=== PATIENT | female | born 1940 | race Caucasian/White ===

== ENCOUNTER → 2016-11-02 | Outpatient (CLI) | payer MEDICARE, BC ==
[~2016-11-02] MED LIST: SODIUM CHLORIDE 0.9% 250 ML in EMPTY BAG 1 BAG IV PRN; SODIUM CHLORIDE 0.9% 500 ML in EMPTY BAG 1 BAG IV PRN
[2016-11-02 10:58] VITALS: TEMP 97.5
[2016-11-02 13:05] VITALS: BP 111/64; PULSE 64; RESP 16
== END ==
LOC: PROCWHC3 10:42
PROVIDERS: ATTEND Internal Medicine Rheumatology
DX: Z51.11 Encounter for antineoplastic chemotherapy (principal); M05.79 Rheumatoid arthritis with rheumatoid factor of multiple sites without organ or systems involvement; Z88.5 Allergy status to narcotic agent
CPT/HCPCS: 96413; 96415; J1745

== ENCOUNTER → 2016-11-30 | Outpatient (CLI) | payer MEDICARE, BC ==
[2016-11-30 11:12] VITALS: RESP 16; TEMP 97.6
[2016-11-30 11:49] LABS: Basophils # (A) 0.1 k/uL (0-0.2); Basophils % (A) 1 %; CH 31.2; CHCM 33.6; Eosinophils # (A) 0.2 k/uL (0-0.7); Eosinophils % (A) 4 %; HCT 45.9 % (34.0-46.0); HGB 15.3 gm/dL (11.4-16.0); Luc # (Auto) 0.17; Luc % (Auto) 3; Lymphocytes # (A) 2.5 k/uL (1.0-4.8); Lymphocytes % (A) 45 %; MCH 31.1 pg (25.0-35.0); MCHC 33.2 g/dL (31.0-37.0); MCV 93.5 fL (80.0-100.0); Mean Platelet Volume 8.1; Monocytes # (A) 0.5 k/uL (0-1.0); Monocytes % (A) 9 %; Neutrophils # (A) 2.2 k/uL (1.3-7.7); Neutrophils % (A) 38 %; RBC 4.91 m/uL (3.80-5.40); RDW 15.8 % (11.5-15.5); WBC 5.7 k/uL (3.8-10.6); WBC (Perox) 5.36
[2016-11-30 11:57] LABS: ALT 29 U/L (9-52); AST 32 U/L (14-36); Blood Urea Nitrogen 19 mg/dL (7-17); Creatine Kinase 125 U/L (30-135)
[2016-11-30 12:13] VITALS: BP 144/66; PULSE 80
[2016-11-30 14:41] LABS: Erythrocyte Sedimentation Rate 1 mm/hr (0-20)
== END | disposition home or self-care (01) ==
LOC: PROCWHC3 09:55
PROVIDERS: ATTEND Internal Medicine Rheumatology
DX: M05.79 Rheumatoid arthritis with rheumatoid factor of multiple sites without organ or systems involvement (principal)
CPT/HCPCS: 85652; 82550; 84450; 84460; 84520; 85025; 82306; 83970; 96413; 96415; 36415; J1745

== ENCOUNTER → 2017-01-02 | Outpatient (CLI) | payer MEDICARE, BC ==
[~2017-01-02] MED LIST changes: +INFLIXIMAB-DYYB 400 MG in SODIUM CHLORIDE 0.9% 250 ML IV NR; -SODIUM CHLORIDE 0.9% 250 ML in EMPTY BAG 1 BAG IV PRN
[2017-01-02 12:44] VITALS: RESP 16; TEMP 98.2
[2017-01-02 14:18] VITALS: BP 174/69; PULSE 61
== END ==
LOC: PROCWHC3 12:16
PROVIDERS: ATTEND Internal Medicine Rheumatology
DX: Z51.11 Encounter for antineoplastic chemotherapy (principal); M05.79 Rheumatoid arthritis with rheumatoid factor of multiple sites without organ or systems involvement; Z88.5 Allergy status to narcotic agent
CPT/HCPCS: 96413; 96415; Q5102

== ENCOUNTER → 2017-05-15 | Outpatient (CLI) | payer MEDICARE, BC ==
[2017-05-15 11:15] LABS: HCT 45.1 % (34.0-46.0); HGB 14.7 gm/dL (11.4-16.0); MCH 31.2 pg (25.0-35.0); MCHC 32.6 g/dL (31.0-37.0); MCV 95.6 fL (80.0-100.0); Mean Platelet Volume 7.6; Platelet Count 202 k/uL (150-450); RBC 4.71 m/uL (3.80-5.40); RDW 15.5 % (11.5-15.5); WBC 7.8 k/uL (3.8-10.6)
[2017-05-15 11:27] LABS: Anion Gap 9 mmol/L; Blood Urea Nitrogen 21 mg/dL (7-17); Carbon Dioxide 29 mmol/L (22-30); Chloride 103 mmol/L (98-107); Potassium 5.5 mmol/L (3.5-5.1); Sodium 141 mmol/L (137-145)
== END | disposition home or self-care (01) ==
LOC: LABWHC1 10:23
PROVIDERS: ATTEND Internal Medicine Interventional Cardiology
DX: Z01.812 Encounter for preprocedural laboratory examination (principal); I65.21 Occlusion and stenosis of right carotid artery
CPT/HCPCS: 36415; 80051; 82565; 84520; 85027

== ENCOUNTER 2017-05-23 07:30 | Inpatient (IN) | payer MEDICARE, BC ==
[2017-05-14 15:42] VITALS: BMI 24.5
[~2017-05-23 07:30] MED LIST changes: +ALPRAZolam 0.25 MG TAB PO PRN; +ALPRAZolam 0.5 MG TAB PO PRN; +ASPIRIN 325 MG TAB PO STA; +CLOPIDOGREL 75 MG TAB PO STA; -INFLIXIMAB-DYYB 400 MG in SODIUM CHLORIDE 0.9% 250 ML IV NR; +NITROGLYCERIN SL TABS 0.4 MG TAB SUBLINGUAL PRN; -SODIUM CHLORIDE 0.9% 500 ML in EMPTY BAG 1 BAG IV PRN
[2017-05-23] MEDS ORDERED: SODIUM CHLORIDE 0.9% 1,000 ML in EMPTY BAG 1 BAG IV ONE (08:30)
[2017-05-23] MEDS ORDERED: SODIUM CHLORIDE 0.9% 1,000 ML IV ONE (09:00)
[2017-05-23] MEDS ORDERED: LIDOCAINE 2% INJ 20 MG/ML SQ ONE ×2 (11:56→11:58)
[2017-05-23] MEDS ORDERED: HEPARIN SODIUM 1,000 UN/ML (10ML VL) IV ONE (12:08)
[2017-05-23] MEDS ORDERED: NITROGLYCERIN 1000MCG/10ML SYRINGE INTRAARTER ONE (13:07)
[2017-05-23] MEDS ORDERED: CLOPIDOGREL 75 MG TAB PO ONE (13:17)
[2017-05-23] MEDS ORDERED: IODIXANOL 320 MG/ML 100 ML INTRAARTER ONE (13:17)
[2017-05-23] MEDS ORDERED: ATROPINE SULFATE 0.1 MG/ML 10ML SYRINGE IV PRN (13:29)
[2017-05-23] MEDS ORDERED: MAG HYDROX/AL HYDROX/SIMETH 30 ML CUP PO PRN (13:29)
[2017-05-23] MEDS ORDERED: RX INFO: IV CONTRAST WAS GIVEN 1 EACH MISC MISCELLANE PRN (13:29)
[2017-05-23] MEDS ORDERED: SODIUM CHLORIDE 0.9% 1,000 ML IV SCH (13:30)
[2017-05-23 14:41] LABS: Glucose,Whole Blood 106 mg/dL (75-99)
[2017-05-23] MEDS ORDERED: ATORVASTATIN 40 MG TAB PO SCH (21:00)
--- NOTE | 2017-05-23 21:22 | LTR ---
May 23, [address] Bazan: Ms. Sylvia Abernathy underwent successful stenting of the right internal carotid artery with a good angiographic result and without any complication. I want to thank you for allowing me to participate in her care and please do not hesitate to call if you have any question or concern. MMODL / IJN: [id number] /
[2017-05-24 04:45] LABS: Anisocytosis Slight; Basophils # (A) 0.1 k/uL (0-0.2); Basophils % (A) 1 %; Eosinophils # (A) 0.3 k/uL (0-0.7); Eosinophils % (A) 4 %; HCT 38.1 % (34.0-46.0); HGB 13.1 gm/dL (11.4-16.0); Lymphocytes # (A) 2.3 k/uL (1.0-4.8); Lymphocytes % (A) 30 %; MCH 32.1 pg (25.0-35.0); MCHC 34.4 g/dL (31.0-37.0); MCV 93.4 fL (80.0-100.0); Mean Platelet Volume 8.1; Monocytes # (A) 0.6 k/uL (0-1.0); Monocytes % (A) 8 %; Neutrophils # (A) 4.3 k/uL (1.3-7.7); Neutrophils % (A) 56 %; Platelet Count 144 k/uL (150-450); RBC 4.08 m/uL (3.80-5.40); RDW 16.6 % (11.5-15.5); WBC 7.8 k/uL (3.8-10.6)
[2017-05-24 05:08] LABS: Anion Gap 9 mmol/L; Blood Urea Nitrogen 17 mg/dL (7-17); Calcium 9.5 mg/dL (8.4-10.2); Carbon Dioxide 22 mmol/L (22-30); Chloride 107 mmol/L (98-107); Glucose 107 mg/dL (74-99); Potassium 4.3 mmol/L (3.5-5.1); Sodium 138 mmol/L (137-145)
--- NOTE | 2017-05-24 05:47 | AN ---
ANGIOGRAPHY REPORT CAROTID STENT DATE OF SERVICE: 05/23/2017 PERFORMING PHYSICIAN: Irvin Hammonds MD, digital designer. PROCEDURE PERFORMED: 1. An aortic arch angiogram. 2. Selective right common and right internal carotid artery angiogram. 3. Intracranial angiogram. 4. Successful stenting of the right internal carotid artery using 8-6 x 30 mm Xact stent with good angiographic results with adjunctive use of NAV6 distal protection device. INDICATION: This is a pleasant 76-year-old female patient who sees Dr. Long Mc and sees Dr. Bazan as an outpatient who was diagnosed recently by Dr. 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 She was brought today to undergo a carotid angiogram and right carotid stenting. APPROACH: Right common femoral artery. COMPLICATION: None. LEVEL OF SEDATION: The procedure was performed without any conscious sedation. PROCEDURE DESCRIPTION: After obtaining an informed consent, the patient was brought to cardiac laborer starch factory. The right common femoral artery was cannulated using micropuncture technique and the micropuncture wire passed easily. Then I placed a 6-Norwegian sheath in the right common femoral artery. After that, I did an aortic arch angiogram using 5-Norwegian pigtail catheter. Then I did selective right common and right internal carotid artery angiogram using a JB2 catheter. After that I did intervene on the right carotid artery, please see a separate paragraph for that. SELECTIVE PERIPHERAL ANGIOGRAM: 1. The aortic arch is a type 2 aortic arch with a calcified arch without any aneurysmal dilatation or dissection. 2. The right carotid system: The right common carotid artery appeared to have severe disease by the bifurcation into internal and external and the disease is involving the internal carotid artery and seems to be in the range of 80% to 90%. RIGHT CAROTID STENTING: Anticoagulation was initiated using heparin. Subsequently I did engage in the right common carotid artery using a Shuttle sheath, which was a 6-Norwegian Shuttle sheath. After that, I did deploy the distal protection device. After deploying the distal protection device, I did predilatation of the right internal carotid artery lesion using a 4.0 mm x 20 mm balloon. Subsequently, I deployed 8-6 x 30 mm Xact self- expandable stent and I postdilated using 5 x 20 mm balloon. The following angiogram showed good angiographic results. The procedure was completed without any complication. After that, I did exchange my Shuttle sheath into 6-Norwegian 11 cm sheath. The whole procedure was performed without any complication. POSTPROCEDURE MANAGEMENT: 1. Dual anti-platelet therapy. 2. Risk factors modifications. 3. Follow up with the patient. GUILLERMO / DREN: [id number] /
[2017-05-24] MEDS ORDERED: ASPIRIN 325 MG TAB PO SCH (09:00)
[2017-05-24 09:28] VITALS: TEMP 98.3
[2017-05-24] MEDS ORDERED: CLOPIDOGREL 75 MG TAB PO SCH (12:00)
[2017-05-24 13:34] VITALS: BP 135/50; PULSE 73; RESP 22
--- NOTE | 2017-05-25 07:55 | DS ---
DISCHARGE SUMMARY DATE OF ADMISSION: May 23, 2017 DATE OF DISCHARGE: May 24, 2017 BRIEF HISTORY: This is a pleasant 76-year-old female patient who sees Dr. González Mc in the office as an outpatient, was admitted to the hospital yesterday and underwent successful stenting of the right internal carotid artery with good angiographic results and without any complication. The procedure was performed from the right groin. The patient was seen and evaluated this morning. She seems to be asymptomatic. She denies having any chest pain or discomfort. The right groin is soft and nontender and without any bruises. The patient is going to be discharged home on dual anti-platelet therapy and statin and I will follow up with the patient in the office as an outpatient. MMODL / IJN: [id number] /
--- NOTE | 2017-05-25 08:23 | IR ---
Fluoroscopy HISTORY: Carotid stenosis 23.8 minutes fluoroscopy time supplied to the referring clinician. 229 intraoperative C-arm images d ocument the procedure. See dictated report from cardiology.
== END 2017-05-24 15:00 | disposition home or self-care (01) | DRG 36 ==
LOC: EDSTATUS 07:30 → 2ORMAIN 08:07 → 6ICU 13:58
PROVIDERS: ADMIT Internal Medicine Interventional Cardiology; ATTEND Internal Medicine Interventional Cardiology
PROC: 037K3DZ Dilation of Right Internal Carotid Artery with Intraluminal Device, Percutaneous Approach (ICD-10-PCS; principal; 2017-05-23 11:10)
DX: I65.21 Occlusion and stenosis of right carotid artery (principal); M06.9 Rheumatoid arthritis, unspecified; E78.5 Hyperlipidemia, unspecified; I10 Essential (primary) hypertension; Z79.82 Long term (current) use of aspirin; Z79.899 Other long term (current) drug therapy; Z87.891 Personal history of nicotine dependence
CPT/HCPCS: 37215; 80048; 85025

== ENCOUNTER 2018-03-11 09:04 | Emergency (ER) | payer MEDICARE, BC ==
[2018-03-11 09:09] VITALS: RESP 18; TEMP 98.2
--- NOTE | 2018-03-11 09:49 | XR ---
Right knee HISTORY: Pain 3 views of the right knee Bone mineralization is mildly reduced. Marginal spurring present in the medial compartment. Alignment and joint spaces relatively maintained. There are vascular calcifications. Postop change noted to th e proximal right femur. Suprapatellar increased density compatible joint effusion. IMPRESSION: Osteoarthritis.
--- NOTE | 2018-03-11 10:22 | US ---
EXAMINATION TYPE: US venous doppler duplex LE RT DATE OF EXAM: 03/11/2018 9:22 AM COMPARISON: NONE CLINICAL HISTORY: Pain. Right knee pain. No redness or swelling. On baby aspirin. SIDE PERFORMED: Right TECHNIQUE: The lower extremity deep venous system is examined utilizing real time linear array sonog cecily with graded compression, doppler sonography and color-flow sonography. VESSELS IMAGED: External Iliac Vein (EIV) Common Femoral Vein Deep Femoral Vein Greater Saphenous Vein * Femoral Vein Popliteal Vein Small Saphenous Vein * Proximal Calf Veins (* superficial vessels) Right Leg: Negative for DVT There is normal flow, compressibility, vascular waveforms. IMPRESSION: No evident deep venous thrombosis at or above the right knee
[2018-03-11] MEDS ORDERED: traMADol 50 MG TAB PO STA (10:54)
--- NOTE | 2018-03-11 10:58 | ED ---
General Adult HPI - General Source: patient, RN notes reviewed Mode of arrival: wheelchair Limitations: no limitations <Thomas Yoon - Last Filed: 03/11/18 10:54> <Jose Rodriguez - Last Filed: 03/11/18 17:04> - General Chief complaint: Extremity Problem,Nontraumatic Stated complaint: knee & leg pain Time Seen by Provider: 03/11/18 09:14 - History of Present Illness Initial comments: Patient's a 77-year-old female presents into the emergency room today with a chief complaint of right-sided knee pain that started yesterday. Patient does admit that she was here at the hospital this with a family member. She states that she was walking up and down the hallways. She states that walking was on her legs. She states that she started having some right knee pain. States started in the back and has radiated to the front. She has mid that is worse with movements. Denies any other injury or trauma. Patient states that she has used her Ultram at home and does give her some relief. States not taken yet this morning. Patient denies any other complaints or symptoms. Patient denies any recent fever, chills, shortness of breath, chest pain, back pain, abdominal pain, nausea or vomiting, numbness or tingling, headaches or visual changes, or any other complaints. (Thomas Yoon) - Related Data Home Medications Medication Instructions Recorded Confirmed Aspirin 81 mg PO DAILY 09/09/13 03/11/18 Folic Acid 1 mg PO DAILY 09/09/13 03/11/18 Metoprolol Tartrate [Lopressor] 25 mg PO HS 09/09/13 03/11/18 Pravastatin Sodium [Pravachol] 40 mg PO HS 09/09/13 03/11/18 Meloxicam [Mobic] 7.5 mg PO HS 01/06/14 03/11/18 Cholecalciferol [Vitamin D3] 1,000 unit PO DAILY 04/13/16 03/11/18 Magnesium Oxide [Mag-Ox] 250 mg PO HS 04/13/16 03/11/18 inFLIXimab [Remicade] 1 injection IVPB Q28D 04/13/16 03/11/18 traMADol HCL [Ultram] 50 mg PO Q6HR PRN 04/13/16 03/11/18 Methotrexate 50mg/2ml 15 mg IM WE 03/11/18 03/11/18 Potassium 99 mg PO DAILY 03/11/18 03/11/18 tiZANidine HCL 2 mg PO TID 03/11/18 03/11/18 Allergies Allergy/AdvReac Type Severity Reaction Status Date / Time codeine AdvReac Nausea Verified 03/11/18 10:18 Review of Systems ROS Other: All systems not noted in ROS Statement are negative. <Thomas Yoon - Last Filed: 03/11/18 10:54> ROS Other: All systems not noted in ROS Statement are negative. <Jose Rodriguez - Last Filed: 03/11/18 17:04> ROS Statement: Those systems with pertinent positive or pertinent negative responses have been documented in the HPI. Past Medical History Past Medical History: Deep Vein Thrombosis (DVT), Hyperlipidemia, Hypertension, Rheumatoid Arthritis (RA) Additional Past Medical History / Comment(s): SEPTIC SHOCK POST KIDNEY STONE, varicose veins, History of Any Multi-Drug Resistant Organisms: None Reported Past Surgical History: Back Surgery, Cholecystectomy, Hysterectomy, Joint Replacement, Orthopedic Surgery Additional Past Surgical History / Comment(s): vein surgery rt leg, sara carpal tunnel, joints removed from feet, rt hand replacement of knuckle, rotator cuff sara shoulders, rt elbow replaced, rt shoulder fx, reverse rotator cuff repair rt shoulder, surgery 11/02/15- rt hip fx, repeat right hip surgery (fall 2016) Past Anesthesia/Blood Transfusion Reactions: Postoperative Nausea & Vomiting ( PONV) Past Psychological History: No Psychological Hx Reported Smoking Status: Former smoker Past Alcohol Use History: None Reported Past Drug Use History: None Reported - Past Family History Mother Family Medical History: No Reported History <Thomas Yoon - Last Filed: 03/11/18 10:54> General Exam Limitations: no limitations <Thomas Yoon - Last Filed: 03/11/18 10:54> <Jose Rodriguez - Last Filed: 03/11/18 17:04> - General Exam Comments Initial Comments: General: The patient is awake and alert, in no distress, and does not appear acutely ill. Cardiovascular: There is a regular rate and rhythm. No murmur, rub or gallop is appreciated. Respiratory: Lungs are clear to auscultation, respirations are non-labored, breath sounds are equal. No wheezes, stridor, rales, or rhonchi. Musculoskeletal: Normal ROM. Patient does have some mild swelling to the right knee. Pain worse with flexion at the knee. Locally tender over the popliteal and anterior aspect. Mild tenderness with homman maneuver. Strength 5/5. Pulses equal bilaterally 2+. Neurological: A&O x 3. CN II-XII intact, There are no obvious motor or sensory deficits. Coordination appears grossly intact. Speech is normal. Skin: Skin is warm and dry and no rashes or lesions are noted. Psychiatric: Cooperative, appropriate mood & affect, normal judgment. (Thomas Yoon) Course <Thomas Yoon - Last Filed: 03/11/18 10:54> <Jose Rodriguez - Last Filed: 03/11/18 17:04> Vital Signs 03/11/18 03/11/18 09:05 11:37 Temperature 98.2 F Pulse Rate 84 68 Respiratory 18 18 Rate Blood Pressure 155/70 139/56 O2 Sat by Pulse 97 98 Oximetry - Reevaluation(s) Reevaluation #1: 03/11/18 17:04 PA supervision: I personally evaluated this patient's case including history and physical and do agree with the assessment and plan. This is unless otherwise indicated. Patient will follow-up with orthopedics. They were department workup was negative for acute findings. (Jose Rodriguez) Medical Decision Making <Thomas Yoon - Last Filed: 03/11/18 10:54> <Jose Rodriguez - Last Filed: 03/11/18 17:04> - Medical Decision Making Patient's ultrasound negative for any evidence of DVT. X-rays reviewed and show arthritic changes. Patient given her Ultram that she typically takes at home. Patient is advised follow-up with orthopedics over the next 2 days. Advised to continue to watch for any signs of infection or any increase or worsen his concerns to return here to the emergency room. (Thomas Yoon) Disposition Is patient prescribed a controlled substance at d/c from ED?: No Time of Disposition: 10:57 <Thomas Yoon - Last Filed: 03/11/18 10:54> <Jose Rodriguez - Last Filed: 03/11/18 17:04> Clinical Impression: Knee pain Disposition: HOME SELF-CARE Condition: Good Instructions: Knee Pain (ED) Additional Instructions: Please use medication as discussed. Please follow-up with orthopedic/family doctor in the next 2 days of symptoms have not improved. Please return to emergency room if the symptoms increase or worsen or for any other concerns. Referrals: Barry Bazan MD [Primary Care Provider] - 1-2 days
[2018-03-11 11:38] VITALS: BP 139/56; PULSE 68
== END 2018-03-11 11:37 | disposition home or self-care (01) ==
LOC: EC 09:04
DX: M25.561 Pain in right knee (principal); E78.5 Hyperlipidemia, unspecified; I10 Essential (primary) hypertension; M06.9 Rheumatoid arthritis, unspecified; Z86.718 Personal history of other venous thrombosis and embolism; Z98.890 Other specified postprocedural states; Z96.621 Presence of right artificial elbow joint; Z96.691 Finger-joint replacement of right hand; Z89.431 Acquired absence of right foot; Z89.432 Acquired absence of left foot; Z87.891 Personal history of nicotine dependence; Z79.82 Long term (current) use of aspirin; Z79.1 Long term (current) use of non-steroidal anti-inflammatories (NSAID); Z79.899 Other long term (current) drug therapy; Z88.5 Allergy status to narcotic agent
CPT/HCPCS: 99284

== ENCOUNTER → 2018-03-12 | Outpatient (CLI) | payer MEDICARE, BC ==
[2018-03-12 13:34] LABS: Anisocytosis Slight; HCT 39.8 % (34.0-46.0); HGB 12.8 gm/dL (11.4-16.0); MCH 29.8 pg (25.0-35.0); MCHC 32.2 g/dL (31.0-37.0); MCV 92.5 fL (80.0-100.0); Mean Platelet Volume 7.7; Platelet Count 180 k/uL (150-450); RBC 4.31 m/uL (3.80-5.40); RDW 17.4 % (11.5-15.5); WBC 7.9 k/uL (3.8-10.6)
[2018-03-12 19:42] LABS: Anion Gap 6.2 mmol/L (4.00-12.00); Carbon Dioxide 25.8 mmol/L (21.6-31.8); Potassium 4.6 mmol/L (3.5-5.5)
== END | disposition home or self-care (01) ==
LOC: LABPAT 12:14
PROVIDERS: ATTEND Internal Medicine Interventional Cardiology
DX: Z01.812 Encounter for preprocedural laboratory examination (principal); I10 Essential (primary) hypertension; E78.1 Pure hyperglyceridemia; I70.213 Atherosclerosis of native arteries of extremities with intermittent claudication, bilateral legs
CPT/HCPCS: 36415; 80051; 82565; 84520; 85027

== ENCOUNTER → 2018-05-07 | Outpatient (CLI) | payer MEDICARE, BC ==
[2018-05-07 11:48] LABS: Anisocytosis Slight; HCT 40.6 % (34.0-46.0); HGB 13.7 gm/dL (11.4-16.0); MCHC 33.6 g/dL (31.0-37.0); MCV 92.1 fL (80.0-100.0); Mean Platelet Volume 8.1; Platelet Count 203 k/uL (150-450); RBC 4.41 m/uL (3.80-5.40); RDW 16.6 % (11.5-15.5); WBC 5.4 k/uL (3.8-10.6)
[2018-05-07 12:03] LABS: Potassium 4.7 mmol/L (3.5-5.1)
== END | disposition home or self-care (01) ==
LOC: LABPAT 10:49
PROVIDERS: ATTEND Internal Medicine Interventional Cardiology
DX: Z01.812 Encounter for preprocedural laboratory examination (principal); I73.9 Peripheral vascular disease, unspecified
CPT/HCPCS: 36415; 80051; 82565; 84520; 85027

== ENCOUNTER → 2018-06-12 | Outpatient (CLI) | payer MEDICARE, BC ==
[2018-06-12 15:24] LABS: Anisocytosis Slight; HCT 41.9 % (34.0-46.0); HGB 14.1 gm/dL (11.4-16.0); MCH 32.1 pg (25.0-35.0); MCHC 33.6 g/dL (31.0-37.0); MCV 95.5 fL (80.0-100.0); Mean Platelet Volume 7.5; Platelet Count 198 k/uL (150-450); RBC 4.39 m/uL (3.80-5.40); RDW 16.5 % (11.5-15.5); WBC 6.1 k/uL (3.8-10.6)
[2018-06-12 15:30] LABS: Potassium 5.1 mmol/L (3.5-5.1)
== END | disposition home or self-care (01) ==
LOC: LABPAT 14:58
PROVIDERS: ATTEND Internal Medicine Interventional Cardiology
DX: Z01.812 Encounter for preprocedural laboratory examination (principal); I73.9 Peripheral vascular disease, unspecified
CPT/HCPCS: 36415; 80051; 82565; 84520; 85027

== ENCOUNTER 2018-06-26 10:24 | Day surgery (SDC) | payer MEDICARE, BC ==
[~2018-06-26 10:24] MED LIST changes: -ALPRAZolam 0.5 MG TAB PO PRN; -CLOPIDOGREL 75 MG TAB PO STA; -NITROGLYCERIN SL TABS 0.4 MG TAB SUBLINGUAL PRN; +SODIUM CHLORIDE 0.9% 1,000 ML in EMPTY BAG 1 BAG IV ONE
[2018-06-26 10:55] LABS: Basophils # (A) 0.1 k/uL (0-0.2); Basophils % (A) 1 %; Eosinophils # (A) 0.3 k/uL (0-0.7); Eosinophils % (A) 5 %; HCT 46.2 % (34.0-46.0); HGB 15.7 gm/dL (11.4-16.0); Lymphocytes # (A) 2.3 k/uL (1.0-4.8); Lymphocytes % (A) 41 %; MCH 31.6 pg (25.0-35.0); Mean Platelet Volume 7.8; Monocytes # (A) 0.5 k/uL (0-1.0); Monocytes % (A) 9 %; Neutrophils # (A) 2.4 k/uL (1.3-7.7); Neutrophils % (A) 42 %; Platelet Count 189 k/uL (150-450); RBC 4.97 m/uL (3.80-5.40); RDW 15.2 % (11.5-15.5); WBC 5.8 k/uL (3.8-10.6)
[2018-06-26 11:06] LABS: Calcium 9.7 mg/dL (8.4-10.2)
[2018-06-26 11:11] LABS: Potassium 5.4 mmol/L (3.5-5.1)
[2018-06-26] MEDS ORDERED: MIDAZOLAM 2 MG/2 ML VIAL IV ONE (13:15)
[2018-06-26] MEDS: fentaNYL (PF) 50 MCG/ML 2 ML AMP IV ONE ×2 (13:15→14:03)
[2018-06-26] MEDS ORDERED: LIDOCAINE 1% INJ 10MG/ML (20 ML MDV) SQ ONE (13:19)
[2018-06-26] MEDS ORDERED: hydrALAZINE HCL 20 MG/ML 1 ML VIAL IV ONE (14:35)
[2018-06-26] MEDS ORDERED: METOPROLOL TARTRATE 5 MG/5 ML VIAL IVP ONE (14:36)
[2018-06-26] MEDS ORDERED: NITROGLYCERIN 1000MCG/10ML SYRINGE INTRAARTER ONE (14:36)
[2018-06-26] MEDS ORDERED: niCARdipine Syringe (1,000 mcg/10 mL) INTRAARTER ONE (14:36)
[2018-06-26] MEDS ORDERED: IOPAMIDOL-250 100ML BTL INTRAARTER ONE (14:37)
[2018-06-26] MEDS ORDERED: traMADol 50 MG TAB PO PRN (14:49)
[2018-06-26] MEDS ORDERED: CLOPIDOGREL 75 MG TAB PO ONE (14:58)
[2018-06-26] MEDS ORDERED: INFLIXIMAB-DYYB 100 MG VIAL IV SCH (15:00)
[2018-06-26] MEDS ORDERED: SODIUM CHLORIDE 0.9% 1,000 ML IV SCH (15:00)
[2018-06-26 17:44] VITALS: BMI 23.5
[2018-06-26] MEDS ORDERED: METHOTREXATE SODIUM 2.5 MG TAB PO SCH (18:00)
[2018-06-26] MEDS ORDERED: HYDROmorphone 0.5 MG/0.5 ML SYRINGE IVP STA (18:39)
--- NOTE | 2018-06-26 19:06 | PTCA ---
PERCUTANEOUSTRANS CORORONARY ANGIOGRAPHY DATE OF SERVICE: 06/26/2018 PERFORMING PHYSICIAN: Irvin Hammonds MD, food science technician. PROCEDURES PERFORMED: 1. Selective left ndbpw-ovt-owhu angiogram. 2. Selective left popliteal/SFA angiogram. 3. Successful crossing chronic total occlusion of the left SFA. 4. Atherectomy of the left SFA using the orbital atherectomy device from [employer] & other things you bake with 1.5 mm Sherie which was solid. 5. Balloon angioplasty of the left SFA. 6. Successful stenting of the left SFA using 2 stents of of 6.0 x 140 Zilver PTX drug- coated stent with excellent angiographic results and reduction of stenosis from 100% to 0%. 7. Selective right common femoral artery angiogram. INDICATION: This is a pleasant 77-year-old female patient who sees Dr. González Mc in the office as an outpatient who was experiencing bilateral lower extremity intermittent claudication and underwent a peripheral angiogram that showed occluded left SFA. She was brought today to undergo POCKETS AND PIECES NECKTIE OPERATOR of the left SFA. APPROACH: Right common femoral artery. COMPLICATIONS: None. LEVEL OF SEDATION: Moderate, with sedation length of 83 minutes. PROCEDURE DESCRIPTION: After obtaining informed consent, the patient was brought to the cardiac laboratory specialist. The right common femoral artery was cannulated using micropuncture technique. The micropuncture wire passed easily. Then I placed a 6-Bahamian sheath 11 cm in the right common femoral artery. Subsequently I did select the left SFA using a 5-Bahamian RIM catheter with 0.035 [place] Advantage wire. After that I did exchange my 11 cm 6-Bahamian sheath for a 55 cm 6- Bahamian Raabe sheath using the 0.035 [place] Advantage wire. I did have to use the multipurpose catheter instead of the dilator of the sheath to push the sheath to the left common femoral artery. After that anticoagulation was initiated using heparin and the patient was given weight- based heparin with continuous ACT monitoring throughout the procedure. Subsequently I did selective left xfemq-ukd-upzp angiogram which revealed 3-vessel runoff with a sluggish flow and selective left popliteal and left SFA angiogram which revealed occluded left SFA on the long segment extending from the proximal to the distal portion. After that I did cross the chronic total occlusion in the left SFA using 0.018 wire. After that I did an atherectomy of the left SFA using the orbital atherectomy device from [employer] & other things you bake using 1.5 mm solid Sherie. After that I did balloon angioplasty using 4.0 mm balloon. After that I took an angiogram which revealed dissection which seemed to be flow-limiting in the distal portion. This was confirmed by IVUS. Because of that, I decided to stent the left SFA. I did deploy 2 stents in the SFA, one in the distal and one in the proximal portion with about 2 mm overlap between the 3 stents. After that I post dilated the stent using 5 mm balloon. The following angiogram showed excellent angiographic results and the procedure was completed without any complication. After that I did a completion picture which revealed excellent bxctm-gao-alue flow of the left SFA. Also there was excellent qcbyv-kjx-rjsc angiogram. The procedure was completed at that point. After that I did exchange my long sheath for a short sheath using an 0.035 [place] Advantage wire. The procedure was completed without any complication. POST-PROCEDURE MANAGEMENT: 1. Dual anti-platelet therapy. 2. Risk factor modifications. 3. Followup with the patient. MMODL / IJN: [id number] /
--- NOTE | 2018-06-26 19:09 | LTR ---
DATE OF SERVICE: 06/26/[address] Bazan: Ms. Sylvia Abernathy underwent successful balloon angioplasty and stenting of the left femoral artery with good angiographic results and without any complication. Thank you for allowing us to participate in her care and please do not hesitate to call if you have any question or concerns. MMODL / IJN: [id number] /
[2018-06-26] MEDS ORDERED: PRAVASTATIN SODIUM 40 MG TAB PO SCH (21:00)
[2018-06-26] MEDS ORDERED: ASPIRIN 81 MG PO SCH (21:00)
[2018-06-27 07:47] LABS: Basophils % (A) 1 %; Eosinophils # (A) 0.2 k/uL (0-0.7); Eosinophils % (A) 2 %; HCT 42.1 % (34.0-46.0); HGB 14.3 gm/dL (11.4-16.0); Lymphocytes # (A) 1.7 k/uL (1.0-4.8); Lymphocytes % (A) 21 %; MCH 31.8 pg (25.0-35.0); MCHC 33.9 g/dL (31.0-37.0); MCV 93.7 fL (80.0-100.0); Monocytes # (A) 0.7 k/uL (0-1.0); Monocytes % (A) 8 %; Neutrophils # (A) 5.2 k/uL (1.3-7.7); Neutrophils % (A) 66 %; Platelet Count 153 k/uL (150-450); RDW 15.3 % (11.5-15.5); WBC 7.9 k/uL (3.8-10.6)
--- NOTE | 2018-06-27 07:54 | IR ---
EXAMINATION TYPE: IR stent intravas non coronary DATE OF EXAM: 06/26/2018 CLINICAL HISTORY: Peripheral vascular disease. TECHNIQUE: Fluoroscopy. COMPARISON: None. FINDINGS: Fluoroscopic guidance was provided during lower extremity angiogram with stent placement p rocedure performed by Dr. Hammonds. A total of 29.7 minutes of fluoroscopic time was utilized during the procedure and 21 cine runs are acquired. Please refer to procedure note for further details as I was not present nor performed procedure. IMPRESSION: As Above.
[2018-06-27 08:01] LABS: Potassium 4.6 mmol/L (3.5-5.1)
[2018-06-27 08:02] LABS: Calcium 9.2 mg/dL (8.4-10.2)
[2018-06-27 08:26] VITALS: BP 141/73; PULSE 104; RESP 16; TEMP 98.2
[2018-06-27] MEDS ORDERED: MELOXICAM 7.5 MG TAB PO SCH (09:00)
[2018-06-27] MEDS ORDERED: CLOPIDOGREL 75 MG TAB PO SCH (09:00)
[2018-06-27] MEDS ORDERED: METOPROLOL TARTRATE 25 MG TAB PO SCH (09:00)
--- NOTE | 2018-06-27 11:34 | DS ---
DISCHARGE SUMMARY ADMISSION DATE: 06/26/2018 DISCHARGE DATE: 06/27/2018 BRIEF HISTORY: This is a pleasant 77-year-old female patient who sees Dr. González Mc in the office as an outpatient who was admitted to the hospital yesterday and underwent successful crossing chronic total occlusion of the left SFA along with successful atherectomy, balloon angioplasty, and stenting of the left SFA with good angiographic results and without any complication from the right groin approach. On follow up with her today, she is doing good. The right groin is soft and nontender and without any bruises. The patient is going to be discharged home on dual anti- platelet therapy. MMODL / IJN: [id number] /
[2018-06-27] MEDS ORDERED: FOLIC ACID 1 MG TAB PO SCH (12:00)
[2018-06-27] MEDS ORDERED: CHOLECALCIFEROL 1,000 UNIT TAB PO SCH (12:00)
== END 2018-06-27 11:25 | disposition home or self-care (01) ==
LOC: CATHCVL 10:24 → 3SCARD 17:02 → CATHCVL 06-27 11:25
PROVIDERS: ATTEND Internal Medicine Interventional Cardiology
DX: I70.223 Atherosclerosis of native arteries of extremities with rest pain, bilateral legs (principal); I70.92 Chronic total occlusion of artery of the extremities; I10 Essential (primary) hypertension; E78.5 Hyperlipidemia, unspecified; E78.00 Pure hypercholesterolemia, unspecified; M06.9 Rheumatoid arthritis, unspecified; Z72.0 Tobacco use; Z79.899 Other long term (current) drug therapy; Z79.82 Long term (current) use of aspirin; Z88.5 Allergy status to narcotic agent; Z79.1 Long term (current) use of non-steroidal anti-inflammatories (NSAID)
CPT/HCPCS: 37227; 37252; 85347; 80048 ×2; 85025 ×2; C1894 ×2; C1725 ×2; C1769 ×5; C1753; C1874; J2250; J0360; J2001; J8610; J3010; J1644; Q9966; 37225

== ENCOUNTER → 2018-08-13 | Outpatient (CLI) | payer MEDICARE, BC ==
--- NOTE | 2018-08-13 17:02 | CT ---
EXAMINATION: CT brain wo con DATE AND TIME: 08/13/2018 4:51 PM CLINICAL INDICATION: PHH; S06.5X0A Subdural hematoma TECHNIQUE: Standard departmental protocol.; 1082; COMPARISON: None. FINDINGS: The calvarium is intact. There is no intracranial hemorrhage. There is no intracranial mass or mass e ffect. No definite new intra-axial attenuation defect. Bilateral segovia radiata and centrum semiovale nonspecific low attenuation is noted. The paranasal sinuses, middle ear cavities, and mastoid sinus air cells are clear. The orbits are unremarkable. IMPRESSION: No definite acute process.
== END ==
LOC: RADCTMAIN 16:29
PROVIDERS: ATTEND Physical Medicine & Rehabilitation
DX: S06.5X0A Traumatic subdural hemorrhage without loss of consciousness, initial encounter (principal)
CPT/HCPCS: 70450

== ENCOUNTER → 2019-02-19 | Outpatient (CLI) | payer MEDICARE, BC ==
[2019-02-19 09:47] LABS: Anisocytosis Slight; HCT 34.2 % (34.0-46.0); HGB 10.9 gm/dL (11.4-16.0); Hypochromasia Moderate; MCH 29.1 pg (25.0-35.0); Mean Platelet Volume 6.5; Platelet Count 285 k/uL (150-450); RBC 3.75 m/uL (3.80-5.40); WBC 5.3 k/uL (3.8-10.6)
[2019-02-19 10:04] LABS: Potassium 5.7 mmol/L (3.5-5.1)
== END | disposition home or self-care (01) ==
LOC: LABPAT 08:38
PROVIDERS: ATTEND Internal Medicine Interventional Cardiology
DX: Z01.812 Encounter for preprocedural laboratory examination (principal); I73.9 Peripheral vascular disease, unspecified
CPT/HCPCS: 36415; 80051; 82565; 84520; 85027

== ENCOUNTER 2019-02-26 06:43 | Day surgery (SDC) | payer MEDICARE, BC ==
[~2019-02-26 06:43] MED LIST changes: -ASPIRIN 325 MG TAB PO STA
[2019-02-26] MEDS ORDERED: ASPIRIN 325 MG TAB PO ONE (07:00)
[2019-02-26] MEDS ORDERED: SODIUM CHLORIDE 0.9% 1,000 ML IV ONE (07:43)
[2019-02-26 07:50] LABS: Calcium 9.7 mg/dL (8.4-10.2); Potassium 4.6 mmol/L (3.5-5.1)
[2019-02-26] MEDS ORDERED: MIDAZOLAM 2 MG/2 ML VIAL IVP ONE (09:10)
[2019-02-26] MEDS ORDERED: LIDOCAINE 1% INJ 10MG/ML (20 ML MDV) SQ ONE (09:13)
[2019-02-26] MEDS ORDERED: HEPARIN SODIUM 1,000 UN/ML (10ML VL) IV ONE (09:17)
[2019-02-26] MEDS: NITROGLYCERIN 1000MCG/10ML SYRINGE INTRAARTER ONE ×2 (10:02→10:22)
[2019-02-26] MEDS ORDERED: niCARdipine Syringe (1,000 mcg/10 mL) INTRAARTER ONE (10:02)
[2019-02-26] MEDS ORDERED: IOPAMIDOL-250 100ML BTL INTRAARTER ONE ×2 (10:23→10:25)
[2019-02-26] MEDS ORDERED: traMADol 50 MG TAB PO PRN (10:39)
[2019-02-26] MEDS ORDERED: CLOPIDOGREL 75 MG TAB PO ONE (10:40)
[2019-02-26] MEDS ORDERED: SODIUM CHLORIDE 0.9% 1,000 ML IV SCH (10:45)
[2019-02-26] MEDS ORDERED: ORENCIA IV SCH (10:45)
--- NOTE | 2019-02-26 10:56 | P.PCN ---
Date of Procedure: 02/26/19 Operative Findings: PERCUTANEOUS PERIPHERAL INTERVENTION Performing physician: Irvin Hammonds M.D. Procedure performed: 1. Bilateral lower extremities angiogram 2. Intravascular ultrasound of the right popliteal and right SFA 3. An atherectomy of the right popliteal and right SFA using the Hawk-1 device with the extraction of significant plaque 4. Successful balloon angioplasty of the right popliteal using 4 mm x 40 mm Impact drug-coated balloon with an excellent angiographic results 5. Balloon angioplasty of the right SFA with residual flow-limiting dissection 6. Successful stenting of the right SFA using 6 mm x 60 mm the silver PTX drug- coated stent with an excellent angiographic results Indication: This is a pleasant 78-year-old female patient who sees Dr. Mc in the office as an outpatient with history of peripheral arterial disease and prior angioplasty in the past who continues to have bilateral lower extremities intermittent claudication, Monster class IIa. On examination she did not have any pedal pulses. Because she continues to have symptoms of intermittent claudication with, proceeding with angiogram as well as possible intervention Approach: Left common femoral artery Complication: None Level of sedation: Moderate with a sedation length of 79 minutes Procedure description: After obtaining an informed consent the patient was brought to the cardiac laboratory veterinarian. The left common femoral artery was cannulated using micropuncture technique under ultrasound guidance, the micropuncture wire passed easily then I placed an 11 cm 6-Tongan sheath in the left common femoral artery. Subsequently I did selective the right SFA using 035 glide advantage wire with a backup support of 5-Tongan rim catheter. After that I did exchange my 11 cm 6-Tongan sheath into 70 cm 6-Tongan sheath using the 035 glide advantage wire. The tip of the long sheath was positioned at the level of the right common femoral artery. Subsequently I did do right lower extremity angiogram which revealed intermediate to severe disease involving the right popliteal and severe disease involving the distal right SFA. Because of that I did intravascular ultrasound which revealed severe disease involving the right popliteal and critical disease involving the right SFA. I did that after I wire the SFA using an 014 hydro-ST wire. I did after that atherectomy of the right popliteal and right SFA using the Hawk 1 device. I was able to extract significant amount of that from both the popliteal and SFA on the right side. After that I did balloon angioplasty of both arteries using 4 mm balloon. The following angiogram showed good angiographic results and because of that I decided to pursue with balloon angioplasty using drug-coated balloon. The right popliteal was performed using 4 mm drug-coated balloon with the following angiogram showing excellent angiographic results. The right SFA was performed using 5 mm drug-coated balloon with the following angiogram showing dissection was not sealed enough with ballooning of the artery again. Because of that I decided to stent that. I deployed a 6 mm x 60 mm Zilver PTX drug-coated stent where the stent was positioned under fluoroscopy guidance and deployed under fluoroscopy guidance as well. I postdilated the stent using 5 mm balloon with the following angiogram showing grade angiographic results. At that point I did exchange my long sheath into short sheath using 035 glide advantage wire. I placed an 11 cm 6-Tongan sheath in the left common femoral artery before I did left lower extremity angiogram. The left lower extremities angiogram revealed critical disease involving the SFA on the left side appeared to be in the range of 99.9%. Postprocedure management: 1. Dual antiplatelet therapy 2. BINGO MANAGER of the left SFA 3. Follow-up with the patient
[2019-02-26] MEDS ORDERED: ATROPINE SULFATE 0.1 MG/ML 10ML SYRINGE ONE (14:27)
[2019-02-26] MEDS ORDERED: hydrALAZINE HCL 20 MG/ML 1 ML VIAL IVP STA (15:06)
[2019-02-26] MEDS ORDERED: HYDROmorphone 1 MG/ML 1 ML SYRINGE IVP PRN (16:32)
[2019-02-26 16:52] VITALS: BMI 24.2
[2019-02-26] MEDS ORDERED: PRAVASTATIN SODIUM 40 MG TAB PO SCH (21:00)
[2019-02-26] MEDS ORDERED: ASPIRIN 81 MG PO SCH (21:00)
[2019-02-26] MEDS: MAGNESIUM OXIDE 400 MG TAB PO SCH (21:27)
[2019-02-27 07:02] LABS: Anisocytosis Slight; Basophils % (A) 0 %; Eosinophils # (A) 0.1 k/uL (0-0.7); Eosinophils % (A) 1 %; Hypochromasia Slight; Lymphocytes # (A) 1.1 k/uL (1.0-4.8); Lymphocytes % (A) 17 %; MCH 28.1 pg (25.0-35.0); MCHC 31.5 g/dL (31.0-37.0); MCV 89.4 fL (80.0-100.0); Mean Platelet Volume 7.4; Monocytes # (A) 0.4 k/uL (0-1.0); Monocytes % (A) 6 %; Neutrophils % (A) 74 %; Platelet Count 198 k/uL (150-450); RBC 3.35 m/uL (3.80-5.40); RDW 17.3 % (11.5-15.5); WBC 6.8 k/uL (3.8-10.6)
[2019-02-27 07:08] LABS: HGB 9.4 gm/dL (11.4-16.0)
[2019-02-27 07:31] LABS: Calcium 8.7 mg/dL (8.4-10.2)
[2019-02-27] MEDS: MAGNESIUM OXIDE 400 MG TAB PO SCH (08:11)
[2019-02-27 08:41] VITALS: RESP 20; TEMP 98
[2019-02-27] MEDS ORDERED: METOPROLOL TARTRATE 25 MG TAB PO SCH (09:00)
[2019-02-27] MEDS ORDERED: CHOLECALCIFEROL 1,000 UNIT TAB PO SCH (09:00)
[2019-02-27] MEDS ORDERED: CLOPIDOGREL 75 MG TAB PO SCH (09:00)
[2019-02-27] MEDS ORDERED: FOLIC ACID 1 MG TAB PO SCH (09:00)
[2019-02-27] MEDS ORDERED: MELOXICAM 7.5 MG TAB PO SCH (09:00)
[2019-02-27] MEDS ORDERED: ONDANSETRON 4 MG/2 ML VIAL IVP STA (09:28)
[2019-02-27 11:57] VITALS: BP 126/61; PULSE 58
--- NOTE | 2019-02-27 13:16 | P.DS ---
Providers Date of admission: February 262018 Attending physician: Irvin Hammonds Primary care physician: Barry Tucker [facility] Course: This is a 78-year-old female patient who sees Dr. Mc in the office with history of peripheral arterial disease and prior revascularization was experiencing bilateral lower extremities intermittent claudication and underwent a peripheral angiogram which revealed severe bilateral fem-pop disease. She underwent yesterday successful stenting of the right SFA. The procedure was performed from the left groin. She ended having some hematoma after the procedure but that was reduced and resolved completely. She still have some bruises but no discrete hematoma. She is going to be discharged home today on dual antiplatelet therapy along with a statin and I'll follow-up with the patient next week in the office for a WATER TESTER of the left SFA. Patient Condition at Discharge: Stable Plan - Discharge Summary Discharge Rx Participant: Yes New Discharge Prescriptions: No Action Aspirin 81 mg PO HS Metoprolol Tartrate [Lopressor] 25 mg PO DAILY Folic Acid 1 mg PO DAILY Pravastatin Sodium [Pravachol] 40 mg PO HS Meloxicam [Mobic] 7.5 mg PO DAILY Cholecalciferol [Vitamin D3 (25 Mcg = 1000 Iu)] 1,000 unit PO DAILY traMADol HCL [Ultram] 50 mg PO Q6HR PRN PRN Reason: Pain Methotrexate 50mg/2ml 15 mg PO WE Clopidogrel [Plavix] 75 mg PO DAILY #90 tab Orencia (Unkn.Dose) 1 dose IV Q30D Magnesium Oxide [Mag-Ox] 500 mg PO BID Discharge Medication List Aspirin 81 mg PO HS 09/09/13 [History] Folic Acid 1 mg PO DAILY 09/09/13 [History] Metoprolol Tartrate [Lopressor] 25 mg PO DAILY 09/09/13 [History] Pravastatin Sodium [Pravachol] 40 mg PO HS 09/09/13 [History] Meloxicam [Mobic] 7.5 mg PO DAILY 01/06/14 [History] Cholecalciferol [Vitamin D3 (25 Mcg = 1000 Iu)] 1,000 unit PO DAILY 04/13/16 [History] traMADol HCL [Ultram] 50 mg PO Q6HR PRN 04/13/16 [History] Methotrexate 50mg/2ml 15 mg PO WE 03/11/18 [History] Clopidogrel [Plavix] 75 mg PO DAILY #90 tab 06/27/18 [Rx] Magnesium Oxide [Mag-Ox] 500 mg PO BID 02/21/19 [History] Orencia (Unkn.Dose) 1 dose IV Q30D 02/21/19 [History] Follow up Appointment(s)/Referral(s): Irvin Hammonds MD [STAFF PHYSICIAN] - 03/03/19 1:15 pm Patient Instructions/Handouts: Heart Healthy Diet (DC), Peripheral Vascular Angioplasty (DC) Activity/Diet/Wound Care/Special Instructions: PERIPHERAL CATHETERIZATION INSTRUCTIONS: 1. Support your puncture site by applying firm, steady pressure whenever you cough, laugh, sneeze or bear down to have a bowel movement (2-day restriction). 2. Watch for any excessive bruising, active bleeding, a firm knot forming under your skin, extreme tenderness and signs of infection (redness, swelling, fever). 3. Shower daily, do not soak puncture in a tub bath, jacuzzi, pool, hernandez etc. for 1 week. This is to prevent risk of infection. 4. Drink plenty of fluids the day of and day after your procedure to flush contrast dye out of your kidneys. 5. Take all medications as directed. Never stop any new medication without your physicians OK. 6. No driving for 2 days after procedure. 7. 10- pound weight lifting restriction for 1 week. 8. Low sodium/low fat diet. 9. Activity limited until follow up appointment with your boat detailer. In case of any problems, please call [facility] @ [phone]. Discharge Disposition: HOME SELF-CARE
--- NOTE | 2019-03-03 15:58 | IR ---
EXAMINATION TYPE: IR stent intravas non coronary DATE OF EXAM: 02/26/2019 COMPARISON: NONE HISTORY: Fluoroscopy time. Fluoroscopy was provided to the referring clinician.
[2019-03-05] MEDS ORDERED: METHOTREXATE SODIUM 2.5 MG TAB PO SCH ×2 (09:00)
== END 2019-02-27 12:29 | disposition home or self-care (01) ==
LOC: CATHCVL 06:43 → 3SCARD 13:19 → CATHCVL 02-27 12:29
PROVIDERS: ATTEND Internal Medicine Interventional Cardiology
DX: I70.211 Atherosclerosis of native arteries of extremities with intermittent claudication, right leg (principal); E78.5 Hyperlipidemia, unspecified; E78.00 Pure hypercholesterolemia, unspecified; Z95.820 Peripheral vascular angioplasty status with implants and grafts; Z87.891 Personal history of nicotine dependence; Z79.1 Long term (current) use of non-steroidal anti-inflammatories (NSAID); Z79.02 Long term (current) use of antithrombotics/antiplatelets; Z79.82 Long term (current) use of aspirin; Z79.899 Other long term (current) drug therapy
CPT/HCPCS: 37227; 85347; 37252; 80048 ×2; 85025; C1894; C1769 ×3; C1714; C1753; C2623; C1874; C1725; J2250; J0360; J2405; J2001; J1644; J1170; Q9966

== ENCOUNTER → 2019-04-05 | Outpatient (CLI) | payer MEDICARE, BC ==
[2019-04-05 10:07] LABS: Anisocytosis Slight; HCT 31.1 % (34.0-46.0); HGB 9.9 gm/dL (11.4-16.0); Hypochromasia Moderate; MCV 87.6 fL (80.0-100.0); Mean Platelet Volume 7.4; Platelet Count 237 k/uL (150-450); Poikilocytosis Slight; RBC 3.55 m/uL (3.80-5.40); WBC 3.1 k/uL (3.8-10.6)
[2019-04-05 10:26] LABS: Potassium 4.8 mmol/L (3.5-5.1)
== END | disposition home or self-care (01) ==
LOC: LABPAT 08:56
PROVIDERS: ATTEND Internal Medicine Interventional Cardiology
DX: Z01.812 Encounter for preprocedural laboratory examination (principal); I70.213 Atherosclerosis of native arteries of extremities with intermittent claudication, bilateral legs
CPT/HCPCS: 36415; 80051; 82565; 84520; 85027

== ENCOUNTER 2019-04-09 07:52 | Day surgery (SDC) | payer MEDICARE, BC ==
[2019-04-07 16:09] VITALS: BMI 24.2
[~2019-04-09 07:52] MED LIST changes: +ASPIRIN 325 MG TAB PO STA
[2019-04-09] MEDS ORDERED: SODIUM CHLORIDE 0.9% 1,000 ML IV ONE (08:10)
[2019-04-09 08:20] VITALS: RESP 18
[2019-04-09 08:53] LABS: Calcium 9.5 mg/dL (8.4-10.2); Potassium 4.4 mmol/L (3.5-5.1)
[2019-04-09] MEDS ORDERED: SODIUM CHLORIDE 0.9% 500 ML 500 ML with niCARdipine 6.25 MG, NITROGLYCERIN-D5W PMX 0.05... IV ONE ×4 (09:25)
[2019-04-09] MEDS ORDERED: MIDAZOLAM 2 MG/2 ML VIAL IV ONE ×2 (10:04→10:55)
[2019-04-09] MEDS ORDERED: LIDOCAINE 1% INJ 10MG/ML (10 ML MDV) SQ ONE (10:05)
[2019-04-09] MEDS ORDERED: HYDROmorphone 1 MG/ML 1 ML SYRINGE IVP ONE ×2 (10:18→10:49)
[2019-04-09] MEDS ORDERED: HEPARIN SODIUM 1,000 UN/ML (10ML VL) IV ONE (10:22)
[2019-04-09] MEDS: NITROGLYCERIN 1000MCG/10ML SYRINGE INTRAARTER ONE ×2 (10:49→11:29)
[2019-04-09] MEDS ORDERED: CLOPIDOGREL 75 MG TAB PO ONE (11:15)
[2019-04-09] MEDS ORDERED: niCARdipine Syringe (1,000 mcg/10 mL) INTRAARTER ONE (11:29)
[2019-04-09] MEDS ORDERED: IOPAMIDOL-250 100ML BTL INTRAARTER ONE (11:31)
[2019-04-09] MEDS ORDERED: traMADol 50 MG TAB PO PRN (11:38)
[2019-04-09] MEDS ORDERED: SODIUM CHLORIDE 0.9% 1,000 ML IV SCH (11:45)
[2019-04-09] MEDS ORDERED: ORENCIA IV SCH (11:45)
--- NOTE | 2019-04-09 12:10 | AN ---
ANGIOGRAPHY REPORT DATE OF SERVICE: 04/09/2019 PERFORMING PHYSICIAN: Irivn Hammonds MD. PROCEDURE PERFORMED: 1. Left lower extremity angiogram. 2. Successful crossing chronic total occlusion of the left SFA. .. 3. Intravascular ultrasound IVUS of the left SFA. 4. atherectomy of the left SFA using the orbital atherectomy device from [facility]. 5. Successful stenting of the left SFA using 6 x 250 mm drug-coated balloon which was intact with an excellent angiographic result and reduction of stenosis from 100% to 0%. 6. Successful stenting of the left popliteal using 6 x 60 mm Zilver PTX with an excellent angiographic results and reduction of stenosis from 80% to 0%. INDICATION: This is a 78-year-old female patient with known history of peripheral arterial disease who was experiencing bilateral lower extremities intermittent claudication and underwent an angiogram which revealed severe femoral-popliteal disease bilaterally. She underwent a IT SERVICE MANAGER of the right SFA few weeks ago and she was brought today to undergo a IT SERVICE MANAGER of the left SFA. APPROACH: Left anterior tibial artery. COMPLICATION: None. LEVEL OF SEDATION: Moderate with sedation length of 92 minutes. PROCEDURE DESCRIPTION: After obtaining an informed consent, the patient was brought to the cardiac laborer drying department. The left anterior tibial artery was cannulated using micropuncture technique under ultrasound guidance, the micropuncture wire passed easily, then I placed a 5/6 slender sheath in the left anterior tibial artery. Subsequently, the patient was anticoagulated with heparin IV and then the sheath was connected into continuous flow OF cocktail including heparin, verapamil, and nitroglycerins. Subsequently, I did advance a 0.[address] wire to the left popliteal through the sheath in the left anterior tibial artery. After that, I advanced a 0.35 catheter over the wire to the left popliteal. I did selective left SFA angiogram which revealed occluded SFA in the midportion which is known from before, but documented today. The occlusion seems to be in-stent occlusion. Also, there was a hazy area involving the distal edge of the stent could be related to previous stent dissection. The area was a bit flow-limiting as well. Subsequently, I did cross the chronic total occlusion of the left SFA using 0.[address] wire with the backup support of 0.35 CXI catheter. The wire was advanced to the left common femoral artery. Subsequently, the catheter was advanced over the wire as well. After that, I did selective left common femoral artery angiogram to prove that I was in the true lumen. The injection was performed through the 0.35 catheter. After that, I did intravascular ultrasound of the left SFA to rule out any thrombus in the previous stent. There was only concentric plaque and there was no thrombus and because of that I decided to pursue with atherectomy. I did place a 0.014 Viper Wire in the left SFA and the Viper wire was advanced to the left common femoral artery and then left iliac. After that I did atherectomy of the SFA in the proximal, mid, and distal portion using 1.5 solid denise. After that, I did balloon angioplasty using 6 mm balloon and subsequently 6 mm x 250 mm Inpact drug- coated balloon which was inflated under 16 atmospheres for 3 minutes with the following angiogram showing excellent angiographic results. After that, I did the angiogram through 0.35 catheter. I pulled the 0.35 catheter to the left popliteal and I did perform an angiogram which revealed a hazy area which seems to be edge dissection of the distal left SFA stent. I decided to cover that with a stent so I did balloon angioplasty initially using 5 x 60 mm balloon before I deployed 6 x 60 mm in the Zilver PTX drug-coated stent. The stent was positioned under fluoroscopy guidance and deployed under fluoroscopy guidance as well. I post-dilated the stent using 5 mm balloon with the following angiogram showing excellent angiographic results with 3 vessel runoff below the knee on the left side. The pedal sheath was pulled only seen here in the laborer drying department and TR band was placed. The procedure was completed without any complication. POSTPROCEDURE MANAGEMENT: 1. Dual anti-platelet therapy. 2. Risk factors modifications. 3. Follow up with the patient. MMODL / IJN: [id number] /
[2019-04-09] MEDS ORDERED: ONDANSETRON 4 MG/2 ML VIAL ONE ×2 (12:45→15:17)
[2019-04-09] MEDS ORDERED: METOCLOPRAMIDE 5 MG/ML 2 ML VIAL IVP STA (13:34)
[2019-04-09] MEDS ORDERED: ONDANSETRON 4 MG/2 ML VIAL IVP STA (15:32)
[2019-04-09] MEDS: MAGNESIUM OXIDE 400 MG TAB PO SCH (20:45)
[2019-04-09] MEDS ORDERED: PRAVASTATIN SODIUM 40 MG TAB PO SCH (21:00)
[2019-04-09] MEDS ORDERED: ASPIRIN 81 MG PO SCH (21:00)
[2019-04-10 07:37] LABS: Calcium 8.9 mg/dL (8.4-10.2); Potassium 5.1 mmol/L (3.5-5.1)
--- NOTE | 2019-04-10 08:35 | IR ---
EXAMINATION TYPE: IR stent intravas non coronary DATE OF EXAM: 04/09/2019 COMPARISON: NONE HISTORY: Fluoroscopy time. Fluoroscopy was provided to the referring clinician.
[2019-04-10 08:42] LABS: Anisocytosis Slight; Basophils % (A) 1 %; Eosinophils # (A) 0.3 k/uL (0-0.7); Eosinophils % (A) 5 %; HCT 29.4 % (34.0-46.0); HGB 9.1 gm/dL (11.4-16.0); Hypochromasia Marked; Lymphocytes # (A) 1.3 k/uL (1.0-4.8); Lymphocytes % (A) 25 %; MCH 27.8 pg (25.0-35.0); MCV 89.6 fL (80.0-100.0); Mean Platelet Volume 8.9; Monocytes # (A) 0.5 k/uL (0-1.0); Monocytes % (A) 9 %; Neutrophils # (A) 3.1 k/uL (1.3-7.7); Neutrophils % (A) 58 %; Platelet Count 188 k/uL (150-450); Poikilocytosis Slight; RBC 3.28 m/uL (3.80-5.40); RDW 17.9 % (11.5-15.5); WBC 5.4 k/uL (3.8-10.6)
[2019-04-10 08:47] VITALS: BP 147/64; PULSE 73; TEMP 99
[2019-04-10] MEDS: MAGNESIUM OXIDE 400 MG TAB PO SCH (08:53)
[2019-04-10] MEDS ORDERED: MELOXICAM 7.5 MG TAB PO SCH (09:00)
[2019-04-10] MEDS ORDERED: CLOPIDOGREL 75 MG TAB PO SCH (09:00)
[2019-04-10] MEDS ORDERED: METOPROLOL TARTRATE 25 MG TAB PO SCH (09:00)
[2019-04-10] MEDS ORDERED: FOLIC ACID 1 MG TAB PO SCH (09:00)
[2019-04-10] MEDS ORDERED: CHOLECALCIFEROL 1,000 UNIT TAB PO SCH (09:00)
[2019-04-10 10:59] LABS: Ovalocytes Present
--- NOTE | 2019-04-10 11:30 | P.DS ---
Providers Attending physician: Irvin Hammonds Primary care physician: Barry Tucker [facility] Course: This is a pleasant 78-year-old female past medical history significant for peripheral arterial disease experiencing bilateral lower extremity intermittent claudication who underwent an angiogram revealing severe femoral popliteal disease bilaterally. She was brought in yesterday for an elective INSTALLATION SUPERINTENDENT of the left SFA. She underwent a left lower extremity angiogram, successful cr ossing of the chronic total occlusion of the left SFA, intravascular ultrasound of the left SFA, atherectomy of the left SFA with orbital arthrectomy device, successful stenting of the left SFA and successful stenting of the left popliteal. She is seen and examined resting comfortably in bed in no acute distress. She denies chest pain, shortness of breath, dizziness or palpitations. Left lower extremity access site of the left anterior tibial artery is clean, dry and intact with no evidence of bleeding, hematoma or ecchymosis. Distal pulse intact 1+. She has been up ambulating without dif ficulty or pain. Blood pressure 147/64 heart rate 73 afebrile maintaining oxygen saturation on room air. Repeat hemoglobin this morning 9.1 and creatinine 0.98. GENERAL: Well-appearing, well-nourished and in no acute distress. NECK: Supple without JVD or thyromegaly. LUNGS: Breath sounds clear to auscultation bilaterally. Respiration equal and unlabored. No wheezes, rales or rhonchi. HEART: Regular rate and rhythm without murmurs, rubs or gallops. S1 and S2 heard. EXTREMITIES: Normal range of motion, no edema. No clubbing or cyanosis. Peripheral pulses intact. Left anterior tibial access site clean, dry and intact with no evidence of bleeding, hematoma or ecchymosis. Distal pulse intact. ASSESSMENT Peripheral vascular disease status post successful INSTALLATION SUPERINTENDENT of the left SFA and left popliteal PLAN Hemodynamically stable. Importance of dual antiplatelet therapy discussed at great length with the patient. She has prescriptions at home. Follow-up appointment in the office with Dr. Hammonds April 15 that 11:15 AM. Nurse Practitioner note has been reviewed, I agree with a documented findings and plan of care. Patient was seen and examined. Patient Condition at Discharge: Stable Plan - Discharge Summary Discharge Rx Participant: No New Discharge Prescriptions: Continue Aspirin 81 mg PO HS Metoprolol Tartrate [Lopressor] 25 mg PO DAILY Folic Acid 1 mg PO DAILY Pravastatin Sodium [Pravachol] 40 mg PO HS Meloxicam [Mobic] 7.5 mg PO DAILY Cholecalciferol [Vitamin D3 (25 Mcg = 1000 Iu)] 1,000 unit PO DAILY traMADol HCL [Ultram] 50 mg PO Q6HR PRN PRN Reason: Pain Clopidogrel [Plavix] 75 mg PO DAILY #90 tab Orencia (Unkn.Dose) 1 dose IV Q30D Magnesium Oxide [Mag-Ox] 500 mg PO BID Methotrexate Sodium [Methotrexate] 25 mg PO WE Discharge Medication List Aspirin 81 mg PO HS 09/09/13 [History] Folic Acid 1 mg PO DAILY 09/09/13 [History] Metoprolol Tartrate [Lopressor] 25 mg PO DAILY 09/09/13 [History] Pravastatin Sodium [Pravachol] 40 mg PO HS 09/09/13 [History] Meloxicam [Mobic] 7.5 mg PO DAILY 01/06/14 [History] Cholecalciferol [Vitamin D3 (25 Mcg = 1000 Iu)] 1,000 unit PO DAILY 04/13/16 [History] traMADol HCL [Ultram] 50 mg PO Q6HR PRN 04/13/16 [History] Clopidogrel [Plavix] 75 mg PO DAILY #90 tab 06/27/18 [Rx] Magnesium Oxide [Mag-Ox] 500 mg PO BID 02/21/19 [History] Orencia (Unkn.Dose) 1 dose IV Q30D 02/21/19 [History] Methotrexate Sodium [Methotrexate] 25 mg PO WE 04/07/19 [History] Follow up Appointment(s)/Referral(s): Irvin Hammonds MD [STAFF PHYSICIAN] - 04/15/19 11:15 am Patient Instructions/Handouts: Peripheral Vascular Angioplasty (DC) Activity/Diet/Wound Care/Special Instructions: PERIPHERAL ANGIOPLASTY: 1. Support your puncture site by applying firm, steady pressure whenever you cough, laugh, sneeze or bear down to have a bowel movement if you had a groin puncture (2-day restriction). 2. Watch for any excessive bruising, active bleeding, a firm knot forming under your skin, extreme tenderness and signs of infection (redness, swelling, fever). 3. Shower daily, do not soak puncture in a tub bath, jacuzzi, pool, hernandez etc. for 1 week. This is to prevent risk of infection. 4. Drink plenty of fluids the day of and day after your procedure to flush contrast dye out of your kidneys. 5. Take all medications as directed. Never stop any new medication without your physicians OK. 6. No driving for 2 days after procedure. 7. 10- pound weight lifting restriction for 1 week. 8. Low sodium/low fat diet. 9. Activity limited until follow up appointment with your poultry farm worker. In case of any problems, please call [facility] @ [phone]. Discharge Disposition: HOME SELF-CARE
[2019-04-16] MEDS ORDERED: METHOTREXATE SODIUM 2.5 MG TAB PO SCH (09:00)
== END 2019-04-10 10:47 | disposition home or self-care (01) ==
LOC: CATHCVL 07:52 → 3SCARD 14:20 → CATHCVL 04-10 10:47
PROVIDERS: ATTEND Internal Medicine Interventional Cardiology
DX: I70.212 Atherosclerosis of native arteries of extremities with intermittent claudication, left leg (principal); E78.00 Pure hypercholesterolemia, unspecified; R01.1 Cardiac murmur, unspecified; R09.89 Other specified symptoms and signs involving the circulatory and respiratory systems; I10 Essential (primary) hypertension; E78.5 Hyperlipidemia, unspecified; M06.9 Rheumatoid arthritis, unspecified; I83.893 Varicose veins of bilateral lower extremities with other complications; Z98.890 Other specified postprocedural states; Z79.02 Long term (current) use of antithrombotics/antiplatelets; Z79.899 Other long term (current) drug therapy; Z79.82 Long term (current) use of aspirin; Z88.5 Allergy status to narcotic agent; Z87.891 Personal history of nicotine dependence
CPT/HCPCS: 37227; 37252; 80048 ×2; 85025; C1894; C1714; C1769 ×4; C1725 ×2; C1753; C1874; C2623; J2250; J1644 ×2; J2765; J2405; J1170; J2001; Q9966

== ENCOUNTER → 2019-08-04 | Outpatient (CLI) | payer MEDICARE, BC ==
[2019-08-04 09:19] LABS: Anisocytosis Slight; Basophils % (A) 1 %; Eosinophils # (A) 0.2 k/uL (0-0.7); Eosinophils % (A) 4 %; HCT 46.5 % (34.0-46.0); HGB 14.8 gm/dL (11.4-16.0); Lymphocytes # (A) 1.4 k/uL (1.0-4.8); Lymphocytes % (A) 25 %; MCHC 31.7 g/dL (31.0-37.0); MCV 94.5 fL (80.0-100.0); Mean Platelet Volume 8.2; Monocytes # (A) 0.4 k/uL (0-1.0); Monocytes % (A) 6 %; Neutrophils # (A) 3.6 k/uL (1.3-7.7); Neutrophils % (A) 63 %; Platelet Count 207 k/uL (150-450); RBC 4.92 m/uL (3.80-5.40); RDW 19.5 % (11.5-15.5); WBC 5.7 k/uL (3.8-10.6)
[2019-08-04 15:43] LABS: % Iron Saturation 11.14 (12.00-45.00); Ferritin 56.3 ng/mL (10.0-291.0)
[2019-08-04 16:50] LABS: Gliadin AB IgA, Deaminated NEGATIVE (NEGATIVE); Gliadin AB IgA, Unit <0.2 U/mL; Gliadin AB IgG, Deaminated NEGATIVE (NEGATIVE)
== END | disposition home or self-care (01) ==
LOC: LABWHC1 08:36
PROVIDERS: ATTEND Internal Medicine Gastroenterology
DX: K52.9 Noninfective gastroenteritis and colitis, unspecified (principal)
CPT/HCPCS: 36415; 82728; 83516; 83540; 83550; 85025

== ENCOUNTER → 2019-08-06 | Day surgery (SDC) | payer MEDICARE, BC ==
[2019-08-01 11:32] VITALS: BMI 22.9
[~2019-08-06] MED LIST changes: -ALPRAZolam 0.25 MG TAB PO PRN; -ASPIRIN 325 MG TAB PO STA; +LACTATED RINGERS 1,000 ML IV SCH; +LIDOCAINE 1% (10MG/ML) FOR IV START INTRADERMA PRN; +LIDOCAINE 1% INJ 10MG/ML (20 ML MDV) ONE; +PROPOFOL 10 MG/ML 20 ML VIAL IV ONE; -SODIUM CHLORIDE 0.9% 1,000 ML in EMPTY BAG 1 BAG IV ONE
[2019-08-06 06:45] VITALS: RESP 17; TEMP 97.7
--- NOTE | 2019-08-06 07:38 | P.PCN ---
Date of Procedure: 08/06/19 Procedure(s) Performed: Brief history: Patient is a pleasant 79-year-old white female, scheduled for an elective upper endoscopy as well as colonoscopy as a part of evaluation of chronic diarrhea and iron deficiency anemia. Procedure performed: Esophagogastroduodenoscopy with biopsy Colonoscopy with biopsy and snare polypectomy Preoperative diagnosis: Chronic diarrhea Iron deficiency anemia Anesthesia: [facility] [place] Procedure: After informed consent was obtained from the patient was brought into the endoscopy unit and IV sedation was administered by anesthesia under continuous monitoring. Initially upper endoscopy was done. The Olympus GF 160 video endoscope was inserted inserted into the mouth and esophagus intubated without any difficulty and was gradually advanced into the stomach and duodenum and carefully examined. The bulb and second part of the duodenum appeared normal. Biopsies were done from the duodenum to rule out celiac disease. The scope was then withdrawn into the stomach adequately insufflated with air and upon careful examination the antrum had multiple scattered erosions consistent with gastritis. Biopsies were done from this area. The body, cardia and fundus appeared normal. The scope was then withdrawn into the esophagus. The GE junction was located at 35 cm to the incisors. It is 14 erosions consistent with LA grade B reflux esophagitis. There was a 5 mm of Wilkinson's appearing mucosa just proximal to the GE junction which was biopsied. The rest of esophag us appeared normal. The patient tolerated the procedure well. At this time the patient continued to remain sedation. Initial digital rectal examination was normal. Olympus CF 160 video colonoscope was then inserted into the rectum and gradually advanced to the cecum without any difficulty. Careful examination was performed as the scope was gradually being withdrawn. The prep was excellent. The cecum, ascending colon, transverse colon, descending colon appeared normal. Random biopsies were done from ascending and descending colon to rule out microscopic/collagenous colitis. In the sigmoid colon there was a 1 cm polyp removed by snare polypectomy. Scattered left sided diverticulosis seen. Rest of the sigmoid colon and rectum appeared normal. Retroflexion was performed in the rectum and no lesions were noted. Patient tolerated the procedure well. Impression: 1. Upper endoscopy revealed antral erosive gastritis, LA grade B reflux esophagitis and short segment Wilkinson's esophagus 2. Colonoscopy revealed 1 diminutive; polyp and diverticulosis Recommendations: Findings of this examination were discussed with the patient as well as her family. She was advised to follow with the biopsy results. She'll be seen in office 2 weeks from now.
[2019-08-06 07:59] VITALS: BP 105/50; PULSE 54
== END ==
LOC: ORWHC2ENDO 06:29
PROVIDERS: ATTEND Internal Medicine Gastroenterology
DX: K29.50 Unspecified chronic gastritis without bleeding (principal); K22.70 Barrett's esophagus without dysplasia; K21.0 Gastro-esophageal reflux disease with esophagitis; K63.5 Polyp of colon; K52.9 Noninfective gastroenteritis and colitis, unspecified; K57.30 Diverticulosis of large intestine without perforation or abscess without bleeding; D50.9 Iron deficiency anemia, unspecified; I10 Essential (primary) hypertension; E78.5 Hyperlipidemia, unspecified; M06.9 Rheumatoid arthritis, unspecified; Z79.82 Long term (current) use of aspirin; Z79.899 Other long term (current) drug therapy; Z90.49 Acquired absence of other specified parts of digestive tract; Z90.710 Acquired absence of both cervix and uterus; Z98.890 Other specified postprocedural states
CPT/HCPCS: 88305; 45380; 45385; 43239; J2001; J2704

== ENCOUNTER 2020-09-05 12:24 | Emergency (ER) | payer MEDICARE, BC ==
[2020-09-05 12:52] VITALS: TEMP 97.9
[2020-09-05] MEDS ORDERED: KETOROLAC 15 MG/ML 1 ML VIAL IVP STA (13:22)
--- NOTE | 2020-09-05 13:25 | ED ---
Back Pain HPI - General Chief Complaint: Back Pain/Injury Stated Complaint: Back pain Time Seen by Provider: 09/05/20 13:15 Source: patient Limitations: no limitations - History of Present Illness Initial Comments: Is an 80-year-old female with a history of rheumatoid arthritis, kidney stones who presents emergency department for left-sided flank and hip pain. The patient states that it started about a week ago. She states is located over her left ASIS. She states that it's worse with certain movements and better with rest. She's been trying to take tramadol at home with some relief however it makes her nauseated. She does not recall any injuries to the area. She denies any central back pain or abdominal pain. She did have some nausea and vomiting. Apparently the patient also has some chronic diarrhea issues however this is unchanged. She denies any numbness, tingling, weakness or lower [place]. No bowel or bladder incontinence. No saddle anesthesia. She states that she just wanted to come and get some relief and figure out what was going on. - Related Data Home Medications Medication Instructions Recorded Confirmed Aspirin 81 mg PO HS 09/09/13 08/23/20 Folic Acid 1 mg PO DAILY 09/09/13 08/23/20 Metoprolol Tartrate [Lopressor] 25 mg PO QAM 09/09/13 08/23/20 Pravastatin Sodium [Pravachol] 40 mg PO HS 09/09/13 08/23/20 Meloxicam [Mobic] 7.5 mg PO DAILY 01/06/14 08/23/20 Cholecalciferol [Vitamin D3 (25 1,000 unit PO DAILY 04/13/16 08/23/20 Mcg = 1000 Iu)] traMADol HCL [Ultram] 50 mg PO Q6HR PRN 04/13/16 08/23/20 Magnesium Oxide [Mag-Ox] 500 mg PO BID 02/21/19 08/23/20 Orencia (Unkn.Dose) 1 dose IV Q30D 02/21/19 08/23/20 metHOTREXate sodium [Methotrexate] 25 mg PO WE 04/07/19 08/23/20 Dicyclomine [Bentyl] 10 mg PO TID 07/24/19 08/23/20 Previous Rx's Medication Instructions Recorded Ciprofloxacin HCl [Cipro] 500 mg PO Q12HR 1 Days #14 tab 09/05/20 Allergies Allergy/AdvReac Type Severity Reaction Status Date / Time No Known Allergies Allergy Verified 09/05/20 12:52 Review of Systems ROS Statement: Those systems with pertinent positive or pertinent negative responses have been documented in the HPI. ROS Other: All systems not noted in ROS Statement are negative. Past Medical History Past Medical History: Deep Vein Thrombosis (DVT), Hyperlipidemia, Hypertension, Rheumatoid Arthritis (RA) Additional Past Medical History / Comment(s): SEPTIC SHOCK POST KIDNEY STONE, varicose veins, History of Any Multi-Drug Resistant Organisms: None Reported Past Surgical History: Back Surgery, Cholecystectomy, Hysterectomy, Joint Re placement, Orthopedic Surgery Additional Past Surgical History / Comment(s): vein surgery rt leg, sara carpal tunnel, joints removed from feet, rt hand replacement of knuckle, rotator cuff sara shoulders, rt elbow replaced, rt shoulder fx, reverse rotator cuff repair rt shoulder, surgery 11/02/15- rt hip fx, repeat right hip surgery (fall 2016) Past Anesthesia/Blood Transfusion Reactions: Postoperative Nausea & Vomiting (PONV) Additional Past Anesthesia/Blood Transfusion Reaction / Comment(s): no hx blood transfusion Past Psychological History: No Psychological Hx Reported Smoking Status: Former smoker Past Alcohol Use History: None Reported Past Drug Use History: None Reported - Past Family History Mother Family Medical History: No Reported History Father Family Medical History: Cancer General Exam - General Exam Comments Initial Comments: Constitutional: Awake alert Appears comfortable Head: Normocephalic atraumatic Eyes: no conjunctival injection No scleral icterus EOMI Neck: No JVD Supple Heart: Regular rate rhythm normal S1-S2 no murmurs Lungs: Clear to auscultation bilaterally No wheezing No rales Abdomen: Soft nondistended nontender Extremities: Non edematous DP pulses intact Radial pulses intact left ASIS with tenderness to palpation, no midline lumbar thoracic or cervical back pain, patient does have evidence for old lumbar back surgery, no rash Neuro: A&Ox3 5 out of 5 strength with dorsiflexion and plantar flexion bilaterally, 5 out of 5 strength at hips flexion bilaterally, 2 out of 4 patellar reflexes bilaterally, sensation intact to light touch in all dermatomes in the lower extremities bilaterally No focal neurologic deficits Psych: Appropriate mood and affect Limitations: no limitations Course Vital Signs 09/05/20 09/05/20 12:48 16:20 Temperature 97.9 F Pulse Rate 57 L 71 Respiratory 19 18 Rate Blood Pressure 120/79 O2 Sat by Pulse 98 99 Oximetry - Reevaluation(s) Reevaluation #1: 09/05/20 18:12 EKG showing no signs rhythm with rate of 50. No abnormal ST segment changes or T-wave inversions. QTC 423. No peaked T waves. Medical Decision Making - Medical Decision Making Is an 80-year-old female who presents emergency department for left sided flank and hip pain. It initially seemed very muscular skeletal in nature however the patient does have a history of kidney stones and she stated that the pain was quite intense. Decision made to obtain a computed tomography scan. The computed tomography scan was concerning for a possible distal left renal stone in the ureter. There is no hydronephrosis noted. However there was quite a bit of artifact from the patient's hip arthro-plasty. Patient also was found have a urinary tract infection. The patient does have a history of septic stone in the past however did not have a white blood cell count here vitals are normal. The patient otherwise felt well and was improved after Toradol. I did speak with Dr. Trevino about the patient and he stated that he felt it would be okay for her to go home on ciprofloxacin. I did write for this to take twice a day. He wanted her to follow-up in his office in the next 2 days. The patient was advised that if she developed any fevers, chills, worsening pain, fatigue or any other worsening symptoms she is to return emergency Department probably for reevaluation. All questions were answered. - Lab Data Result diagrams: 09/05/20 13:31 09/05/20 13:31 Lab Results 09/05/20 09/05/20 09/05/20 Range/Units 13:31 13:31 13:31 WBC 4.6 (3.8-10.6) k/uL RBC 4.20 (3.80-5.40) m/uL Hgb 14.0 (11.4-16.0) gm/dL Hct 40.6 (34.0-46.0) % MCV 96.8 (80.0-100.0) fL MCH 33.3 (25.0-35.0) pg MCHC 34.4 (31.0-37.0) g/dL RDW 14.2 (11.5-15.5) % Plt Count 208 (150-450) k/uL MPV 8.1 Neutrophils % 68 % Lymphocytes % 21 % Monocytes % 5 % Eosinophils % 5 % Basophils % 1 % Neutrophils # 3.2 (1.3-7.7) k/uL Lymphocytes # 1.0 (1.0-4.8) k/uL Monocytes # 0.2 (0-1.0) k/uL Eosinophils # 0.2 (0-0.7) k/uL Basophils # 0.0 (0-0.2) k/uL Sodium 137 (137-145) mmol/L Potassium 5.6 H (3.5-5.1) mmol/L Chloride 108 H (98-107) mmol/L Carbon Dioxide 23 (22-30) mmol/L Anion Gap 6 mmol/L BUN 22 H (7-17) mg/dL Creatinine 1.20 H (0.52-1.04) mg/dL Est GFR (CKD-EPI)AfAm 49 (>60 ml/min/1.73 sqM) Est GFR (CKD-EPI)NonAf 43 (>60 ml/min/1.73 sqM) Glucose 103 H (74-99) mg/dL Calcium 9.0 (8.4-10.2) mg/dL Total Bilirubin 0.5 (0.2-1.3) mg/dL AST 33 (14-36) U/L ALT 19 (4-34) U/L Alkaline Phosphatase 66 (38-126) U/L Total Protein 7.2 (6.3-8.2) g/dL Albumin 4.3 (3.5-5.0) g/dL Urine Color Yellow Urine Appearance Cloudy H (Clear) Urine pH 6.0 (5.0-8.0) Ur Specific [place] 1.015 (1.001-1.035) Urine Protein Trace H (Negative) Urine Glucose (UA) Negative (Negative) Urine Ketones Negative (Negative) Urine Blood Negative (Negative) Urine Nitrite Positive H (Negative) Urine Bilirubin Negative (Negative) Urine Urobilinogen <2.0 (<2.0) mg/dL Ur Leukocyte Esterase Large H (Negative) Urine RBC 4 (0-5) /hpf Urine WBC 72 H (0-5) /hpf Ur Squamous Epith Cells 6 H (0-4) /hpf Urine Bacteria Occasional H (None) /hpf Hyaline Casts 1 (0-2) /lpf Urine Mucus Rare H (None) /hpf Disposition Clinical Impression: Kidney stone, UTI (urinary tract infection) Disposition: HOME SELF-CARE Condition: Stable Instructions (If sedation given, give patient instructions): Kidney Stones (ED) Prescriptions: Ciprofloxacin HCl [Cipro] 500 mg PO Q12HR 1 Days #14 tab Is patient prescribed a controlled substance at d/c from ED?: No Referrals: Barry Bazan MD [Primary Care Provider] - 1-2 days
[2020-09-05 13:57] LABS: Basophils % (A) 1 %; Eosinophils # (A) 0.2 k/uL (0-0.7); Eosinophils % (A) 5 %; HCT 40.6 % (34.0-46.0); Lymphocytes % (A) 21 %; MCH 33.3 pg (25.0-35.0); MCHC 34.4 g/dL (31.0-37.0); MCV 96.8 fL (80.0-100.0); Mean Platelet Volume 8.1; Monocytes # (A) 0.2 k/uL (0-1.0); Monocytes % (A) 5 %; Neutrophils # (A) 3.2 k/uL (1.3-7.7); Neutrophils % (A) 68 %; Platelet Count 208 k/uL (150-450); RDW 14.2 % (11.5-15.5); WBC 4.6 k/uL (3.8-10.6)
[2020-09-05 14:08] LABS: Albumin 4.3 g/dL (3.5-5.0); Potassium 5.6 mmol/L (3.5-5.1); Total Bilirubin 0.5 mg/dL (0.2-1.3); Total Protein 7.2 g/dL (6.3-8.2)
--- NOTE | 2020-09-05 14:35 | CT ---
EXAMINATION TYPE: CT abdomen pelvis wo con DATE OF EXAM: 09/05/2020 COMPARISON: None HISTORY: Left sided flank pain CT DLP: 472.5 mGycm Automated exposure control for dose reduction was used. TECHNIQUE: Helical acquisition of images was performed from the lung bases through the pelvis. FINDINGS: The lung bases are clear. There is surgical absence of the gallbladder. There is prominence of the intra and extra hepatic bili rachel tree. The possibility of a distal CBD or ampullary obstructing mass is not excluded. There is no gross hydronephrosis of the kidneys. There is a large 5.4 cm simple cyst of the left kidn ey. There are a few tiny vascular calcifications in both kidneys. Evaluation of the mid and distal ureter is limited due to streak artifact from patient's right hip pr osthesis. There are also multiple phleboliths within the pelvis. Tiny distal left ureteral calculus i s not excluded. The bowel gas pattern is unremarkable there is no bowel obstruction. No inflammatory changes are iden tified in the mesentery. There is marked calcification of the abdominal aorta and iliac arteries but there is no aneurysm. IMPRESSION: 1. Cannot exclude tiny left distal ureteral calculus as described above. Metallic artifacts no right hip prosthesis limits the study. There is no gross hydronephrosis bilaterally. There is a large simpl e cyst of the left kidney. 2. Surgical absence of the gallbladder and prominence of the intra and extrahepatic biliary tree. Dis dawit biliary stenosis or obstruction is not excluded. Clinical correlation is recommended.
[2020-09-05] MEDS ORDERED: SODIUM CHLORIDE 0.9% 500 ML 500 ML IV ONE (14:52)
[2020-09-05 15:29] LABS: Appearance,Urine Cloudy (Clear); Bacteria,Urine Occasional /hpf; Bilirubin,Urine Negative (Negative); Blood,Urine Negative (Negative); Color,Urine Yellow; Glucose,Urine (UA) Negative (Negative); Hyaline Casts,Urine 1 /lpf (0-2); Ketones,Urine Negative (Negative); Leukocyte Esterase,Urine Large (Negative); Mucus,Urine Rare /hpf; Nitrite,Urine Positive (Negative); Protein,Urine Trace (Negative); RBC,Urine 4 /hpf (0-5); Specific Gravity,Urine 1.015 (1.001-1.035); Squamous Epithelial Cell,Urine 6 /hpf (0-4); Urobilinogen,Urine <2.0 mg/dL (<2.0); WBC,Urine 72 /hpf (0-5)
[2020-09-05 16:21] VITALS: BP 120/79; PULSE 71; RESP 18
== END 2020-09-05 16:27 | disposition home or self-care (01) ==
LOC: EC 12:24
DX: N20.0 Calculus of kidney (principal); N39.0 Urinary tract infection, site not specified; E78.5 Hyperlipidemia, unspecified; I10 Essential (primary) hypertension; M06.9 Rheumatoid arthritis, unspecified; Z86.718 Personal history of other venous thrombosis and embolism; Z87.891 Personal history of nicotine dependence; Z79.82 Long term (current) use of aspirin; Z90.49 Acquired absence of other specified parts of digestive tract; Z90.710 Acquired absence of both cervix and uterus
CPT/HCPCS: 36415; 93005; 80053; 85025; 81001; 87086; 87077; 87186; 74176; 99284; 96374; J1885

== ENCOUNTER 2020-09-28 08:58 | Emergency (ER) | payer MEDICARE, BC ==
[2020-09-28] MEDS ORDERED: SODIUM CHLORIDE 0.9% 500 ML 500 ML IV STA (09:30)
--- NOTE | 2020-09-28 09:35 | ED ---
Abdominal Pain HPI - General Chief Complaint: Abdominal Pain Stated Complaint: lt sided abd pain Time Seen by Provider: 09/28/20 09:18 Source: patient, family, RN notes reviewed Mode of arrival: ambulatory Limitations: no limitations - History of Present Illness Initial Comments: This an 80-year-old female presents emergency Department chief complaint of left-sided abdominal pain. Patient's been having issues with his abdominal pain but find out if more related to her constipation. Patient did have recent urinary tract infection and which she is treated other emergency department. Patient followed up with urology and was referred to the spine because of left- sided abdominal pain. Patient states the pain has subsided some but states that she's noticed when she has to strain to have well when she has swelling on left side of abdomen worse when she does this or when she stands. No dysuria no hematuria no fevers chills. No chest pain or shortness breath - Related Data Home Medications Medication Instructions Recorded Confirmed Aspirin 81 mg PO HS 09/09/13 08/23/20 Folic Acid 1 mg PO DAILY 09/09/13 08/23/20 Metoprolol Tartrate [Lopressor] 25 mg PO QAM 09/09/13 08/23/20 Pravastatin Sodium [Pravachol] 40 mg PO HS 09/09/13 08/23/20 Meloxicam [Mobic] 7.5 mg PO DAILY 01/06/14 08/23/20 Cholecalciferol [Vitamin D3 (25 1,000 unit PO DAILY 04/13/16 08/23/20 Mcg = 1000 Iu)] traMADol HCL [Ultram] 50 mg PO Q6HR PRN 04/13/16 08/23/20 Magnesium Oxide [Mag-Ox] 500 mg PO BID 02/21/19 08/23/20 Orencia (Unkn.Dose) 1 dose IV Q30D 02/21/19 08/23/20 metHOTREXate sodium [Methotrexate] 25 mg PO WE 04/07/19 08/23/20 Dicyclomine [Bentyl] 10 mg PO TID 07/24/19 08/23/20 Previous Rx's Medication Instructions Recorded Ciprofloxacin HCl [Cipro] 500 mg PO Q12HR 1 Days #14 tab 09/05/20 Allergies Allergy/AdvReac Type Severity Reaction Status Date / Time No Known Allergies Allergy Verified 09/28/20 09:09 Review of Systems ROS Statement: Those systems with pertinent positive or pertinent negative responses have been documented in the HPI. ROS Other: All systems not noted in ROS Statement are negative. Past Medical History Past Medical History: Deep Vein Thrombosis (DVT), Hyperlipidemia, Hypertension, Rheumatoid Arthritis (RA) Additional Past Medical History / Comment(s): SEPTIC SHOCK POST KIDNEY STONE, varicose veins, History of Any Multi-Drug Resistant Organisms: None Reported Past Surgical History: Back Surgery, Cholecystectomy, Hysterectomy, Joint Replacement, Orthopedic Surgery Additional Past Surgical History / Comment(s): vein surgery rt leg, sara carpal tunnel, joints removed from feet, rt hand replacement of knuckle, rotator cuff sara shoulders, rt elbow replaced, rt shoulder fx, reverse rotator cuff repair rt shoulder, surgery 11/02/15- rt hip fx, repeat right hip surgery (fall 2016) Past Anesthesia/Blood Transfusion Reactions: Postoperative Nausea & Vomiting (PONV) Additional Past Anesthesia/Blood Transfusion Reaction / Comment(s): no hx blood transfusion Past Psychological History: No Psychological Hx Reported Smoking Status: Former smoker Past Alcohol Use History: None Reported Past Drug Use History: None Reported - Past Family History Mother Family Medical History: No Reported History Father Family Medical History: Cancer General Exam Limitations: no limitations General appearance: alert, in no apparent distress Head exam: Present: atraumatic, normocephalic, normal inspection Eye exam: Present: normal appearance, PERRL, EOMI. Absent: scleral icterus, conjunctival injection, periorbital swelling Neck exam: Present: normal inspection, full ROM. Absent: tenderness, meningismus, lymphadenopathy Respiratory exam: Present: normal lung sounds bilaterally. Absent: respiratory distress, wheezes, rales, rhonchi, stridor Cardiovascular Exam: Present: regular rate, normal rhythm, normal heart sounds. Absent: systolic murmur, diastolic murmur, rubs, gallop, clicks GI/Abdominal exam: Present: soft, tenderness (Mild tenderness in the left side, there is no swelling noted which is worse or exacerbated when she stands up or bends forward), normal bowel sounds. Absent: distended, guarding, rebound, rigid Back exam: Absent: CVA tenderness (R), CVA tenderness (L) Neurological exam: Present: alert Skin exam: Present: warm, dry, intact, normal color. Absent: rash Course Vital Signs 09/28/20 09:03 Temperature 97.8 F Pulse Rate 54 L Respiratory 18 Rate Blood Pressure 157/68 O2 Sat by Pulse 99 Oximetry Medical Decision Making - Medical Decision Making CT is essentially unremarkable. Patient does have left-sided bulging may related to hernia. Patient will follow up with outpatient surgeon return parameters discussed. - Lab Data Result diagrams: 09/28/20 09:54 09/28/20 09:54 Lab Results 09/28/20 09/28/20 09/28/20 Range/Units 09:54 09:54 09:54 WBC 8.8 (3.8-10.6) k/uL RBC 4.19 (3.80-5.40) m/uL Hgb 13.7 (11.4-16.0) gm/dL Hct 39.8 (34.0-46.0) % MCV 94.9 (80.0-100.0) fL MCH 32.7 (25.0-35.0) pg MCHC 34.4 (31.0-37.0) g/dL RDW 13.9 (11.5-15.5) % Plt Count 184 (150-450) k/uL MPV 7.9 Neutrophils % 86 % Lymphocytes % 10 % Monocytes % 3 % Eosinophils % 1 % Basophils % 0 % Neutrophils # 7.6 (1.3-7.7) k/uL Lymphocytes # 0.9 L (1.0-4.8) k/uL Monocytes # 0.3 (0-1.0) k/uL Eosinophils # 0.1 (0-0.7) k/uL Basophils # 0.0 (0-0.2) k/uL Sodium 133 L (137-145) mmol/L Potassium 4.7 (3.5-5.1) mmol/L Chloride 103 (98-107) mmol/L Carbon Dioxide 23 (22-30) mmol/L Anion Gap 7 mmol/L BUN 25 H (7-17) mg/dL Creatinine 1.11 H (0.52-1.04) mg/dL Est GFR (CKD-EPI)AfAm 54 (>60 ml/min/1.73 sqM) Est GFR (CKD-EPI)NonAf 47 (>60 ml/min/1.73 sqM) Glucose 112 H (74-99) mg/dL Calcium 9.6 (8.4-10.2) mg/dL Total Bilirubin 0.3 (0.2-1.3) mg/dL AST 23 (14-36) U/L ALT 13 (4-34) U/L Alkaline Phosphatase 59 (38-126) U/L Total Protein 6.5 (6.3-8.2) g/dL Albumin 4.0 (3.5-5.0) g/dL Amylase 77 (30-110) U/L Lipase 147 (23-300) U/L Urine Color Light Yellow Urine Appearance Clear (Clear) Urine pH 5.5 (5.0-8.0) Ur Specific [place] 1.008 (1.001-1.035) Urine Protein Negative (Negative) Urine Glucose (UA) Negative (Negative) Urine Ketones Negative (Negative) Urine Blood Negative (Negative) Urine Nitrite Negative (Negative) Urine Bilirubin Negative (Negative) Urine Urobilinogen <2.0 (<2.0) mg/dL Ur Leukocyte Esterase Negative (Negative) Disposition Clinical Impression: Abdominal pain Disposition: HOME SELF-CARE Condition: Stable Instructions (If sedation given, give patient instructions): Abdominal Pain (ED) Additional Instructions: Please return to the Emergency Department if symptoms worsen or any other concerns. Is patient prescribed a controlled substance at d/c from ED?: No Referrals: Barry Bazan MD [Primary Care Provider] - 1-2 days Time of Disposition: 11:59
[2020-09-28 10:15] LABS: Basophils % (A) 0 %; Eosinophils # (A) 0.1 k/uL (0-0.7); Eosinophils % (A) 1 %; HCT 39.8 % (34.0-46.0); HGB 13.7 gm/dL (11.4-16.0); Lymphocytes # (A) 0.9 k/uL (1.0-4.8); Lymphocytes % (A) 10 %; MCH 32.7 pg (25.0-35.0); MCHC 34.4 g/dL (31.0-37.0); MCV 94.9 fL (80.0-100.0); Mean Platelet Volume 7.9; Monocytes # (A) 0.3 k/uL (0-1.0); Monocytes % (A) 3 %; Neutrophils # (A) 7.6 k/uL (1.3-7.7); Neutrophils % (A) 86 %; Platelet Count 184 k/uL (150-450); RBC 4.19 m/uL (3.80-5.40); RDW 13.9 % (11.5-15.5); WBC 8.8 k/uL (3.8-10.6)
[2020-09-28 10:27] LABS: Calcium 9.6 mg/dL (8.4-10.2); Potassium 4.7 mmol/L (3.5-5.1); Total Bilirubin 0.3 mg/dL (0.2-1.3); Total Protein 6.5 g/dL (6.3-8.2)
--- NOTE | 2020-09-28 11:00 | CT ---
EXAMINATION TYPE: CT abdomen pelvis wo con DATE OF EXAM: 09/28/2020 COMPARISON: 09/05/2020 HISTORY: left side abd swelling CT DLP: 381.8 mGycm Automated exposure control for dose reduction was used. TECHNIQUE: Helical acquisition of images was performed from the lung bases through the pelvis. FINDINGS: Exam limited by severe streak artifact from the metallic hardware within the lumbar spine. LUNG BASES: No significant abnormality is appreciated. LIVER/GB: There appears to be postcholecystectomy changes with significant intrahepatic and extra hep atic biliary ductal dilation. Correlate clinically. Portions of the pancreatic head and uncinate proc ess are obscured by artifact. PANCREAS: Limited by artifact. SPLEEN: No significant abnormality is seen. ADRENALS: No significant abnormality is seen. KIDNEYS: There is a large simple appearing cyst involving the left kidney measuring 12 [place] uni ts. Measures 5.3 cm. Subcentimeter hyperdense lesion posterior mid left medial renal lesion may repre sent hemorrhagic cyst. Other etiologies not excluded. ADENOPATHY: None visualized. OSSEOUS STRUCTURES: Hypertrophic and degenerative change of the spine. Postsurgical changes lumbar s pine and arthropathy of the hips. Postsurgical change involving the right hip results in the limits a ssessment of the pelvis. A chronic appearing no wedge fractures T12 and L1 silhouette appears the ondina or exam. BOWEL: Bowel gas pattern nonspecific. Retained fecal debris throughout the colon with diverticulosis noted. OTHER: Extensive atherosclerotic change aorta and its branch vessels including the mesenteric vascula ture. Significant stenosis involving the proximal iliac vasculature suspected. IMPRESSION: 1. Nonspecific abdomen with no evidence of obstruction. Correlate for constipation and diverticulosis . 2. Simple appearing left renal cyst with smaller subcentimeter hyperdense lesion may represent hemorr hagic cyst and could be correlated with ultrasound on a short-term basis to exclude other etiologies. Retrospectively stable from 09/05/2020. 3. Dilated intra and extra hepatic biliary ducts as discussed above and noted on the very recent prio r exam. Findings are similar.
[2020-09-28 11:50] LABS: Appearance,Urine Clear (Clear); Bilirubin,Urine Negative (Negative); Blood,Urine Negative (Negative); Color,Urine Light Yellow; Glucose,Urine (UA) Negative (Negative); Ketones,Urine Negative (Negative); Leukocyte Esterase,Urine Negative (Negative); Nitrite,Urine Negative (Negative); PH, Urine 5.5 (5.0-8.0); Protein,Urine Negative (Negative); Specific Gravity,Urine 1.008 (1.001-1.035); Urobilinogen,Urine <2.0 mg/dL (<2.0)
[2020-09-28 12:23] VITALS: BP 155/58; PULSE 45; RESP 20
[2020-09-28 12:29] VITALS: TEMP 97.6
== END 2020-09-28 12:28 | disposition home or self-care (01) ==
LOC: EC 08:58
DX: R10.9 Unspecified abdominal pain (principal); R19.00 Intra-abdominal and pelvic swelling, mass and lump, unspecified site; E78.5 Hyperlipidemia, unspecified; I10 Essential (primary) hypertension; M06.9 Rheumatoid arthritis, unspecified; Z86.718 Personal history of other venous thrombosis and embolism; Z87.891 Personal history of nicotine dependence; Z79.82 Long term (current) use of aspirin
CPT/HCPCS: 36415; 74176; 80053; 81003; 82150; 83690; 85025; 96360; 96361; 99284

== ENCOUNTER 2021-02-27 13:46 | Emergency (ER) | payer MEDICARE, BC ==
[2021-02-27 14:29] VITALS: RESP 18; TEMP 98.6
[2021-02-27] MEDS ORDERED: MORPHINE SULFATE 2 MG/ML SYRINGE IVP STA (14:42)
--- NOTE | 2021-02-27 14:46 | ED ---
General Adult HPI - General Chief complaint: Back Pain/Injury Stated complaint: rib pain Time Seen by Provider: 02/27/21 14:33 Source: patient, family, RN notes reviewed, old records reviewed Mode of arrival: ambulatory Limitations: no limitations - History of Present Illness Initial comments: This is an 80-year-old well-appearing female that presents to the emergency room ambulatory with complaints of left sided rib pain. She states that the pain wo ke her up at 1:30 in the morning Sunday. She denies any injury. She denies cough, difficulty breathing, nausea vomiting or diarrhea. She has not had any fevers. She is vaccinated against coronavirus. She states that she has rheumatoid arthritis and has tramadol that she can use for pain however she doesn't like to take it because it makes her very sleepy. She has had a history of DVT, hypertension and back surgery in the past. -: days(s) (3) Location: chest (At this), left Radiation: back Severity scale (1-10): 6 Quality: stabbing Consistency: constant Improves with: immobilization Worsens with: movement, other Associated Symptoms: denies other symptoms Treatments Prior to Arrival: none - Related Data Home Medications Medication Instructions Recorded Confirmed Aspirin 81 mg PO HS 09/09/13 12/28/20 Folic Acid 1 mg PO DAILY 09/09/13 12/28/20 Metoprolol Tartrate [Lopressor] 25 mg PO QAM 09/09/13 12/28/20 Pravastatin Sodium [Pravachol] 40 mg PO HS 09/09/13 12/28/20 Meloxicam [Mobic] 7.5 mg PO DAILY 01/06/14 12/28/20 Cholecalciferol [Vitamin D3 (25 1,000 unit PO DAILY 04/13/16 12/28/20 Mcg = 1000 Iu)] traMADol HCL [Ultram] 50 mg PO Q6HR PRN 04/13/16 12/28/20 Magnesium Oxide [Mag-Ox] 500 mg PO BID 02/21/19 12/28/20 Orencia (Unkn.Dose) 1 dose IV Q30D 02/21/19 12/28/20 metHOTREXate sodium [Methotrexate] 25 mg PO WE 04/07/19 12/28/20 Dicyclomine [Bentyl] 10 mg PO TID 07/24/19 12/28/20 Famotidine [Pepcid] 10 mg PO DAILY 10/05/20 12/28/20 Gabapentin [Neurontin] 100 mg PO DAILY 10/05/20 12/28/20 Previous Rx's Medication Instructions Recorded Lidocaine [Lidoderm 5% Patch] 1 patch TRANSDERM DAILY 10 Days 02/27/21 #10 patch Allergies Allergy/AdvReac Type Severity Reaction Status Date / Time No Known Allergies Allergy Verified 01/25/21 09:08 Review of Systems ROS Statement: Those systems with pertinent positive or pertinent negative responses have been documented in the HPI. ROS Other: All systems not noted in ROS Statement are negative. Past Medical History Past Medical History: Deep Vein Thrombosis (DVT), Hyperlipidemia, Hypertension, Rheumatoid Arthritis (RA) Additional Past Medical History / Comment(s): SEPTIC SHOCK POST KIDNEY STONE, varicose veins, History of Any Multi-Drug Resistant Organisms: MRSA Date of last positivie culture/infection: 2016 MDRO Source:: kidney stone Past Surgical History: Back Surgery, Cholecystectomy, Hysterectomy, Joint Replacement, Orthopedic Surgery Additional Past Surgical History / Comment(s): vein surgery rt leg, sara carpal tunnel, joints removed from feet, rt hand replacement of knuckle, rotator cuff sara shoulders, rt elbow replaced, rt shoulder fx, reverse rotator cuff repair rt shoulder, surgery 11/02/15- rt hip fx, repeat right hip surgery (fall 2016) Past Anesthesia/Blood Transfusion Reactions: Postoperative Nausea & Vomiting (PONV) Additional Past Anesthesia/Blood Transfusion Reaction / Comment(s): no hx blood transfusion Past Psychological History: No Psychological Hx Reported Smoking Status: Current every day smoker Past Alcohol Use History: None Reported Past Drug Use History: None Reported - Past Family History Mother Family Medical History: No Reported History Father Family Medical History: Cancer General Exam Limitations: no limitations General appearance: alert, in no apparent distress Head exam: Present: atraumatic, normocephalic, normal inspection Eye exam: Present: normal appearance, EOMI. Absent: scleral icterus, conjunctival injection, periorbital swelling ENT exam: Present: normal exam, normal oropharynx, mucous membranes moist Neck exam: Present: normal inspection, full ROM. Absent: tenderness, meningismus, lymphadenopathy, thyromegaly Respiratory exam: Present: normal lung sounds bilaterally, chest wall tenderness (Left posterior ribs mid thoracic). Absent: respiratory distress, wheezes, rales, rhonchi, stridor, accessory muscle use Cardiovascular Exam: Present: regular rate, normal rhythm, normal heart sounds. Absent: systolic murmur, diastolic murmur, rubs, gallop, clicks Extremities exam: Present: normal inspection, full ROM, normal capillary refill. Absent: tenderness, pedal edema, joint swelling, calf tenderness Back exam: Present: tenderness (Left-sided rib mid thoracic). Absent: CVA tenderness (R), CVA tenderness (L), rash noted Neurological exam: Present: alert, oriented X3, normal gait Psychiatric exam: Present: normal affect, normal mood Skin exam: Present: warm, dry, intact, normal color. Absent: rash Course Vital Signs 02/27/21 02/27/21 14:24 17:06 Temperature 98.6 F Pulse Rate 67 55 L Respiratory 18 18 Rate Blood Pressure 148/70 171/70 O2 Sat by Pulse 95 97 Oximetry EKG Findings - EKG Results: EKG: sinus rhythm, no acute changes, not changed from: (09/05/20) EKG shows: bradycardia (Ventricular rate 55, [place] interval 0.150, QRS 0.72, QTC 0.441) Medical Decision Making - Medical Decision Making Patient is feeling better after morphine. Troponin is negative EKG shows no acute changes. She denies any chest pain or shortness of breath. Her d-dimer was elevated and I did do a CTA which was negative for pulmonary embolism. Vital signs are stable and she has been afebrile. Patient believes that this could be related to her rheumatoid arthritis as there is point tenderness to the left-sided ribs. She is agreeable to being discharged home taking Motrin and using her Lidoderm patches. Plan to discharge her to follow up with her primary care doctor next week. Return to the emergency room with any new or worsening symptoms. I did discuss this case with Dr. Moore who is agreeable to this plan of care. - Lab Data Result diagrams: 02/27/21 15:23 02/27/21 15:23 Lab Results 02/27/21 02/27/21 02/27/21 Range/Units 15:23 15:23 15:23 WBC 4.6 (3.8-10.6) k/uL RBC 4.36 (3.80-5.40) m/uL Hgb 14.4 (11.4-16.0) gm/dL Hct 43.3 (34.0-46.0) % MCV 99.4 (80.0-100.0) fL MCH 33.1 (25.0-35.0) pg MCHC 33.3 (31.0-37.0) g/dL RDW 14.6 (11.5-15.5) % Plt Count 216 (150-450) k/uL MPV 8.5 Neutrophils % 69 % Lymphocytes % 23 % Monocytes % 5 % Eosinophils % 1 % Basophils % 1 % Neutrophils # 3.2 (1.3-7.7) k/uL Lymphocytes # 1.1 (1.0-4.8) k/uL Monocytes # 0.2 (0-1.0) k/uL Eosinophils # 0.1 (0-0.7) k/uL Basophils # 0.0 (0-0.2) k/uL Macrocytosis Slight PT 9.8 (9.0-12.0) sec INR 0.9 (<1.2) APTT 21.8 L (22.0-30.0) sec D-Dimer 1.07 H (<0.60) mg/L FEU Sodium 136 L (137-145) mmol/L Potassium 4.8 (3.5-5.1) mmol/L Chloride 104 (98-107) mmol/L Carbon Dioxide 27 (22-30) mmol/L Anion Gap 5 mmol/L BUN 22 H (7-17) mg/dL Creatinine 1.05 H (0.52-1.04) mg/dL Est GFR (CKD-EPI)AfAm 58 (>60 ml/min/1.73 sqM) Est GFR (CKD-EPI)NonAf 50 (>60 ml/min/1.73 sqM) Glucose 100 H (74-99) mg/dL Calcium 9.6 (8.4-10.2) mg/dL Magnesium 2.4 H (1.6-2.3) mg/dL Total Bilirubin 0.5 (0.2-1.3) mg/dL AST 26 (14-36) U/L ALT 15 (4-34) U/L Alkaline Phosphatase 67 (38-126) U/L Troponin I (0.000-0.034) ng/mL Total Protein 6.9 (6.3-8.2) g/dL Albumin 4.1 (3.5-5.0) g/dL 02/27/21 Range/Units 15:23 WBC (3.8-10.6) k/uL RBC (3.80-5.40) m/uL Hgb (11.4-16.0) gm/dL Hct (34.0-46.0) % MCV (80.0-100.0) fL MCH (25.0-35.0) pg MCHC (31.0-37.0) g/dL RDW (11.5-15.5) % Plt Count (150-450) k/uL MPV Neutrophils % % Lymphocytes % % Monocytes % % Eosinophils % % Basophils % % Neutrophils # (1.3-7.7) k/uL Lymphocytes # (1.0-4.8) k/uL Monocytes # (0-1.0) k/uL Eosinophils # (0-0.7) k/uL Basophils # (0-0.2) k/uL Macrocytosis PT (9.0-12.0) sec INR (<1.2) APTT (22.0-30.0) sec D-Dimer (<0.60) mg/L FEU Sodium (137-145) mmol/L Potassium (3.5-5.1) mmol/L Chloride (98-107) mmol/L Carbon Dioxide (22-30) mmol/L Anion Gap mmol/L BUN (7-17) mg/dL Creatinine (0.52-1.04) mg/dL Est GFR (CKD-EPI)AfAm (>60 ml/min/1.73 sqM) Est GFR (CKD-EPI)NonAf (>60 ml/min/1.73 sqM) Glucose (74-99) mg/dL Calcium (8.4-10.2) mg/dL Magnesium (1.6-2.3) mg/dL Total Bilirubin (0.2-1.3) mg/dL AST (14-36) U/L ALT (4-34) U/L Alkaline Phosphatase (38-126) U/L Troponin I <0.012 (0.000-0.034) ng/mL Total Protein (6.3-8.2) g/dL Albumin (3.5-5.0) g/dL Disposition Clinical Impression: Rib pain on left side Disposition: HOME SELF-CARE Condition: Good Instructions (If sedation given, give patient instructions): Chest Wall Pain (ED) Additional Instructions: Use Motrin every 8 hours, 400 mg, as needed for pain. You can also use the Lidoderm patches to the area of pain. Follow-up with your primary care doctor next week. Return to the emergency room with any new or worsening symptoms including chest pain, shortness of breath or fevers. Prescriptions: Lidocaine [Lidoderm 5% Patch] 1 patch TRANSDERM DAILY 10 Days #10 patch Is patient prescribed a controlled substance at d/c from ED?: No Referrals: Barry Bazan MD [Primary Care Provider] - 1-2 days Time of Disposition: 17:39
--- NOTE | 2021-02-27 15:14 | XR ---
EXAMINATION TYPE: XR chest 2V DATE OF EXAM: 02/27/2021 COMPARISON: 11/01/2015 HISTORY: Chest pain TECHNIQUE: 2 views FINDINGS: Heart and mediastinum are normal. Lungs are clear. Diaphragm is normal. Bony thorax is inta ct. There is right shoulder prosthesis. IMPRESSION: No active cardiopulmonary disease. No change.
[2021-02-27 15:49] LABS: Basophils % (A) 1 %; Eosinophils # (A) 0.1 k/uL (0-0.7); Eosinophils % (A) 1 %; HCT 43.3 % (34.0-46.0); HGB 14.4 gm/dL (11.4-16.0); Lymphocytes # (A) 1.1 k/uL (1.0-4.8); Lymphocytes % (A) 23 %; MCH 33.1 pg (25.0-35.0); MCHC 33.3 g/dL (31.0-37.0); MCV 99.4 fL (80.0-100.0); Macrocytosis Slight; Mean Platelet Volume 8.5; Monocytes # (A) 0.2 k/uL (0-1.0); Monocytes % (A) 5 %; Neutrophils # (A) 3.2 k/uL (1.3-7.7); Neutrophils % (A) 69 %; Platelet Count 216 k/uL (150-450); RBC 4.36 m/uL (3.80-5.40); RDW 14.6 % (11.5-15.5); WBC 4.6 k/uL (3.8-10.6)
[2021-02-27 15:55] LABS: Albumin 4.1 g/dL (3.5-5.0); Calcium 9.6 mg/dL (8.4-10.2); Magnesium 2.4 mg/dL (1.6-2.3); Potassium 4.8 mmol/L (3.5-5.1); Total Bilirubin 0.5 mg/dL (0.2-1.3); Total Protein 6.9 g/dL (6.3-8.2)
[2021-02-27 16:04] LABS: INR 0.9 (<1.2); Prothrombin Time 9.8 sec (9.0-12.0)
[2021-02-27 16:11] LABS: Partial Thromboplastin Time 21.8 sec (22.0-30.0)
--- NOTE | 2021-02-27 17:23 | CT ---
EXAMINATION TYPE: CT chest angio for PE DATE OF EXAM: 02/27/2021 COMPARISON: None HISTORY: RIB PAIN CT DLP: 246.5 mGycm Automated exposure control for dose reduction was used. CONTRAST: Performed with IV Contrast, patient injected with 80 mL of Isovue 300. There are 3-D post processed images. There is some pleural thickening and linear infiltrate right posterior lung apex. The other lung fiel ds are clear. There is no pleural effusion. There is no pericardial effusion. Heart size is normal. There are no hilar masses. There is no mediastinal adenopathy. There are some atheromatous change in the thoracic aorta. There is no aneurysm or dissection. There is normal contrast opacification of the pulmonary arteries. There are no filling defects. There is T12 compression fracture which appears old and has 50% loss of height. Not changed compared to old CT scan abdomen and pelvis. There is also some anterior wedging of L1 and L2. There is right s houlder prosthesis with metal artifact. IMPRESSION: No evidence of pulmonary embolism. Right apical pleural and pulmonary scarring. This appears stable c ompared to the CT scan of the neck of 04/19/2017. No acute lung disease.
[2021-02-27 18:48] VITALS: BP 162/78; PULSE 62
== END 2021-02-27 18:30 | disposition home or self-care (01) ==
LOC: EC 13:46
DX: R07.81 Pleurodynia (principal); E78.5 Hyperlipidemia, unspecified; I10 Essential (primary) hypertension; M06.9 Rheumatoid arthritis, unspecified; F17.200 Nicotine dependence, unspecified, uncomplicated; Z86.718 Personal history of other venous thrombosis and embolism; Z79.82 Long term (current) use of aspirin; Z79.899 Other long term (current) drug therapy
CPT/HCPCS: 99284; 96374; 36415; 93005; 85379; 80053; 83735; 84484; 85025; 85610; 85730; 71046; 71275; J2270; Q9967

== ENCOUNTER → 2021-11-07 | Outpatient (CLI) | payer MEDICARE, BC ==
[~2021-11-07] MED LIST changes: +DENOSUMAB 60 MG/ML 1 ML SYRINGE SQ NR; -LACTATED RINGERS 1,000 ML IV SCH; -LIDOCAINE 1% (10MG/ML) FOR IV START INTRADERMA PRN; -LIDOCAINE 1% INJ 10MG/ML (20 ML MDV) ONE; -PROPOFOL 10 MG/ML 20 ML VIAL IV ONE
== END ==
LOC: PROCWHC3 10:46
PROVIDERS: ATTEND Internal Medicine Rheumatology
DX: Z53.9 Procedure and treatment not carried out, unspecified reason (principal)

== ENCOUNTER 2022-01-09 09:58 | Emergency (ER) | payer MEDICARE, BC ==
[2022-01-09 10:09] VITALS: BP 179/75; PULSE 80; RESP 20; TEMP 97.7
--- NOTE | 2022-01-09 10:47 | ED ---
Fall HPI - General Chief Complaint: Fall Stated Complaint: fall,rib pains Time Seen by Provider: 01/09/22 10:11 Source: patient, family, RN notes reviewed Mode of arrival: ambulatory - History of Present Illness Initial Comments: This is an 81-year-old female who presents to the emergency department with rib pain after a fall. States that she fell 5-6 days ago when coming out of a restaurant. She tripped on the sidewalk and fell face forward. Denies hitting her head or any loss of consciousness. She was doing well for several days, however yesterday, she started to develop pain in the left ribs and today the pain moved to the right ribs. She has not been able to sleep due to the pain. States that brushing her teeth or lifting her arms at all exacerbates the pain. She has not taken any medication for the pain. Denies any fevers, chills, sore throat, cough, dyspnea, chest pain, palpitations, abdominal pain, nausea, vomiting, diarrhea, back pain, or he adaches. Complaint: fall Onset/Timin -: days(s) Fall From: standing Fall Witnessed: yes, by family Place Fall Occurred: other (Restaurant) Loss of Consciousness: none Prolonged Down Time?: no Symptoms Prior to Fall: none Context: tripped/slipped - Related Data Home Medications Medication Instructions Recorded Confirmed Aspirin 81 mg PO HS 09/09/13 12/07/21 Folic Acid 1 mg PO DAILY 09/09/13 12/07/21 Metoprolol Tartrate [Lopressor] 25 mg PO QAM 09/09/13 12/07/21 Pravastatin Sodium [Pravachol] 40 mg PO HS 09/09/13 12/07/21 Meloxicam [Mobic] 7.5 mg PO DAILY 01/06/14 12/07/21 Cholecalciferol [Vitamin D3 (25 1,000 unit PO DAILY 04/13/16 12/07/21 Mcg = 1000 Iu)] traMADol HCL [Ultram] 50 mg PO Q6HR PRN 04/13/16 12/07/21 Magnesium Oxide [Mag-Ox] 500 mg PO BID 02/21/19 12/07/21 Orencia (Unkn.Dose) 1 dose IV Q30D 02/21/19 12/07/21 metHOTREXate sodium [Methotrexate] 25 mg PO WE 04/07/19 12/07/21 Dicyclomine [Bentyl] 10 mg PO TID 07/24/19 12/07/21 Famotidine [Pepcid] 10 mg PO DAILY 10/05/20 12/07/21 Gabapentin [Neurontin] 100 mg PO DAILY 10/05/20 12/07/21 Previous Rx's Medication Instructions Recorded Lidocaine [Lidoderm 5% Patch] 1 patch TRANSDERM DAILY 10 Days 02/27/21 #10 patch Allergies Allergy/AdvReac Type Severity Reaction Status Date / Time No Known Allergies Allergy Verified 01/09/22 10:09 Review of Systems ROS Statement: Those systems with pertinent positive or pertinent negative responses have been documented in the HPI. ROS Other: All systems not noted in ROS Statement are negative. Past Medical History Past Medical History: Deep Vein Thrombosis (DVT), Hyperlipidemia, Hypertension, Rheumatoid Arthritis (RA) Additional Past Medical History / Comment(s): SEPTIC SHOCK POST KIDNEY STONE, varicose veins, History of Any Multi-Drug Resistant Organisms: None Reported Date of last positivie culture/infection: 2016 MDRO Source:: kidney stone Past Surgical History: Back Surgery, Cholecystectomy, Hysterectomy, Joint Replacement, Orthopedic Surgery Additional Past Surgical History / Comment(s): vein surgery rt leg, sara carpal tunnel, joints removed from feet, rt hand replacement of knuckle, rotator cuff sara shoulders, rt elbow replaced, rt shoulder fx, reverse rotator cuff repair rt shoulder, surgery 11/02/15- rt hip fx, repeat right hip surgery (fall 2016) Past Anesthesia/Blood Transfusion Reactions: Postoperative Nausea & Vomiting (PONV) Additional Past Anesthesia/Blood Transfusion Reaction / Comment(s): no hx blood transfusion Past Psychological History: No Psychological Hx Reported Smoking Status: Current every day smoker Past Alcohol Use History: None Reported Past Drug Use History: None Reported - Past Family History Mother Family Medical History: No Reported History Father Family Medical History: Cancer General Exam Limitations: no limitations General appearance: alert, in no apparent distress Head exam: Present: atraumatic, normocephalic, normal inspection Respiratory exam: Present: normal lung sounds bilaterally, chest wall tenderness (Just inferior to the right axilla and lateral to the right breast.). Absent: respiratory distress, wheezes, rales, rhonchi, stridor Cardiovascular Exam: Present: regular rate, normal rhythm, normal heart sounds. Absent: systolic murmur, diastolic murmur, rubs, gallop, clicks Neurological exam: Present: alert, oriented X3, CN II-XII intact Psychiatric exam: Present: normal affect, normal mood Skin exam: Present: warm, dry, intact, normal color. Absent: rash Course Vital Signs 01/09/22 10:07 Temperature 97.7 F Pulse Rate 80 Respiratory 20 Rate Blood Pressure 179/75 O2 Sat by Pulse 100 Oximetry Medical Decision Making - Medical Decision Making This is an 81-year-old female who presents to the emergency department for rib pain after a fall 5-6 days ago. X-ray of the bilateral ribs and thoracic spine obtained, revealing no acute irregularities. She does have a moderate to severe chronic compression fracture at the thoracolumbar junction, which may have been exacerbated. Advised that she may have rib fractures that we are unable to identify on x-ray. The mainstay of treatment will be pain control. Patient has tramadol at home to take when needed for her rheumatoid arthritis. Advised taking this with Tylenol. Instructed her to take deep breaths, at least once an hour to reduce her chance of developing a pneumonia. She'll follow up with her primary care provider for reevaluation of symptoms. Return precautions reviewed in depth, the patient is instructed to return to the emergency department with any new, worsening, or concerning symptoms. Patient verbalized understanding. This case was discussed in detail with the attending ED physician. Presentation, findings, and treatment plan discussed in detail as well. - Radiology Data Radiology results: report reviewed, image reviewed Disposition Clinical Impression: Rib pain on right side Disposition: HOME SELF-CARE Instructions (If sedation given, give patient instructions): Costochondritis (ED), Fall Prevention (ED) Additional Instructions: Return to the emergency department with any new, worsening, or concerning symptoms. Take your tramadol as needed for additional pain relief. You can try applying ice or heat as well. Make sure you take deep breaths at least once every hour to reduce your risk of developing a pneumonia. Is patient prescribed a controlled substance at d/c from ED?: No Referrals: None,Stated [Primary Care Provider] - 1-2 days
[2022-01-09] MEDS ORDERED: HYDROcodone/APAP 5-325MG 1 EACH TAB PO STA (11:37)
--- NOTE | 2022-01-09 11:37 | XR ---
EXAMINATION TYPE: XR thoracic spine complete DATE OF EXAM: 01/09/2022 COMPARISON: NONE HISTORY: Pain TECHNIQUE: 3 views submitted FINDINGS: Alignment is anatomic. There is diffuse osteopenia with severe multilevel degenerative disc disease and scoliosis of the spine. At the thoracolumbar junction there is a moderate to severe superior endp late compression fracture which is stable from prior chest x-ray of 02/09/2021. Postsurgical change i nvolving the lumbar region noted. IMPRESSION: 1. Diffuse osteopenia with scoliosis and multilevel severe degenerative disc disease. Moderate to sev ere compression fracture superior endplate thoracolumbar junction.
--- NOTE | 2022-01-09 11:42 | XR ---
EXAMINATION TYPE: XR ribs bilat w pa chest xray DATE OF EXAM: 01/09/2022 COMPARISON: NONE HISTORY: Pain TECHNIQUE: Frontal view of the chest and AP views of the ribs were obtained bilaterally. FINDINGS: Diffuse osteopenia with arthropathy of the left shoulder and postsurgical change right shou lder and elbow. Surgical changes in the gallbladder fossa and lumbar vertebral column. There is multilevel severe degenerative disc disease with scoliosis. Chronic appearing compression fr acture thoracolumbar junction stable from chest x-ray 02/27/2021. The visualized rib cage intact. No acute displaced rib fracture. Lungs are clear with biapical pleural thickening. Heart size normal. Atherosclerotic change of aorta with ectasia. No pneumothorax or pleural effusion. No focal pneumonia. IMPRESSION: 1. No acute displaced rib fracture.
== END 2022-01-09 12:19 | disposition home or self-care (01) ==
LOC: EC 09:58
DX: R07.82 Intercostal pain (principal); Z86.718 Personal history of other venous thrombosis and embolism; E78.5 Hyperlipidemia, unspecified; I10 Essential (primary) hypertension; M06.9 Rheumatoid arthritis, unspecified; F17.200 Nicotine dependence, unspecified, uncomplicated; Z79.82 Long term (current) use of aspirin; Z79.899 Other long term (current) drug therapy; W10.1XXA Fall (on)(from) sidewalk curb, initial encounter
CPT/HCPCS: 71111; 72072; 99284

== ENCOUNTER → 2022-03-22 | Outpatient (CLI) | payer MEDICARE, BC ==
--- NOTE | 2022-03-22 11:32 | US ---
EXAMINATION TYPE: US kidneys/renal and bladder DATE OF EXAM: 03/22/2022 COMPARISON: CT, US CLINICAL HISTORY: R94.4 ABN RESULTS OF KIDNEY FUNCTION STUDIES. Abnormal kidney function study. Hx ki dney stone. EXAM MEASUREMENTS: Right Kidney: 9.0 x 3.5 x 3.4 cm Left Kidney: 11.4 x 5.3 x 5.5 cm Right Kidney: Prominent renal pelvis, scanned post void as well. Left Kidney: Septated anechoic area seen: 5.1 x 4.9 x 4.3 cm. Hypoechoic/complex area seen at mid-lower pole: 2.2 x 2.1 x 2.0 cm. Bladder: Appears anechoic. Bilateral Jets seen: Yes IMPRESSION: Simple renal cysts noted.
== END | disposition home or self-care (01) ==
LOC: RADUSWWP 10:49
PROVIDERS: ATTEND Family Medicine
DX: N28.1 Cyst of kidney, acquired (principal); R94.4 Abnormal results of kidney function studies
CPT/HCPCS: 76770

== ENCOUNTER → 2022-05-30 | Outpatient (CLI) | payer MEDICARE, BC ==
[2022-05-30 15:29] LABS: HCT 36.8 % (37.2-46.3); MCH 26.3 pg (27.0-32.0); MCHC 29.9 g/dL (32.0-37.0); Mean Platelet Volume 11.4 fL (9.5-12.2); NRBC Per 100 WBC 0 /100 WBCS (0.0-0.0); Platelet Count 311 X 10*3/uL (140-440); RBC 4.18 X 10*6/uL (4.10-5.20); RDW 22.9 % (11.5-14.5); WBC 9.25 X 10*3/uL (4.50-10.00)
[2022-05-30 16:32] LABS: Basophils # (A) 0.03 X 10*3/uL (0.00-0.10); Basophils % (A) 0.3 %; Eosinophils # (A) 0.04 X 10*3/uL (0.04-0.35); Eosinophils % (A) 0.4 %; Immature Grans, Automated 1.3 %; Lymphocytes # (A) 1.34 X 10*3/uL (0.90-5.00); Lymphocytes % (A) 14.5 %; Monocytes # (A) 1.28 X 10*3/uL (0.20-1.00); Monocytes % (A) 13.8 %; Neutrophils # (A) 6.44 X 10*3/uL (1.80-7.70); Neutrophils % (A) 69.7 %
[2022-05-30 16:34] LABS: Anisocytosis (M) 2+; Elliptocytes 2+
[2022-05-30 19:05] LABS: % Iron Saturation 47.17 (12.00-45.00); Ferritin 49.3 ng/mL (10.0-291.0)
== END | disposition home or self-care (01) ==
LOC: LABWHC1 11:09
PROVIDERS: ATTEND Internal Medicine Gastroenterology
DX: D50.9 Iron deficiency anemia, unspecified (principal)
CPT/HCPCS: 36415; 82728; 83540; 83550; 85025

== ENCOUNTER → 2022-07-24 | Outpatient (CLI) | payer MEDICARE, BC ==
[2022-07-24 18:10] LABS: Basophils # (A) 0.03 X 10*3/uL (0.00-0.10); Basophils % (A) 0.6 %; Eosinophils # (A) 0.13 X 10*3/uL (0.04-0.35); Eosinophils % (A) 2.5 %; HCT 43.1 % (37.2-46.3); HGB 13.7 g/dL (12.0-15.0); Immature Grans, Automated 0.4 %; Lymphocytes # (A) 1.32 X 10*3/uL (0.90-5.00); Lymphocytes % (A) 25.4 %; MCH 29.9 pg (27.0-32.0); MCHC 31.8 g/dL (32.0-37.0); MCV 94.1 fL (80.0-97.0); Mean Platelet Volume 11.2 fL (9.5-12.2); Monocytes # (A) 0.49 X 10*3/uL (0.20-1.00); Monocytes % (A) 9.4 %; NRBC Per 100 WBC 0 /100 WBCS (0.0-0.0); Neutrophils # (A) 3.21 X 10*3/uL (1.80-7.70); Neutrophils % (A) 61.7 %; Platelet Count 192 X 10*3/uL (140-440); RBC 4.58 X 10*6/uL (4.10-5.20); RDW 20.8 % (11.5-14.5)
[2022-07-24 22:24] LABS: % Iron Saturation 11.61 (12.00-45.00); African American GFR (CKD) 48.9 (60.0-200.0); Albumin 4.6 g/dL (3.8-4.9); Albumin/Globulin Ratio 1.95 (1.60-3.17); Anion Gap 11.2 mmol/L (10.00-18.00); BUN/Creat Ratio 16.13 Ratio (12.00-20.00); Blood Urea Nitrogen 19.2 mg/dL (9.0-27.0); Calcium 9.8 mg/dL (8.7-10.3); Carbon Dioxide 26.7 mmol/L (20.0-27.5); Ferritin 65.2 ng/mL (10.0-291.0); Globulin 2.4 g/dL (1.6-3.3); Magnesium 2.4 mg/dL (1.5-2.4); Non-African American GFR(CKD) 42.2 (60.0-200.0); Potassium 4.4 mmol/L (3.5-5.5); Total Bilirubin 0.3 mg/dL (0.30-1.20)
== END | disposition home or self-care (01) ==
LOC: LABWHC1 09:45
PROVIDERS: ATTEND Internal Medicine Rheumatology
DX: M05.9 Rheumatoid arthritis with rheumatoid factor, unspecified (principal); R79.89 Other specified abnormal findings of blood chemistry; R94.4 Abnormal results of kidney function studies
CPT/HCPCS: 36415; 80053; 82306; 82607; 82728; 82746; 83540; 83550; 83735; 83970; 85025

== ENCOUNTER → 2022-08-28 | Outpatient (CLI) | payer MEDICARE, BC ==
[2022-08-28 20:33] LABS: Basophils # (A) 0.04 X 10*3/uL (0.00-0.10); Basophils % (A) 0.4 %; Eosinophils # (A) 0.01 X 10*3/uL (0.04-0.35); Eosinophils % (A) 0.1 %; HCT 47.2 % (37.2-46.3); Immature Grans, Automated 0.6 %; Lymphocytes # (A) 1.36 X 10*3/uL (0.90-5.00); Lymphocytes % (A) 13.8 %; MCH 31.5 pg (27.0-32.0); MCHC 31.8 g/dL (32.0-37.0); MCV 99.2 fL (80.0-97.0); Mean Platelet Volume 11.4 fL (9.5-12.2); Monocytes # (A) 0.73 X 10*3/uL (0.20-1.00); Monocytes % (A) 7.4 %; NRBC Per 100 WBC 0 /100 WBCS (0.0-0.0); Neutrophils # (A) 7.64 X 10*3/uL (1.80-7.70); Neutrophils % (A) 77.7 %; Platelet Count 198 X 10*3/uL (140-440); RBC 4.76 X 10*6/uL (4.10-5.20); WBC 9.84 X 10*3/uL (4.50-10.00)
[2022-08-28 23:03] LABS: % Iron Saturation 66.7 (12.00-45.00); Ferritin 72.8 ng/mL (10.0-291.0)
== END | disposition home or self-care (01) ==
LOC: LABWHC1 10:27
PROVIDERS: ATTEND Nurse Practitioner Family
DX: D50.9 Iron deficiency anemia, unspecified (principal)
CPT/HCPCS: 36415; 82728; 83540; 83550; 85025

== ENCOUNTER 2022-09-26 09:15 | Day surgery (SDC) | payer MEDICARE, BC ==
[~2022-09-26 09:15] MED LIST changes: -DENOSUMAB 60 MG/ML 1 ML SYRINGE SQ NR; +LIDOCAINE 1% (10MG/ML) FOR IV START INTRADERMA PRN
[2022-09-26 09:44] VITALS: TEMP 97.6
[2022-09-26] MEDS: LACTATED RINGERS 1,000 ML IV SCH ×2 (09:51→10:06)
[2022-09-26] MEDS ORDERED: PROPOFOL 10 MG/ML 20 ML VIAL IV ONE (10:08)
[2022-09-26] MEDS ORDERED: LIDOCAINE 2% INJ 20 MG/ML (2 ML VIAL) ONE (10:08)
--- NOTE | 2022-09-26 10:17 | P.PCN ---
Date of Procedure: 09/26/22 Procedure(s) Performed: BRIEF HISTORY: Patient is a 82-year-old, pleasant, white female scheduled for an upper endoscopy as a part of surveillance of Wilkinson's esophagus. She does have long-standing history of GERD.. PROCEDURE PERFORMED: Esophagogastroduodenoscopy with biopsy. PREOPERATIVE DIAGNOSIS: GERD/Wilkinson's esophagus. IV sedation per anesthesia. PROCEDURE: After informed consent was obtained, the patient was brought into the endoscopy unit. IV sedation was administered by Anesthesia under continuous monitoring. Initially the Olympus GIF-140 video endoscope was inserted into the mouth. Esophagus intubated without any difficulty. It was gradually advanced into the stomach and duodenum and carefully examined. The bulb and the second part of the duodenum appeared normal. The scope at this time was withdrawn to the stomach, adequately insufflated with air, and upon careful examination, mucosa of the antrum, body, cardia and the fundus appeared normal. The scope was then withdrawn into the esophagus. The GE junction was located at 39 cm from the incisors. Small hiatal hernia noted. There was a short segment of Wilkinson's esophagus extending 5-6 mm proximal to the GE junction which was biopsied. The rest of the esophagus appeared normal. There were no erosions or ulcerations seen and the patient tolerated the procedure well. IMPRESSION: 1. 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 2. Small hiatal hernia. RECOMMENDATIONS: The findings of this examination were discussed with the patient is a family. She was advised to follow with the biopsy results. She will continue with her current medications and follow antrum reflux measures. Recommend repeat colonoscopy in 3 years from now based on her overall medical condition.
[2022-09-26 10:47] VITALS: BP 122/68; PULSE 76; RESP 16
== END 2022-09-26 11:22 | disposition home or self-care (01) ==
LOC: ORWHC2ENDO 09:15
PROVIDERS: ATTEND Internal Medicine Gastroenterology
DX: K21.9 Gastro-esophageal reflux disease without esophagitis (principal); K22.70 Barrett's esophagus without dysplasia; K44.9 Diaphragmatic hernia without obstruction or gangrene; Z98.890 Other specified postprocedural states; Z79.899 Other long term (current) drug therapy; I10 Essential (primary) hypertension; E78.5 Hyperlipidemia, unspecified; Z87.891 Personal history of nicotine dependence
CPT/HCPCS: 88305; 43239; J2704; J2001

== ENCOUNTER → 2023-01-16 | Outpatient (CLI) | payer MEDICARE, BC ==
--- NOTE | 2023-01-17 22:25 | US ---
EXAMINATION TYPE: US thyroid st tissue head/neck DATE OF EXAM: 01/16/2023 COMPARISON: NONE CLINICAL INDICATION: Female, 82 years old with history of R22.1 LOCALIZED SWELLING, MASS AND LUMP, NE CK; Pt states feeling lump/palpable right lateral neck x 2 months. TECHNIQUE: Patients area of concern scanned. FINDINGS: [employer] had patient point to palpable/area of concern in right lateral neck. Right CC A visualized at patients palpable. IMPRESSION: 1. No suspicious ultrasound abnormality at the palpable region
== END | disposition home or self-care (01) ==
LOC: RADUSWWP 15:36
PROVIDERS: ATTEND Family Medicine
DX: R22.1 Localized swelling, mass and lump, neck (principal)
CPT/HCPCS: 76536

== ENCOUNTER 2023-03-21 08:21 | Emergency (ER) | payer MEDICARE, BC ==
[2023-03-21] MEDS ORDERED: MORPHINE SULFATE 4 MG/ML SYRINGE IM STA (09:28)
--- NOTE | 2023-03-21 09:38 | ED ---
General Adult HPI - General Chief complaint: Neck Pain/Injury Stated complaint: Neck pain Time Seen by Provider: 03/21/23 08:32 Source: patient Mode of arrival: ambulatory Limitations: no limitations - History of Present Illness Initial comments: Dictation was produced using [employer] dictation software. please excuse any grammatical, word or spelling errors. Chief Complaint: 82-year-old female with neck pain History of Present Illness: Is 82-year-old female with history of rheumatoid arthritis and osteoarthritis. States that for the last today she's had neck pain. She experimented sleeping with her husbands pillow recently. States that it causes her to have some neck pain. She switch back to her usual pillow and her symptoms however did not really improve patient has history of rheumatoid arthritis and osteoarthritis. Patient has a numbness and paresthesias to the arms or legs. The ROS documented in this emergency department record has been reviewed and confirmed by me. Those systems with pertinent positive or negative responses have been documented in the HPI. All other systems are other negative and/or noncontributory. - Related Data Home Medications Medication Instructions Recorded Confirmed Aspirin 81 mg PO HS 09/09/13 09/26/22 Folic Acid 1 mg PO DAILY 09/09/13 09/26/22 Metoprolol Tartrate [Lopressor] 25 mg PO QAM 09/09/13 09/26/22 Cholecalciferol [Vitamin D3 (25 1,000 unit PO DAILY 04/13/16 09/26/22 Mcg = 1000 Iu)] traMADol HCL [Ultram] 50 mg PO Q6HR PRN 04/13/16 09/26/22 Magnesium Oxide [Mag-Ox] 250 mg PO HS 02/21/19 09/26/22 Orencia (Unkn.Dose) 1 dose IV Q30D 02/21/19 09/26/22 metHOTREXate sodium [Methotrexate] 25 mg PO WE 04/07/19 09/26/22 Atorvastatin [Lipitor] 20 mg PO HS 09/21/22 09/26/22 Ferrous Sulfate [Feosol] 325 mg PO DAILY 09/21/22 09/26/22 Romosozumab-Aqqg [Evenity] 105 mg SQ Q14D 09/21/22 09/26/22 amLODIPine [Norvasc] 5 mg PO DAILY 09/21/22 09/26/22 Allergies Allergy/AdvReac Type Severity Reaction Status Date / Time No Known Allergies Allergy Verified 03/21/23 08:30 Review of Systems ROS Statement: Those systems with pertinent positive or pertinent negative responses have been documented in the HPI. ROS Other: All systems not noted in ROS Statement are negative. Past Medical History Past Medical History: Deep Vein Thrombosis (DVT), Hyperlipidemia, Hypertension, Rheumatoid Arthritis (RA) Additional Past Medical History / Comment(s): SEPTIC SHOCK POST KIDNEY STONE, varicose veins, History of Any Multi-Drug Resistant Organisms: None Reported Date of last positivie culture/infection: 2016 MDRO Source:: kidney stone Past Surgical History: Back Surgery, Cholecystectomy, Hysterectomy, Joint Replacement, Orthopedic Surgery Additional Past Surgical History / Comment(s): vein surgery rt leg, sara carpal tunnel, joints removed from feet, rt hand replacement of knuckle, rotator cuff sara shoulders, rt elbow replaced, rt shoulder fx, reverse rotator cuff repair rt shoulder, surgery 11/02/15- rt hip fx, repeat right hip surgery (fall 2016) Past Anesthesia/Blood Transfusion Reactions: Postoperative Nausea & Vomiting (PONV) Additional Past Anesthesia/Blood Transfusion Reaction / Comment(s): no hx blood transfusion Past Psychological History: No Psychological Hx Reported Smoking Status: Current every day smoker Past Alcohol Use History: None Reported Past Drug Use History: None Reported - Past Family History Mother Family Medical History: No Reported History Father Family Medical History: Cancer General Exam - General Exam Comments Initial Comments: PHYSICAL EXAM: General Impression: Alert and oriented x3, not in acute distress HEENT: Normocephalic atraumatic, extra-ocular movements intact, pupils equal and reactive to light bilaterally, mucous membranes moist. Cardiovascular: Heart regular rate and rhythm Chest: Able to complete full sentences, no retractions, no tachypnea Abdomen: abdomen soft, non-tender, non-distended, no organomegaly Musculoskeletal: Pulses present and equal in all extremities, no peripheral edema Motor: no focal deficits noted Neurological: CN II-XII grossly intact, no focal motor or sensory deficits noted Skin: Intact with no visualized rashes Psych: Normal affect and mood Limitations: no limitations Course Vital Signs 03/21/23 03/21/23 03/21/23 08:26 09:30 11:00 Temperature 98.6 F 98.4 F 98.6 F Pulse Rate 109 H 97 95 Respiratory 18 18 18 Rate Blood Pressure 148/75 172/71 154/76 O2 Sat by Pulse 95 96 96 Oximetry Medical Decision Making - Medical Decision Making Was pt. sent in by a medical professional or institution ([facility] Skinner, [employer]PLANE TESTER, urgent care, hospital, or [facility]...) When possible be specific @ -No Did you speak to anyone other than the patient for history (EMS, parent, family, police, friend...)? What history was obtained from this source @ -No Did you review nursing and triage notes (agree or disagree)? Why? @ -I reviewed and agree with nursing and triage notes Were old charts reviewed (outside hosp., previous admission, EMS record, old EKG, old radiological studies, urgent care reports/EKG's, [facility] records)? Report findings @ -No old charts were reviewed Differential Diagnosis (chest pain, altered mental status, abdominal pain women, abdominal pain men, vaginal bleeding, musculoskeletal, weakness, fever, dyspnea, syncope, headache, dizziness, GI bleed, back pain, seizure, CVA, palpatations, mental health)? @ -not applicable EKG interpreted by me (3pts min.). @ -None done X-rays interpreted by me (1pt min.). @ -None done CT interpreted by me (1pt min.). @ -Computed tomography scan of the C-spine shows no acute processes. There is arthritis. U/S interpreted by me (1pt. min.). @ -None done What testing was considered but not performed or refused? (CT, X-rays, U/S, labs)? Why? @ -None What meds were considered but not given or refused? Why? @ -None Did you discuss the management of the patient with other professionals (professionals i.e. [facility] Skinner, AIRPLANE TESTER, lab, RT, psych nurse, social media designer, last trimmer, teacher, [employer] plans staff officer, rn case manager hospice)? Give summary @ -No Was smoking cessation discussed for >3mins.? @ -No Was critical care preformed (if so, how long)? @ -No Were there social determinants of health that impacted care today? How? (Homelessness, low income, unemployed, alcoholism, drug addiction, transportation, low edu. Level, literacy, decrease access to med. care, usp, rehab)? @ -No Was there de-escalation of care discussed even if they declined (Discuss DNR or withdrawal of care, Hospice)? DNR status @ -No What co-morbidities impacted this encounter? (DM, HTN, Smoking, COPD, CAD, Cancer, CVA, ARF, Chemo, Hep., AIDS, mental health diagnosis, sleep apnea, morbid obesity)? @ -None Was patient admitted / discharged? Hospital course, mention meds given and route, prescriptions, significant lab abnormalities, going to OR and other pertinent info. @ -82-year-old female presents with neck pain. Vital signs stable. Patient has no high-risk features. Computed tomography scan suggests arthritis. Likely have muscle spasm. Patient given medications to improve her symptoms with some relief. Patient agreeable for discharge. Advised follow-up with PCP Undiagnosed new problem with uncertain prognosis? @ -No Drug Therapy requiring intensive monitoring for toxicity (Heparin, Nitro, Insulin, Cardizem)? @ -No Were any procedures done? @ -No Diagnosis/symptom? Acute, or Chronic, or Acute on Chronic? Uncomplicated (without systemic symptoms) or Complicated (systemic symptoms)? @ -default Side effects of treatment? @ -No Exacerbation, Progression, or Severe Exacerbation? @ -No Poses a threat to life or bodily function? How? (Chest pain, [place], NH, pneumonia, PE, COPD, DKA, ARF, appy, cholecystitis, CVA, Diverticulitis, Homicidal, Suicidal, threat to staff... and all critical care pts) @ -yes Disposition Clinical Impression: Spasm of cervical paraspinous muscle Disposition: HOME SELF-CARE Condition: Fair Instructions (If sedation given, give patient instructions): Cervical Strain (ED) Is patient prescribed a controlled substance at d/c from ED?: No Referrals: Colleen Bartlett MD [Primary Care Provider] - 1-2 days Time of Disposition: 12:26
--- NOTE | 2023-03-21 09:41 | CT ---
EXAMINATION TYPE: CT cervical spine wo con CT DLP: 216.2 mGycm, Automated exposure control for dose reduction was used. DATE OF EXAM: 03/21/2023 9:34 AM COMPARISON: 04/19/2017.. CLINICAL INDICATION:Female, 82 years old with history of pain, Neck pain TECHNIQUE: Axial CT images from the skull base to the inferior aspect of T2 we obtained without intra venous contrast. Coronal and sagittal reformatted images were also reviewed. Contrast used: mL of , (if blank None) Oral contrast used: (if blank None) FINDINGS: Fracture: None. Osseous structures: Multilevel degenerative disc disease changes with endplate spurring and disc oste ophyte complex's. Vertebral alignment: Grade 1 anterolisthesis of C5 and C6. Increased lordotic curvature of the cervic al spine. Spinal canal/Neural Foramina: No evidence of significant spinal canal narrowing. No evidence for sign ificant neural foraminal stenosis. Neck soft tissues: Prevertebral soft tissues are within normal limits. Other: The airway is patent. The lung apices are clear. Right endarterectomy stent graft noted. Carot id bifurcation calcifications remain present on the right and left. IMPRESSION: 1. No evidence of cervical spine fracture. 2. Moderate multilevel degenerative disc disease. 3. Grade 1 anterolisthesis of C5 on C6.
[2023-03-21] MEDS ORDERED: MIDAZOLAM 1 MG/ML 5 ML VIAL IM STA (11:21)
[2023-03-21 12:45] VITALS: BP 150/87; PULSE 94; RESP 16; TEMP 98.1
== END 2023-03-21 12:37 | disposition home or self-care (01) ==
LOC: EC 08:21
DX: S16.1XXA Strain of muscle, fascia and tendon at neck level, initial encounter (principal); E78.5 Hyperlipidemia, unspecified; I10 Essential (primary) hypertension; M06.9 Rheumatoid arthritis, unspecified; Z86.718 Personal history of other venous thrombosis and embolism; F17.200 Nicotine dependence, unspecified, uncomplicated; Z79.82 Long term (current) use of aspirin; Z79.899 Other long term (current) drug therapy
CPT/HCPCS: 72125; 99284; 96372 ×2; J2270; J2250

== ENCOUNTER → 2023-05-14 | Outpatient (CLI) | payer MEDICARE, BC ==
--- NOTE | 2023-05-14 14:26 | CT ---
EXAMINATION TYPE: CT chest wo con CT DLP: 236 mGycm, Automated exposure control for dose reduction was used. DATE OF EXAM: 05/14/2023 1:14 PM COMPARISON: 02/27/2021. CLINICAL INDICATION:Female, 82 years old with history of Z01.818 Pre-procedural, pre-op cervical fusi on TECHNIQUE: Multiple axial images were obtained through the chest. Sagittal and coronal reformats were created for review. Contrast used: (None if empty) Oral contrast used: (None if empty) FINDINGS: LUNGS/ PLEURA: Mild centrilobular emphysema changes are seen throughout the lungs. No evidence of foc al consolidation, pneumothorax or pleural effusion. AIRWAY: Patent and unremarkable. HEART: Heart is mildly enlarged for size. There is moderate atherosclerosis of the arterial vasculatu re. MEDIASTINUM: No gross evidence of adenopathy. VASCULATURE: Atherosclerotic calcifications are present throughout the aorta and its branches. MUSCULOSKELETAL: Severe disc degeneration changes are present throughout the thoracolumbar spine. Com pression deformities at T12-L2 without significant spinal canal stenosis. Mild retropulsion at T11-T1 2 to 4 mm. Right shoulder arthroplasty partially visualized. Hardware appears intact. SOFT TISSUES/LYMPH NODES: Unremarkable. LOWER NECK: No significant findings. UPPER ABDOMEN: Left simple appearing renal cysts. The gallbladder appears surgically absent. IMPRESSION: 1. No evidence for acute intrathoracic process. 2. Severe degeneration changes throughout the spine with compression deformities at T12 L1 L2 withou t significant spinal canal stenosis.
== END | disposition home or self-care (01) ==
LOC: RADCTMAIN 12:51
PROVIDERS: ATTEND Family Medicine
DX: Z01.818 Encounter for other preprocedural examination (principal); M48.54XA Collapsed vertebra, not elsewhere classified, thoracic region, initial encounter for fracture; M51.34 Other intervertebral disc degeneration, thoracic region; Z72.0 Tobacco use
CPT/HCPCS: 71250

== ENCOUNTER → 2023-06-01 | Outpatient (CLI) | payer MEDICARE, BC ==
[2023-06-01 11:58] LABS: INR 0.9 (<1.2); Partial Thromboplastin Time 22.2 sec (22.0-30.0); Prothrombin Time 10.4 sec (10.0-12.5)
[2023-06-01 15:58] LABS: Basophils # (A) 0.05 X 10*3/uL (0.00-0.10); Basophils % (A) 0.9 %; Eosinophils # (A) 0.13 X 10*3/uL (0.04-0.35); Eosinophils % (A) 2.3 %; HCT 39.1 % (37.2-46.3); HGB 12.9 g/dL (12.0-15.0); Lymphocytes # (A) 1.39 X 10*3/uL (0.90-5.00); Lymphocytes % (A) 24.4 %; MCH 31.7 pg (27.0-32.0); MCV 96.1 FL (80.0-97.0); Monocytes # (A) 0.39 X 10*3/uL (0.20-1.00); Monocytes % (A) 6.9 %; NRBC Per 100 WBC 0 X 10*3/uL (0.00-0.01); Neutrophils # (A) 3.71 X 10*3/uL (1.80-7.70); Neutrophils % (A) 65.1 %; Platelet Count 188 X 10*3/uL (140-440); RBC 4.07 X 10*6/uL (4.10-5.20); RDW 16.8 % (11.5-14.5); WBC 5.69 X 10*3/uL (4.50-10.00)
[2023-06-01 16:41] LABS: ALT 14 U/L (8-44); AST 23 U/L (13-35); Albumin 4.3 g/dL (3.8-4.9); Albumin/Globulin Ratio 1.87 Ratio (1.60-3.17); Alkaline Phosphatase 82 U/L (41-126); BUN/Creat Ratio 13.36 Ratio (12.00-20.00); Blood Urea Nitrogen 14.7 mg/dL (9.0-27.0); Calcium 9.5 mg/dL (8.7-10.3); Carbon Dioxide 25.6 mmol/L (21.6-31.8); Chloride 105 mmol/L (96-109); Globulin 2.3 g/dL (1.6-3.3); Glucose 93 mg/dL (70-110); Potassium 4.5 mmol/L (3.5-5.5); Sodium 141 mmol/L (135-145); Total Bilirubin 0.6 mg/dL (0.3-1.2); Total Protein 6.6 g/dL (6.2-8.2)
[2023-06-01 21:57] LABS: Appearance,Urine Clear (Clear); Bilirubin,Urine Negative (Negative); Blood,Urine Negative (Negative); Color,Urine Yellow (Yellow); Ketones,Urine Negative (Negative); Nitrite,Urine Negative (Negative); Specific Gravity,Urine 1.013 (1.001-1.030); Urobilinogen,Urine 0.2 E.U./DL
== END | disposition home or self-care (01) ==
LOC: LABPAT 10:20
PROVIDERS: ATTEND Orthopaedic Surgery Orthopaedic Surgery of the Spine
DX: Z01.812 Encounter for preprocedural laboratory examination (principal); M48.02 Spinal stenosis, cervical region
CPT/HCPCS: 36415; 80053; 81003; 85025; 85610; 85730; 86850; 86900; 86901

== ENCOUNTER 2023-06-06 05:34 | Inpatient (IN) | payer MEDICARE, BC ==
[2023-05-30 10:58] VITALS: BMI 19.4
[2023-06-06] MEDS ORDERED: LIDOCAINE 1% (10MG/ML) FOR IV START INTRADERMA PRN (05:57)
[2023-06-06] MEDS: LACTATED RINGERS 1,000 ML IV SCH (06:15)
[2023-06-06 06:34] LABS: Glucose,Whole Blood 95 mg/dL (70-110)
[2023-06-06] MEDS ORDERED: MIDAZOLAM 2 MG/2 ML VIAL IV PRN (07:00)
[2023-06-06] MEDS: MIDAZOLAM 2 MG/2 ML VIAL IVP ONE (07:10)
[2023-06-06] MEDS: DEXAMETHASONE SOD PHOSPHATE 4 MG/ML 1 ML VIAL IV ONE (07:25)
[2023-06-06] MEDS: ONDANSETRON 4 MG/2 ML VIAL IVP ONE (07:25)
[2023-06-06] MEDS ORDERED: fentaNYL (PF) 50 MCG/ML 2 ML AMP ONE (07:28)
[2023-06-06] MEDS ORDERED: PHENYLEPHRINE 10 MG/ML VIAL ONE (07:28)
[2023-06-06] MEDS ORDERED: SUCCINYLCHOLINE CHLORIDE 200 MG/10 ML VIAL IV ONE (07:28)
[2023-06-06] MEDS ORDERED: SUGAMMADEX SODIUM 200 MG/2 ML SDV IV ONE (07:28)
[2023-06-06] MEDS ORDERED: ONDANSETRON 4 MG/2 ML VIAL ONE (07:28)
[2023-06-06] MEDS ORDERED: ROCURONIUM 10 MG/ML (5 ML VIAL) IV ONE (07:28)
[2023-06-06] MEDS ORDERED: ePHEDrine 50 MG/ML 1 ML VIAL ONE (07:28)
[2023-06-06] MEDS ORDERED: LIDOCAINE 1% INJ 10MG/ML (20 ML MDV) ONE (07:28)
[2023-06-06] MEDS ORDERED: KETAMINE HCL IN 0.9 % NACL 50 MG/5 ML SYRINGE ONE (07:28)
[2023-06-06] MEDS ORDERED: GLYCOPYRROLATE 0.2 MG/ML 2 ML VIAL ONE (07:28)
[2023-06-06] MEDS ORDERED: PROPOFOL 10 MG/ML 20 ML VIAL IV ONE (07:28)
[2023-06-06] MEDS ORDERED: NEOSTIGMINE 1 MG/ML 10 ML VIAL ONE (07:28)
[2023-06-06] MEDS ORDERED: DEXAMETHASONE SOD PHOSPHATE 10 MG/ML 1 ML VIAL ONE (07:28)
[2023-06-06] MEDS: LIDOCAINE 2%-EPI 1:100,000 20 ML VIAL SQ ONE ×2 (08:10)
[2023-06-06] MEDS: BUPIVACAINE (PF) 0.5% 30 ML VIAL SQ ONE ×2 (08:10)
[2023-06-06] MEDS: GELATIN SPONGE,ABSORB (LARGE) 1 EACH SPONGE TOPICAL ONE (08:19)
[2023-06-06] MEDS: THROMBIN (BOVINE) 5,000 UNIT VIAL TOPICAL ONE (08:21)
[2023-06-06] MEDS: ceFAZolin 1,000 MG in SODIUM CHLORIDE 0.9% 1,000 ML IRRIGATION ONE (08:22)
[2023-06-06] MEDS: LACTATED RINGERS 1,000 ML IV ONE ×3 (11:00→11:33)
--- NOTE | 2023-06-06 14:19 | FL ---
EXAMINATION TYPE: FL guidance operating room, XR cervical spine limited Intraoperative/procedural flu oroscopic services were provided. Total fluoroscopy time is 51.5 seconds with a total of 7 submitted images to PACS. Please see the operative/procedural note for further details. DAP: 0.8036 Gycm2
[2023-06-06] MEDS ORDERED: BENZOCAINE/MENTHOL LOZENG 1 EACH LOZENGE MUCOUS MEM PRN (15:19)
[2023-06-06] MEDS ORDERED: ONDANSETRON 4 MG/2 ML VIAL IVP PRN (15:19)
[2023-06-06] MEDS ORDERED: HYDROcodone/APAP 5-325MG 1 EACH TAB PO PRN (15:21)
--- NOTE | 2023-06-06 15:51 | P.OP ---
Date of Procedure: 06/06/23 Preoperative Diagnosis: Cervical myelopathy, severe cervical stenosis C3-4 C4-5 C5-6 C6-7, spondylolisthesis see 4 5 C5-6, degenerative disc disease C3-4 C4-5 C5-6 C6-7, facet arthrosis, upper extremity weakness, upper extreme radiculopathy, difficulty ambulating, cervical spinal structural abnormality Postoperative Diagnosis: Same Anesthesia: GETA Pathology: none sent Condition: stable Disposition: PACU Description of Procedure: BRIEF OPERATIVE NOTE Preoperative Diagnosis:Cervical myelopathy, severe cervical stenosis C3-4 C4-5 C5-6 C6-7, spondylolisthesis see 4 5 C5-6, degenerative disc disease C3-4 C4-5 C5-6 C6-7, facet arthrosis, upper extremity weakness, upper extreme radiculopathy, difficulty ambulating, cervical spinal structural abnormality Postoperative Diagnosis:Cervical myelopathy, severe cervical stenosis C3-4 C4-5 C5-6 C6-7, spondylolisthesis see 4 5 C5-6, degenerative disc disease C3-4 C4-5 C5-6 C6-7, facet arthrosis, upper extremity weakness, upper extreme radiculopathy, difficulty ambulating, cervical spinal structural abnormality Procedure: Two-stage anterior and posterior cervical spinal decompression and fusion. This was performed under the same anesthesia but through 2 separate positions and surgical incisions Stage I: anterior cervical decompression with discectomy and fusion C4-5 C5-6 C6-7 Placement of interbody graft Application of anterior cervical screws into C4-5-6 and 7 Use of allograft bone graft putty Use of C arm guidance Stage II: Repositioning of patient with placement of [employer] head of [employer] experience strategy and the appropriate device Posterior cervical decompression laminectomy C 2 3, 3 4 C4-5 C5-6 C6-7 Posterior cervical fusion C2-3 C3-4, C4-5, C5-6, C6-7, C7-T1, T1-T2 (C2- T2) with utilization of pedicle screws at C2 T1 and T2 and lateral mass screws at the mid cervical spine Surgeon: Dr. Gavin, surgery was performed with co-surgeon for the posterior stage II aspect of the surgery with Dr. Mainor Handley who was present for dissection exposure decompression placement of hardware for the stage II posterior aspect of the bar manager: Jarret MANCINI who is present throughout the entire the case persistence during positioning, dissection, exposure, visualization, and all crucial elements of the case as well as closure. Anesthesia: General anesthesia per Dr. Khan Estimated blood loss: Approximately 100 cc at the anterior stage I and approximately 200 cc at the posterior stage II for a total of 300 cc Complications: None apparent Components implanted: Anteriorly I was able to place Cuming interbody peek cages with allograft bone graft putty and screws at C4-5-6 and 7 Posteriorly for stage II we are able to place K2M Sher posterior cervical system with pedicle screws and lateral mass screws with 2 rods and Screws from C2-T2 Disposition: To recovery room in good stable condition. OPERATIVE INDICATIONS The patient has had long-standing issues in their neck and upper extremities. She is known to have severe issues at her cervical spine as well as her lumbar spine. She is having evidence of cervical myelopathy and is having worsening function at her upper extremities and with her walking. She was having weakness in her upper extremities and was found to have severe cervical stenosis at multiple levels at her cervical spine from C3-C7. She had significant instability with kyphosis and spondylolisthesis at her lower cervical spine extending into her upper thoracic spine with hyperlordosis at her upper cervical spine. With her severe issues at multiple levels and her significant deformity with the listhesis and instability along with the myelopathic symptoms we felt that surgery would potentially benefit the patient by stopping the progression of her myelopathy and giving her a chance to improve along with stabilizing her cervical spine. Given her significant deformity we felt that surgical intervention would be decompression anteriorly and posteriorly with the anterior construct from C4-C7 in the posterior contract extending from C2-T2. We felt that this would give her the best chance of stability as well as decompression and long-term potential improvement. The patient has been through conservative treatment. The patient is elderly and quite frail and we discussed the nature and the risks involved with major surgery. The patient was significantly debilitated and was desperate to proceed with surgical intervention. I discussed the case with the co-surgeon Dr. Mainor Handley as well and we are agreeable with the plan and procedure. We discussed various treatment options including surgery, and the patient wishes to proceed with surgery We discussed the risk, patient's alternatives and benefits of surgery including but not limited to, risk of bleeding risk of infection, risk of need for further surgery, risk of decreased, loss of motion, muscle function, malunion nonunion, hardware failure, nerve damage, paralysis, heart attack, and . OPERATIVE SUMMARY After discussing all the risks, patient alternatives and benefits at length, the patient elected to proceed with surgical intervention, signed informed consent, and presented for their procedure. The patient was seen and examined in the preoperative holding area and the surgical site was marked. The patient was given antibiotics and brought to the operating room. Stage I I was able to perform stage I on my own without a co-surgeon. I was able to utilize a surgical garment assembly supervisor with Jarret MANCINI. The patient was positioned on the operating room table in a supine position being careful to pad any bony prominences and pressure points. The patient was sedated and intubated by anesthesia in standard fashion. Once the airway and C- spine were stabilized the patient's arms were padded and tucked at her side, with her shoulders gently taped. The head was placed in a donut pad with the neck in good neutral alignment and position. We were careful to maintain the patient's cervical spine and good neutral alignment and position throughout. The patient was prepped and draped in a normal standard fashion. An appropriate timeout and keystone protocol performed. We were able to proceed with the surgery. The local wound area was infiltrated with local anesthetic. An incision was made transversely approximately 2-1/2 cm over the appropriate levels at C5-6. Dissection was taken down subcutaneously to the level of the platysma which was split in line with its fibers. Dissection was taken with a carotid approach, with the trachea and esophagus medial and the carotid sheath laterally. We dissected down to the anterior surface of the vertebral bodies. Intraoperative x-ray was taken which showed a marker at the appropriate level at C5-6. With the appropriate level positively confirmed, we were able to proceed with discectomy at the appropriate levels. All of the operative levels were exposed appropriately. The patient had all their twitches back, and there was no evidence of recurrent laryngeal issue. The wound was copiously irrigated and suctioned dry as had been done periodically throughout the case. Note was made of obvious listhesis at C4-5 and C5-6. There is severe disc degeneration particularly at C5-6 and C6-7 with near complete disc height loss at the appropriate level/levels, I established an annulotomy with an 11 blade scalpel. A discectomy was performed with a combination of pituitary rongeurs, curettes, a high-speed bur, and Kerrison rongeurs. The posterior longitudinal ligament was taken down as were any posterior osteophytes. This gave good central and bilateral foraminal decompression. There is no evidence of any dural tear or leak. The endplates were prepared with a high-speed bur. With the endplates in good parallel position, I was able to size for the appropriate size interbody graft. The wound was irrigated and suctioned dry. We chose the appropriate Cuming short bodied graft and it was prepared and filled with allograft bone graft and malleted into position. I had to leave the graft somewhat proud to the inferior level due to the listhesis. I initially had screws at C4 which appeared long and I was able to change these out however we were otherwise able to place screws at C4-5-6 and 7 in good alignment good position with good bony purchase This was done similarly the appropriate levels first at C4-5 and then at C5-6 and then at C6-7. The construct was checked and found to be stable. Intraoperative x-ray was taken which showed good alignment and position of the implants at the appropriate levels. There was no evidence of any dural tear or leak. Good hemostasis was maintained. The wound was copiously irrigated and suctioned dry as had been done periodically throughout the case. The platysma was closed with absorbable suture. The subcutaneous tissue was closed. The subcuticular tissue was closed with absorbable suture. The wound was cleaned and dried and dressed appropriately. Under the same anesthesia but through a separate surgical incision we prepared for stage II for the posterior cervical decompression and fusion. Stage II If after the patient was transferred from the operating room table the appropriate new operating room table positioners were established. The patient remained under the same anesthesia. I was able to clean and prepare for placement of a [employer] head of [employer] strategy. The [employer] head of [employer] strategy was prepped and positioned and placed on her head and tensioned appropriately and found to be stable. With the [employer] head of [employer] strategy intact we are then able to turn the patient into a prone position on 12 molded frame with her head in the appropriate position. Her neck was placed in good neutral alignment and position and stabilized in place appropriately. The patient's hair was shaved partially and to the posterior aspect of her head and neck were then prepared. Dr. Handley was available and scrubbed in at this point as co-surgeon for the procedure for stage II of posterior cervical decompression and fusion from C2- T2. The patient was prepped and draped in a normal standard fashion. An appropriate timeout and keystone protocol performed. We were able to proceed with the surgery. The local wound area was infiltrated with local anesthetic. An incision was established at the midline from the base of her occiput down to T2. This tissue is taken down through the skin and subcutaneous tissue down to level of fascia which is split in the midline and dissection was taken down over the spinous processes over the lamina bilaterally from C2 down to T2. With the appropriate level exposed we able to bring in C arm to positively confirm the appropriate levels. With levels confirmed positively were then able to prepare for placement of the hardware. We began at the C2 level. We we were able to confirm the appropriate starting point and using combination of a high-speed bur and the pedicle finder Steffee probe were able to establish appropriate hole in the pedicle of C2 bilaterally confirming with C-arm guidance. We were able to plan appropriately using imaging prior to the surgery and intraoperatively to establish the appropriate trajectory and appropriate pedicle screw length. The pedicle screws were placed bilaterally at C2 in good alignment good position with excellent bony purchase. Similarly at T1 and T2 we are able to establish the appropriate starting point at the pedicle holes and establish the appropriate pedicle hole with the Steffee probe. It was palpated appropriately found to have good for finn good base it was tapped appropriately and then a screw was placed in good alignment good position at T1 and T2 bilaterally with good bony purchase. We then began to place screws at the lateral mass at C3 C4-C5-C6. There is si gnificant overlap and very small lateral masses around C3 and C4. Were able to establish lateral mass screws at C3-C4 C6 on the right and at C3 and C6 on the left. The screws were checked and found to have good stability and good bony purchase. With the screws intact we are able to then prepare for appropriate kaushik placement. The rods were measured contoured and placed into the screw heads. We are able to get some further reduction without over tensioning at the multiple screw sites. We are able to get excellent positioning and alignment from C2-T2 bilaterally and placed Screws appropriately. The construct checked found of excellent stability throughout. There was no evidence any dural tear or leak. Wound was irrigated and suctioned dry periodically throughout the case. Imaging was taken which showed excellent position of all hardware from C2-T2 anteriorly and posteriorly the hardware is intact. With the hardware intact we then prepared for the decompression laminectomy. Laminectomy was performed with combination of high-speed bur curettes and Kerrison rongeurs. We able to establish troughs bilaterally at the edge of the lamina from the C2-3 space and down to the C7-T1 space. The lamina at C3 C4-C5-C6 and C7 were able to be removed in their entirety. The spinous processes at T1 and T2 were also removed. Any further fragments or further stenosis was decompressed bilaterally from C2-3 down to C6-7. There was no evidence of any dural tear or leak. Good hemostasis maintained throughout. Note was made through the decompression that there was severe stenosis par ticular posteriorly at C3-4 C4-5. This was remedied with decompression. We are very careful during the laminectomy not to put any undue tension or pressure at the nerve roots or dura or cord. With the decompression completed the wound was arnulfo irrigated and suctioned dry. There is no evidence of any dural tear or leak. Bleeding was further controlled with Floseal. The dura was covered with Surgicel for an extra protective layer. The posterior lateral masses in-transit processes that had been decorticated were exposed and we will place allograft bone graft as well as local autogenous bone graft from the laminectomy over the posterior lateral aspect lateral to the screws bilaterally from C2-T2 for fusion. With this completed we are able to prepare for closure. The deep fascial layer was closed with #1 Vicryl and #1 strata fix stitch for watertight closure. A superficial drain was placed and the subcutaneous tissue was closed with 2-0 Vicryl and kisha. The wound was cleaned and dried and dressed with the appropriate dressing. The drapes were broken down. The patient was placed in a hard cervical collar. We were then able to unhinged the [employer] head [employer] strategy and gently rolled back patient back to a supine position onto her stretcher. The [employer] head [employer] strategy was removed appropriately without any evidence of undue trauma at the sites. There is no evidence of any bleeding at the sites. We were careful to maintain their cervical spine and good neutral alignment and position. They were slowly woken up by anesthesia, extubated, and brought to the recovery room in good stable condition. The patient will be admitted to the hospital for appropriate postoperative care, medical management and monitoring. We will continue to follow them closely about the postoperative course.
[2023-06-06] MEDS: HYDROmorphone 0.5 MG/0.5 ML SYRINGE IVP PRN (16:58)
[2023-06-06] MEDS: ROMOSOZUMAB AQQG 105 MG/1.17 ML SQ SCH (17:25)
[2023-06-06] MEDS: SODIUM CHLORIDE 0.9% 1,000 ML IV ONE (17:32)
[2023-06-06] MEDS: SODIUM CHLORIDE 0.9% 1,000 ML IV SCH (18:43)
[2023-06-06] MEDS: ceFAZolin 1 GM in DEXTROSE/WATER 1 50ML.BAG IVPB SCH (18:44)
[2023-06-06] MEDS: ACETAMINOPHEN TAB 325 MG TAB PO SCH (18:44)
[2023-06-06] MEDS: CYCLOBENZAPRINE 5 MG TAB PO PRN (18:49)
[2023-06-06] MEDS: ATORVASTATIN 20 MG TAB PO SCH (20:42)
[2023-06-06] MEDS: MAGNESIUM OXIDE 400 MG TAB PO SCH (20:42)
[2023-06-06] MEDS: HYDROcodone/APAP 5-325MG 1 EACH TAB PO PRN (20:42)
[2023-06-06] MEDS: KETOROLAC 15 MG/ML 1 ML VIAL IVP STA (21:45)
[2023-06-07] MEDS: HYDROmorphone 0.5 MG/0.5 ML SYRINGE IVP PRN (00:31)
[2023-06-07] MEDS: amLODIPine 5 MG TAB PO SCH (07:57)
[2023-06-07] MEDS: METOPROLOL TARTRATE 25 MG TAB PO SCH (07:57)
[2023-06-07] MEDS: FOLIC ACID 1 MG TAB PO SCH (07:57)
[2023-06-07] MEDS: SENNOSIDES-DOCUSATE SODIUM 1 EACH TAB PO SCH (07:59)
--- NOTE | 2023-06-07 09:14 | P.PN ---
Progress Note - Text Progress Note Date: 06/07/23 Postoperative day #1 Patient is seen and examined today at bedside. The patient has some pain around the surgical site as expected. Her pain was somewhat severe last night but she is steadily stabilizing today. She says that she has been able to tolerate swallowing but it feels like her throat bonner. She is not having any difficulty breathing. She is drinking Ensure and water. Pain is being controlled with medication. She is not having any neurologic changes in her arms or legs. She has not yet been out of bed. Physical Exam Afebrile with stable vital signs Abdomen is soft nontender. Chest has good excursion deep and space expiration Anterior at her cervical spine the incision site is clean dry and intact. No erythema there is no purulence. There is some swelling on the right side but that seems to be decreasing. It is soft and supple. Posterior at her cervical spine dressings intact. There is no drainage from the Hemovac and the Hemovac is discontinued. Extremities have not had neurologic change from prior to surgery. She has chronic weakness at her upper and lower extremities Calves and thighs were soft nontender without evidence of DVT. Assessment/Plan Postoperative day #1 status post two-stage anterior and posterior cervical decompression and fusion with anterior C4-7 discectomy and fusion and posterior C2-T2 decompression and fusion for her severe cervical stenosis with myelopathy and weakness The patient seems to making some progress in terms of her pain control. I discontinue the Hemovac. We need to start to get her out of bed. She should use her hard cervical collar at all times. Patient is progressing as expected from the surgery. The swelling at her anterior neck is diminishing and it is soft and supple. The patient had quite lengthy surgery and is somewhat frail. We need to make sure that her pain is controlled adequately and to mobilize her safely before she can be discharged home. This may take another 1 or 2 days. We will try to get her out of bed with physical therapy and Occupational Therapy today. We need to make sure that she is able to eat and have oral intake appropriately. We will continue to increase the patient's mobilization with therapy. Her Hemovac is discontinued. Will discontinue the Pantoja today. Medicine will see her as well for medical management We will continue pain control with oral or IV medications. We'll continue to follow patient closely.
[2023-06-07] MEDS: FERROUS SULFATE 325 MG TAB PO SCH (11:42)
[2023-06-07] MEDS: ASPIRIN 81 MG PO SCH (22:08)
--- NOTE | 2023-06-08 07:56 | P.PN ---
Progress Note - Text Progress Note Date: 06/08/23 Postoperative day #2 Patient is seen and examined today at bedside. The patient has some pain around the surgical site as expected. She is tolerating her regular diet. She feels that she is swallowing adequately but still bonner a little bit in the back of her throat. She has been up with therapy and has been sitting up in a chair and she says she feels okay with this. She says her pain is getting better controlled. Pain is being controlled with medication. She still has a Pantoja intact Physical Exam Afebrile with stable vital signs Abdomen is soft nontender. Chest has good excursion deep and space expiration The incision site is clean dry and intact. No erythema there is no purulence. There is some bloody drainage on the posterior dressing overnight but this seems to have settled. The anterior swelling is diminished. Her neck is soft and supple Extremities have not had neurologic change from prior to surgery. She has chronic deformities in her hands and fingers but she is using her arms adequately Calves and thighs were soft nontender without evidence of DVT. Assessment/Plan Postoperative day #2 status post two-stage anterior and posterior cervical decompression with fusion from C2-T2 for her severe cervical stenosis with myelopathy and deformity and upper extremity weakness Patient is progressing as expected from the surgery. She has been making progress with her mobility and her pain control. We need to discontinue the Pantoja today. We will continue to increase the patient's mobilization with therapy. We will continue pain control with oral or IV medications. She is primarily taking oral medications to control her pain we'll continue to follow patient closely. Hopefully she will be okay for discharge home tomorrow
--- NOTE | 2023-06-08 11:39 | P.CONS ---
History of Present Illness - Reason for Consult Consult date: 06/08/23 - History of Present Illness History of present illness; 82-year-old lady with past medical history significant for hypertension, hyperlipidemia who has been following up outpatient with orthopedic spine for her continued problems with her cervical spine. Patient continues to have significant pain and tenderness at the cervical spine. Patient has been noticing weakness of her extremities and having a hard time taking part in her daily activities. Patient was seen by orthopedic spine in outpatient setting and was scheduled for stage I anterior cervical discectomy and fusion of C4-C5, C5-C6 and C6-C7 and stage II posterior cervical decompression and fusion at C2-T2. Patient underwent this procedure on 06/07. Postoperatively the medicine team were consulted for medical management REVIEW OF SYSTEMS: CONSTITUTIONAL: No fever, no malaise, no fatigue. HEENT: No recent visual problems or hearing problems. Denied any sore throat. CARDIOVASCULAR: No chest pain, orthopnea, PND, no palpitations, no syncope. PULMONARY: No shortness of breath, no cough, no hemoptysis. GASTROINTESTINAL: No diarrhea, no nausea, no vomiting, no abdominal pain. NEUROLOGICAL: No headaches, no weakness, no numbness. HEMATOLOGICAL: Denies any bleeding or petechiae. GENITOURINARY: Denies any burning micturition, frequency, or urgency. MUSCULOSKELETAL/RHEUMATOLOGICAL: Pain in Cervical spine ENDOCRINE: Denies any polyuria or polydipsia. The rest of the 14-point review of systems is negative. PHYSICAL EXAMINATION: GENERAL: The patient is alert and oriented x3, not in any acute distress. Well developed, well nourished. HEENT: Pupils are round and equally reacting to light. EOMI. No scleral icterus. No conjunctival pallor. Normocephalic, atraumatic. No pharyngeal erythema. No thyromegaly. CARDIOVASCULAR: S1 and S2 present. No murmurs, rubs, or gallops. PULMONARY: Chest is clear to auscultation, no wheezing or crackles. ABDOMEN: Soft, nontender, nondistended, normoactive bowel sounds. No palpable organomegaly. MUSCULOSKELETAL: No joint swelling or deformity. EXTREMITIES: No cyanosis, clubbing, or pedal edema. NEUROLOGICAL: Gross neurological examination did not reveal any focal deficits. SKIN: Cervical collar, cervical area surgical incision seen Assessment and plan Cervical myelopathy, severe cervical stenosis C3-4 C4-5 C5-6 C6-7, spondylolisthesis C 4-5 C5-6 degenerative disc disease C3-4 C4-5 C5-6 C6-7 Hypertension Anemia Hyperlipidemia Monitor vital signs Monitor CBC Monitor CMP status post two-stage anterior and posterior cervical decompression and fusion with anterior C4-7 discectomy and fusion and posterior C2-T2 decompression and fusion for her severe cervical stenosis Continue pain management as per orthopedic spine Continue DVT prophylaxis per orthopedic spine Resume home med Consult PT OT Labs and medication were reviewed.. Continue same treatment. Continue with symptomatic treatment. Resume home medication. Monitor labs and vitals. DVT and GI prophylaxis. Further recommendations as per clinical course of the patient Dictation was produced using [employer] dictation software. please excuse any grammatical, word or spelling errors. Past Medical History Past Medical History: Deep Vein Thrombosis (DVT), Hyperlipidemia, Hypertension, Rheumatoid Arthritis (RA) Additional Past Medical History / Comment(s): SEPTIC SHOCK POST KIDNEY STONE, varicose veins, History of Any Multi-Drug Resistant Organisms: None Reported Year Discovered:: 2017 MDRO Source:: kidney stone Past Surgical History: Back Surgery, Cholecystectomy, Hysterectomy, Joint Replacement, Orthopedic Surgery Additional Past Surgical History / Comment(s): vein surgery rt leg, sara carpal tunnel, joints removed from feet, rt hand replacement of knuckle, rotator cuff sara shoulders, rt elbow replaced, rt shoulder fx, reverse rotator cuff repair rt shoulder, surgery 11/02/15- rt hip fx, repeat right hip surgery (fall 2016) Past Anesthesia/Blood Transfusion Reactions: Postoperative Nausea & Vomiting (PONV) Additional Past Anesthesia/Blood Transfusion Reaction / Comm: no hx blood transfusion Past Psychological History: No Psychological Hx Reported Smoking Status: Current every day smoker Past Alcohol Use History: None Reported Additional Past Alcohol Use History / Comment(s): quit smoking 10/2015, smoked since age 17, 1/2 PPD Past Drug Use History: None Reported - Past Family History Mother Family Medical History: No Reported History Father Family Medical History: Cancer Medications and Allergies Home Medications Medication Instructions Recorded Confirmed Type Aspirin 81 mg PO HS 09/09/13 06/06/23 History Folic Acid 1 mg PO DAILY 09/09/13 06/06/23 History Metoprolol Tartrate [Lopressor] 25 mg PO QAM 09/09/13 06/06/23 History Magnesium Oxide [Mag-Ox] 250 mg PO HS 02/21/19 06/06/23 History Orencia (Unkn.Dose) 1 dose IV Q30D 02/21/19 06/06/23 History metHOTREXate sodium [Methotrexate] 25 mg PO WE 04/07/19 06/06/23 History Atorvastatin [Lipitor] 20 mg PO HS 09/21/22 06/06/23 History Ferrous Sulfate [Feosol] 325 mg PO Q48H 09/21/22 06/06/23 History Romosozumab-Aqqg [Evenity] 105 mg SQ Q14D 09/21/22 06/06/23 History amLODIPine [Norvasc] 5 mg PO QAM 09/21/22 06/06/23 History HYDROcodone/APAP 5-325MG [[place] 1 tab PO DIRECTED PRN 05/30/23 06/06/23 History 5-325] HYDROcodone/APAP 5-325MG [[place] 1 tab PO Q6HR PRN 7 Days #28 tab 06/08/23 Rx 5-325] Allergies Allergy/AdvReac Type Severity Reaction Status Date / Time No Known Allergies Allergy Verified 06/06/23 06:15 Physical Exam Vitals: Vital Signs Temp Pulse Pulse Resp BP Pulse Ox 06/08/23 06:52 98.2 F 88 18 155/69 96 06/08/23 01:10 98.0 F 82 18 148/80 96 06/07/23 23:40 20 06/07/23 19:10 98.1 F 71 18 160/63 94 L 06/07/23 14:00 97.7 F 80 17 123/54 97 Intake and Output 06/07/23 06/08/23 06/08/23 22:59 06:59 14:59 Intake Total 240 Output Total 1100 2500 300 Balance -860 -2500 -300 Intake: Oral 240 Output: Urine 1100 2500 300 Uretheral (Pantoja) 300 Other: Voiding Method Indwelling Catheter Indwelling Catheter # Voids 2
--- NOTE | 2023-06-09 09:29 | P.PN ---
Progress Note - Text Progress Note Date: 06/09/23 Postoperative day #3 Patient is seen and examined today at bedside. The patient has some pain around the surgical site as expected. Pain is being controlled with medication. Still requiring IV pain medications to help control her pain but she is doing better Physical Exam Afebrile with stable vital signs Abdomen is soft nontender. Chest has good excursion deep and space expiration The incision site is clean dry and intact. No erythema there is no purulence. There is no significant drainage and the dressings are dry. Extremities have not had neurologic change from prior to surgery. She is moving her arms adequately. She does have chronic changes in her hands and fingers. Calves and thighs were soft nontender without evidence of DVT. Assessment/Plan Postoperative day #3 status post anterior and posterior cervical decompression and fusion from C3 to to T2 for her severe cervical stenosis with cervical myelopathy and upper extremity weakness Patient is progressing as expected from the surgery. She is getting along and improving her diet and her mobility. She is still requiring occasional IV pain medications to help control her pain and is not quite safe with her mobility for discharge home quite yet We will continue to increase the patient's mobilization with therapy. We will continue pain control with oral or IV medications. Hopefully in another 1 or 2 days she will be improving her mobility and pain control to where she is able to be discharged home. I discussed this with her and her family who was at bedside today. She may do well with cold compress K-pad w at the base of her neck to help relieve some of the spasm and will order this for her. We'll continue to follow patient closely.
[2023-06-09 12:15] LABS: ALT 12 U/L (4-34); AST 36 U/L (14-36); African American GFR (CKD) >90 (>60 ml/min/1.73 sqM); Albumin 2.9 g/dL (3.5-5.0); Albumin/Globulin Ratio 1.3; Alkaline Phosphatase 80 U/L (38-126); Anion Gap 5 mmol/L; Blood Urea Nitrogen 9 mg/dL (7-17); Calcium 7.7 mg/dL (8.4-10.2); Carbon Dioxide 23 mmol/L (22-30); Chloride 108 mmol/L (98-107); Globulin 2.3 g/dL; Glucose 103 mg/dL (74-99); Non-African American GFR(CKD) 85 (>60 ml/min/1.73 sqM); Sodium 136 mmol/L (137-145); Total Bilirubin 0.8 mg/dL (0.2-1.3); Total Protein 5.2 g/dL (6.3-8.2)
[2023-06-09 12:27] LABS: Anisocytosis Slight; Basophils % (A) 0 %; Eosinophils # (A) 0.1 k/uL (0-0.7); Eosinophils % (A) 1 %; HCT 28.2 % (34.0-46.0); HGB 9.3 gm/dL (11.4-16.0); Hypochromasia Moderate; Lymphocytes # (A) 0.5 k/uL (1.0-4.8); Lymphocytes % (A) 11 %; MCH 33.5 pg (25.0-35.0); MCHC 32.8 g/dL (31.0-37.0); MCV 101.9 fL (80.0-100.0); Macrocytosis Moderate; Mean Platelet Volume 10.2; Monocytes # (A) 0.1 k/uL (0-1.0); Monocytes % (A) 2 %; Neutrophils # (A) 3.7 k/uL (1.3-7.7); Neutrophils % (A) 84 %; RBC 2.77 m/uL (3.80-5.40); RDW 16.8 % (11.5-15.5); WBC 4.4 k/uL (3.8-10.6)
--- NOTE | 2023-06-09 12:37 | P.PN ---
Subjective Progress Note Date: 06/09/23 82-year-old lady with past medical history significant for hypertension, hyperlipidemia who has been following up outpatient with orthopedic spine for her continued problems with her cervical spine. Patient continues to have significant pain and tenderness at the cervical spine. Patient has been noticing weakness of her extremities and having a hard time taking part in her daily activities. Patient was seen by orthopedic spine in outpatient setting and was scheduled for stage I anterior cervical discectomy and fusion of C4-C5, C5-C6 and C6-C7 and stage II posterior cervical decompression and fusion at C2- T2. Patient underwent this procedure on 06/07. Postoperatively the medicine team were consulted for medical management 06/09. Patient seen and examined. Still having pain. Denies any nausea or vomiting. Tolerating diet. Vital signs stable REVIEW OF SYSTEMS: CONSTITUTIONAL: No fever, no malaise,. CARDIOVASCULAR: No chest pain, no palpitations, no syncope. PULMONARY: No shortness of breath, no cough, GASTROINTESTINAL: No diarrhea, no nausea, no vomiting, no abdominal pain. NEUROLOGICAL: No headaches, no weakness, PHYSICAL EXAMINATION: GENERAL: The patient is alert and oriented x3, not in any acute distress. Well developed, well nourished. HEENT: Pupils are round and equally reacting to light. EOMI. No scleral icterus. No conjunctival pallor. Normocephalic, atraumatic. No pharyngeal erythema. No thyromegaly. CARDIOVASCULAR: S1 and S2 present. No murmurs, rubs, or gallops. PULMONARY: Chest is clear to auscultation, no wheezing or crackles. ABDOMEN: Soft, nontender, nondistended, normoactive bowel sounds. No palpable organomegaly. MUSCULOSKELETAL: No joint swelling or deformity. EXTREMITIES: No cyanosis, clubbing, or pedal edema. NEUROLOGICAL: Gross neurological examination did not reveal any focal deficits. SKIN: Cervical area surgical incision seen, cervical collar in place Assessment and plan Cervical myelopathy, severe cervical stenosis C3-4 C4-5 C5-6 C6-7, spondylolisthesis C 4-5 C5-6 degenerative disc disease C3-4 C4-5 C5-6 C6-7 Hypertension Anemia Hyperlipidemia Monitor vital signs Monitor CBC Monitor CMP status post two-stage anterior and posterior cervical decompression and fusion with anterior C4-7 discectomy and fusion and posterior C2-T2 decompression and fusion for her severe cervical stenosis Continue pain management as per orthopedic spine Continue DVT prophylaxis per orthopedic spine Continue home med Consult PT OT Labs and medication were reviewed.. Continue same treatment. Continue with symptomatic treatment. Resume home medication. Monitor labs and vitals. DVT and GI prophylaxis. Further recommendations as per clinical course of the patient Dictation was produced using [employer] dictation software. please excuse any grammatical, word or spelling errors. Objective - Vital Signs Vital signs: Vital Signs Temp 97.4 F L 06/09/23 07:34 Pulse 93 06/09/23 07:34 Resp 18 06/09/23 07:34 BP 150/66 06/09/23 07:34 Pulse Ox 95 06/09/23 07:34 FiO2 Intake & Output 06/08/23 06/09/23 06/09/23 18:59 06:59 18:59 Intake Total 450 Output Total 300 Balance -300 450 Intake: Oral 450 Output: Urine 300 Uretheral (Pantoja) 300 Other: Voiding Method Indwelling Catheter # Voids 1 4 - Labs CBC & Chem 7: 06/09/23 11:44
[2023-06-09 13:04] LABS: Platelet Count 19 k/uL (150-450)
[2023-06-09 14:16] LABS: Anisocytosis Slight; Basophils % (A) 0 %; Eosinophils # (A) 0.1 k/uL (0-0.7); Eosinophils % (A) 1 %; HCT 26.6 % (34.0-46.0); HGB 9.1 gm/dL (11.4-16.0); Lymphocytes # (A) 0.5 k/uL (1.0-4.8); Lymphocytes % (A) 6 %; MCH 33.5 pg (25.0-35.0); MCHC 34.2 g/dL (31.0-37.0); MCV 98.1 fL (80.0-100.0); Macrocytosis Slight; Mean Platelet Volume 8.8; Monocytes # (A) 0.2 k/uL (0-1.0); Monocytes % (A) 2 %; Neutrophils # (A) 6.9 k/uL (1.3-7.7); Neutrophils % (A) 90 %; RBC 2.71 m/uL (3.80-5.40); RDW 17.1 % (11.5-15.5); WBC 7.7 k/uL (3.8-10.6)
[2023-06-09 14:23] LABS: Platelet Count 144 k/uL (150-450)
[2023-06-09 14:33] LABS: Reticulocyte % 2.2 % (0.5-2.0)
[2023-06-09 23:02] LABS: % Iron Saturation 30.14 (12.00-45.00)
--- NOTE | 2023-06-10 09:59 | P.PN ---
Progress Note - Text Progress Note Date: 06/10/23 Postoperative day #4 Patient is seen and examined today at bedside. The patient has some pain around the surgical site as expected. Pain is being controlled with medication. Overall she actually moves quite well and is ambulatory. She was voiding well yesterday on her own but had retention yesterday evening and had to be straight cathed after being unable to void. We will see if she is able to void again on her own but if she is not then we will replace the Pantoja and keep it there over night. She has pain when she moves around she seems to have frequent spasms which cause her the most pain Physical Exam Afebrile with stable vital signs Abdomen is soft nontender. Chest has good excursion deep and space expiration The incision site is clean dry and intact. No erythema there is no purulence. The wounds look to be healing quite well. There is no new swelling there is no drainage there is no erythema her neck remains supple Extremities have not had neurologic change from prior to surgery. Calves and thighs were soft nontender without evidence of DVT. Assessment/Plan Postoperative day #4 status post anterior and posterior two-stage decompression and fusion of the cervical spine from C2-T2 for her severe cervical stenosis with cervical deformity and upper extremity weakness Patient is progressing as expected from the surgery. She is moving a little bit slowly in terms of her voiding. She had to get straight cath last night. If she is unable to void on her own today we will replace the Pantoja catheter She is mobilizing adequately with getting up and around and sitting up. She should continue her hard cervical collar. We will continue to increase the patient's mobilization with therapy. She is having very regular spasms which seem to be causing her significant pain and I will up her Flexeril. She does not seem to be having any ill effects with this so far. We will continue pain control with oral or IV medications. We'll continue to follow patient closely.
--- NOTE | 2023-06-10 11:56 | P.PN ---
Subjective Progress Note Date: 06/10/23 82-year-old lady with past medical history significant for hypertension, hyperlipidemia who has been following up outpatient with orthopedic spine for her continued problems with her cervical spine. Patient continues to have significant pain and tenderness at the cervical spine. Patient has been noticing weakness of her extremities and having a hard time taking part in her daily activities. Patient was seen by orthopedic spine in outpatient setting and was scheduled for stage I anterior cervical discectomy and fusion of C4-C5, C5-C6 and C6-C7 and stage II posterior cervical decompression and fusion at C2- T2. Patient underwent this procedure on 06/07. Postoperatively the medicine team were consulted for medical management 06/09. Patient seen and examined. Still having pain. Denies any nausea or vomiting. Tolerating diet. Vital signs stable 06/10. Patient seen and examined. Still having issues with her pain, currently on pain medications. Patient passing gas. Denies abdominal pain REVIEW OF SYSTEMS: CONSTITUTIONAL: No fever, no malaise,. CARDIOVASCULAR: No chest pain, no palpitations, no syncope. PULMONARY: No shortness of breath, no cough, GASTROINTESTINAL: No diarrhea, no nausea, no vomiting, no abdominal pain. NEUROLOGICAL: No headaches, no weakness, PHYSICAL EXAMINATION: GENERAL: The patient is alert and oriented x3, not in any acute distress. Well developed, well nourished. HEENT: Pupils are round and equally reacting to light. EOMI. No scleral icterus. No conjunctival pallor. Normocephalic, atraumatic. No pharyngeal erythema. No thyromegaly. CARDIOVASCULAR: S1 and S2 present. No murmurs, rubs, or gallops. PULMONARY: Chest is clear to auscultation, no wheezing or crackles. ABDOMEN: Soft, nontender, nondistended, normoactive bowel sounds. No palpable organomegaly. MUSCULOSKELETAL: No joint swelling or deformity. EXTREMITIES: No cyanosis, clubbing, or pedal edema. NEUROLOGICAL: Gross neurological examination did not reveal any focal deficits. SKIN: Cervical area surgical incision seen, cervical collar in place Assessment and plan Cervical myelopathy, severe cervical stenosis C3-4 C4-5 C5-6 C6-7, spondylolisthesis C 4-5 C5-6 degenerative disc disease C3-4 C4-5 C5-6 C6-7 Hypertension Anemia Hyperlipidemia Monitor vital signs Monitor CBC Monitor CMP status post two-stage anterior and posterior cervical decompression and fusion with anterior C4-7 discectomy and fusion and posterior C2-T2 decompression and fusion for her severe cervical stenosis Continue pain management as per orthopedic spine Continue DVT prophylaxis per orthopedic spine Continue home med PT OT following Labs and medication were reviewed.. Continue same treatment. Continue with symptomatic treatment. Resume home medication. Monitor labs and vitals. DVT a nd GI prophylaxis. Further recommendations as per clinical course of the patient Dictation was produced using [employer] dictation software. please excuse any grammatical, word or spelling errors. Objective - Vital Signs Vital signs: Vital Signs Temp 98.0 F 06/10/23 07:25 Pulse 106 H 06/10/23 07:25 Resp 17 06/10/23 07:25 BP 160/61 06/10/23 07:25 Pulse Ox 95 06/10/23 07:25 FiO2 Intake & Output 06/09/23 06/10/23 06/10/23 18:59 06:59 18:59 Output Total 720 Balance -720 Output: Urine 720 Straight 720 Stool 0 Other: Voiding Method Toilet Toilet # Voids 7 0 # Bowel Movements 0 - Labs CBC & Chem 7: 06/09/23 13:50 06/09/23 11:44 Labs: Abnormal Lab Results - Last 24 Hours (Table) 06/09/23 06/09/23 06/09/23 Range/Units 11:44 11:44 11:44 RBC 2.77 L (3.80-5.40) m/uL Hgb 9.3 L (11.4-16.0) gm/dL Hct 28.2 L (34.0-46.0) % MCV 101.9 H (80.0-100.0) fL RDW 16.8 H (11.5-15.5) % Plt Count 19 L* (150-450) k/uL Lymphocytes # 0.5 L (1.0-4.8) k/uL Retic Count (0.5-2.0) % Haptoglobin 223.0 H (31.2-198.0) mg/dL Fibrinogen (200-500) mg/dL Sodium 136 L (137-145) mmol/L Chloride 108 H (98-107) mmol/L Glucose 103 H (74-99) mg/dL Calcium 7.7 L (8.4-10.2) mg/dL TIBC (228-460) UG/DL Transferrin (204.0-354.0) mg/dL Total Protein 5.2 L (6.3-8.2) g/dL Albumin 2.9 L (3.5-5.0) g/dL Vitamin B12 (200.0-944.0) pg/mL Folate (4.40-31.00) ng/mL 06/09/23 06/09/23 06/09/23 Range/Units 13:50 13:52 16:35 RBC 2.71 L (3.80-5.40) m/uL Hgb 9.1 L (11.4-16.0) gm/dL Hct 26.6 L (34.0-46.0) % MCV (80.0-100.0) fL RDW 17.1 H (11.5-15.5) % Plt Count 144 L D (150-450) k/uL Lymphocytes # 0.5 L (1.0-4.8) k/uL Retic Count 2.2 H (0.5-2.0) % Haptoglobin (31.2-198.0) mg/dL Fibrinogen 746 H (200-500) mg/dL Sodium (137-145) mmol/L Chloride (98-107) mmol/L Glucose (74-99) mg/dL Calcium (8.4-10.2) mg/dL TIBC (228-460) UG/DL Transferrin (204.0-354.0) mg/dL Total Protein (6.3-8.2) g/dL Albumin (3.5-5.0) g/dL Vitamin B12 (200.0-944.0) pg/mL Folate (4.40-31.00) ng/mL 06/09/23 06/09/23 Range/Units 16:35 16:35 RBC (3.80-5.40) m/uL Hgb (11.4-16.0) gm/dL Hct (34.0-46.0) % MCV (80.0-100.0) fL RDW (11.5-15.5) % Plt Count (150-450) k/uL Lymphocytes # (1.0-4.8) k/uL Retic Count (0.5-2.0) % Haptoglobin (31.2-198.0) mg/dL Fibrinogen (200-500) mg/dL Sodium (137-145) mmol/L Chloride (98-107) mmol/L Glucose (74-99) mg/dL Calcium (8.4-10.2) mg/dL TIBC 209 L (228-460) UG/DL Transferrin 149.0 L (204.0-354.0) mg/dL Total Protein (6.3-8.2) g/dL Albumin (3.5-5.0) g/dL Vitamin B12 1127.0 H (200.0-944.0) pg/mL Folate 40.00 H (4.40-31.00) ng/mL
--- NOTE | 2023-06-10 12:23 | P.CONS ---
History of Present Illness - Reason for Consult Consult date: 06/10/23 Thrombocytopenia - Chief Complaint Neck Pain - History of Present Illness Ms. Abernathy an 82-year-old woman with a past medical history significant for cervical spinal stenosis with myelopathy status post two-stage cervical spinal decompression and fusion on 06/06/2023 from hematology is consulted with regards to thrombocytopenia. CBC on 06/09/2023 noted platelet count of 19 from 188 on 06/01/2023. Hemoglobin was 9.3 from 12.9 (MCV 101.9), and WBC 4.4. Platelet count was verified with EDTA smear. Repeat CBC noted platelets 144, hemoglobin 9.1, WBC 7.7. Prior to the repeat CBC, hemolysis labs were obtained with no evidence of hemolysis. Reticulocyte count was appropriately elevated in the setting of anemia due to recent surgery. Fibrinogen was normal with no evidence of iron, vitamin B12, or folic acid deficiency. She is having pain from the surgical site, denies any nausea or vomiting. She does not have much of an appetite at this time. She did have a small bowel movement on stool softeners. She is having intermittent difficulty with urination. Review of Systems 14 point review of systems was conducted with pertinent positives and negatives as noted per HPI Past Medical History Past Medical History: Deep Vein Thrombosis (DVT), Hyperlipidemia, Hypertension, Rheumatoid Arthritis (RA) Additional Past Medical History / Comment(s): SEPTIC SHOCK POST KIDNEY STONE, varicose veins, History of Any Multi-Drug Resistant Organisms: None Reported Year Discovered:: 2017 MDRO Source:: kidney stone Past Surgical History: Back Surgery, Cholecystectomy, Hysterectomy, Joint Replacement, Orthopedic Surgery Additional Past Surgical History / Comment(s): vein surgery rt leg, sara carpal tunnel, joints removed from feet, rt hand replacement of knuckle, rotator cuff b il shoulders, rt elbow replaced, rt shoulder fx, reverse rotator cuff repair rt shoulder, surgery 11/02/15- rt hip fx, repeat right hip surgery (fall 2016) Past Anesthesia/Blood Transfusion Reactions: Postoperative Nausea & Vomiting (PONV) Additional Past Anesthesia/Blood Transfusion Reaction / Comm: no hx blood transfusion Past Psychological History: No Psychological Hx Reported Smoking Status: Current every day smoker Past Alcohol Use History: None Reported Additional Past Alcohol Use History / Comment(s): quit smoking 10/2015, smoked since age 17, 1/2 PPD Past Drug Use History: None Reported - Past Family History Mother Family Medical History: No Reported History Father Family Medical History: Cancer Medications and Allergies Home Medications Medication Instructions Recorded Confirmed Type Aspirin 81 mg PO HS 09/09/13 06/06/23 History Folic Acid 1 mg PO DAILY 09/09/13 06/06/23 History Metoprolol Tartrate [Lopressor] 25 mg PO QAM 09/09/13 06/06/23 History Magnesium Oxide [Mag-Ox] 250 mg PO HS 02/21/19 06/06/23 History Orencia (Unkn.Dose) 1 dose IV Q30D 02/21/19 06/06/23 History metHOTREXate sodium [Methotrexate] 25 mg PO WE 04/07/19 06/06/23 History Atorvastatin [Lipitor] 20 mg PO HS 09/21/22 06/06/23 History Ferrous Sulfate [Feosol] 325 mg PO Q48H 09/21/22 06/06/23 History Romosozumab-Aqqg [Evenity] 105 mg SQ Q14D 09/21/22 06/06/23 History amLODIPine [Norvasc] 5 mg PO QAM 09/21/22 06/06/23 History HYDROcodone/APAP 5-325MG [Earle 1 tab PO DIRECTED PRN 05/30/23 06/06/23 History 5-325] HYDROcodone/APAP 5-325MG [Earle 1 tab PO Q6HR PRN 7 Days #28 tab 06/08/23 Rx 5-325] Allergies Allergy/AdvReac Type Severity Reaction Status Date / Time No Known Allergies Allergy Verified 06/06/23 06:15 Physical Exam Vitals: Vital Signs Temp Pulse Pulse Resp BP Pulse Ox 06/10/23 07:25 98.0 F 106 H 17 160/61 95 06/10/23 01:20 97.9 F 98 13 164/69 95 06/09/23 18:50 97.7 F 80 16 149/62 93 L 06/09/23 14:00 97.8 F 76 18 138/58 95 Intake and Output 06/09/23 06/10/23 06/10/23 22:59 06:59 14:59 Output Total 720 Balance -720 Output: Urine 720 Straight 720 Stool 0 Other: Voiding Method Toilet # Voids 7 0 # Bowel Movements 0 - Constitutional General appearance: cooperative, no acute distress - EENT Eyes: EOMI - Neck Neck brace in place - Respiratory Respiratory: bilateral: CTA - Cardiovascular Rhythm: regular - Gastrointestinal General gastrointestinal: distended, normal bowel sounds, soft, no tenderness - Neurologic Neurologic: CNII-XII intact Results CBC & Chem 7: 06/09/23 13:50 06/09/23 11:44 Labs: Abnormal Lab Results - Last 24 Hours (Table) 06/09/23 06/09/23 06/09/23 Range/Units 11:44 11:44 13:50 RBC 2.77 L 2.71 L (3.80-5.40) m/uL Hgb 9.3 L 9.1 L (11.4-16.0) gm/dL Hct 28.2 L 26.6 L (34.0-46.0) % MCV 101.9 H (80.0-100.0) fL RDW 16.8 H 17.1 H (11.5-15.5) % Plt Count 19 L* 144 L D (150-450) k/uL Lymphocytes # 0.5 L 0.5 L (1.0-4.8) k/uL Retic Count (0.5-2.0) % Haptoglobin 223.0 H (31.2-198.0) mg/dL Fibrinogen (200-500) mg/dL TIBC (228-460) UG/DL Transferrin (204.0-354.0) mg/dL Vitamin B12 (200.0-944.0) pg/mL Folate (4.40-31.00) ng/mL 06/09/23 06/09/23 06/09/23 Range/Units 13:52 16:35 16:35 RBC (3.80-5.40) m/uL Hgb (11.4-16.0) gm/dL Hct (34.0-46.0) % MCV (80.0-100.0) fL RDW (11.5-15.5) % Plt Count (150-450) k/uL Lymphocytes # (1.0-4.8) k/uL Retic Count 2.2 H (0.5-2.0) % Haptoglobin (31.2-198.0) mg/dL Fibrinogen 746 H (200-500) mg/dL TIBC 209 L (228-460) UG/DL Transferrin 149.0 L (204.0-354.0) mg/dL Vitamin B12 1127.0 H (200.0-944.0) pg/mL Folate (4.40-31.00) ng/mL 06/09/23 Range/Units 16:35 RBC (3.80-5.40) m/uL Hgb (11.4-16.0) gm/dL Hct (34.0-46.0) % MCV (80.0-100.0) fL RDW (11.5-15.5) % Plt Count (150-450) k/uL Lymphocytes # (1.0-4.8) k/uL Retic Count (0.5-2.0) % Haptoglobin (31.2-198.0) mg/dL Fibrinogen (200-500) mg/dL TIBC (228-460) UG/DL Transferrin (204.0-354.0) mg/dL Vitamin B12 (200.0-944.0) pg/mL Folate 40.00 H (4.40-31.00) ng/mL Assessment and Plan (1) Pseudothrombocytopenia Current Visit: Yes Status: Acute Code(s): R89.8 - OTH ABNORMAL FINDINGS IN SPECIMENS FROM OTH ORG/TISS SNOMED Code(s): 184222446 (2) Normocytic normochromic anemia Current Visit: Yes Status: Acute Code(s): D64.9 - ANEMIA, UNSPECIFIED SNOMED Code(s): 83461916 Plan: #Pseudothrombocytopenia -Noted to have platelet count of 19 on CBC on 06/09/2023 from 188 on 06/01/2023 that was verified on EDTA smear -Hemolysis and DIC labs were negative -No evidence of iron, vitamin B12, or folate deficiency -Repeat CBC noted to have platelets of 144 -This was likely secondary to pseudothrombocytopenia from EDTA -No additional workup is needed at this time #Normocytic normochromic anemia -Hemoglobin 9.1-9.3 from 12.9 -No evidence of significant blood loss from surgery -Iron, vitamin B12, and folic acid normal as noted above -Anemia is likely secondary to inflammation from recent surgery and should resolve within the next 1 to 2 weeks Raf Simpson MD
[2023-06-10] MEDS: CYCLOBENZAPRINE 10 MG TAB PO PRN (12:46)
[2023-06-10] MEDS: guaiFENesin 600 MG TABLET.ER PO SCH (20:08)
--- NOTE | 2023-06-11 11:46 | P.PN ---
Subjective Progress Note Date: 06/11/23 82-year-old lady with past medical history significant for hypertension, hyperlipidemia who has been following up outpatient with orthopedic spine for her continued problems with her cervical spine. Patient continues to have significant pain and tenderness at the cervical spine. Patient has been noticing weakness of her extremities and having a hard time taking part in her daily activities. Patient was seen by orthopedic spine in outpatient setting and was scheduled for stage I anterior cervical discectomy and fusion of C4-C5, C5-C6 and C6-C7 and stage II posterior cervical decompression and fusion at C2- T2. Patient underwent this procedure on 06/07. Postoperatively the medicine team were consulted for medical management 06/09. Patient seen and examined. Still having pain. Denies any nausea or vomiting. Tolerating diet. Vital signs stable 06/10. Patient seen and examined. Still having issues with her pain, currently on pain medications. Patient passing gas. Denies abdominal pain 06/11. Patient seen examined. Continues to complain of severe pain, states pain medication only affecting her to an extent. Denies abdominal pain. No complaint of fever or shortness of breath REVIEW OF SYSTEMS: CONSTITUTIONAL: No fever, no malaise,. CARDIOVASCULAR: No chest pain, no palpitations, no syncope. PULMONARY: No shortness of breath, no cough, GASTROINTESTINAL: No diarrhea, no nausea, no vomiting, no abdominal pain. NEUROLOGICAL: No headaches, no weakness, PHYSICAL EXAMINATION: GENERAL: The patient is alert and oriented x3, not in any acute distress. Well developed, well nourished. HEENT: Pupils are round and equally reacting to light. EOMI. No scleral icterus. No conjunctival pallor. Normocephalic, atraumatic. No pharyngeal erythema. No thyromegaly. CARDIOVASCULAR: S1 and S2 present. No murmurs, rubs, or gallops. PULMONARY: Chest is clear to auscultation, no wheezing or crackles. ABDOMEN: Soft, nontender, nondistended, normoactive bowel sounds. No palpable o rganomegaly. MUSCULOSKELETAL: No joint swelling or deformity. EXTREMITIES: No cyanosis, clubbing, or pedal edema. NEUROLOGICAL: Gross neurological examination did not reveal any focal deficits. SKIN: Cervical area surgical incision seen, cervical collar in place Assessment and plan Cervical myelopathy, severe cervical stenosis C3-4 C4-5 C5-6 C6-7, spondylolisthesis C 4-5 C5-6 degenerative disc disease C3-4 C4-5 C5-6 C6-7 Hypertension Anemia Hyperlipidemia Monitor vital signs Monitor CBC Monitor CMP status post two-stage anterior and posterior cervical decompression and fusion with anterior C4-7 discectomy and fusion and posterior C2-T2 decompression and fusion for her severe cervical stenosis Continue pain management as per orthopedic spine Continue DVT prophylaxis per orthopedic spine Continue home med PT OT following Labs and medication were reviewed.. Continue same treatment. Continue with symptomatic treatment. Resume home medication. Monitor labs and vitals. DVT and GI prophylaxis. Further recommendations as per clinical course of the patient Dictation was produced using [email or web address] dictation software. please excuse any grammatical, word or spelling errors. Objective - Vital Signs Vital signs: Vital Signs Temp 98.4 F 06/11/23 06:54 Pulse 111 H 06/11/23 06:54 Resp 18 06/11/23 06:54 BP 135/69 06/11/23 06:54 Pulse Ox 95 06/11/23 06:54 FiO2 Intake & Output 06/10/23 06/11/23 06/11/23 18:59 06:59 18:59 Output Total 1089 2300 Balance -1089 -2300 Output: Urine 700 2300 Post Void Residual 389 Stool 0 Other: Voiding Method Toilet Indwelling Catheter Indwelling Catheter # Bowel Movements 0 - Labs CBC & Chem 7: 06/09/23 13:50 06/09/23 11:44
--- NOTE | 2023-06-11 12:35 | P.PN ---
Progress Note - Text Progress Note Date: 06/11/23 Postoperative day #5 Patient is seen and examined today at bedside. Patient is having urinary retention and had to have a Pantoja replaced. Will give her another day of bowel rest and have her try to void again tomorrow. She was making progress initially but had to have her Pantoja replaced Her pain is still requiring oral and occasional IV medications She is on a pured diet and doing adequately with thickened foods and liquids. She denies any new changes in her neurologic function Physical Exam Afebrile with stable vital signs Abdomen is soft nontender. Chest has good excursion deep and space expiration The incision site is clean dry and intact, both anteriorly and posteriorly. No erythema there is no purulence. There is no erythema there is no significant swelling Extremities have not had neurologic change from prior to surgery. Calves and thighs were soft nontender without evidence of DVT. Assessment/Plan Postoperative day 5 status post anterior and posterior cervical two-stage decompression and fusion from C2-T2 for her cervical myelopathy with cervical deformity and stenosis and upper extremity weakness Patient is progressing quite slowly as expected from the surgery. We will continue to increase the patient's mobilization with therapy. Patient is having urinary retention and has a Pantoja intact. She may need longer-term Pantoja if she is not responding. We will attempt to discontinue the Pantoja again tomorrow to see if she is able to void on her own when she has some bladder rest The patient will likely need some significant care further in the postoperative period and we will see if usp or extended care is appropriate for her. Will have case management evaluate her for this We will continue pain control with oral or IV medications. We'll continue to follow patient closely.
[2023-06-11] MEDS: ceFAZolin 1 GM in DEXTROSE/WATER 1 50ML.BAG IVPB SCH (16:02)
--- NOTE | 2023-06-12 12:21 | P.PN ---
Subjective Progress Note Date: 06/12/23 82-year-old lady with past medical history significant for hypertension, hyperlipidemia who has been following up outpatient with orthopedic spine for her continued problems with her cervical spine. Patient continues to have significant pain and tenderness at the cervical spine. Patient has been noticing weakness of her extremities and having a hard time taking part in her daily activities. Patient was seen by orthopedic spine in outpatient setting and was scheduled for stage I anterior cervical discectomy and fusion of C4-C5, C5-C6 and C6-C7 and stage II posterior cervical decompression and fusion at C2- T2. Patient underwent this procedure on 06/07. Postoperatively the medicine team were consulted for medical management 06/09. Patient seen and examined. Still having pain. Denies any nausea or vomiting. Tolerating diet. Vital signs stable 06/10. Patient seen and examined. Still having issues with her pain, currently on pain medications. Patient passing gas. Denies abdominal pain 06/11. Patient seen examined. Continues to complain of severe pain, states pain medication only affecting her to an extent. Denies abdominal pain. No complaint of fever or shortness of breath 06/12. Patient seen and examined. PT recommended rehab but patient at this time does not want to go to the rehab and wants to go home with home care. Still complaining of pain, response to pain medications REVIEW OF SYSTEMS: CONSTITUTIONAL: No fever, no malaise,. CARDIOVASCULAR: No chest pain, no palpitations, no syncope. PULMONARY: No shortness of breath, no cough, GASTROINTESTINAL: No diarrhea, no nausea, no vomiting, no abdominal pain. NEUROLOGICAL: No headaches, no weakness, PHYSICAL EXAMINATION: GENERAL: The patient is alert and oriented x3, not in any acute distress. Well developed, well nourished. HEENT: Pupils are round and equally reacting to light. EOMI. No scleral icterus. No conjunctival pallor. Normocephalic, atraumatic. No pharyngeal erythema. No thyromegaly. CARDIOVASCULAR: S1 and S2 present. No murmurs, rubs, or gallops. PULMONARY: Chest is clear to auscultation, no wheezing or crackles. ABDOMEN: Soft, nontender, nondistended, normoactive bowel sounds. No palpable organomegaly. MUSCULOSKELETAL: No joint swelling or deformity. EXTREMITIES: No cyanosis, clubbing, or pedal edema. NEUROLOGICAL: Gross neurological examination did not reveal any focal deficits. SKIN: Cervical area surgical incision seen, cervical collar in place Assessment and plan Cervical myelopathy, severe cervical stenosis C3-4 C4-5 C5-6 C6-7, spondylolisthesis C 4-5 C5-6 degenerative disc disease C3-4 C4-5 C5-6 C6-7 Hypertension Anemia Hyperlipidemia Monitor vital signs Monitor CBC Monitor CMP status post two-stage anterior and posterior cervical decompression and fusion with anterior C4-7 discectomy and fusion and posterior C2-T2 decompression and fusion for her severe cervical stenosis Continue pain management as per orthopedic spine Continue DVT prophylaxis per orthopedic spine Continue home med PT OT following, recommending rehab, patient wants to be discharged home with home Labs and medication were reviewed.. Continue same treatment. Continue with symptomatic treatment. Resume home medication. Monitor labs and vitals. DVT and GI prophylaxis. Further recommendations as per clinical course of the patient Dictation was produced using [employer] dictation software. please excuse any grammatical, word or spelling errors. Objective - Vital Signs Vital signs: Vital Signs Temp 98.3 F 06/12/23 07:24 Pulse 114 H 06/12/23 07:24 Resp 18 06/12/23 07:24 BP 163/74 06/12/23 07:24 Pulse Ox 94 L 06/12/23 07:24 FiO2 Intake & Output 06/11/23 06/12/23 06/12/23 18:59 06:59 18:59 Output Total 1000 1800 Balance -1000 -1800 Output: Urine 1000 1800 Other: Voiding Method Indwelling Catheter Indwelling Catheter Indwelling Catheter - Labs CBC & Chem 7: 06/09/23 13:50 06/09/23 11:44
--- NOTE | 2023-06-12 13:10 | P.PN ---
Progress Note - Text Progress Note Date: 06/12/23 Orthopedic Spine: History of present illness: Patient is a pleasant 82-year-old female who is seen at the bedside following anterior cervical decompression and fusion performed last 06/06/2022. Been progressing slowly postoperatively but has had some improvement. She continues to utilize a hard cervical collar. She has been able to continue eating thickened foods and liquids. She does continue to utilize IV and oral medications for pain control needed. She has had some difficulty with urinary retention. Pantoja catheter was placed over the weekend. Currently, we are planning for removal of Pantoja catheter for voiding trial. Patient feels if she is unable to urinate independently she would prefer to be discharged to a rehabilitation facility with a Pantoja catheter intact. If she is able to void independently she feels she could be discharged home with home health services. Currently does not complain of nausea, vomiting, fever, or chills. Patient states pain has been adequately controlled. Patient does continue to be seen and examined by medicine for other medical diagnoses. Physical Exam Cervical Fusion: Status post surgical day number 6 Patient is awake, alert, and oriented 3 Vital signs stable Good chest excursion with deep inspiration and expiration Cervical collar is intact; collar is removed and reapplied during physical examination Kisha remain intact of the posterior cervical spine with no active drainage no obvious sign of infection Dressing is removed over the anterior cervical spine with no active drainage and no obvious sign of infection Patient is able to perform active range of motion of bilateral upper extremities but is generally weaker Some pain with active range of motion of the right shoulder Assessment: Status post two-stage C4-5, C5-6, and C6/7 anterior cervical decompression and fusion with C2-T2 posterior decompression, laminectomy, and fusion Cervical pain Cervical myelopathy C3-4, C4-5, C5-6, and C6/7 severe spinal stenosis C4-5 and C5-6 spondylolisthesis Cervical degenerative disc disease Cervical facet arthrosis Upper extremity weakness with radiculopathy Cervical spinal structural abnormality Difficulty with ambulation Urinary retention postoperatively Hypertension Anemia Hyperlipidemia Plan: 1. Ambulate as tolerated; work with Physical Therapy to increase mobilization 2. Continue pain control with oral and IV medications as needed; wean off IV medications in anticipation for discharge 3. Surgical dressings have been removed over the anterior and posterior cervical spine. Patient does not require dressing. Posterior cervical kisha will remain intact 12 to 14 days postoperatively 4. Hard cervical collar must remain intact at all times 5. Patient has had urinary retention postoperatively with reinsertion of Pantoja catheter. Pantoja catheter will be discontinued today with plans for a voiding trial. If patient is able to urinate independently we may plan for discharge home tomorrow with home health care. If patient is unable to void independently, we will plan for reinsertion of Pantoja catheter with consult with urology with plans for discharge to a rehabilitation facility. 6. Medical management can continue to manage patient for patient's other medical diagnosis 7. We will continue to follow the patient closely. Patient can follow-up with Jarret Weeks PA-C or Dr. Martinez Gavin at [facility] in 1-2 weeks following discharge
--- NOTE | 2023-06-12 15:36 | CDI ---
Documentation Clarification Form Date: 06/12/2023 02:56:00 PM From: Aminta Jordan RN CCDS Phone: [phone] Admit Date: 06/06/2023 05:34:00 AM Patient Name: Sylvia Abernathy Visit Number: [id number] Discharge Date: ATTENTION: The Clinical Documentation Specialists (CDI) and [facility] Coding Staff appreciate your assistance in clarifying documentation. Please respond to the clarification below the line at the bottom and electronically sign. The CDI & [facility] Coding staff will review the response and follow-up if needed. Please note: Queries are made part of the Legal Health Record. If you have any questions, please contact the author of this message via ITS. Dr. Brad Gavin Urine retention postoperatively is documented 06/12, Orthopedic note and patient had Two-stage anterior and posterior cervical spinal decompression and fusion, 06/06. Additional clarification is requested regarding the relationship, if any, that exists between the diagnosis and the procedure. Patients Admitting Diagnosis: Cervical myelopathy, severe cervical stenosis C3- 4 C4-5 C5-6 C6-7, spondylolisthesis see 4 5 C5-6, degenerative disc disease C3-4 C4-5 C5-6 C6-7, facet arthrosis, upper extremity weakness, upper extreme radiculopathy, difficulty ambulating, cervical spinal structural abnormality Post-Operative Diagnosis: Same as admitting diagnosis Procedure performed: Two stage anterior and posterior cervical spinal decompression and fusion. History/Risk Factors: 82-year-old female presented for cervical spinal decompression and fusion. Medical History: HTN, Anemia, HLD Clinical Indicators: 06/10, Orthopedic note. She was voiding well yesterday on her own but had retention yesterday evening and had to be straight cathed after being unable to void.We will see if she is able to void again on her own but if she is not then we will replace the Pantoja and keep it there overnight 06/10, Orthopedic note: She is having very regular spasms which seem to be causing her significant pain and will up her Flexeril. She does not seem to be having any ill effects with this so far. 06/11, Orthopedic note. Patient is having urinary retention and has a Pantoja intact.She may need longer-term Pantoja if she is not responding.We will attempt to discontinue the Pantoja again tomorrow to see if she is able to void on her own when she has some bladder rest 06/12, Orthopedic note. Continue pain control with oral IV medications as needed: wean off IV medications in anticipation for discharge. Treatment: 06/10 Urinary Straight Catheterization, 06/10 Urinary Catheter Initiation, 06/12 Urinary Catheter Discontinuation. 06/06 [place] 5/325 1 po Q6H prn pain, 06/06 06/10 Flexeril 5mg po TID prn; 06/10 Flexeril 10mg po TID prn Consults: Medicine note, 06/12: Still complaining of pain, response to pain medications. What relationship, if any, exists between the diagnosis of Urine retention and the procedure: [ ] Urine retention is a complication of surgical procedure [ X] Urine retention is related to patients co-morbid condition(s) medications & not a complication of the procedure. [ ] Urine retention is related to patients co-morbid conditions(S) (insert co-morbid dxs) and not a complication of the procedure. [ ] Other please specify ____ [ ] Unable to determine (Template Last Revised: June 2020) MTDD
[2023-06-12] MEDS ORDERED: ZINC OXIDE PASTE (Z-GUARD) 1 APPLIC TOPICAL PRN (22:25)
[2023-06-13 02:20] VITALS: TEMP 98
--- NOTE | 2023-06-13 07:47 | P.DS ---
Providers Date of admission: 06/06/23 05:34 Expected date of discharge: 06/13/23 Attending physician: Brad Gavin Consults: 06/07/23 09:08 Consult Physician Routine Consulting Provider: Harper Scott Consult Reason/Comments: Medical management Do you want consulting provider notified?: Yes 06/09/23 13:20 Consult Physician Routine Consulting Provider: Marko Rosas Consult Reason/Comments: thrombocytopenia Do you want consulting provider notified?: Yes Primary care physician: Colleen Bartlett - Discharge Diagnosis(es) (1) Lower extremity weakness Current Visit: Yes Status: Acute (2) Radiculopathy affecting upper extremity Current Visit: Yes Status: Acute (3) Cervicalgia Current Visit: Yes Status: Acute (4) Cervical stenosis of spinal canal Current Visit: Yes Status: Acute (5) Spondylolisthesis, cervical region Current Visit: Yes Status: Acute (6) Cervical myelopathy Current Visit: Yes Status: Acute (7) Facet arthritis of cervical region Current Visit: Yes Status: Acute (8) Status post cervical spinal fusion Current Visit: Yes Status: Acute (9) Hypertension Current Visit: Yes Status: Acute (10) Hyperlipidemia Current Visit: Yes Status: Acute (11) Anemia Current Visit: Yes Status: Acute (12) Urinary retention Current Visit: Yes Status: Acute Hospital Course: This is a pleasant 82-year-old female who presented with Cervical pain, Cervical myelopathy, C3-4, C4-5, C5-6, and C6-7 severe spinal stenosis, C4-5 and C5-6 spondylolisthesis, Cervical degenerative disc disease, Cervical facet arthrosis, Upper extremity weakness with radiculopathy, Cervical spinal structural abnormality, and Difficulty with ambulation who failed outpatient conservative therapy. She was admitted for two-stage C4-5, C5-6, and C6/7 anterior cervical decompression and fusion with C2-T2 posterior decompression, laminectomy, and fusion. Been progressing slowly but has been doing over the past couple days. Her anterior and posterior cervical spine pain has been adequately controlled. She has not had any neurological change postoperatively. Feel she would be ready for discharge today. She is planning for discharge to [facility]. Patient will need to be cleared by medicine prior to discharge. Patient has had some urinary retention postoperatively. Pantoja catheter was discontinued yesterday. She was able to void independently but has had incomplete voiding. She required straight catheterization last night. She will try to void independently again this morning. If she is unable to void indepe ndently we did discuss a Pantoja catheter will be reinserted with consultation with urology for evaluation prior to discharge to rehabilitation today. Patient was cleared preoperatively for surgery by Dr. Bartlett. Patient currently denies any nausea, vomiting, fever, or chills. Dressings have been removed over the anterior and posterior cervical spine. Kisha remain intact over the posterior cervical spine and will remain intact for 12 to 14 days postoperatively. Patient may shower without a dressing intact at this time. Patient should avoid excessive neck flexion, extension, rotation, and lateral sidebending; no overhead lifting; no lifting greater than 10 pounds. Must keep hard cervical collar intact at all times. MAPS has been reviewed. An "Opiod Start Talking" Form has been signed and placed in the patient's chart. A prescription has been written for [place] 5 mg / 325 mg, 1 tab, every 6 hours, as needed for acute pain, dispense #28. She is also given a prescription for baclofen 10 mg, 1 tab, 3 times daily, as needed for muscle spasm, dispense #60. These prescriptions are placed in the patient's chart in anticipation to discharge to rehab. Patient's other medical diagnoses include hypertension, anemia, and hyperlipidemia. While at rehabilitation patient will hold Evenity and Orencia injection medication. Physical Exam on day of discharge: Status post surgical day number 7 Patient is awake, alert, and oriented 3 Vital signs stable Good chest excursion with deep inspiration and expiration Cervical collar is intact; collar is removed and reapplied during physical examination Kirkman remain intact of the posterior cervical spine with no active drainage no obvious sign of infection Dressing is removed over the anterior cervical spine with no active drainage and no obvious sign of infection Patient is able to perform active range of motion of bilateral upper extremities but is generally weaker Some pain with active range of motion of the right shoulder Procedures: Two-stage C4-5, C5-6, and C6/7 anterior cervical decompression and fusion with C2-T2 posterior decompression, laminectomy, and fusion Patient Condition at Discharge: Stable Plan - Discharge Summary Discharge Rx Participant: No New Discharge Prescriptions: New Baclofen 10 mg PO TID PRN #60 tab PRN Reason: Spasms HYDROcodone/APAP 5-325MG [[place] 5] 1 each PO Q6HR PRN #28 tab PRN Reason: Pain Continue Aspirin 81 mg PO HS Metoprolol Tartrate [Lopressor] 25 mg PO QAM Folic Acid 1 mg PO DAILY Orencia (Unkn.Dose) 1 dose IV Q30D Magnesium Oxide [Mag-Ox] 250 mg PO HS metHOTREXate sodium [Methotrexate] 25 mg PO WE amLODIPine [Norvasc] 5 mg PO QAM Romosozumab-Aqqg [Evenity] 105 mg SQ Q14D Ferrous Sulfate [Iron (65 MG Elemental)] 325 mg PO Q48H HYDROcodone/APAP 5-325MG [[place] 5-325] 1 tab PO DIRECTED PRN PRN Reason: Pain Discontinued Atorvastatin [Lipitor] 20 mg PO HS Discharge Medication List Aspirin 81 mg PO HS 09/09/13 [History] Folic Acid 1 mg PO DAILY 09/09/13 [History] Metoprolol Tartrate [Lopressor] 25 mg PO QAM 09/09/13 [History] Magnesium Oxide [Mag-Ox] 250 mg PO HS 02/21/19 [History] Orencia (Unkn.Dose) 1 dose IV Q30D 02/21/19 [History] metHOTREXate sodium [Methotrexate] 25 mg PO WE 04/07/19 [History] Ferrous Sulfate [Iron (65 MG Elemental)] 325 mg PO Q48H 09/21/22 [History] Romosozumab-Aqqg [Evenity] 105 mg SQ Q14D 09/21/22 [History] amLODIPine [Norvasc] 5 mg PO QAM 09/21/22 [History] HYDROcodone/APAP 5-325MG [[place] 5-325] 1 tab PO DIRECTED PRN 05/30/23 [History] Baclofen 10 mg PO TID PRN #60 tab 06/13/23 [Rx] HYDROcodone/APAP 5-325MG [[place] 5] 1 each PO Q6HR PRN #28 tab 06/13/23 [Rx] Follow up Appointment(s)/Referral(s): [facility], [NON-STAFF] - As Needed ([facility] will call you to schedule your in home nursing, physical therapy, and occupational therapy visits.) Brad Gavin, [Doctor of Osteopathic Medicine] - 2 Weeks Activity/Diet/Wound Care/Special Instructions: Keep site clean. May shower dressings intact over the anterior and posterior cervical spine. Leave glue intact and allow it to fray off on its own. May ambulate as tolerated. Avoid heavy or rigorous activity. No repetitive bending twisting or lifting. No overhead work. Keep hard cervical collar intact at all times Keep kisha intact over the next 12 to 14 days postoperatively at the posterior cervical spine Discharge Disposition: TRANSFER TO SNF/ECF
[2023-06-13 09:07] VITALS: BP 147/73; PULSE 110; RESP 17
--- NOTE | 2023-06-13 12:39 | P.GSCN ---
History of Present Illness Consult date: 06/13/23 History of present illness: 82-year-old female who underwent cervical fusion surgery by Dr. Gavin. She has postoperative urinary retention and we are asked see the patient. The patient had an indwelling catheter until yesterday. She voiding frequently but small amounts. She was identified to be in urine retention. A catheters placed apparently around 500 mL urine. She does see for renal cysts. She also has had a trial of medicine for her urinary frequency but it did not work. Prior to hospitalization she has had some urgency to the point of incontinence. She has mild stress incontinence. She denies recurrent infection. He denies previous urine retention. She does have lower as well as cervical find problems Review of Systems All systems: negative - Constitutional Denies fever, Denies weight loss - EENT Eyes: denies blurred vision Ears, nose, mouth and throat: Denies dysphagia - Cardiovascular Denies chest pain, Denies shortness of breath - Respiratory Denies cough, Denies 7 - Gastrointestinal Reports as per HPI - Genitourinary Genitourinary: Denies dysuria, Denies hematuria - Integumentary Denies rash, Denies unusual bruising - Neurological Denies headaches, Denies syncope - Hematologic/Lymphatic Denies easy bleeding, Denies easy bruising Past Medical History Past Medical History: Deep Vein Thrombosis (DVT), Hyperlipidemia, Hypertension, Rheumatoid Arthritis (RA) Additional Past Medical History / Comment(s): SEPTIC SHOCK POST KIDNEY STONE, varicose veins, History of Any Multi-Drug Resistant Organisms: None Reported Year Discovered:: 2017 MDRO Source:: kidney stone Past Surgical History: Back Surgery, Cholecystectomy, Hysterectomy, Joint Replacement, Orthopedic Surgery Additional Past Surgical History / Comment(s): vein surgery rt leg, sara carpal tunnel, joints removed from feet, rt hand replacement of knuckle, rotator cuff sara shoulders, rt elbow replaced, rt shoulder fx, reverse rotator cuff repair rt shoulder, surgery 11/02/15- rt hip fx, repeat right hip surgery (fall 2016) Past Anesthesia/Blood Transfusion Reactions: Postoperative Nausea & Vomiting (PONV) Additional Past Anesthesia/Blood Transfusion Reaction / Comm: no hx blood transfusion Past Psychological History: No Psychological Hx Reported Smoking Status: Current every day smoker Past Alcohol Use History: None Reported Additional Past Alcohol Use History / Comment(s): quit smoking 10/2015, smoked since age 17, 1/2 PPD Past Drug Use History: None Reported - Past Family History Mother Family Medical History: No Reported History Father Family Medical History: Cancer Medications and Allergies Home Medications Medication Instructions Recorded Confirmed Type Aspirin 81 mg PO HS 09/09/13 06/06/23 History Folic Acid 1 mg PO DAILY 09/09/13 06/06/23 History Metoprolol Tartrate [Lopressor] 25 mg PO QAM 09/09/13 06/06/23 History Magnesium Oxide [Mag-Ox] 250 mg PO HS 02/21/19 06/06/23 History Orencia (Unkn.Dose) 1 dose IV Q30D 02/21/19 06/06/23 History metHOTREXate sodium [Methotrexate] 25 mg PO WE 04/07/19 06/06/23 History Ferrous Sulfate [Iron (65 MG 325 mg PO Q48H 09/21/22 06/06/23 History Elemental)] Romosozumab-Aqqg [Evenity] 105 mg SQ Q14D 09/21/22 06/06/23 History amLODIPine [Norvasc] 5 mg PO QAM 09/21/22 06/06/23 History HYDROcodone/APAP 5-325MG [[place] 1 tab PO DIRECTED PRN 05/30/23 06/06/23 History 5-325] Baclofen 10 mg PO TID PRN #60 tab 06/13/23 Rx HYDROcodone/APAP 5-325MG [[place] 5] 1 each PO Q6HR PRN #28 tab 06/13/23 Rx Allergies Allergy/AdvReac Type Severity Reaction Status Date / Time No Known Allergies Allergy Verified 06/06/23 06:15 Surgical - Exam Vital Signs Temp Pulse Resp BP Pulse Ox 97 F L 62 16 174/76 95 06/06/23 06:40 06/06/23 06:40 06/06/23 06:40 06/06/23 06:40 06/06/23 06:40 - General Cervical collar well developed, well nourished - Eyes PERRL - ENT no hearing loss - Neck Cervical collar - Respiratory normal respiratory effort - Cardiovascular Rhythm: regular - Abdomen Abdomen: soft, non tender - Genitourinary Indwelling catheter - Neurologic normal sensation - Psychiatric oriented to time, oriented to person, oriented to place, speech is normal, memory intact Results - Labs 06/09/23 13:50 06/09/23 11:44 Assessment and Plan Assessment: Impression: Postoperative urinary retention and cervical spine surgery. Preoperative urinary frequency. Recommendations: Was commonly these are issues related to IV fluids postoperative narcotics and bladder overdistention. I recommend leaving the catheter in place until she has recuperated and is more ambulatory. She can go to the rehab facility with indwelling catheter and I will make an appointment f or her to see Dr. chisholm approximately 10 days
--- NOTE | 2023-06-13 13:17 | P.PN ---
Subjective Progress Note Date: 06/13/23 82-year-old lady with past medical history significant for hypertension, hyperlipidemia who has been following up outpatient with orthopedic spine for her continued problems with her cervical spine. Patient continues to have significant pain and tenderness at the cervical spine. Patient has been noticing weakness of her extremities and having a hard time taking part in her daily activities. Patient was seen by orthopedic spine in outpatient setting and was scheduled for stage I anterior cervical discectomy and fusion of C4-C5, C5-C6 and C6-C7 and stage II posterior cervical decompression and fusion at C2- T2. Patient underwent this procedure on 06/07. Postoperatively the medicine team were consulted for medical management 06/09. Patient seen and examined. Still having pain. Denies any nausea or vomiting. Tolerating diet. Vital signs stable 06/10. Patient seen and examined. Still having issues with her pain, currently on pain medications. Patient passing gas. Denies abdominal pain 06/11. Patient seen examined. Continues to complain of severe pain, states pain medication only affecting her to an extent. Denies abdominal pain. No complaint of fever or shortness of breath 06/12. Patient seen and examined. PT recommended rehab but patient at this time does not want to go to the rehab and wants to go home with home care. Still complaining of pain, response to pain medications 06/13. Patient seen and examined. Patient had to have Pantoja replaced because of retention, urology recommend discharging patient with Pantoja REVIEW OF SYSTEMS: CONSTITUTIONAL: No fever, no malaise,. CARDIOVASCULAR: No chest pain, no palpitations, no syncope. PULMONARY: No shortness of breath, no cough, GASTROINTESTINAL: No diarrhea, no nausea, no vomiting, no abdominal pain. NEUROLOGICAL: No headaches, no weakness, PHYSICAL EXAMINATION: GENERAL: The patient is alert and oriented x3, not in any acute distress. Well developed, well nourished. HEENT: Pupils are round and equally reacting to light. EOMI. No scleral icterus. No conjunctival pallor. Normocephalic, atraumatic. No pharyngeal erythema. No thyromegaly. CARDIOVASCULAR: S1 and S2 present. No murmurs, rubs, or gallops. PULMONARY: Chest is clear to auscultation, no wheezing or crackles. ABDOMEN: Soft, nontender, nondistended, normoactive bowel sounds. No palpable organomegaly. MUSCULOSKELETAL: No joint swelling or deformity. EXTREMITIES: No cyanosis, clubbing, or pedal edema. NEUROLOGICAL: Gross neurological examination did not reveal any focal deficits. SKIN: Cervical area surgical incision seen, cervical collar in place Assessment and plan Cervical myelopathy, severe cervical stenosis C3-4 C4-5 C5-6 C6-7, spondylolisthesis C 4-5 C5-6 degenerative disc disease C3-4 C4-5 C5-6 C6-7 Hypertension Anemia Hyperlipidemia Monitor vital signs Monitor CBC Monitor CMP status post two-stage anterior and posterior cervical decompression and fusion with anterior C4-7 discectomy and fusion and posterior C2-T2 decompression and fusion for her severe cervical stenosis Continue pain management as per orthopedic spine Continue DVT prophylaxis per orthopedic spine Continue home med PT OT following, recommending rehab, being discharged in stable Labs and medication were reviewed.. Continue same treatment. Continue with symptomatic treatment. Resume home medication. Monitor labs and vitals. DVT and GI prophylaxis. Further recommendations as per clinical course of the patient Dictation was produced using [email or web address] dictation software. please excuse any grammatical, word or spelling errors. Objective - Vital Signs Vital signs: Vital Signs Temp 98.0 F 06/13/23 07:42 Pulse 110 H 06/13/23 07:42 Resp 17 06/13/23 07:42 BP 147/73 06/13/23 07:42 Pulse Ox 95 06/13/23 07:42 FiO2 Intake & Output 06/12/23 06/13/23 06/13/23 18:59 06:59 18:59 Output Total 1101 750 200 Balance -1101 -750 -200 Output: Urine 1101 500 200 Uretheral (Pantoja) 500 200 Post Void Residual 250 Other: Voiding Method Indwelling Catheter Toilet Toilet # Voids 1 6 - Labs CBC & Chem 7: 06/09/23 13:50 06/09/23 11:44
--- NOTE | 2023-06-13 17:08 | P.OP ---
Date of Procedure: 06/06/23 Preoperative Diagnosis: 1. CERVICAL MYELOPATHY 2. SEVERE CERVICAL STENOSIS WITH MYELOPATHY 3. SPONDYLOLISTHESIS C4-5, C5-6 4. UE AND LE WEAKNESS WITH RADICULOPATHY 5. COMPLEX MEDICAL PATIENT Postoperative Diagnosis: 1. CERVICAL MYELOPATHY 2. SEVERE CERVICAL STENOSIS WITH MYELOPATHY 3. SPONDYLOLISTHESIS C4-5, C5-6 4. UE AND LE WEAKNESS WITH RADICULOPATHY 5. COMPLEX MEDICAL PATIENT Procedure(s) Performed: STAGED PROCEDURE. CO-SURGERY WAS DONE ON SECOND STAGE WITH DR. RINALDI FOR C2-T2 DECOMPRESSION AND FUSION 1. C2-T2 POSTEROLATERAL INSTRUMENTED FUSION 2. C2-T2 SEGMENTAL INSTRUMENTATION 3. C2-C7 BILATERAL LAMINECTOMY, PARTIAL MEDIAL FACETECTOMY AND FORAMINOTOMIES USE OF IONM Implants: NIVIA POSTERIOR CERVICAL RODS AND SCREWS 4.0 AND 5.0 SYSTEM. DUAL FAIZAN, NO TRANSITION. MAGNATOS, AUTOGRAFT Anesthesia: GETA Surgeon: Mainor Handley (COSURGEON WITH DR. KYLE RINALDI) Drafter Electrical #1: Jarret Weeks (WAS PRESENT AND ASSISTED WITH ALL ASPECTS OF THE CASE FROM POSITION TO CLOSURE) Estimated Blood Loss (ml): 200 IV fluids (ml): 1,100 Urine output (ml): 250 Pathology: none sent Condition: stable Disposition: PACU Indications for Procedure: This ira 82 yo female primary patient of Dr. Rinaldi was found to have severe cervical disease, myelopathy, UE and LE weakness as well as severe cervical spondylosis, stenosis and instability. She has elected for surgical treatment of her issues due to failure of all conservative methods including but not limited to PT, HEP, Medications Rx and OTC, bracing, alternative medicine. She understands the risks and benefits of surgery and is willing to proceed with the surgery as outlined by Dr. Rinaldi. Description of Procedure: C2-T2 decompression and fusion The patient was seen and examined in the preoperative area. All preoperative protocols were followed. Informed consent was obtained, risks and benefits of the procedure were discussed at length. Risks including bleeding infection damage to the surrounding tissue and risk of reoperation were discussed with the patient. Risk of anesthesia up to and including was discussed with the patient. These are outlined in the risk review. They were willing to accept these risks and all of the risks of surgery. The patient was given a weight- based dose of antibiotics in the form of 2 g Ancef. The patient was seen and evaluated by the anesthesia team who deemed them fit for surgery. The site was marked, the patient was willing to proceed with the procedure. The patient was transferred to the operative suite by the Department of anesthesia. They were then drifted off to sleep by the department anesthesia and GETA was performed. The patient tolerated this well. Pantoja placed by nursing staff. The first stage of the procedure, ACDF was done by Dr. Rinaldi and his PA See his operative note for details. This was completed without complication and with good scientologist of alignment and height of the disc spaces. Then the patient was transferred back to their hospital bed and the [employer] spine top was placed along with the mcleod head inspector. Once confirmation of lines and ventilation Mcleod head clamp was placed on the patient and secured and the patient was transferred to the [facility] table with the Mcleod head inspector the head was secured and placed into an optimal position x-ray confirmed this po sition. Post-positioning motors remained stable. All bony prominences including wrists, elbows, axilla, chest, hips, and thighs, and feet were padded very well. Special attention was paid to the genitalia and these were padded accordingly. SCDs were placed on bilateral lower extremities and were connected. Arms were well padded and placed tucked at his side thumbs down. Shoulders were gently t aped down to the table.. Once in position, again we confirmed good ventilation capabilities and that lines were running appropriately. The patient's posterior cervical spine was then exposed. 1010s were placed outlining the incision site. Standard alcohol was used to clean the incision site and allowed to dry. C-arm was used to biomark the patient and confirm level for incision which was marked with a skin marker. Operative briefing was performed with all teams and everyone in agreement to proceed. The patient was then prepped and draped in a normal sterile fashion. Timeout was then performed and all parties were in agreement with the procedure to be performed. Midline skin incision made over the previously bio-marked area and dissection taken down midline to the SP of C2-T2. Subperiosteal dissection taken out over the lamina and lateral masses of C2-C7 and TVP of T1 and T2. Once exposure complete, the wound was irrigated and the C-arm brought in for imaging. A penfield 4 was used to bluntly dissect the medial border of C2 pedicle and placed for guidance. Lateral C arm used and a cammy hole made for the starting point with high speed cammy. The C2 pedicle was then drilled in 2 mm increments to 18 mm using a ball tip feeler in between each drill session to make sure within the 4 finn with a good bottom. Once this was accomplished a screw was selected and placed under lateral fluoroscopic guidance. Screw had a good purchase. This was then repeated on the contralateral side. AP confirmed good placement of both screws. We then proceeded to the T1 and T2 screws b ilaterally. A high speed cammy was used to remove the facet joint of C7 and to create a starting point for T1 and similarly, T1 facet for T2. Pedicle finder was then passed into T1 and T2 and imaging taken to confirm placement this was then removed and a tap placed ball-tipped probe was then placed and 4 finn of pedicle fell with good bottom. Screw was then measured and placed intoT1 and T2. This is repeated on the contralateral side. Imaging confirmed good placement of all 4 thoracic screws. The wound was then irrigated. Lateral mass screws were then drilled to 12 mm and placed at each level from C3-6. Each had a good bite. Rods were then sized and selected and cut to length. They were bent accordingly with appropriate lordosis and transition to thoracic spine. These were then secured into C2 bilaterally and then sequentially reduced into lateral mass screws and T1 and T2 screws without issues. All set screws were placed and were then final tightened and the position. Bilateral laminectomy, facetectomy and foraminotomies were then done from C2-C7 using high speed cammy, kerrison rongeur and upbiting curette. Bilateral laminotomy troughs were made with cammy followed by curette to release ligamentum. Rongure was then used to gently remove the lamina and facets posteriorly without issues. Meticulous hemostasis was performed after. Motors were run before and after decompression and they remain stable. Good pulsations of the cord were noted after decompression. Foraminotomies then performed with kerrison rongeur and clean up of the laminectomy site. The wound was then copiously irrigated with NSS. Facet joints were drilled at each level to allow for fusion Surgicel was placed over the dura. MagnetOs were placed in the posterior lateral gutters along with autograft.. This was impacted into position for fusion. 2 g of powdered vancomycin was then placed deep within the wound and a deep drain was placed. We then proceeded with layered closure first in the deep fascia with #1 Vicryl then in the deep fascia followed by a running #1 stratafix. 2-0 Vicryl was used in the subq layers. Skin kisha then approximated skin edges. The wound edges approximated very well. The wound was then cleaned and dressed sterilely with an operative foam dressing 4 x 4 and Tegaderm. The drain had good suction. The patient was placed in a hard cervical collar. The patient was transferred back to their hospital bed atraumatically. Mcleod head clamp was removed and pin sites were clear. Drain continued to hold suction. Patient was placed in a hard collar Patient was then awakened and extubated by the department of anesthesia having tolerated the procedure very well with no complications. They were transferred to the postoperative care unit in stable condition.
[2023-06-20] MEDS ORDERED: ORENCIA IV SCH (09:00)
== END 2023-06-13 14:40 | DRG 454 ==
LOC: 2ORMAIN 05:34 → EDSTATUS 07:30 → 4SSUR 17:04
PROVIDERS: ADMIT Orthopaedic Surgery Orthopaedic Surgery of the Spine; ATTEND Orthopaedic Surgery Orthopaedic Surgery of the Spine
PROC: 0RB30ZZ Excision of Cervical Vertebral Disc, Open Approach (ICD-10-PCS; 2023-06-06)
PROC: 01N10ZZ Release Cervical Nerve, Open Approach (ICD-10-PCS; 2023-06-06)
PROC: 4A11X4G Monitoring of Peripheral Nervous Electrical Activity, Intraoperative, External Approach (ICD-10-PCS; 2023-06-06)
PROC: 0RG20A0 Fusion of 2 or more Cervical Vertebral Joints with Interbody Fusion Device, Anterior Approach, Anterior Column, Open Approach (ICD-10-PCS; principal; 2023-06-06 07:30)
PROC: 0RG2071 Fusion of 2 or more Cervical Vertebral Joints with Autologous Tissue Substitute, Posterior Approach, Posterior Column, Open Approach (ICD-10-PCS; 2023-06-13)
PROC: 0RG6071 Fusion of Thoracic Vertebral Joint with Autologous Tissue Substitute, Posterior Approach, Posterior Column, Open Approach (ICD-10-PCS; 2023-06-13)
PROC: 0RG4071 Fusion of Cervicothoracic Vertebral Joint with Autologous Tissue Substitute, Posterior Approach, Posterior Column, Open Approach (ICD-10-PCS; 2023-06-13)
PROC: 0RB50ZZ Excision of Cervicothoracic Vertebral Disc, Open Approach (ICD-10-PCS; 2023-06-13)
PROC: 0RB30ZZ Excision of Cervical Vertebral Disc, Open Approach (ICD-10-PCS; 2023-06-13)
PROC: 01N10ZZ Release Cervical Nerve, Open Approach (ICD-10-PCS; 2023-06-13)
PROC: 01N80ZZ Release Thoracic Nerve, Open Approach (ICD-10-PCS; 2023-06-13)
PROC: 00NW0ZZ Release Cervical Spinal Cord, Open Approach (ICD-10-PCS; 2023-06-13)
PROC: 00NX0ZZ Release Thoracic Spinal Cord, Open Approach (ICD-10-PCS; 2023-06-13)
PROC: 4A11X4G Monitoring of Peripheral Nervous Electrical Activity, Intraoperative, External Approach (ICD-10-PCS; 2023-06-13)
DX: M50.13 Cervical disc disorder with radiculopathy, cervicothoracic region (principal); M47.12 Other spondylosis with myelopathy, cervical region; M50.03 Cervical disc disorder with myelopathy, cervicothoracic region; M48.03 Spinal stenosis, cervicothoracic region; M48.02 Spinal stenosis, cervical region; M43.12 Spondylolisthesis, cervical region; R53.1 Weakness; R26.2 Difficulty in walking, not elsewhere classified; I10 Essential (primary) hypertension; D64.9 Anemia, unspecified; M53.2X3 Spinal instabilities, cervicothoracic region; E78.5 Hyperlipidemia, unspecified; M06.9 Rheumatoid arthritis, unspecified; Z87.442 Personal history of urinary calculi; I83.90 Asymptomatic varicose veins of unspecified lower extremity; M47.22 Other spondylosis with radiculopathy, cervical region; R33.8 Other retention of urine
CPT/HCPCS: 72040; 80053; 82607; 82728; 82746; 83010; 83540; 83550; 83615; 85025; 85045; 85384

== ENCOUNTER → 2023-07-20 | Outpatient (CLI) | payer MEDICARE, BC ==
--- NOTE | 2023-07-20 12:58 | FL ---
COMPARISON: NONE DATE OF EXAM: 07/20/2023 HISTORY: Suspected A number of thin and thick substances were ingested under the care of the department of speech pathol ogy. There is penetration on all substances. No evidence of aspiration. Significant vallecular pooli ng\residuals. 24 seconds of fluoroscopy time. No images submitted IMPRESSION: 1. Penetration with all substances. No aspiration.
== END | disposition home or self-care (01) ==
LOC: RADFLMAIN 11:34
PROVIDERS: ATTEND Family Medicine
DX: R13.10 Dysphagia, unspecified (principal)
CPT/HCPCS: 74230

== ENCOUNTER 2023-08-27 13:26 | Inpatient (IN) | payer MEDICARE, BC ==
--- NOTE | 2023-08-27 14:00 | ED ---
General Adult HPI - General Source: patient, family, RN notes reviewed Mode of arrival: ambulatory Limitations: no limitations <Ton Whelan - Last Filed: 08/27/23 13:59> - General Source: patient, family, RN notes reviewed, old records reviewed <Casey Brooks - Last Filed: 08/27/23 20:13> - General Chief complaint: Weakness Stated complaint: Vomiting-post op pain Time Seen by Provider: 08/27/23 13:45 - History of Present Illness Initial comments: Quick [id number] female presents emergency department with chief complaint of nausea vomiting. Patient has been spitting up bile like emesis. Family states that she had recent neck surgery by and Dr resendiz. Patient states that her pain is doing well. Patient states she just has upset stomach. Denies any shortness of breath. (Ton Whelan) Patient presents to the emergency department with lightheadedness causing nausea and vomiting. Recently had neck surgery completed by Dr. Resendiz. Pain has been improving. Denies any chest pain. Does endorse increased heart rate. Denies shortness of breath. Presents for further evaluation at this time. Was found to be in A-fib with RVR in triage after initially worked up as a quick note. Patient was placed in trauma bay 3 for further workup. Denies any fevers or chills. Denies diarrhea or sick contacts. (Casey Brooks) - Related Data Home Medications Medication Instructions Recorded Confirmed Aspirin 81 mg PO HS 09/09/13 08/27/23 Folic Acid 1 mg PO DAILY 09/09/13 08/27/23 Metoprolol Tartrate [Lopressor] 25 mg PO DAILY 09/09/13 08/27/23 Magnesium Oxide [Mag-Ox] 250 mg PO HS 02/21/19 08/27/23 metHOTREXate sodium [Methotrexate] 15 mg PO WE 04/07/19 08/27/23 Ferrous Sulfate [Iron (65 MG 325 mg PO Q48H 09/21/22 08/27/23 Elemental)] amLODIPine [Norvasc] 5 mg PO DAILY 09/21/22 08/27/23 Atorvastatin [Lipitor] 20 mg PO DAILY 08/27/23 08/27/23 Denosumab [Prolia] 60 mg SQ Q180D 08/27/23 08/27/23 Famotidine 20 mg PO DAILY 08/27/23 08/27/23 HYDROcodone/APAP 5-325MG [[place] 5] 1 tab PO Q6HR PRN 08/27/23 08/27/23 Orencia 500mg Infusion 500 mg IV Q28D 08/27/23 08/27/23 Previous Rx's Medication Instructions Recorded Baclofen 10 mg PO TID PRN #60 tab 06/13/23 Allergies Allergy/AdvReac Type Severity Reaction Status Date / Time codeine AdvReac Vomiting Verified 08/27/23 17:17 tramadol AdvReac Vomiting Verified 08/27/23 17:17 Review of Systems ROS Other: All systems not noted in ROS Statement are negative. <Ton Whelan - Last Filed: 08/27/23 13:59> ROS Other: All systems not noted in ROS Statement are negative. <Casey Brooks - Last Filed: 08/27/23 20:13> ROS Statement: Those systems with pertinent positive or pertinent negative responses have been documented in the HPI. Review of Systems: CONST: Denies fever EYES: Denies blurry vision ENT: Denies nasal congestion C/V: Denies Chest pain RESP: Denies shortness of breath GI: Denies abdominal pain : Denies dysuria SKIN: Denies rash. MSK: Endorses neck pain from recent surgery NEURO: Endorses general weakness (Casey Brooks) Past Medical History Past Medical History: Deep Vein Thrombosis (DVT), Hyperlipidemia, Hypertension, Rheumatoid Arthritis (RA) Additional Past Medical History / Comment(s): SEPTIC SHOCK POST KIDNEY STONE, varicose veins, History of Any Multi-Drug Resistant Organisms: None Reported Date of last positivie culture/infection: 2016 MDRO Source:: kidney stone Past Surgical History: Back Surgery, Cholecystectomy, Hysterectomy, Joint Replacement, Orthopedic Surgery Additional Past Surgical History / Comment(s): vein surgery rt leg, sara carpal tunnel, joints removed from feet, rt hand replacement of knuckle, rotator cuff sara shoulders, rt elbow replaced, rt shoulder fx, reverse rotator cuff repair rt shoulder, surgery 11/02/15- rt hip fx, repeat right hip surgery (fall 2016) Past Anesthesia/Blood Transfusion Reactions: Postoperative Nausea & Vomiting (PONV) Additional Past Anesthesia/Blood Transfusion Reaction / Comment(s): no hx blood transfusion Past Psychological History: No Psychological Hx Reported Smoking Status: Current every day smoker Past Alcohol Use History: None Reported Additional Past Alcohol Use History / Comment(s): quit smoking 10/2015, smoked since age 17, 1/2 PPD Past Drug Use History: None Reported - Past Family History Mother Family Medical History: No Reported History Father Family Medical History: Cancer <Ton Whelan - Last Filed: 08/27/23 13:59> General Exam <Ton Whelan - Last Filed: 08/27/23 13:59> <Casey Brooks - Last Filed: 08/27/23 20:13> - General Exam Comments Initial Comments: Visual Physical Exam Vital signs reviewed General: Well-appearing, nontoxic, no acute distress. Head: Normocephalic, atraumatic Eyes: PERRLA, EOMI ENT: Airway patent Chest: Nonlabored breathing Skin: No visual rash, normal skin tone Neuro: Alert and oriented 3 Musculoskeletal: No gross abnormalities (Ton Whelan) General: Appears in no acute distress. HEAD: Normal with no signs of head trauma. EYES: PERRLA, EOMI, conjunctiva normal, no discharge. ENT: Hearing grossly intact, normal oropharynx. Dry mucous membranes RESPIRATORY: Clear breath sounds bilaterally. No wheezes, rales, or rhonchi. C/V: Irregular rate and rhythm. S1 and S2 auscultated, peripheral pulses 2+ and intact throughout ABD: Abd is soft, nontender, nondistended EXT: Normal range of motion, no obvious deformity SKIN: No rashes or lesions observed on exposed skin. Surgical site appears unremarkable. NEURO: Alert and oriented x 4. (Casey Brooks) Course Vital Signs 08/27/23 08/27/23 08/27/23 14:03 16:40 16:57 Temperature 97.3 F L Pulse Rate 102 H 141 H Pulse Rate [ 129 H Statistical Engineer ] Respiratory 18 18 Rate Blood Pressure 181/77 185/102 O2 Sat by Pulse 98 96 Oximetry 08/27/23 08/27/23 17:01 18:19 Temperature Pulse Rate 113 H 137 H Pulse Rate [ Statistical Engineer ] Respiratory 18 20 Rate Blood Pressure 136/77 166/86 O2 Sat by Pulse 96 97 Oximetry Medical Decision Making <Ton Whelan - Last Filed: 08/27/23 13:59> - Lab Data Result diagrams: 08/27/23 16:27 08/27/23 16:27 - EKG Data -: EKG Interpreted by Me <Casey Brooks - Last Filed: 08/27/23 20:13> - Medical Decision Making I completed the quick note portion of this chart signed Ton Whelan PA-C (Ton Whelan) Was pt. sent in by a medical professional or institution (, PA, BEAD WORKER SEWING, urgent care, hospital, or fdc...) When possible be specific @ -No Did you speak to anyone other than the patient for history (EMS, parent, family, police, friend...)? What history was obtained from this source @ -No Did you review nursing and triage notes (agree or disagree)? Why? @ -I reviewed and agree with nursing and triage notes Were old charts reviewed (outside hosp., previous admission, EMS record, old EKG, old radiological studies, urgent care reports/EKG's, fdc records)? Report findings @ -Old charts reviewed Differential Diagnosis (chest pain, altered mental status, abdominal pain women, abdominal pain men, vaginal bleeding, weakness, fever, dyspnea, syncope, headache, dizziness, GI bleed, back pain, seizure, CVA, palpatations, mental health, musculoskeletal)? @ -Differential Chest Pain: Stable Angina, Unstable Angina, STEMI, NSTEMI Aortic Dissection, Pneumothorax, Musculoskeletal, Esophageal Spasm GERD, Cholecystitis, Pancreatitis, Zoster, this is not meant to be an all-inclusive list. EKG interpreted by me (3pts min.). @ -As above X-rays interpreted by me (1pt min.). @ -Chest x-ray reveals no obvious acute cardiopulmonary process. CT interpreted by me (1pt min.). @ -CT brain reveals no obvious acute intracranial process. CT cervical spine shows postop changes but no obvious acute process otherwise. CT PE negative for PE. Patient does have a pulmonary nodule and needs repeat imaging in 3 to 6 months. U/S interpreted by me (1pt. min.). @ -None done What testing was considered but not performed or refused? (CT, X-rays, U/S, labs)? Why? @ -None What meds were considered but not given or refused? Why? @ -None Did you discuss the management of the patient with other professionals (professionals i.e. , PA, [employer] WORK[employer], lab, RT, psych nurse, oncology social work, food and beverage controller, teacher, donor relations officer, case management rn)? Give summary @ -Discussed with midlevel provider Amelie of [facility] who accepted the admission. Was smoking cessation discussed for >3mins.? @ -No Was critical care preformed (if so, how long)? @ -Yes, 35 minutes Were there social determinants of health that impacted care today? How? (Homelessness, low income, unemployed, alcoholism, drug addiction, transportation, low edu. Level, literacy, decrease access to med. care, fpc, rehab)? @ -No Was there de-escalation of care discussed even if they declined (Discuss DNR or withdrawal of care, Hospice)? DNR status @ -No What co-morbidities impacted this encounter? (DM, HTN, Smoking, COPD, CAD, Cancer, CVA, ARF, Chemo, Hep., AIDS, mental health diagnosis, sleep apnea, morbid obesity)? @ -None Was patient admitted / discharged? Hospital course, mention meds given and route, prescriptions, significant lab abnormalities, going to OR and other pertinent info. @ -Patient presents with what appears to be new onset atrial fibrillation. I evaluated her when she was placed in room. She will be given IV fluids as well as started on a Cardizem drip for the A-fib. Hemodynamically stable otherwise. Cardiopulmonary workup will be obtained. She will be given nausea meds. Patient was in agreement this plan. Vital signs are within acceptable limits otherwise. Laboratory studies remarkable for mild leukocytosis of 14 which could be secondary to recent surgery. D-dimer is elevated 2.59. Lactic acid slightly elevated 2.8 likely secondary to vomiting. BNP slightly elevated 5400. Lipase slightly elevated to 325. Troponin is indeterminate. Viral swabs negative. At this time I did recommend CT angiogram to evaluate for PE and we will also obtain CT of the neck as well as brain. Patient was in agreement this plan. CT imaging unremarkable including negative for PE or acute intracranial process. Surgical hardware is intact. Patient does have a pulmonary nodule which she was made aware of. She requires repeat imaging in 3 to 6 months. At this time, patient will be started on a heparin drip. She will be given aspirin and she will be admitted for new onset A-fib. Patient was in agreement this plan. I spoke with the admitting team, OLIVE Kinsey of [facility] who accepted the admission. Cardiology consulted. Heart rate is improved to low 100s at time of admission. Undiagnosed new problem with uncertain prognosis? @ -No Drug Therapy requiring intensive monitoring for toxicity (Heparin, Nitro, Insulin, Cardizem)? @ -Heparin, Cardizem Were any procedures done? @ -No Diagnosis/symptom? @ -Nausea and vomiting, new onset atrial fibrillation, pulmonary nodule Acute, or Chronic, or Acute on Chronic? @ -Acute Uncomplicated (without systemic symptoms) or Complicated (systemic symptoms)? @ -Complicated Side effects of treatment? @ -No Exacerbation, Progression, or Severe Exacerbation? @ -No Poses a threat to life or bodily function? How? (Chest pain, USA, OR, pneumonia, PE, COPD, DKA, ARF, appy, cholecystitis, CVA, Diverticulitis, Homicidal, Suicidal, threat to staff... and all critical care pts) @ -Yes (Casey Brooks) - Lab Data Lab Results 08/27/23 08/27/23 08/27/23 Range/Units 16:27 16:27 16:27 WBC 14.6 H (3.8-10.6) k/uL RBC 5.29 (3.80-5.40) m/uL Hgb 16.0 (11.4-16.0) gm/dL Hct 49.1 H (34.0-46.0) % MCV 92.9 (80.0-100.0) fL MCH 30.2 (25.0-35.0) pg MCHC 32.5 (31.0-37.0) g/dL RDW 17.7 H (11.5-15.5) % Plt Count 243 (150-450) k/uL MPV 8.2 Neutrophils % 89 % Lymphocytes % 6 % Monocytes % 4 % Eosinophils % 1 % Basophils % 0 % Neutrophils # 12.9 H (1.3-7.7) k/uL Lymphocytes # 0.9 L (1.0-4.8) k/uL Monocytes # 0.6 (0-1.0) k/uL Eosinophils # 0.1 (0-0.7) k/uL Basophils # 0.0 (0-0.2) k/uL Anisocytosis Slight PT (10.0-12.5) sec INR (<1.2) APTT (22.0-30.0) sec D-Dimer (<0.60) mg/L FEU Sodium 135 L (137-145) mmol/L Potassium 4.1 (3.5-5.1) mmol/L Chloride 99 (98-107) mmol/L Carbon Dioxide 23 (22-30) mmol/L Anion Gap 13 mmol/L BUN 25 H (7-17) mg/dL Creatinine 0.81 (0.52-1.04) mg/dL Est GFR (CKD-EPI)AfAm 78 (>60 ml/min/1.73 sqM) Est GFR (CKD-EPI)NonAf 67 (>60 ml/min/1.73 sqM) Glucose 154 H (74-99) mg/dL Lactic Ac Sepsis Rflx Plasma Lactic Acid Mariusz 2.8 H* (0.7-2.0) mmol/L Calcium 9.1 (8.4-10.2) mg/dL Magnesium (1.6-2.3) mg/dL Total Bilirubin 1.2 (0.2-1.3) mg/dL AST 33 (14-36) U/L ALT 18 (4-34) U/L Alkaline Phosphatase 115 (38-126) U/L Troponin I (0.000-0.034) ng/mL NT-Pro-B Natriuret Pep pg/mL Total Protein 8.1 (6.3-8.2) g/dL Albumin 4.9 (3.5-5.0) g/dL Lipase 325 H (23-300) U/L Influenza Type A (PCR) (Not Detectd) Influenza Type B (PCR) (Not Detectd) RSV (PCR) (Not Detectd) SARS-CoV-2 (PCR) (Not Detectd) 08/27/23 08/27/23 08/27/23 Range/Units 16:27 16:27 16:27 WBC (3.8-10.6) k/uL RBC (3.80-5.40) m/uL Hgb (11.4-16.0) gm/dL Hct (34.0-46.0) % MCV (80.0-100.0) fL MCH (25.0-35.0) pg MCHC (31.0-37.0) g/dL RDW (11.5-15.5) % Plt Count (150-450) k/uL MPV Neutrophils % % Lymphocytes % % Monocytes % % Eosinophils % % Basophils % % Neutrophils # (1.3-7.7) k/uL Lymphocytes # (1.0-4.8) k/uL Monocytes # (0-1.0) k/uL Eosinophils # (0-0.7) k/uL Basophils # (0-0.2) k/uL Anisocytosis PT 9.7 L (10.0-12.5) sec INR 0.9 (<1.2) APTT 23.1 (22.0-30.0) sec D-Dimer 2.59 H (<0.60) mg/L FEU Sodium (137-145) mmol/L Potassium (3.5-5.1) mmol/L Chloride (98-107) mmol/L Carbon Dioxide (22-30) mmol/L Anion Gap mmol/L BUN (7-17) mg/dL Creatinine (0.52-1.04) mg/dL Est GFR (CKD-EPI)AfAm (>60 ml/min/1.73 sqM) Est GFR (CKD-EPI)NonAf (>60 ml/min/1.73 sqM) Glucose (74-99) mg/dL Lactic Ac Sepsis Rflx Plasma Lactic Acid Mariusz (0.7-2.0) mmol/L Calcium (8.4-10.2) mg/dL Magnesium (1.6-2.3) mg/dL Total Bilirubin (0.2-1.3) mg/dL AST (14-36) U/L ALT (4-34) U/L Alkaline Phosphatase (38-126) U/L Troponin I 0.016 (0.000-0.034) ng/mL NT-Pro-B Natriuret Pep 5490 pg/mL Total Protein (6.3-8.2) g/dL Albumin (3.5-5.0) g/dL Lipase (23-300) U/L Influenza Type A (PCR) (Not Detectd) Influenza Type B (PCR) (Not Detectd) RSV (PCR) (Not Detectd) SARS-CoV-2 (PCR) (Not Detectd) 08/27/23 08/27/23 08/27/23 Range/Units 16:27 16:39 17:18 WBC (3.8-10.6) k/uL RBC (3.80-5.40) m/uL Hgb (11.4-16.0) gm/dL Hct (34.0-46.0) % MCV (80.0-100.0) fL MCH (25.0-35.0) pg MCHC (31.0-37.0) g/dL RDW (11.5-15.5) % Plt Count (150-450) k/uL MPV Neutrophils % % Lymphocytes % % Monocytes % % Eosinophils % % Basophils % % Neutrophils # (1.3-7.7) k/uL Lymphocytes # (1.0-4.8) k/uL Monocytes # (0-1.0) k/uL Eosinophils # (0-0.7) k/uL Basophils # (0-0.2) k/uL Anisocytosis PT (10.0-12.5) sec INR (<1.2) APTT (22.0-30.0) sec D-Dimer (<0.60) mg/L FEU Sodium (137-145) mmol/L Potassium (3.5-5.1) mmol/L Chloride (98-107) mmol/L Carbon Dioxide (22-30) mmol/L Anion Gap mmol/L BUN (7-17) mg/dL Creatinine (0.52-1.04) mg/dL Est GFR (CKD-EPI)AfAm (>60 ml/min/1.73 sqM) Est GFR (CKD-EPI)NonAf (>60 ml/min/1.73 sqM) Glucose (74-99) mg/dL Lactic Ac Sepsis Rflx Y Plasma Lactic Acid Mariusz (0.7-2.0) mmol/L Calcium (8.4-10.2) mg/dL Magnesium 2.3 (1.6-2.3) mg/dL Total Bilirubin (0.2-1.3) mg/dL AST (14-36) U/L ALT (4-34) U/L Alkaline Phosphatase (38-126) U/L Troponin I (0.000-0.034) ng/mL NT-Pro-B Natriuret Pep pg/mL Total Protein (6.3-8.2) g/dL Albumin (3.5-5.0) g/dL Lipase (23-300) U/L Influenza Type A (PCR) Not Detected (Not Detectd) Influenza Type B (PCR) Not Detected (Not Detectd) RSV (PCR) Not Detected (Not Detectd) SARS-CoV-2 (PCR) Not Detected (Not Detectd) - EKG Data EKG Comments: 12-lead Electrocardiogram Interpretation Note EKG was reviewed and interpreted by myself. 12-lead ECG performed at 1601 is interpreted by me as revealing atrial fibrillation with RVR at a rate of 136 beats per minute. [place] is normal. QRS duration is 69 ms, QTc is 358 ms,. There were no specific ST or T wave abnormalities to suggest myocardial ischemia or injury. R wave progression across the precordium was satisfactory. By my interpretation this EKG is non-diagnostic for acute ischemia. (Casey Brooks) Critical Care Time Critical Care Time: Yes Total Critical Care Time: 35 <Casey Brooks - Last Filed: 08/27/23 20:13> Disposition <Ton Whelan - Last Filed: 08/27/23 13:59> Time of Disposition: 19:21 <Casey Brooks - Last Filed: 08/27/23 20:13> Clinical Impression: New onset atrial fibrillation, Pulmonary nodule, Nausea and vomiting Disposition: ADMITTED IP TO THIS HOSP Condition: Serious Referrals: Colleen Bartlett MD [Primary Care Provider] - 1-2 days
[2023-08-27 16:44] LABS: Anisocytosis Slight; Basophils % (A) 0 %; Eosinophils # (A) 0.1 k/uL (0-0.7); Eosinophils % (A) 1 %; HCT 49.1 % (34.0-46.0); Lymphocytes # (A) 0.9 k/uL (1.0-4.8); Lymphocytes % (A) 6 %; MCH 30.2 pg (25.0-35.0); MCHC 32.5 g/dL (31.0-37.0); MCV 92.9 fL (80.0-100.0); Mean Platelet Volume 8.2; Monocytes # (A) 0.6 k/uL (0-1.0); Monocytes % (A) 4 %; Neutrophils # (A) 12.9 k/uL (1.3-7.7); Neutrophils % (A) 89 %; Platelet Count 243 k/uL (150-450); RBC 5.29 m/uL (3.80-5.40); RDW 17.7 % (11.5-15.5); WBC 14.6 k/uL (3.8-10.6)
[2023-08-27] MEDS: ONDANSETRON 4 MG/2 ML VIAL IVP STA (16:44)
[2023-08-27] MEDS: SODIUM CHLORIDE 0.9% 1,000 ML IV STA ×2 (16:44→19:56)
[2023-08-27] MEDS: SODIUM CHLORIDE 0.9% 500 ML 500 ML IV STA (16:44)
[2023-08-27] MEDS: DILTIAZEM DRIP BOLUS FROM BAG 1 MG SOLN IV ONE (16:46)
[2023-08-27] MEDS: DILTIAZEM 125 MG in SODIUM CHLORIDE 0.9% 100 ML IV SCH (16:47)
[2023-08-27] MEDS: MORPHINE SULFATE 2 MG/ML SYRINGE IVP STA (16:56)
[2023-08-27 16:58] LABS: ALT 18 U/L (4-34); AST 33 U/L (14-36); African American GFR (CKD) 78 (>60 ml/min/1.73 sqM); Albumin 4.9 g/dL (3.5-5.0); Alkaline Phosphatase 115 U/L (38-126); Anion Gap 13 mmol/L; Blood Urea Nitrogen 25 mg/dL (7-17); Calcium 9.1 mg/dL (8.4-10.2); Carbon Dioxide 23 mmol/L (22-30); Chloride 99 mmol/L (98-107); Glucose 154 mg/dL (74-99); Lipase 325 U/L (23-300); Non-African American GFR(CKD) 67 (>60 ml/min/1.73 sqM); Potassium 4.1 mmol/L (3.5-5.1); Sodium 135 mmol/L (137-145); Total Bilirubin 1.2 mg/dL (0.2-1.3); Total Protein 8.1 g/dL (6.3-8.2)
[2023-08-27 17:00] LABS: INR 0.9 (<1.2); Partial Thromboplastin Time 23.1 sec (22.0-30.0); Prothrombin Time 9.7 sec (10.0-12.5)
--- NOTE | 2023-08-27 17:25 | XR ---
EXAMINATION TYPE: XR chest 2V DATE OF EXAM: 08/27/2023 5:21 PM CLINICAL INDICATION:Female, 83 years old with history of n/v; COMPARISON: Chest radiographs from 01/09/2022. TECHNIQUE: XR chest 2V Frontal and lateral views of the chest. FINDINGS: Lungs/Pleura: There is no evidence of pleural effusion, focal consolidation, or pneumothorax. Pulmonary vascularity: Unremarkable. Heart/mediastinum: Cardiomediastinal silhouette is unremarkable. Atherosclerotic calcifications are seen in the aorta. Musculoskeletal: No acute osseous pathology. There is fixation hardware in the lower cervical spine. Right shoulder reverse arthroplasty changes. Hardware appears intact. Other findings: None IMPRESSION: No acute cardiopulmonary disease/process.
--- NOTE | 2023-08-27 18:56 | CT ---
EXAMINATION TYPE: CT brain cspine wo con CT DLP: Combined DLP of 1462.9 mGycm, Automated exposure control for dose reduction was used. DATE OF EXAM: 08/27/2023 6:24 PM COMPARISON: 03/21/2023 CLINICAL INDICATION:Female, 83 years old with history of recent c spine surgery; Recent C-spine surge ry TECHNIQUE: Brain: Multiple axial CT images of the brain were obtained without IV contrast. Cspine: Axial CT images from the skull base to the inferior aspect of T2 we obtained without intraven ous contrast. Coronal and sagittal reformatted images were also reviewed. FINDINGS: Brain: Extra-axial spaces: No abnormal extra-axial fluid collections. Ventricular system: Dilatation in proportion to cerebral atrophy. Cerebral parenchyma: Cerebral atrophy. No acute intraparenchymal hemorrhage or mass effect. The lopez -white junction is well differentiated. Scattered hypoattenuating areas are seen within the white mat ter. Cerebellum: Unremarkable. Mass effect: No evidence of midline shift. Intracranial vasculature: Atherosclerotic calcifications of the intracranial vessels. Soft tissues: Normal. Calvarium/osseous structures: No depressed skull fracture. Paranasal sinuses and mastoid air cells: Clear. Visualized orbits: Bilateral aphakia Cervical spine: Fracture: None. Osseous structures: Osteophyte formation and facet and uncovertebral joint arthropathy throughout the visualized spine. Severe degeneration changes throughout the spine with fixation hardware throughout the spine. Hardware appears intact. Laminectomy changes since study from C3 through C7 noted. Vertebral alignment: Within normal limits. Spinal canal/Neural Foramina: No evidence of significant spinal canal narrowing. No evidence for sign ificant neural foraminal stenosis. Neck soft tissues: Prevertebral soft tissues are within normal limits. Other: The airway is patent. Atherosclerosis of the carotid bifurcations. Stent graft within the righ t carotid system. IMPRESSION: 1. No acute intracranial process. 2. Nonspecific white matter changes, likely secondary to chronic small vessel ischemic disease. 3. No evidence of cervical spine fracture. 4. Postsurgical changes to the spine with moderate to severe multilevel degenerative disc disease. H ardware appears intact.
--- NOTE | 2023-08-27 19:00 | CT ---
EXAMINATION TYPE: CT chest angio for PE CT DLP: Combined DLP of 1462.9 mGycm, Automated exposure control for dose reduction was used. DATE OF EXAM: 08/27/2023 6:25 PM COMPARISON: CT chest 02/27/2021. CLINICAL INDICATION:Female, 83 years old with history of eval for PE; Eval for PE TECHNIQUE/CONTRAST: CTA scan of the thorax is performed with IV Contrast, patient injected with 100 mL of Isovue 370, MIP images are created and reviewed these are created on a separate workstation.. FINDINGS: Pulmonary Artery: There is no evidence for a filling defect within the pulmonary vasculature to sugge st acute pulmonary embolism. The pulmonary artery is of normal size. Lungs/Pleura: No evidence of focal consolidation, pleural effusion or pneumothorax. 7 mm left upper l arianne pulmonary nodule. Series 7 image 40. Mild centrilobular emphysema changes. Airway: Large airways are patent. Heart: Heart is within normal limits for size. Coronary artery calcifications present. Vasculature: No evidence of aortic aneurysm. Mediastinum: No gross evidence of adenopathy. Musculoskeletal: Severe degenerative disc disease changes are present throughout the thoracolumbar sp ine. Compression deformity of the T12 vertebral body is unchanged from prior. Fixation hardware in th e lower cervical and upper thoracic spine is visualized and intact. There is severe degeneration moran ges of the left shoulder with [id number] articulation and osteophyte formation. Right shoulder arth roplasty changes which appear intact. Soft Tissues: Unremarkable. Lower neck: No significant findings. Upper Abdomen: Left renal cortical cyst. The gallbladder surgically absent. IMPRESSION: 1. No evidence of pulmonary embolism. 2. Left upper lobe 7 mm pulmonary nodule. Findings new from 2020. 3. Mild emphysema. 4. Postsurgical changes of the spine with hardware intact.
[2023-08-27] MEDS ORDERED: ACETAMINOPHEN TAB 325 MG TAB PO PRN (19:30)
[2023-08-27] MEDS ORDERED: NALOXONE 0.4 MG/ML 1 ML VIAL IV PRN (19:30)
[2023-08-27] MEDS ORDERED: MORPHINE SULFATE 2 MG/ML SYRINGE IV PRN (19:30)
[2023-08-27] MEDS ORDERED: ONDANSETRON 4 MG/2 ML VIAL IVP PRN (19:30)
[2023-08-27] MEDS: HEPARIN SOD,PORK IN 0.45% NACL 25,000 UNIT in 0.45% NACL 1 250ML.BAG IV SCH (19:49)
[2023-08-27] MEDS: HEPARIN SODIUM 1,000 UN/ML (10ML VL) IV ONE (19:52)
[2023-08-27] MEDS ORDERED: BACLOFEN 10 MG TAB PO PRN (20:06)
[2023-08-27] MEDS: ASPIRIN 81 MG PO STA ×2 (20:07→20:11)
[2023-08-27] MEDS ORDERED: DENOSUMAB 60 MG/ML 1 ML SYRINGE SQ SCH (20:15)
[2023-08-27] MEDS: FERROUS SULFATE 325 MG TAB PO SCH (21:56)
[2023-08-27] MEDS: ASPIRIN 81 MG PO SCH (21:57)
[2023-08-28] MEDS: HEPARIN SODIUM 1,000 UN/ML (10ML VL) IV PRN (02:25)
[2023-08-28] MEDS: amLODIPine 5 MG TAB PO SCH (08:36)
[2023-08-28] MEDS: FAMOTIDINE 20 MG TAB PO SCH (08:36)
[2023-08-28] MEDS: ATORVASTATIN 20 MG TAB PO SCH (08:36)
[2023-08-28] MEDS: METOPROLOL TARTRATE 25 MG TAB PO SCH (08:36)
[2023-08-28 08:55] LABS: Anisocytosis Slight; Basophils % (A) 0 %; Eosinophils # (A) 0.1 k/uL (0-0.7); Eosinophils % (A) 1 %; HGB 13.3 gm/dL (11.4-16.0); Lymphocytes # (A) 1.2 k/uL (1.0-4.8); Lymphocytes % (A) 13 %; MCH 30.2 pg (25.0-35.0); MCHC 32.4 g/dL (31.0-37.0); MCV 93.3 fL (80.0-100.0); Mean Platelet Volume 8.1; Monocytes # (A) 0.6 k/uL (0-1.0); Monocytes % (A) 6 %; Neutrophils # (A) 7.3 k/uL (1.3-7.7); Neutrophils % (A) 79 %; Platelet Count 184 k/uL (150-450); RDW 17.8 % (11.5-15.5); WBC 9.3 k/uL (3.8-10.6)
[2023-08-28] MEDS ORDERED: METOPROLOL TARTRATE 25 MG TAB PO SCH (09:00)
[2023-08-28 09:16] LABS: INR 0.9 (<1.2); Partial Thromboplastin Time 37.5 sec (22.0-30.0)
[2023-08-28 09:43] LABS: ALT 13 U/L (4-34); AST 29 U/L (14-36); African American GFR (CKD) >90 (>60 ml/min/1.73 sqM); Albumin 3.7 g/dL (3.5-5.0); Alkaline Phosphatase 94 U/L (38-126); Anion Gap 6 mmol/L; Blood Urea Nitrogen 18 mg/dL (7-17); Calcium 7.8 mg/dL (8.4-10.2); Carbon Dioxide 23 mmol/L (22-30); Chloride 105 mmol/L (98-107); Glucose 106 mg/dL (74-99); Non-African American GFR(CKD) 82 (>60 ml/min/1.73 sqM); Potassium 3.7 mmol/L (3.5-5.1); Sodium 134 mmol/L (137-145); Total Bilirubin 0.7 mg/dL (0.2-1.3); Total Protein 6.3 g/dL (6.3-8.2)
--- NOTE | 2023-08-28 09:54 | P.CRDCN ---
History of Present Illness History of present illness: HISTORY OF PRESENT ILLNESS: This is a 83-year-old female with a past medical history significant for peripheral arterial disease with previous SFA intervention, right carotid stenting, hypertension, hyperlipidemia, degenerative disc disease, COPD, nicotine dependence, and recent neck surgery.. Patient follows in the office with Dr. Mc. We have been asked to see the patient in consultation for new onset atrial fibrillation. Patient examined at the bedside in the emergency room. Patient states on Sunday she began to feel unwell. She states that she started to have nausea and significant back pain. She also reports having urinary incontinence. She states that she was unable to walk at home. She reports dizziness and palpitations which she has not experienced before. She denies any episodes of syncope. Patient was found to be in atrial fibrillation. Patient denies a history of atrial fibrillation. She was started on IV heparin and IV Cardizem. At the time of examination, she remains in atrial fibrillation with controlled ventricular rates. Patient states that she is a former cigarette smoker and quit smoking 2 weeks ago. She is currently in a soft cervical brace as she underwent neck surgery on 06/06/2023. DIAGNOSTICS: - EKG reveals A-fib with RVR. - Chest xray negative for acute process. - Chest CTA: Negative for pulmonary embolism. Left upper lobe 7 mm pulmonary nodule, new findings from 2020. Mild emphysema. Postsurgical changes of the spine with hardware intact. - Laboratory data: WBC 9.3. Hemoglobin 13.3. Platelet count 184. Sodium 134. Potassium 3.7. BUN 18. Creatinine 0.64. Troponin negative x 3 - Current home cardiac medications include amlodipine 5 mg daily, metoprolol titrate 25 mg daily, Lipitor 20 mg daily, and aspirin 81 mg daily. - Most recent echocardiogram obtained in June 2021 reveals ejection fraction 55%, mild TR, moderate pulmonary hypertension. -Patient underwent Lexiscan stress test in July 2021 which was negative for ischemia REVIEW OF SYSTEMS: At the time of my exam: CONSTITUTIONAL: Denies fever or chills. Reports lower back pain. HEENT: Denies blurred vision, vision changes, or eye pain. Denies hemoptysis CARDIOVASCULAR: Denies chest pain. Denies orthopnea. Denies PND. Denies palpitations RESPIRATORY: Denies shortness of breath. GASTROINTESTINAL: Denies abdominal pain. Reports nausea. HEMATOLOGIC: Denies bleeding disorders. GENITOURINARY: Denies any blood in urine. SKIN: Denies pruitis. Denies rash. PHYSICAL EXAM: VITAL SIGNS: Reviewed. GENERAL: Well-developed in no acute distress. HEENT: Head is normocephalic. Pupils are equal, round. Sclerae anicteric. Mucous membranes of the mouth are moist. Neck brace noted. LUNGS: Respirations even and unlabored. Lungs essentially clear to auscultation bilaterally. HEART: Irregular rate and rhythm. S1 and S2 heard. Systolic murmur noted. ABDOMEN: Soft. Nondistended. Nontender. EXTREMITIES: Normal range of motion. No clubbing or cyanosis. Peripheral pulses intact. No lower extremity edema NEUROLOGIC: Awake and alert. Oriented x 3. ASSESSMENT: Nausea Lower back pain Dizziness and palpitations New onset atrial fibrillation with RVR Status post cervical surgery, 06/06/2023 Peripheral arterial disease with previous SFA intervention History of right carotid stenting Hypertension Hyperlipidemia Degenerative disc disease COPD Nicotine dependence, patient quit smoking 2 weeks ago PLAN: Obtain 2D echo to assess cardiac structure and function Check TSH Discontinue IV Cardizem Increase metoprolol to 25 mg twice a day Continue IV heparin until echo is resulted. Likely transition to oral anticoagulation tomorrow. Further evaluation of nausea per primary medicine Continue telemetry monitoring Further recommendations pending patient course Nurse practitioner note has been reviewed by physician. Signing provider agrees with the documented findings, assessment, and plan of care documented by [employer] as a scribe. Past Medical History Past Medical History: Deep Vein Thrombosis (DVT), Hyperlipidemia, Hypertension, Rheumatoid Arthritis (RA) Additional Past Medical History / Comment(s): SEPTIC SHOCK POST KIDNEY STONE, varicose veins, History of Any Multi-Drug Resistant Organisms: None Reported Date of last positivie culture/infection: 2016 MDRO Source:: kidney stone Past Surgical History: Back Surgery, Cholecystectomy, Hysterectomy, Joint Replacement, Orthopedic Surgery Additional Past Surgical History / Comment(s): vein surgery rt leg, sara carpal tunnel, joints removed from feet, rt hand replacement of knuckle, rotator cuff sara shoulders, rt elbow replaced, rt shoulder fx, reverse rotator cuff repair rt shoulder, surgery 11/02/15- rt hip fx, repeat right hip surgery (fall 2017) Past Anesthesia/Blood Transfusion Reactions: Postoperative Nausea & Vomiting (PONV) Additional Past Anesthesia/Blood Transfusion Reaction / Comment(s): no hx blood transfusion Past Psychological History: No Psychological Hx Reported Smoking Status: Current every day smoker Past Alcohol Use History: None Reported Past Drug Use History: None Reported - Past Family History Mother Family Medical History: No Reported History Father Family Medical History: Cancer Medications and Allergies Home Medications Medication Instructions Recorded Confirmed Type Aspirin 81 mg PO HS 09/09/13 08/27/23 History Folic Acid 1 mg PO DAILY 09/09/13 08/27/23 History Metoprolol Tartrate [Lopressor] 25 mg PO DAILY 09/09/13 08/27/23 History Magnesium Oxide [Mag-Ox] 250 mg PO HS 02/21/19 08/27/23 History metHOTREXate sodium [Methotrexate] 15 mg PO WE 04/07/19 08/27/23 History Ferrous Sulfate [Iron (65 MG 325 mg PO Q48H 09/21/22 08/27/23 History Elemental)] amLODIPine [Norvasc] 5 mg PO DAILY 09/21/22 08/27/23 History Baclofen 10 mg PO TID PRN #60 tab 06/13/23 08/27/23 Rx Atorvastatin [Lipitor] 20 mg PO DAILY 08/27/23 08/27/23 History Denosumab [Prolia] 60 mg SQ Q180D 08/27/23 08/27/23 History Famotidine 20 mg PO DAILY 08/27/23 08/27/23 History HYDROcodone/APAP 5-325MG [V[place] 5] 1 tab PO Q6HR PRN 08/27/23 08/27/23 History Orencia 500mg Infusion 500 mg IV Q28D 08/27/23 08/27/23 History Allergies Allergy/AdvReac Type Severity Reaction Status Date / Time codeine AdvReac Vomiting Verified 08/27/23 17:17 tramadol AdvReac Vomiting Verified 08/27/23 17:17 Physical Exam Vitals: Vital Signs Temp Pulse Pulse Resp BP Pulse Ox 08/28/23 07:40 98.1 F 90 17 140/79 97 08/28/23 06:39 93 18 138/83 97 08/28/23 02:28 89 16 159/79 96 08/27/23 23:44 89 16 102/62 95 08/27/23 21:57 99 18 151/74 97 08/27/23 20:00 107 H 18 142/75 95 08/27/23 18:19 137 H 20 166/86 97 08/27/23 17:01 113 H 18 136/77 96 08/27/23 16:57 129 H 08/27/23 16:40 141 H 18 185/102 96 08/27/23 14:03 97.3 F L 102 H 18 181/77 98 Intake and Output 08/27/23 08/28/23 08/28/23 22:59 06:59 14:59 Intake Total 31.774 Balance 31.774 Intake: Intake, IV Titration 31.774 Amount Heparin Sod,Pork in 0.45% 31.774 NaCl 25,000 unit In 0.45 % NaCl 1 250ml.bag @ 12 UNITS/KG/HR 4.79 mls/hr IV .Q24H [facility] Rx#: [id number] Results 08/28/23 08:16 08/28/23 08:16 Cardiac Enzymes 08/27/23 08/27/23 08/27/23 Range/Units 16:27 16:27 20:51 AST 33 (14-36) U/L Troponin I 0.016 0.018 (0.000-0.034) ng/mL 08/28/23 Range/Units 00:25 AST (14-36) U/L Troponin I 0.023 (0.000-0.034) ng/mL Coagulation 08/27/23 08/28/23 Range/Units 16:27 00:25 PT 9.7 L (10.0-12.5) sec APTT 23.1 36.8 H (22.0-30.0) sec CBC 08/27/23 Range/Units 16:27 WBC 14.6 H (3.8-10.6) k/uL RBC 5.29 (3.80-5.40) m/uL Hgb 16.0 (11.4-16.0) gm/dL Hct 49.1 H (34.0-46.0) % Plt Count 243 (150-450) k/uL Comprehensive Metabolic Panel 08/27/23 Range/Units 16:27 Sodium 135 L (137-145) mmol/L Potassium 4.1 (3.5-5.1) mmol/L Chloride 99 (98-107) mmol/L Carbon Dioxide 23 (22-30) mmol/L BUN 25 H (7-17) mg/dL Creatinine 0.81 (0.52-1.04) mg/dL Glucose 154 H (74-99) mg/dL Calcium 9.1 (8.4-10.2) mg/dL AST 33 (14-36) U/L ALT 18 (4-34) U/L Alkaline Phosphatase 115 (38-126) U/L Total Protein 8.1 (6.3-8.2) g/dL Albumin 4.9 (3.5-5.0) g/dL Current Medications Generic Name Dose Route Start Last Admin Trade Name Freq PRN Reason Stop Dose Admin Acetaminophen 650 mg 08/27/23 19:30 Acetaminophen Tab 325 Mg Tab PO Q6HR PRN Mild Pain or Fever > 100.5 Hydrocodone Bitart/Acetaminophen 1 each 08/27/23 20:06 Hydrocodone/Apap 5-325mg 1 Each Tab PO Q6HR PRN Pain Amlodipine Besylate 5 mg 08/28/23 09:00 Amlodipine 5 Mg Tab PO DAILY [facility] Aspirin 81 mg 08/27/23 21:00 08/27/23 21:57 Aspirin 81 Mg PO Not Given HS [facility] Atorvastatin Calcium 20 mg 08/28/23 09:00 Atorvastatin 20 Mg Tab PO DAILY [facility] Baclofen 10 mg 08/27/23 20:06 Baclofen 10 Mg Tab PO TID PRN Spasms Famotidine 20 mg 08/28/23 09:00 Famotidine 20 Mg Tab PO DAILY [facility] Ferrous Sulfate 325 mg 08/27/23 20:15 08/27/23 21:56 Ferrous Sulfate 325 Mg Tab PO 325 mg Q48H [facility] Administration Heparin Sodium (Porcine) 0 unit 08/27/23 19:03 08/28/23 02:25 Heparin Sodium 1,000 Un/Ml (10ml Vl) IV 975 unit PER PROTOCOL PRN Administration Low PTT Protocol Diltiazem HCl 125 mg/ Sodium 125 mls @ 5 mls/hr 08/27/23 17:00 08/27/23 16:47 Chloride IV 5 mg/hr .Q24H [facility] 5 mls/hr Administration 5 MG/HR Sodium Chloride 1,000 mls @ 75 mls/hr 08/27/23 19:00 08/27/23 19:56 Saline 0.9% IV 08/28/23 08:19 75 mls/hr .[id number] [facility] Administration Heparin Sodium/Sodium Chloride 250 mls @ 4.79 mls/hr 08/27/23 19:15 08/28/23 02:27 25,000 unit/ Sodium Chloride IV 14 units/kg/hr .Q24H [facility] 5.588 mls/hr Titration Protocol 12 UNITS/KG/HR Metoprolol Tartrate 25 mg 08/28/23 09:00 Metoprolol Tartrate 25 Mg Tab PO DAILY [facility] Morphine Sulfate 2 mg 08/27/23 19:30 Morphine Sulfate 2 Mg/Ml Syringe IV Q4HR PRN Severe Pain (Scale 7 to 10) Naloxone HCl 0.2 mg 08/27/23 19:30 Naloxone 0.4 Mg/Ml 1 Ml Vial IV Q2M PRN Opioid Reversal Ondansetron HCl 4 mg 08/27/23 19:30 Ondansetron 4 Mg/2 Ml Vial IVP Q8HR PRN Nausea And Vomiting Intake and Output 08/27/23 08/28/23 08/28/23 22:59 06:59 14:59 Intake Total 31.774 Balance 31.774 Intake: Intake, IV Titration 31.774 Amount Heparin Sod,Pork in 0.45% 31.774 NaCl 25,000 unit In 0.45 % NaCl 1 250ml.bag @ 12 UNITS/KG/HR 4.79 mls/hr IV .Q24H [facility] Rx#: [id number] 08/27/23 16:27 08/27/23 16:27
--- NOTE | 2023-08-28 12:31 | P.CNOR ---
History of Present Illness - [facility] Consult date: 08/28/23 Requesting physician: Casey Brooks Consult reason: other (Status post cervical thoracic fusion) History of present illness: History of present illness: Patient is a very pleasant 83-year-old female who is well-known to our service who is seen and examined in emergency room number T4 for follow-up evaluation for her cervical thoracic spine. She is status post two-stage cervical fusion, 1 stage anterior cervical decompression and fusion at C4-5, C5-6, and C6-7 and stage II posterior cervical decompression and fusion at C2-T2 performed on 06/06/2023. She was just recently seen and evaluated in our office for her cervical thoracic spine on 08/24/2023. She is not currently complaining of any significant pain at her cervical or thoracic spine. She has not had any change in her symptoms since being seen and examined in our office. She is not currently complaining of any upper extremity weakness or radiculopathy bilaterally. She does have chronic rheumatologic arthritis change in the hands bilaterally. She currently has a soft cervical collar intact. This was prescribed and fitted by our office. This is to be used on an as-needed basis. Currently, patient is admitted to the hospital and undergoing further workup from a cardiac standpoint. She presented with atrial fibrillation with RVR. She has been seen by cardiology. They are planning for echocardiogram. She is currently on anticoagulation. She is admitted to medicine. Past Medical History Past Medical History: Deep Vein Thrombosis (DVT), Hyperlipidemia, Hypertension, Rheumatoid Arthritis (RA) Additional Past Medical History / Comment(s): SEPTIC SHOCK POST KIDNEY STONE, varicose veins, History of Any Multi-Drug Resistant Organisms: None Reported Year Discovered:: 2017 MDRO Source:: kidney stone Past Surgical History: Back Surgery, Cholecystectomy, Hysterectomy, Joint Replacement, Orthopedic Surgery Additional Past Surgical History / Comment(s): vein surgery rt leg, sara carpal tunnel, joints removed from feet, rt hand replacement of knuckle, rotator cuff sara shoulders, rt elbow replaced, rt shoulder fx, reverse rotator cuff repair rt shoulder, surgery 11/02/15- rt hip fx, repeat right hip surgery (fall 2017) Past Anesthesia/Blood Transfusion Reactions: Postoperative Nausea & Vomiting (PONV) Additional Past Anesthesia/Blood Transfusion Reaction / Comm: no hx blood transfusion Past Psychological History: No Psychological Hx Reported Smoking Status: Current every day smoker Past Alcohol Use History: None Reported Past Drug Use History: None Reported - Past Family History Mother Family Medical History: No Reported History Father Family Medical History: Cancer Medications and Allergies Home Medications Medication Instructions Recorded Confirmed Type Aspirin 81 mg PO HS 09/09/13 08/27/23 History Folic Acid 1 mg PO DAILY 09/09/13 08/27/23 History Metoprolol Tartrate [Lopressor] 25 mg PO DAILY 09/09/13 08/27/23 History Magnesium Oxide [Mag-Ox] 250 mg PO HS 02/21/19 08/27/23 History metHOTREXate sodium [Methotrexate] 15 mg PO WE 04/07/19 08/27/23 History Ferrous Sulfate [Iron (65 MG 325 mg PO Q48H 09/21/22 08/27/23 History Elemental)] amLODIPine [Norvasc] 5 mg PO DAILY 09/21/22 08/27/23 History Baclofen 10 mg PO TID PRN #60 tab 06/13/23 08/27/23 Rx Atorvastatin [Lipitor] 20 mg PO DAILY 08/27/23 08/27/23 History Denosumab [Prolia] 60 mg SQ Q180D 08/27/23 08/27/23 History Famotidine 20 mg PO DAILY 08/27/23 08/27/23 History HYDROcodone/APAP 5-325MG [[place]ore[place] 5] 1 tab PO Q6HR PRN 08/27/23 08/27/23 History Orencia 500mg Infusion 500 mg IV Q28D 08/27/23 08/27/23 History Allergies Allergy/AdvReac Type Severity Reaction Status Date / Time codeine AdvReac Vomiting Verified 08/27/23 17:17 tramadol AdvReac Vomiting Verified 08/27/23 17:17 Physical Examination Physical exam: Patient is awake, alert, and oriented 3 Vital signs stable Good chest excursion with deep inspiration and expiration Examination of the cervical spine and upper thoracic spine reveals skin is intact with no abrasions, lacerations, or bruises; no erythema, purulence or signs of infection Evidence of well-healed incision over the anterior cervical spine in the posterior cervical thoracic spine Reduced range of motion of the cervical spine with adequate flexion, extension, and bilateral rotation Biceps strength, triceps strength, and shoulder strength positive sustained bila terally Significant rheumatologic arthritis change in the hands bilaterally Soft cervical collar intact; removed during physical examination Results - Labs Labs: Abnormal Lab Results - Last 24 Hours (Table) 08/27/23 08/27/23 08/27/23 Range/Units 16:27 16:27 16:27 WBC 14.6 H (3.8-10.6) k/uL Hct 49.1 H (34.0-46.0) % RDW 17.7 H (11.5-15.5) % Neutrophils # 12.9 H (1.3-7.7) k/uL Lymphocytes # 0.9 L (1.0-4.8) k/uL PT (10.0-12.5) sec APTT (22.0-30.0) sec D-Dimer (<0.60) mg/L FEU Sodium 135 L (137-145) mmol/L BUN 25 H (7-17) mg/dL Glucose 154 H (74-99) mg/dL Plasma Lactic Acid Mariusz 2.8 H* (0.7-2.0) mmol/L Calcium (8.4-10.2) mg/dL Lipase 325 H (23-300) U/L 08/27/23 08/28/23 08/28/23 Range/Units 16:27 00:25 08:16 WBC (3.8-10.6) k/uL Hct (34.0-46.0) % RDW 17.8 H (11.5-15.5) % Neutrophils # (1.3-7.7) k/uL Lymphocytes # (1.0-4.8) k/uL PT 9.7 L (10.0-12.5) sec APTT 36.8 H (22.0-30.0) sec D-Dimer 2.59 H (<0.60) mg/L FEU Sodium (137-145) mmol/L BUN (7-17) mg/dL Glucose (74-99) mg/dL Plasma Lactic Acid Mariusz (0.7-2.0) mmol/L Calcium (8.4-10.2) mg/dL Lipase (23-300) U/L 08/28/23 08/28/23 Range/Units 08:16 08:16 WBC (3.8-10.6) k/uL Hct (34.0-46.0) % RDW (11.5-15.5) % Neutrophils # (1.3-7.7) k/uL Lymphocytes # (1.0-4.8) k/uL PT (10.0-12.5) sec APTT 37.5 H (22.0-30.0) sec D-Dimer (<0.60) mg/L FEU Sodium 134 L (137-145) mmol/L BUN 18 H (7-17) mg/dL Glucose 106 H (74-99) mg/dL Plasma Lactic Acid Mariusz (0.7-2.0) mmol/L Calcium 7.8 L (8.4-10.2) mg/dL Lipase (23-300) U/L H & H 08/27/23 08/28/23 Range/Units 16:27 08:16 Hgb 16.0 13.3 (11.4-16.0) gm/dL Hct 49.1 H 41.0 (34.0-46.0) % Coagulation 08/27/23 08/28/23 Range/Units 16:27 08:16 INR 0.9 0.9 (<1.2) Result Diagrams: 08/28/23 08:16 08/28/23 08:16 Assessment and Plan Assessment: Assessment: Acute onset atrial fibrillation with RVR Status post two-stage cervical fusion, 1 stage anterior cervical decompression and fusion at C4-5, C5-6, and C6-7 and stage II posterior cervical decompression and fusion at C2-T2 performed on 06/06/2023. Cervical pain Cervical myelopathy C3-4, C4-5, C5-6, and C6/7 severe spinal stenosis C4-5 and C5-6 spondylolisthesis Cervical degenerative disc disease Cervical facet arthrosis History of DVT Hyperlipidemia Hypertension Rheumatoid arthritis (1) New onset atrial fibrillation Current Visit: Yes Status: Acute Code(s): I48.91 - UNSPECIFIED ATRIAL F IBRILLATION SNOMED Code(s): 42097981 (2) Cervical myelopathy Current Visit: No Status: Acute Code(s): G95.9 - DISEASE OF SPINAL CORD, UNSPECIFIED SNOMED Code(s): 868054821 (3) Cervical stenosis of spinal canal Current Visit: No Status: Acute Code(s): M48.02 - SPINAL STENOSIS, CERVICAL REGION SNOMED Code(s): 17644804 (4) Facet arthritis of cervical region Current Visit: No Status: Acute Code(s): M47.812 - SPONDYLOSIS W/O MYEL OPATHY OR RADICULOPATHY, CERVICAL REGION SNOMED Code(s): 09192203381991717 (5) Hyperlipidemia Current Visit: No Status: Acute Code(s): E78.5 - HYPERLIPIDEMIA, UNSPECIFIED SNOMED Code(s): 21807172 (6) Hypertension Current Visit: No Status: Acute Code(s): I10 - ESSENTIAL (PRIMARY) HYPERTENSION SNOMED Code(s): 10169887 (7) Spondylolisthesis, cervical region Current Visit: No Status: Acute Code(s): M43.12 - SPONDYLOLISTHESIS, CE RVICAL REGION SNOMED Code(s): 118604536 (8) Status post cervical spinal fusion Current Visit: No Status: Acute Code(s): Z98.1 - ARTHRODESIS STATUS SNOMED Code(s): 4650623864239 Plan: Plan: 1. From orthopedic spine standpoint, patient is cleared. She has been following up as scheduled in the outpatient setting following surgical intervention at her cervical thoracic spine. She was recently seen on 08/24/2023 at [facility]. She had her hard cervical collar previously discontinued. She is currently in a soft cervical collar for comfort and support as needed. This was removed at the bedside as the patient did not currently want to utilize the soft collar. The soft cervical collar is not required. From an orthopedic spine standpoint, she may mobilize to her t olerance. She may use her upper extremities to her tolerance. She is currently scheduled for follow-up evaluation in the outpatient setting. She should keep this appointment as scheduled. Currently, patient is cleared for discharge from orthopedic spine standpoint. Patient may follow-up with Jarret Weeks PA-C or Dr. Martinez Gavin at [facility] as scheduled following collette arrington. 2. Patient will continue to be seen examined by cardiology and medicine for her other medical diagnoses Time with Patient: Greater than 30
[2023-08-28 14:10] LABS: Appearance,Urine Cloudy (Clear); Bacteria,Urine Rare /hpf; Bilirubin,Urine Negative (Negative); Blood,Urine Trace (Negative); Color,Urine Colorless; Glucose,Urine (UA) Negative (Negative); Ketones,Urine Negative (Negative); Leukocyte Esterase,Urine Negative (Negative); Nitrite,Urine Negative (Negative); Protein,Urine 2+ (Negative); Specific Gravity,Urine 1.028 (1.001-1.035); Squamous Epithelial Cell,Urine <1 /hpf (0-4); Urobilinogen,Urine <2.0 mg/dL (<2.0); WBC,Urine 1 /hpf (0-5)
--- NOTE | 2023-08-28 15:27 | P.HPIM ---
History of Present Illness H&P Date: 08/28/23 This is a pleasant 83-year-old female with medical history significant for current smoker smokes about 1 pack every 3 days, DVT, recent spinal surgery back in May of this year. Patient comes in from home with concern for weakness and nausea as well as palpitations which started Sunday. Patient's family brought the patient into the ER for further evaluation. Initial EKG taken reveals atrial fibrillation with rapid ventricular rate patient was admitted to the hospital under cardiology was started on an IV heparin infusion as well as IV Cardizem. Heart rate is now controlled and patient has been taken off the Cardizem and transition to oral metoprolol. She is denying any chest pain not having any shortness of breath she denies palpitations at this time. She does report some generalized weakness however there is no focal neurological deficits and she is alert x 3. Patient had a elevated D-dimer for which a chest CT angiography was completed there was no pulmonary embolism however there was note of a new left upper lobe 7 mm pulmonary nodule not present on a prior CT this was discussed with patient and family the plan will be for an outpatient follow- up with pulmonary services on discharge. Patient is pending an echocardiogram at this time. REVIEW OF SYSTEMS: CONSTITUTIONAL: No fever, no malaise, no fatigue. H hypertension, hypercholesterol,EENT: No recent visual problems or hearing problems. Denied any sore throat. CARDIOVASCULAR: No chest pain, orthopnea, PND, no palpitations, no syncope. PULMONARY: No shortness of breath, no cough, no hemoptysis. GASTROINTESTINAL: No diarrhea, Reports nausea, no vomiting, no abdominal pain. NEUROLOGICAL: No headaches, no weakness, no numbness. HEMATOLOGICAL: Denies any bleeding or petechiae. GENITOURINARY: Denies any burning micturition, frequency, or urgency. MUSCULOSKELETAL/RHEUMATOLOGICAL: Denies any joint pain, swelling, or any muscle pain. ENDOCRINE: Denies any polyuria or polydipsia. The rest of the 14-point review of systems is negative. PHYSICAL EXAMINATION: GENERAL: The patient is alert and oriented x3, not in any acute distress. Well developed, well nourished. HEENT: Pupils are round and equally reacting to light. EOMI. No scleral icterus. No conjunctival pallor. Normocephalic, atraumatic. No pharyngeal erythema. No thyromegaly. CARDIOVASCULAR: S1 and S2 present. No murmurs, rubs, or gallops. PULMONARY: Chest is clear to auscultation, no wheezing or crackles. ABDOMEN: Soft, nontender, nondistended, normoactive bowel sounds. No palpable organomegaly. MUSCULOSKELETAL: No joint swelling or deformity. EXTREMITIES: No cyanosis, clubbing, or pedal edema. NEUROLOGICAL: Gross neurological examination did not reveal any focal deficits. SKIN: No rashes. Assessment and plan -New onset atrial fibrillation with rapid ventricular rate remains on IV heparin currently pending an echocardiogram. Patient was initially on IV Cardizem and has been transition to oral metoprolol heart rate is now controlled she remains in atrial fibrillation at this time. -Nausea, under investigation this could be due to constipation patient states that she has not had a bowel movement since Sunday and is maintained on narcotics on an outpatient basis. Will recommend a abdominal x-ray and further recommendations pending. For now continue on antiemetics. -New 7 mm left upper lobe pulmonary nodule this can be evaluated pulmonary on an outpatient basis- -History of hypertension -History of hyperlipidemia -History of cervical spinal surgery currently in a soft collar orthopedics was consulted for evaluation -History of DVT -Peripheral artery disease with previous SFA intervention -Back pain maintained on norco outpatient -History of COPD with no acute exacerbation -Chronic nicotine use patient is a 1 pack per 3-day smoker. -History of rheumatoid arthritis maintained on methotrexate and Orencia on an outpatient basis GI prophylaxis DVT prophylaxis currently on IV heparin Full code Plan Cardiology consultation, echocardiogram has been taken and currently pending at this time TSH is pending Patient will remain on IV heparin with transition to oral anticoagulation tomorrow Pending orthopedic consultation Resume appropriate home medications Continue pain management and will add bowel regimen Check an abdominal xray. The impression and plan of care has been dictated by Arabella Sequeira Nurse Practitioner as directed. Dr. Bonilla MD I have performed a history and physical examination and medical decision making of this patient, discussed the same with the dictator, and agree with the dictators assessment and plan as written, documented as a scribe. Based on total visit time, I have performed more than 50% of this visit. Past Medical History Past Medical History: Deep Vein Thrombosis (DVT), Hyperlipidemia, Hypertension, Rheumatoid Arthritis (RA) Additional Past Medical History / Comment(s): SEPTIC SHOCK POST KIDNEY STONE, varicose veins, History of Any Multi-Drug Resistant Organisms: None Reported Date of last positivie culture/infection: 2017 MDRO Source:: kidney stone Past Surgical History: Back Surgery, Cholecystectomy, Hysterectomy, Joint Replacement, Orthopedic Surgery Additional Past Surgical History / Comment(s): vein surgery rt leg, sara carpal tunnel, joints removed from feet, rt hand replacement of knuckle, rotator cuff sara shoulders, rt elbow replaced, rt shoulder fx, reverse rotator cuff repair rt shoulder, surgery 11/02/15- rt hip fx, repeat right hip surgery (fall 2016) Past Anesthesia/Blood Transfusion Reactions: Postoperative Nausea & Vomiting (PONV) Additional Past Anesthesia/Blood Transfusion Reaction / Comment(s): no hx blood transfusion Past Psychological History: No Psychological Hx Reported Smoking Status: Current every day smoker Past Alcohol Use History: None Reported Past Drug Use History: None Reported - Past Family History Mother Family Medical History: No Reported History Father Family Medical History: Cancer Medications and Allergies Home Medications Medication Instructions Recorded Confirmed Type Aspirin 81 mg PO HS 09/09/13 08/27/23 History Folic Acid 1 mg PO DAILY 09/09/13 08/27/23 History Metoprolol Tartrate [Lopressor] 25 mg PO DAILY 09/09/13 08/27/23 History Magnesium Oxide [Mag-Ox] 250 mg PO HS 02/21/19 08/27/23 History metHOTREXate sodium [Methotrexate] 15 mg PO WE 04/07/19 08/27/23 History Ferrous Sulfate [Iron (65 MG 325 mg PO Q48H 09/21/22 08/27/23 History Elemental)] amLODIPine [Norvasc] 5 mg PO DAILY 09/21/22 08/27/23 History Baclofen 10 mg PO TID PRN #60 tab 06/13/23 08/27/23 Rx Atorvastatin [Lipitor] 20 mg PO DAILY 08/27/23 08/27/23 History Denosumab [Prolia] 60 mg SQ Q180D 08/27/23 08/27/23 History Famotidine 20 mg PO DAILY 08/27/23 08/27/23 History HYDROcodone/APAP 5-325MG [Clementon 5] 1 tab PO Q6HR PRN 08/27/23 08/27/23 History Orencia 500mg Infusion 500 mg IV Q28D 08/27/23 08/27/23 History Allergies Allergy/AdvReac Type Severity Reaction Status Date / Time codeine AdvReac Vomiting Verified 08/27/23 17:17 tramadol AdvReac Vomiting Verified 08/27/23 17:17 Physical Exam Vitals: Vital Signs Temp Pulse Pulse Resp BP Pulse Ox 08/28/23 09:05 80 16 159/76 96 08/28/23 08:05 80 17 159/76 95 08/28/23 07:40 98.1 F 90 17 140/79 97 08/28/23 06:39 93 18 138/83 97 08/28/23 02:28 89 16 159/79 96 08/27/23 23:44 89 16 102/62 95 08/27/23 21:57 99 18 151/74 97 08/27/23 20:00 107 H 18 142/75 95 08/27/23 18:19 137 H 20 166/86 97 08/27/23 17:01 113 H 18 136/77 96 08/27/23 16:57 129 H 08/27/23 16:40 141 H 18 185/102 96 08/27/23 14:03 97.3 F L 102 H 18 181/77 98 Intake and Output 08/27/23 08/28/23 08/28/23 22:59 06:59 14:59 Intake Total 31.774 Balance 31.774 Intake: Intake, IV Titration 31.774 Amount Heparin Sod,Pork in 0.45% 31.774 NaCl 25,000 unit In 0.45 % NaCl 1 250ml.bag @ 12 UNITS/KG/HR 4.79 mls/hr IV .Q24H [facility] Rx#: [id number] Results CBC & Chem 7: 08/28/23 08:16 08/28/23 08:16 Labs: Abnormal Lab Results - Last 24 Hours (Table) 08/27/23 08/27/23 08/27/23 Range/Units 16:27 16:27 16:27 WBC 14.6 H (3.8-10.6) k/uL Hct 49.1 H (34.0-46.0) % RDW 17.7 H (11.5-15.5) % Neutrophils # 12.9 H (1.3-7.7) k/uL Lymphocytes # 0.9 L (1.0-4.8) k/uL PT (10.0-12.5) sec APTT (22.0-30.0) sec D-Dimer (<0.60) mg/L FEU Sodium 135 L (137-145) mmol/L BUN 25 H (7-17) mg/dL Glucose 154 H (74-99) mg/dL Plasma Lactic Acid Mariusz 2.8 H* (0.7-2.0) mmol/L Calcium (8.4-10.2) mg/dL Lipase 325 H (23-300) U/L 08/27/23 08/28/23 08/28/23 Range/Units 16:27 00:25 08:16 WBC (3.8-10.6) k/uL Hct (34.0-46.0) % RDW 17.8 H (11.5-15.5) % Neutrophils # (1.3-7.7) k/uL Lymphocytes # (1.0-4.8) k/uL PT 9.7 L (10.0-12.5) sec APTT 36.8 H (22.0-30.0) sec D-Dimer 2.59 H (<0.60) mg/L FEU Sodium (137-145) mmol/L BUN (7-17) mg/dL Glucose (74-99) mg/dL Plasma Lactic Acid Mariusz (0.7-2.0) mmol/L Calcium (8.4-10.2) mg/dL Lipase (23-300) U/L 08/28/23 08/28/23 Range/Units 08:16 08:16 WBC (3.8-10.6) k/uL Hct (34.0-46.0) % RDW (11.5-15.5) % Neutrophils # (1.3-7.7) k/uL Lymphocytes # (1.0-4.8) k/uL PT (10.0-12.5) sec APTT 37.5 H (22.0-30.0) sec D-Dimer (<0.60) mg/L FEU Sodium 134 L (137-145) mmol/L BUN 18 H (7-17) mg/dL Glucose 106 H (74-99) mg/dL Plasma Lactic Acid Mariusz (0.7-2.0) mmol/L Calcium 7.8 L (8.4-10.2) mg/dL Lipase (23-300) U/L Assessment and Plan Time with Patient: Greater than 30
--- NOTE | 2023-08-28 15:55 | XR ---
EXAMINATION TYPE: XR abdomen 2V DATE OF EXAM: 08/28/2023 COMPARISON: 03/18/2012 INDICATION: Nausea and weakness TECHNIQUE: Single view abdomen FINDINGS: Nonspecific bowel gas is present. Small bowel loops may be somewhat prominent. Colonic bowel gas is p resent. Psoas margins are normal. No organomegaly is present. Surgical changes are present L3-S1. Right hip prosthesis is present. Contrast is within the urinary b ladder. No free air is evident. No differential air-fluid levels are evident. No mass effect is evide nt. IMPRESSION: 1. Nonspecific abdomen.
[2023-08-29] MEDS: PANTOPRAZOLE 40 MG TABLET PO SCH (06:36)
[2023-08-29] MEDS: HYDROcodone/APAP 5-325MG 1 EACH TAB PO PRN (09:35)
[2023-08-29] MEDS: FOLIC ACID 1 MG TAB PO SCH (09:35)
[2023-08-29 11:01] LABS: African American GFR (CKD) 73 (>60 ml/min/1.73 sqM); Anion Gap 8 mmol/L; Blood Urea Nitrogen 20 mg/dL (7-17); Calcium 8.2 mg/dL (8.4-10.2); Carbon Dioxide 22 mmol/L (22-30); Chloride 102 mmol/L (98-107); Glucose 90 mg/dL (74-99); Non-African American GFR(CKD) 63 (>60 ml/min/1.73 sqM); Potassium 3.1 mmol/L (3.5-5.1); Sodium 132 mmol/L (137-145)
[2023-08-29 11:13] LABS: Anisocytosis Slight; Basophils # (A) 0.1 k/uL (0-0.2); Basophils % (A) 1 %; Eosinophils # (A) 0.1 k/uL (0-0.7); Eosinophils % (A) 1 %; HCT 38.6 % (34.0-46.0); HGB 12.5 gm/dL (11.4-16.0); Lymphocytes % (A) 13 %; MCH 30.5 pg (25.0-35.0); MCHC 32.3 g/dL (31.0-37.0); MCV 94.4 fL (80.0-100.0); Mean Platelet Volume 7.9; Monocytes # (A) 0.7 k/uL (0-1.0); Monocytes % (A) 9 %; Neutrophils # (A) 5.9 k/uL (1.3-7.7); Neutrophils % (A) 75 %; Platelet Count 180 k/uL (150-450); RBC 4.09 m/uL (3.80-5.40); RDW 17.9 % (11.5-15.5); WBC 7.8 k/uL (3.8-10.6)
[2023-08-29] MEDS: APIXABAN 2.5 MG TABLET PO SCH (12:11)
--- NOTE | 2023-08-29 12:22 | CA ---
Transthoracic Echo Report Name: Sylvia Abernathy Age: 83 Gender: F : 1940 Exam Date: 08/29/2023 10:49 Exam Location: [facility] Ht (in): 58 Wt (lb): 88 Ordering Physician: Casey Brooks MD Attending/Referring Phys: Computer Science Professor Nara Li RDCS Procedure CPT: Indications: New onset afib Cardiac Hx: Technical Quality: Fair Contrast 1: Total Dose (mL): Contrast 2: Total Dose (mL): MEASUREMENTS (Male / Female) Normal Values 2D ECHO LV Diastolic Diameter PLAX 3.2 cm 4.2 - 5.9 / 3.9 - 5.3 cm LV Systolic Diameter PLAX 2.2 cm IVS Diastolic Thickness 0.7 cm 0.6 - 1.0 / 0.6 - 0.9 cm LVPW Diastolic Thickness 0.8 cm 0.6 - 1.0 / 0.6 - 0.9 cm LV Relative Wall Thickness 0.5 LVOT Diameter 1.8 cm Aortic Root Diameter 2.9 cm LV Diastolic Volume MOD BP 45.9 cm??? 67 - 155 / 56 - 104 cm??? LV Systolic Volume MOD BP 20.0 cm??? 22 - 58 / 19 - 49 cm??? LV Ejection Fraction MOD BP 56.5 % >= 55 % LV Cardiac Index MOD BP 1525.5 cm???/min???m??? LV Diastolic Volume MOD 4C 43.9 cm??? LV Systolic Volume MOD 4C 18.5 cm??? LV Ejection Fraction MOD 4C 57.8 % LV Cardiac Index MOD 4C 1490.7 cm???/min???m??? LV Diastolic Length 4C 6.3 cm LV Systolic Length 4C 5.7 cm LV Diastolic Volume MOD 2C 46.9 cm??? LV Systolic Volume MOD 2C 18.4 cm??? LV Ejection Fraction MOD 2C 60.9 % LV Cardiac Index MOD 2C 1680.3 cm???/min???m??? LV Diastolic Length 2C 6.2 cm LV Systolic Length 2C 4.7 cm DOPPLER AV Peak Velocity 96.5 cm/s AV Peak Gradient 3.7 mmHg AV Mean Velocity 69.8 cm/s AV Mean Gradient 2.1 mmHg AV Velocity Time Integral 19.0 cm LVOT Peak Velocity 82.1 cm/s LVOT Peak Gradient 2.7 mmHg LVOT Velocity Time Integral 17.7 cm LVOT Stroke Volume 45.1 cm??? LVOT Stroke Volume Index 35.1 ml/m??? LVOT Cardiac Index 2650.3 cm???/min???m??? AV Area Cont Eq vti 2.4 cm??? AV Area Cont Eq pk 2.2 cm??? TR Peak Velocity 202.6 cm/s TR Peak Gradient 16.4 mmHg FINDINGS Left Ventricle Left ventricular ejection fraction is estimated at 55-60 %. Left ventricular cavity size normal. Left ventricular wall thickness normal. No obvious regional wall motion abnormalities. Right Ventricle Normal right ventricular size with mildly reduced function. Right Atrium Normal right atrial size. Left Atrium Normal left atrial size. Mitral Valve Mitral valve thickened. Mitral annular calcification. No evidence for mitral valve prolapse. No mitral stenosis. Trace mitral regurgitation. Aortic Valve Trileaflet aortic valve. Focal thickening of the aortic valve cusps. Tricuspid Valve Structurally normal tricuspid valve. No tricuspid stenosis. Trace tricuspid regurgitation. Pulmonic Valve Structurally normal pulmonic valve. No pulmonic stenosis. No pulmonic regurgitation. Pericardium No pericardial effusion. Aorta Aortic annulus normal. Ascending aorta not well visualized. CONCLUSIONS Normal LV systolic function Thickened mitral valve leaflets with no stenosis with mild regurgitation Aortic sclerosis Previewed by: Dr. Irvin Hammonds MD (Electronically Signed) Final Date: 29 Aug 2023 12:21
--- NOTE | 2023-08-29 13:15 | P.PN ---
Subjective HISTORY OF PRESENT ILLNESS: This is a 83-year-old female with a past medical history significant for peripheral arterial disease with previous SFA intervention, right carotid stenting, hypertension, hyperlipidemia, degenerative disc disease, COPD, nicotine dependence, and recent neck surgery.. Patient follows in the office with Dr. Mc. We have been asked to see the patient in consultation for new onset atrial fibrillation. Patient examined at the bedside in the emergency room. Patient states on Sunday she began to feel unwell. She states that she started to have nausea and significant back pain. She also reports having urinary incontinence. She states that she was unable to walk at home. She reports dizziness and palpitations which she has not experienced before. She denies any episodes of syncope. Patient was found to be in atrial fibrillation. Patient denies a history of atrial fibrillation. She was started on IV heparin and IV Cardizem. At the time of examination, she remains in atrial fibrillation with controlled ventricular rates. Patient states that she is a former cigarette smoker and quit smoking 2 weeks ago. She is currently in a soft cervical brace as she underwent neck surgery on 06/06/2023. DIAGNOSTICS: - EKG reveals A-fib with RVR. - Chest xray negative for acute process. - Chest CTA: Negative for pulmonary embolism. Left upper lobe 7 mm pulmonary nodule, new findings from 2020. Mild emphysema. Postsurgical changes of the spine with hardware intact. - Laboratory data: WBC 9.3. Hemoglobin 13.3. Platelet count 184. Sodium 134. Potassium 3.7. BUN 18. Creatinine 0.64. Troponin negative x 3 - Current home cardiac medications include amlodipine 5 mg daily, metoprolol titrate 25 mg daily, Lipitor 20 mg daily, and aspirin 81 mg daily. - Most recent echocardiogram obtained in June 2021 reveals ejection fraction 55%, mild TR, moderate pulmonary hypertension. -Patient underwent Lexiscan stress test in July 2021 which was negative for ischemia 08/29/2023 Patient examined this morning at the bedside. Patient currently denies chest pain or pressure. She denies shortness of breath. Patient is currently on IV heparin. She remains in atrial fibrillation with controlled ventricular rate. Echocardiogram completed revealing ejection fraction 55 to 60%, trace MR, trace TR PHYSICAL EXAM: VITAL SIGNS: Reviewed. GENERAL: Well-developed in no acute distress. HEENT: Head is normocephalic. Pupils are equal, round. Sclerae anicteric. Mucous membranes of the mouth are moist. Neck brace noted. LUNGS: Respirations even and unlabored. Lungs essentially clear to auscultation bilaterally. HEART: Irregular rate and rhythm. S1 and S2 heard. Systolic murmur noted. ABDOMEN: Soft. Nondistended. Nontender. EXTREMITIES: Normal range of motion. No clubbing or cyanosis. Peripheral puls es intact. No lower extremity edema NEUROLOGIC: Awake and alert. Oriented x 3. ASSESSMENT: Nausea Lower back pain Dizziness and palpitations New onset atrial fibrillation with RVR Status post cervical surgery, 06/06/2023 Peripheral arterial disease with previous SFA intervention History of right carotid stenting Hypertension Hyperlipidemia Degenerative disc disease COPD Nicotine dependence, patient quit smoking 2 weeks ago PLAN: Continue current cardiac medications Continue telemetry monitoring Continue to monitor patient for an additional 24 hours Anticipate discharge home tomorrow Further recommendations pending patient course Nurse practitioner note has been reviewed by physician. Signing provider agrees with the documented findings, assessment, and plan of care documented by SHAKER OPERATOR as a scribe. Objective - Vital Signs Vital signs: Vital Signs Temp 97.9 F 08/29/23 11:41 Pulse 78 08/29/23 11:41 Resp 18 08/29/23 11:41 BP 130/79 08/29/23 11:41 Pulse Ox 96 08/29/23 11:41 FiO2 Intake & Output 08/28/23 08/29/23 08/29/23 18:59 06:59 18:59 Intake Total 81.962 112.082 Output Total 200 Balance 81.962 -87.918 Weight 38.3 kg Intake: Intake, IV Titration 81.962 112.082 Amount Heparin Sod,Pork in 0.45% 81.962 112.082 NaCl 25,000 unit In 0.45 % NaCl 1 250ml.bag @ 12 UNITS/KG/HR 4.79 mls/hr IV .Q24H [facility] Rx#: [id number] Output: Urine 200 Other: Voiding Method External Catheter External Catheter External Catheter - Labs CBC & Chem 7: 08/29/23 09:59 08/29/23 08:52 Labs: Abnormal Lab Results - Last 24 Hours (Table) 08/28/23 08/28/23 08/29/23 Range/Units 13:45 15:36 08:52 RDW (11.5-15.5) % APTT 38.9 H 48.0 H (22.0-30.0) sec Sodium (137-145) mmol/L Potassium (3.5-5.1) mmol/L BUN (7-17) mg/dL Calcium (8.4-10.2) mg/dL Urine Appearance Cloudy H (Clear) Urine Protein 2+ H (Negative) Urine Blood Trace H (Negative) Urine Bacteria Rare H (None) /hpf 08/29/23 08/29/23 Range/Units 08:52 09:59 RDW 17.9 H (11.5-15.5) % APTT (22.0-30.0) sec Sodium 132 L (137-145) mmol/L Potassium 3.1 L (3.5-5.1) mmol/L BUN 20 H (7-17) mg/dL Calcium 8.2 L (8.4-10.2) mg/dL Urine Appearance (Clear) Urine Protein (Negative) Urine Blood (Negative) Urine Bacteria (None) /hpf
[2023-08-29 14:17] VITALS: BMI 17.6
--- NOTE | 2023-08-29 15:35 | P.PN ---
Subjective Progress Note Date: 08/29/23 This is a pleasant 83-year-old female with medical history significant for current smoker smokes about 1 pack every 3 days, DVT, recent spinal surgery back in May of this year. Patient comes in from home with concern for weakness and nausea as well as palpitations which started Sunday. Patient's family brought the patient into the ER for further evaluation. Initial EKG taken reveals atrial fibrillation with rapid ventricular rate patient was admitted to the hospital under cardiology was started on an IV heparin infusion as well as IV Cardizem. Heart rate is now controlled and patient has been taken off the Cardizem and transition to oral metoprolol. She is denying any chest pain not having any shortness of breath she denies palpitations at this time. She does report some generalized weakness however there is no focal neurological deficits and she is alert x 3. Patient had a elevated D-dimer for which a chest CT angiography was completed there was no pulmonary embolism however there was note of a new left upper lobe 7 mm pulmonary nodule not present on a prior CT this was discussed with patient and family the plan will be for an outpatient follow- up with pulmonary services on discharge. Patient is pending an echocardiogram at this time. 08/29/2023 Patient is evaluated today in follow up on the step down unit. Nausea has improved at this time. Abdominal xray unremarkable. Patient remains in atrial fibrillation with controlled rate and has been started on eliquis 2.5 mg BID and metoprolol 25 mg BID. Patient denies any chest pain or palpitations. She has been up with physical therapy and ambulating with walker. Echocardiogram reveals normal LV systolic function with thickened valve leaflets with no stenosis or mild regurgitation. Aortic sclerosis. Sodium 132. Potassium 3.1. Renal function WNL. Review of Systems Constitutional: Denied any fatigue denied any fever. Cardio vascular: denied any chest pain, palpitations Gastrointestinal: denied any nausea, vomiting, diarrhea Pulmonary: Denied any shortness of breath cough Neurologic denied any new focal deficits All inpatient medications were reviewed and appropriate changes in these medications as dictated in the interval history and assessment and plan. PHYSICAL EXAMINATION: GENERAL: The patient is alert and oriented x3, not in any acute distress. Well developed, well nourished. HEENT: Pupils are round and equally reacting to light. EOMI. No scleral icterus. No conjunctival pallor. Normocephalic, atraumatic. No pharyngeal erythema. No thyromegaly. CARDIOVASCULAR: S1 and S2 present. No murmurs, rubs, or gallops. PULMONARY: Chest is clear to auscultation, no wheezing or crackles. ABDOMEN: Soft, nontender, nondistended, normoactive bowel sounds. No palpable organomegaly. MUSCULOSKELETAL: No joint swelling or deformity. EXTREMITIES: No cyanosis, clubbing, or pedal edema. NEUROLOGICAL: Gross neurological examination did not reveal any focal deficits. SKIN: No rashes. Assessment and plan -New onset atrial fibrillation with rapid ventricular rate remains in atrial fibrillation rate controlled. -Nausea likely from the atrial fibrillation, abdominal xray unremarkable and nausea has improved. -Hypovolemic hyponatremia -New 7 mm left upper lobe pulmonary nodule this can be evaluated pulmonary on an outpatient basis- -History of hypertension -History of hyperlipidemia -History of cervical spinal surgery currently in a soft collar orthopedics was consulted for evaluation -History of DVT -Peripheral artery disease with previous SFA intervention -Back pain maintained on norco outpatient -History of COPD with no acute exacerbation -Chronic nicotine use patient is a 1 pack per 3-day smoker. -History of rheumatoid arthritis maintained on methotrexate and Orencia on an outpatient basis -Hx of chronic back pain maintained on norco outpatient which is continued. GI prophylaxis DVT prophylaxis Eliquis. Full code Plan Cardiology consultation Patient has been transitioned to oral eliquis Transitioned from IV cardizem to oral metoprolol BID. Resume appropriate home medications Continue pain management and will add bowel regimen PT/OT consulted and recommendations pending Patient will by gently hydrated overnight with repeat BMP in the AM. -Possible D/C home in the next 24 hours The impression and plan of care has been dictated by Arabella Sequeira, Nurse Practitioner as directed. Dr. Bonilla MD I have performed a history and physical examination and medical decision making of this patient, discussed the same with the dictator, and agree with the dictators assessment and plan as written, documented as a scribe. Based on total visit time, I have performed more than 50% of this visit. Objective - Vital Signs Vital signs: Vital Signs Temp 97.9 F 08/29/23 11:41 Pulse 78 08/29/23 11:41 Resp 18 08/29/23 11:41 BP 130/79 08/29/23 11:41 Pulse Ox 96 08/29/23 11:41 FiO2 Intake & Output 08/28/23 08/29/23 08/29/23 18:59 06:59 18:59 Intake Total 81.962 112.082 Output Total 200 Balance 81.962 -87.918 Weight 38.3 kg Intake: Intake, IV Titration 81.962 112.082 Amount Heparin Sod,Pork in 0.45% 81.962 112.082 NaCl 25,000 unit In 0.45 % NaCl 1 250ml.bag @ 12 UNITS/KG/HR 4.79 mls/hr IV .Q24H [facility] Rx#: [id number] Output: Urine 200 Other: Voiding Method External Catheter External Catheter External Catheter - Labs CBC & Chem 7: 08/29/23 09:59 08/29/23 08:52 Labs: Abnormal Lab Results - Last 24 Hours (Table) 08/28/23 08/29/23 08/29/23 Range/Units 15:36 08:52 08:52 RDW (11.5-15.5) % APTT 38.9 H 48.0 H (22.0-30.0) sec Sodium 132 L (137-145) mmol/L Potassium 3.1 L (3.5-5.1) mmol/L BUN 20 H (7-17) mg/dL Calcium 8.2 L (8.4-10.2) mg/dL 08/29/23 Range/Units 09:59 RDW 17.9 H (11.5-15.5) % APTT (22.0-30.0) sec Sodium (137-145) mmol/L Potassium (3.5-5.1) mmol/L BUN (7-17) mg/dL Calcium (8.4-10.2) mg/dL Assessment and Plan Time with Patient: Less than 30
[2023-08-29] MEDS: POTASSIUM CHLORIDE ER 20 MEQ TAB.ER PO SCH (17:24)
[2023-08-29] MEDS: metHOTREXate sodium 2.5 MG TAB PO SCH (17:24)
[2023-08-29] MEDS: SODIUM CHLORIDE 0.9% 1,000 ML IV SCH (17:27)
[2023-08-30 00:53] VITALS: RESP 18
[2023-08-30 07:18] LABS: African American GFR (CKD) 69 (>60 ml/min/1.73 sqM); Anion Gap 6 mmol/L; Blood Urea Nitrogen 22 mg/dL (7-17); Calcium 8.7 mg/dL (8.4-10.2); Carbon Dioxide 23 mmol/L (22-30); Chloride 105 mmol/L (98-107); Glucose 96 mg/dL (74-99); Magnesium 2.1 mg/dL (1.6-2.3); Non-African American GFR(CKD) 60 (>60 ml/min/1.73 sqM); Potassium 4.4 mmol/L (3.5-5.1); Sodium 134 mmol/L (137-145)
[2023-08-30] MEDS: DOCUSATE 100 MG CAP PO SCH (09:45)
[2023-08-30 10:08] VITALS: TEMP 97.7
--- NOTE | 2023-08-30 11:23 | P.PN ---
Progress Note - Text Progress Note Date: 08/30/23 The patient is seen and examined at bedside. I agree with the prior days note. In terms of her cervical spine she is not having any new complaints and appears stable. She is not having any neurologic issues. She is managing well from her medical standpoint and can follow-up with spine as scheduled in approximately 4 weeks.
--- NOTE | 2023-08-30 11:44 | CDI ---
Documentation Clarification Form Date: 08/30/2023 11:14:00 AM From: Fany Patrick Admit Date: 08/27/2023 07:33:00 PM Patient Name: Sylvia Abernathy Visit Number: [id number] ATTENTION: The Clinical Documentation Specialists (CDI) and [facility] Coding Staff appreciate your assistance in clarifying documentation. Please respond to the clarification below the line at the bottom and electronically sign. The CDI & [facility] Coding staff will review the response and follow-up if needed. Please note: Queries are made part of the Legal Health Record. If you have any questions, please contact the author of this message via ITS. Dr. Arabella Sequeira The Registered Dietitian assessment on 08/28 indicates this patient meets criteria for acute moderate malnutrition. Based on this information and the findings below, is there an additional diagnosis that is clinically appropriate for this patient? History/Risk Factors: Smoker, DVT, recent spinal surgery who presents with weakness and nausea found to have new onset atrial fibrillation Clinical Indicators: 08/28 BMI: 17.6 Weight: 38.3 kg Height: 4ft 10in 08/28 RD Assessment: "Diagnosis, acute moderate malnutrition, decreased caloric intake <75% EER >7days, mild muscle depletion, deltoid, pectoralis major and trapezius muscles, Underweight, Related to involuntary weight loss of 7% of UBW in 2-3 months, BMI <23. 4/, 08/27 Total Protein: 8.1, 6.3 Treatment: Healthy Heart diet, Ensure Enlive TID Is there an additional diagnosis that is clinically appropriate for this patient? [ x] Moderate Protein-Calorie Malnutrition [ ] No additional diagnosis/Not clinically significant [ ] Other condition, please specify [ ] Unable to Determine (Template Last Revised: October 2022) MTDD
--- NOTE | 2023-08-30 11:46 | P.PN ---
Subjective HISTORY OF PRESENT ILLNESS: This is a 83-year-old female with a past medical history significant for peripheral arterial disease with previous SFA intervention, right carotid stenting, hypertension, hyperlipidemia, degenerative disc disease, COPD, nicotine dependence, and recent neck surgery.. Patient follows in the office with Dr. Mc. We have been asked to see the patient in consultation for new onset atrial fibrillation. Patient examined at the bedside in the emergency room. Patient states on Sunday she began to feel unwell. She states that she started to have nausea and significant back pain. She also reports having urinary incontinence. She states that she was unable to walk at home. She reports dizziness and palpitations which she has not experienced before. She denies any episodes of syncope. Patient was found to be in atrial fibrillation. Patient denies a history of atrial fibrillation. She was started on IV heparin and IV Cardizem. At the time of examination, she remains in atrial fibrillation with controlled ventricular rates. Patient states that she is a former cigarette smoker and quit smoking 2 weeks ago. She is currently in a soft cervical brace as she underwent neck surgery on 06/06/2023. DIAGNOSTICS: - EKG reveals A-fib with RVR. - Chest xray negative for acute process. - Chest CTA: Negative for pulmonary embolism. Left upper lobe 7 mm pulmonary nodule, new findings from 2020. Mild emphysema. Postsurgical changes of the spine with hardware intact. - Laboratory data: WBC 9.3. Hemoglobin 13.3. Platelet count 184. Sodium 134. Potassium 3.7. BUN 18. Creatinine 0.64. Troponin negative x 3 - Current home cardiac medications include amlodipine 5 mg daily, metoprolol titrate 25 mg daily, Lipitor 20 mg daily, and aspirin 81 mg daily. - Most recent echocardiogram obtained in June 2021 reveals ejection fraction 55%, mild TR, moderate pulmonary hypertension. -Patient underwent Lexiscan stress test in July 2021 which was negative for ischemia 08/29/2023 Patient examined this morning at the bedside. Patient currently denies chest pain or pressure. She denies shortness of breath. Patient is currently on IV heparin. She remains in atrial fibrillation with controlled ventricular rate. Echocardiogram completed revealing ejection fraction 55 to 60%, trace MR, trace TR 08/29/2023 Patient examined this morning at the bedside. Patient denies chest pain or pressure. She denies shortness of breath. She does report back pain this morning. Patient has been up ambulating in the hallway without difficulty. Telemetry reveals atrial fibrillation with a heart rate in the 80s. PHYSICAL EXAM: VITAL SIGNS: Reviewed. GENERAL: Well-developed in no acute distress. HEENT: Head is normocephalic. Pupils are equal, round. Sclerae anicteric. Mucous membranes of the mouth are moist. Neck brace noted. LUNGS: Respirations even and unlabored. Lungs essentially clear to auscultation bilaterally. HEART: Irregular rate and rhythm. S1 and S2 heard. Systolic murmur noted. ABDOMEN: Soft. Nondistended. Nontender. EXTREMITIES: Normal range of motion. No clubbing or cyanosis. Peripheral pulses intact. No lower extremity edema NEUROLOGIC: Awake and alert. Oriented x 3. ASSESSMENT: Nausea Lower back pain Dizziness and palpitations New onset atrial fibrillation with RVR Status post cervical surgery, 06/06/2023 Peripheral arterial disease with previous SFA intervention History of right carotid stenting Hypertension Hyperlipidemia Degenerative disc disease COPD Nicotine dependence, patient quit smoking 2 weeks ago PLAN: Continue current cardiac medications Patient is stable for discharge home today from a cardiac standpoint Patient is to follow-up postdischarge with Dr. Mc Nurse practitioner note has been reviewed by physician. Signing provider agrees with the documented findings, assessment, and plan of care documented by CLAY [employer] PR[employer] MIXER OPERATOR as a scribe. Objective - Vital Signs Vital signs: Vital Signs Temp 97.7 F 08/30/23 09:41 Pulse 92 08/30/23 11:42 Resp 18 08/30/23 11:42 BP 124/79 08/30/23 11:42 Pulse Ox 99 08/30/23 11:42 FiO2 Intake & Output 08/29/23 08/30/23 08/30/23 18:59 06:59 18:59 Intake Total 0 Balance 0 Weight 38.3 kg Intake: Oral 0 Other: Voiding Method External Catheter Toilet # Voids 3 1 - Labs CBC & Chem 7: 08/29/23 09:59 08/30/23 06:52 Labs: Abnormal Lab Results - Last 24 Hours (Table) 08/29/23 08/30/23 Range/Units 08:52 06:52 Sodium 134 L (137-145) mmol/L BUN 22 H (7-17) mg/dL Procalcitonin 0.14 H (0.02-0.09) ng/mL
[2023-08-30 12:24] VITALS: BP 124/79; PULSE 92
== END 2023-08-30 13:44 | disposition home or self-care (01) | DRG 309 ==
LOC: EC 13:26 → 3SCARD 19:33
PROVIDERS: ADMIT Hospitalist; ATTEND Hospitalist
DX: I48.91 Unspecified atrial fibrillation (principal); E44.0 Moderate protein-calorie malnutrition; M50.01 Cervical disc disorder with myelopathy, high cervical region; E87.1 Hypo-osmolality and hyponatremia; Z68.1 Body mass index [BMI] 19.9 or less, adult; I70.209 Unspecified atherosclerosis of native arteries of extremities, unspecified extremity; M06.9 Rheumatoid arthritis, unspecified; J43.9 Emphysema, unspecified; I70.0 Atherosclerosis of aorta; I10 Essential (primary) hypertension; E78.5 Hyperlipidemia, unspecified; M43.12 Spondylolisthesis, cervical region; G89.29 Other chronic pain; M54.50 Low back pain, unspecified; M48.02 Spinal stenosis, cervical region; E86.1 Hypovolemia; R32 Unspecified urinary incontinence; R91.1 Solitary pulmonary nodule; R26.2 Difficulty in walking, not elsewhere classified; Z96.691 Finger-joint replacement of right hand; Z96.621 Presence of right artificial elbow joint; Z95.820 Peripheral vascular angioplasty status with implants and grafts; Z87.891 Personal history of nicotine dependence; Z86.718 Personal history of other venous thrombosis and embolism; Z79.82 Long term (current) use of aspirin; Z79.899 Other long term (current) drug therapy; Z98.1 Arthrodesis status; Z88.5 Allergy status to narcotic agent
CPT/HCPCS: 36415; 70450; 71046; 71275; 72125; 74019; 80048; 80053; 81001; 83605; 83690; 83735; 83880; 84145; 84443; 84484; 85025; 85379; 85610; 85730; 87040; 87636; 93005; 93306; 96365; 96366; 96368; 96375; 99291

== ENCOUNTER 2023-10-23 14:42 | Emergency (ER) | payer MEDICARE, BC ==
[2023-10-23 14:47] VITALS: RESP 18
--- NOTE | 2023-10-23 15:06 | ED ---
Recheck HPI - General Chief Complaint: Recheck/Abnormal Lab/Rx Stated Complaint: High Potassium-sent by Dr Jeffries Seen by Provider: 10/23/23 15:00 Source: patient, RN notes reviewed Mode of arrival: ambulatory Limitations: no limitations - History of Present Illness Initial Comments: 83-year-old female with history of hypertension and A-fib presenting with hyperkalemia. Patient states she was sent by Dr. Macias for a potassium of 5.8. She is asymptomatic at this time. Denies chest pain, palpitations, shortness of breath, abdominal pain. She has never had high potassium before. She does take a magnesium supplement. - Related Data Home Medications Medication Instructions Recorded Confirmed Aspirin 81 mg PO HS 09/09/13 08/27/23 Folic Acid 1 mg PO DAILY 09/09/13 08/27/23 Magnesium Oxide [Mag-Ox] 250 mg PO HS 02/21/19 08/27/23 metHOTREXate sodium [Methotrexate] 15 mg PO WE 04/07/19 08/27/23 Ferrous Sulfate [Iron (65 MG 325 mg PO Q48H 09/21/22 08/27/23 Elemental)] amLODIPine [Norvasc] 5 mg PO DAILY 09/21/22 08/27/23 Atorvastatin [Lipitor] 20 mg PO DAILY 08/27/23 08/27/23 Denosumab [Prolia] 60 mg SQ Q180D 08/27/23 08/27/23 Famotidine 20 mg PO DAILY 08/27/23 08/27/23 HYDROcodone/APAP 5-325MG [[place] 1 tab PO Q6HR PRN 08/27/23 08/27/23 5-325] Orencia 500mg Infusion 500 mg IV Q28D 08/27/23 08/27/23 Previous Rx's Medication Instructions Recorded Baclofen 10 mg PO TID PRN #60 tab 06/13/23 Acetaminophen Tab [Tylenol] 650 mg PO Q6HR PRN tab 08/30/23 Apixaban [Eliquis] 2.5 mg PO BID #60 tab 08/30/23 Docusate [Colace] 100 mg PO DAILY #30 cap 08/30/23 Metoprolol Tartrate [Lopressor] 25 mg PO BID #60 tab 08/30/23 Allergies Allergy/AdvReac Type Severity Reaction Status Date / Time codeine AdvReac Vomiting Verified 10/23/23 14:47 tramadol AdvReac Vomiting Verified 10/23/23 14:47 Review of Systems ROS Statement: Those systems with pertinent positive or pertinent negative responses have been documented in the HPI. ROS Other: All systems not noted in ROS Statement are negative. Past Medical History Past Medical History: Deep Vein Thrombosis (DVT), Hyperlipidemia, Hypertension, Rheumatoid Arthritis (RA) Additional Past Medical History / Comment(s): SEPTIC SHOCK POST KIDNEY STONE, varicose veins, History of Any Multi-Drug Resistant Organisms: None Reported Date of last positivie culture/infection: 2016 MDRO Source:: kidney stone Past Surgical History: Back Surgery, Cholecystectomy, Hysterectomy, Joint Replacement, Orthopedic Surgery Additional Past Surgical History / Comment(s): vein surgery rt leg, sara carpal tunnel, joints removed from feet, rt hand replacement of knuckle, rotator cuff sara shoulders, rt elbow replaced, rt shoulder fx, reverse rotator cuff repair rt shoulder, surgery 11/02/15- rt hip fx, repeat right hip surgery (fall 2016) Past Anesthesia/Blood Transfusion Reactions: Postoperative Nausea & Vomiting (PONV) Additional Past Anesthesia/Blood Transfusion Reaction / Comment(s): no hx blood transfusion Past Psychological History: No Psychological Hx Reported Smoking Status: Former smoker Past Alcohol Use History: None Reported Past Drug Use History: None Reported - Past Family History Mother Family Medical History: No Reported History Father Family Medical History: Cancer General Exam Limitations: no limitations General appearance: alert, in no apparent distress Head exam: Present: atraumatic, normocephalic, normal inspection Eye exam: Present: normal appearance, PERRL, EOMI. Absent: scleral icterus, conjunctival injection, periorbital swelling ENT exam: Present: normal exam, mucous membranes moist Neck exam: Present: normal inspection. Absent: tenderness, meningismus, lymphadenopathy Respiratory exam: Present: normal lung sounds bilaterally. Absent: respiratory distress, wheezes, rales, rhonchi, stridor Cardiovascular Exam: Present: regular rate, normal rhythm, normal heart sounds. Absent: systolic murmur, diastolic murmur, rubs, gallop, clicks GI/Abdominal exam: Present: soft, normal bowel sounds. Absent: distended, tenderness, guarding, rebound, rigid Extremities exam: Present: normal inspection, full ROM, normal capillary refill. Absent: tenderness, pedal edema, joint swelling, calf tenderness Neurological exam: Present: alert, oriented X3, CN II-XII intact Psychiatric exam: Present: normal affect, normal mood Skin exam: Present: warm, dry, intact, normal color. Absent: rash Course Vital Signs 10/23/23 10/23/23 14:44 17:05 Temperature 97.4 F L Pulse Rate 57 L 61 Respiratory 18 18 Rate Blood Pressure 174/63 150/71 O2 Sat by Pulse 99 95 Oximetry Medical Decision Making - Medical Decision Making Was pt. sent in by a medical professional or institution (, ADDIS, TOBACCO ACREAGE MEASURER, urgent care, hospital, or custodial...) When possible be specific @ -Sent by Dr. Hooper for hyperkalemia of 5.8 Did you speak to anyone other than the patient for history (EMS, parent, family, police, friend...)? What history was obtained from this source @ -Patient's daughter supplemented history Did you review nursing and triage notes (agree or disagree)? Why? @ -I reviewed and agree with nursing and triage notes Were old charts reviewed (outside hosp., previous admission, EMS record, old E KG, old radiological studies, urgent care reports/EKG's, custodial records)? Report findings @ -Potassium from August 29 visit was 4.4 Differential Diagnosis (chest pain, altered mental status, abdominal pain women, abdominal pain men, vaginal bleeding, weakness, fever, dyspnea, syncope, headache, dizziness, GI bleed, back pain, seizure, CVA, palpatations, mental health, musculoskeletal)? @ -Hyperkalemia, hypermagnesemia, cardiac arrhythmia, electrolyte abnormalities, acute kidney injury, crush syndrome EKG interpreted by me (3pts min.). @ -As above X-rays interpreted by me (1pt min.). @ -None done CT interpreted by me (1pt min.). @ -None done U/S interpreted by me (1pt. min.). @ -None done What testing was considered but not performed or refused? (CT, X-rays, U/S, labs)? Why? @ -None What meds were considered but not given or refused? Why? @ -None Did you discuss the management of the patient with other professionals (professionals i.e. , ADDIS, TOBACCO ACREAGE MEASURER, lab, RT, psych nurse, social worker clinical, quality assurance intern, teacher, water resources technical officer, disease case manager)? Give summary @ -No Was smoking cessation discussed for >3mins.? @ -No Was critical care preformed (if so, how long)? @ -No Were there social determinants of health that impacted care today? How? (Homelessness, low income, unemployed, alcoholism, drug addiction, transportation, low edu. Level, literacy, decrease access to med. care, senior care, rehab)? @ -No Was there de-escalation of care discussed even if they declined (Discuss DNR or withdrawal of care, Hospice)? DNR status @ -No What co-morbidities impacted this encounter? (DM, HTN, Smoking, COPD, CAD, Cancer, CVA, ARF, Chemo, Hep., AIDS, mental health diagnosis, sleep apnea, morbid obesity)? @ -None Was patient admitted / discharged? Hospital course, mention meds given and route, prescriptions, significant lab abnormalities, going to OR and other pertinent info. @ -Patient was discharged. Patient was seen and evaluated for hyperkalemia. Patient was sent by PCP for potassium value of 5.8 in clinic. Patient is currently asymptomatic. Vital signs within normal limits, patient is in no acute distress. Physical examination is unremarkable. Lab work is remarkable for potassium of 5.2. Kidney function is mildly elevated, BUN is 27, creatinine is 1.17. Magnesium is normal. EKG reveals sinus bradycardia with no ST changes. Patient is given IV fluid bolus at this time. Discussed potassium is only mildly elevated and only fluids are needed at this time. Advised to hydrate well over the next few days and follow-up with PCP for potassium recheck. Strict return/alarm symptoms discussed with patient and daughters in detail and they show understanding and agree to plan. Case discussed with my ED attending Dr. Betancourt. Patient discharged in stable condition. Undiagnosed new problem with uncertain prognosis? @ -No Drug Therapy requiring intensive monitoring for toxicity (Heparin, Nitro, Insulin, Cardizem)? @ -No Were any procedures done? @ -No Diagnosis/symptom? @ -Mild hyperkalemia Acute, or Chronic, or Acute on Chronic? @ -Acute Uncomplicated (without systemic symptoms) or Complicated (systemic symptoms)? @ -Uncomplicated Side effects of treatment? @ -No Exacerbation, Progression, or Severe Exacerbation? @ -No Poses a threat to life or bodily function? How? (Chest pain, USA, ND, pneumonia, PE, COPD, DKA, ARF, appy, cholecystitis, CVA, Diverticulitis, Homicidal, Suicidal, threat to staff... and all critical care pts) @ -Low likelihood - Lab Data Result diagrams: 10/23/23 15:30 10/23/23 15:30 Lab Results 10/23/23 10/23/23 Range/Units 15:30 15:30 WBC 5.1 (3.8-10.6) k/uL RBC 3.53 L (3.80-5.40) m/uL Hgb 10.9 L (11.4-16.0) gm/dL Hct 34.8 (34.0-46.0) % MCV 98.5 (80.0-100.0) fL MCH 31.0 (25.0-35.0) pg MCHC 31.4 (31.0-37.0) g/dL RDW 19.2 H (11.5-15.5) % Plt Count 209 (150-450) k/uL MPV 8.6 Neutrophils % 64 % Lymphocytes % 16 % Monocytes % 11 % Eosinophils % 3 % Basophils % 1 % Neutrophils # 3.3 (1.3-7.7) k/uL Lymphocytes # 0.8 L (1.0-4.8) k/uL Monocytes # 0.6 (0-1.0) k/uL Eosinophils # 0.2 (0-0.7) k/uL Basophils # 0.1 (0-0.2) k/uL Hypochromasia Slight Anisocytosis Slight Macrocytosis Slight Sodium 132 L (137-145) mmol/L Potassium 5.2 H (3.5-5.1) mmol/L Chloride 106 (98-107) mmol/L Carbon Dioxide 20 L (22-30) mmol/L Anion Gap 6 mmol/L BUN 27 H (7-17) mg/dL Creatinine 1.17 H (0.52-1.04) mg/dL Est GFR (CKD-EPI)AfAm 49 (>60 ml/min/1.73 sqM) Est GFR (CKD-EPI)NonAf 43 (>60 ml/min/1.73 sqM) Glucose 89 (74-99) mg/dL Calcium 9.4 (8.4-10.2) mg/dL Magnesium 2.2 (1.6-2.3) mg/dL Total Bilirubin 0.6 (0.2-1.3) mg/dL AST 32 (14-36) U/L ALT 14 (4-34) U/L Alkaline Phosphatase 71 (38-126) U/L Total Protein 6.4 (6.3-8.2) g/dL Albumin 4.1 (3.5-5.0) g/dL - EKG Data -: EKG Interpreted by Me EKG Comments: EKG reveals sinus bradycardia with no ST changes. Ventricular rate 55 bpm, AL interval 191, QRS duration 73, QT/QTc 418/407 Disposition Clinical Impression: Hyperkalemia Disposition: HOME SELF-CARE Condition: Stable Instructions (If sedation given, give patient instructions): Hyperkalemia (ED) Additional Instructions: Please hydrate well at home. Follow-up with PCP for potassium recheck. Please return to the Emergency Department if symptoms worsen or any other concerns. Is patient prescribed a controlled substance at d/c from ED?: No Referrals: Colleen Bartlett MD [Primary Care Provider] - 1-2 days Time of Disposition: 17:09
[2023-10-23 15:49] LABS: Anisocytosis Slight; Basophils # (A) 0.1 k/uL (0-0.2); Basophils % (A) 1 %; Eosinophils # (A) 0.2 k/uL (0-0.7); Eosinophils % (A) 3 %; HCT 34.8 % (34.0-46.0); HGB 10.9 gm/dL (11.4-16.0); Hypochromasia Slight; Lymphocytes # (A) 0.8 k/uL (1.0-4.8); Lymphocytes % (A) 16 %; MCHC 31.4 g/dL (31.0-37.0); MCV 98.5 fL (80.0-100.0); Macrocytosis Slight; Mean Platelet Volume 8.6; Monocytes # (A) 0.6 k/uL (0-1.0); Monocytes % (A) 11 %; Neutrophils # (A) 3.3 k/uL (1.3-7.7); Neutrophils % (A) 64 %; Platelet Count 209 k/uL (150-450); RBC 3.53 m/uL (3.80-5.40); RDW 19.2 % (11.5-15.5); WBC 5.1 k/uL (3.8-10.6)
[2023-10-23 16:06] LABS: ALT 14 U/L (4-34); African American GFR (CKD) 49 (>60 ml/min/1.73 sqM); Albumin 4.1 g/dL (3.5-5.0); Anion Gap 6 mmol/L; Blood Urea Nitrogen 27 mg/dL (7-17); Calcium 9.4 mg/dL (8.4-10.2); Carbon Dioxide 20 mmol/L (22-30); Chloride 106 mmol/L (98-107); Glucose 89 mg/dL (74-99); Magnesium 2.2 mg/dL (1.6-2.3); Non-African American GFR(CKD) 43 (>60 ml/min/1.73 sqM); Sodium 132 mmol/L (137-145); Total Bilirubin 0.6 mg/dL (0.2-1.3); Total Protein 6.4 g/dL (6.3-8.2)
[2023-10-23 16:17] LABS: AST 32 U/L (14-36); Alkaline Phosphatase 71 U/L (38-126); Potassium 5.2 mmol/L (3.5-5.1)
[2023-10-23] MEDS: SODIUM CHLORIDE 0.9% 500 ML 500 ML IV STA (17:23)
[2023-10-23 18:09] VITALS: BP 196/78; PULSE 56; TEMP 97.8
== END 2023-10-23 18:09 | disposition home or self-care (01) ==
LOC: EC 14:42
DX: E87.5 Hyperkalemia (principal); Z87.891 Personal history of nicotine dependence; Z88.5 Allergy status to narcotic agent; Z88.8 Allergy status to other drugs, medicaments and biological substances
CPT/HCPCS: 36415; 80053; 83735; 85025; 93005; 96360; 99285

== ENCOUNTER → 2023-10-31 | Outpatient (CLI) | payer MEDICARE, BC ==
--- NOTE | 2023-10-31 14:30 | US ---
EXAMINATION TYPE: US kidneys/renal and bladder DATE OF EXAM: 10/31/2023 COMPARISON: Renal ultrasound 03/22/2022, CT abdomen 06/06/2022 CLINICAL INDICATION: Female, 83 years old with history of E87.5 HYPERKALEMIA; N28.9 DISORDER OF KIDNE Y; known kidney disease, no symptoms EXAM MEASUREMENTS: Right Kidney: 7.9 x 2.9 x 2.6 cm Left Kidney: 9.2 x 3.1 x 3.6 cm Right Kidney: smaller in size Left Kidney: simple appearing cyst = 5.2 x 3.9 x 5.2cm Bladder: wnl There is no evidence for hydronephrosis at this point in time. No nephrolithiasis is seen. Corticome dullary differentiation is maintained. No right renal lesion identified. Simple left renal cyst ident ified. The urinary bladder is anechoic. IMPRESSION: 1. No hydronephrosis or nephrolithiasis. 2. Stable left simple renal cyst.
== END | disposition home or self-care (01) ==
LOC: RADUSWWP 13:51
PROVIDERS: ATTEND Family Medicine
DX: E87.5 Hyperkalemia (principal); N28.9 Disorder of kidney and ureter, unspecified; N28.1 Cyst of kidney, acquired
CPT/HCPCS: 76770

== ENCOUNTER → 2024-02-14 | Outpatient (CLI) | payer MEDICARE, BC ==
--- NOTE | 2024-02-15 12:46 | BD ---
EXAMINATION TYPE: Axial Bone Density DATE OF EXAM: 02/14/2024 CLINICAL HISTORY: 83 years old Female. ICD-10 CODE: M81.0 AGE-RELATED OSTEOPOROSIS W/O CURRENT PATHO LO Height: 57.5 Weight: 100 FRAX RISK QUESTIONS: History of Fracture in Adulthood: yes Secondary Osteoporosis: Rheumatoid Arthritis: yes RISK FACTORS HISTORY OF: Hip Fracture (Right/Left): right When: about 4 years ago Surgery to Spine/Hip(right/left)/Wrist (right/left): multiple cervical, thoracic and lumbar surgeries , right hip surgery When: within the past 5-10 years MEDICATIONS: EXAM MEASUREMENTS: Bone mineral densitometry was performed using the [employer] System. Bone mineral density about the L hip (g/cm2): 0.801 T Score values are as follows: -----L Neck: -1.4 -----L Total: -1.6 Z Score values are as follows: -----L Neck: 1.3 -----L Total: 1.1 Bone mineral density has: Decreased -6.1% since study of: 01-16-02 Bone mineral density about the L Wrist (g/cm2): 0.376 T Score values are as follows: -----Dist. R+U: -3.8 -----Prox. R+U: -4.1 -----Radius total: -4.9 Z Score values are as follows: -----Dist. R+U: -0.7 -----Prox. R+U: -0.9 -----Radius total: -1.8 FRAX%s: The graph provided illustrates a 21.8% chance for a major osteoporotic fx and a 6% chance for the hips probability for fx in 10 years time. IMPRESSION: Osteoporosis (T Score less than -2.5). There is increased fracture risk and therapy is usually indicated based on age. Re-Screen 1-2 years. NOTE: T-SCORE=SD OF THE YOUNG ADULT MEAN. [facility], , 02/15/2024 12:43 PM
== END | disposition home or self-care (01) ==
LOC: RADBDWWP 12:38
PROVIDERS: ATTEND Nurse Practitioner Primary Care
CPT/HCPCS: 77080

== ENCOUNTER 2024-05-06 11:21 | Emergency (ER) | payer MEDICARE, BC ==
[2024-05-06] MEDS: PANTOPRAZOLE 40 MG/10 ML VIAL IVP STA (12:39)
[2024-05-06] MEDS: SODIUM CHLORIDE 0.9% 1,000 ML IV STA (12:39)
[2024-05-06 12:40] LABS: Anisocytosis Slight; Basophils # (A) 0.1 k/uL (0-0.2); Basophils % (A) 1 %; Eosinophils # (A) 0.2 k/uL (0-0.7); Eosinophils % (A) 4 %; HGB 13.3 gm/dL (11.4-16.0); Lymphocytes # (A) 0.9 k/uL (1.0-4.8); Lymphocytes % (A) 18 %; MCH 32.4 pg (25.0-35.0); MCHC 33.2 g/dL (31.0-37.0); MCV 97.7 fL (80.0-100.0); Macrocytosis Slight; Mean Platelet Volume 8.2; Monocytes # (A) 0.3 k/uL (0-1.0); Monocytes % (A) 7 %; Neutrophils # (A) 3.2 k/uL (1.3-7.7); Neutrophils % (A) 67 %; Platelet Count 175 k/uL (150-450); RDW 16.2 % (11.5-15.5); WBC 4.8 k/uL (3.8-10.6)
[2024-05-06] MEDS: ONDANSETRON 4 MG/2 ML VIAL IVP STA (12:44)
[2024-05-06 12:55] LABS: ALT 17 U/L (4-34); AST 27 U/L (14-36); African American GFR (CKD) 46 (>60 ml/min/1.73 sqM); Albumin 4.2 g/dL (3.5-5.0); Alkaline Phosphatase 82 U/L (38-126); Anion Gap 11 mmol/L; Blood Urea Nitrogen 18 mg/dL (7-17); Calcium 8.9 mg/dL (8.4-10.2); Carbon Dioxide 20 mmol/L (22-30); Chloride 105 mmol/L (98-107); Glucose 115 mg/dL (74-99); Magnesium 1.8 mg/dL (1.6-2.3); Non-African American GFR(CKD) 40 (>60 ml/min/1.73 sqM); Potassium 4.2 mmol/L (3.5-5.1); Sodium 136 mmol/L (137-145); Total Bilirubin 0.4 mg/dL (0.2-1.3); Total Protein 6.5 g/dL (6.3-8.2)
[2024-05-06 13:06] LABS: Partial Thromboplastin Time 22.6 sec (22.0-30.0); Prothrombin Time 10.8 sec (10.0-12.5)
[2024-05-06] MEDS ORDERED: AMIODARONE 200 MG TAB PO SCH (13:30)
[2024-05-06] MEDS: METOPROLOL TARTRATE 25 MG TAB PO SCH (13:36)
[2024-05-06] MEDS: amLODIPine 5 MG TAB PO SCH (13:36)
[2024-05-06] MEDS: AMIODARONE 200 MG TAB PO ONE (13:36)
--- NOTE | 2024-05-06 13:40 | XR ---
EXAMINATION TYPE: XR chest 2V DATE OF EXAM: 05/06/2024 1:32 PM COMPARISON: Prior chest x-ray August 27, 2023 CLINICAL INDICATION: Female, 83 years old with history of Weakness, TECHNIQUE: Frontal and lateral views of the chest are obtained. FINDINGS: There is no focal air space opacity, pleural effusion, or pneumothorax seen. The cardiac silhouette size is mildly enlarged. Surgical change of the cervical spine is partially imaged extendi ng to the upper thoracic spine similar to prior. Surgical changes right shoulder is partially imaged similar to prior. Surgical changes in the lumbar spine is partially imaged. IMPRESSION: Chronic changes and mild cardiomegaly without acute pulmonary process. [facility], , 05/06/2024 1:38 PM
[2024-05-06 14:22] LABS: Appearance,Urine Clear (Clear); Bilirubin,Urine Negative (Negative); Blood,Urine Negative (Negative); Color,Urine Light Yellow; Glucose,Urine (UA) Negative (Negative); Ketones,Urine Negative (Negative); Leukocyte Esterase,Urine Negative (Negative); Nitrite,Urine Negative (Negative); PH, Urine 5.5 (5.0-8.0); Protein,Urine Trace (Negative); Specific Gravity,Urine 1.015 (1.001-1.035); Urobilinogen,Urine <2.0 mg/dL (<2.0)
--- NOTE | 2024-05-06 14:35 | ED ---
General Adult HPI - General Chief complaint: Weakness Stated complaint: covid +, NVD Time Seen by Provider: 05/06/24 12:20 Source: patient, RN notes reviewed, old records reviewed Mode of arrival: wheelchair Limitations: no limitations - History of Present Illness Initial comments: Patient is an 83-year-old female with past medical history remarkable for atrial fibrillation, hypertension, rheumatoid arthritis who presents of generalized weakness, as well as URI symptoms. Has had occasional vomiting over the last 2 weeks. Has occasional diarrhea. Still feels weak. Still complaining of cough. No smoking history. Patient's had similar complaints but is improved. Currently on doxycycline from urgent care. Presents for further evaluation at this time. - Related Data Home Medications Medication Instructions Recorded Confirmed Folic Acid 1 mg PO DAILY 09/09/13 05/06/24 metHOTREXate sodium [Methotrexate] 15 mg PO WE 04/07/19 05/06/24 Ferrous Sulfate [Iron (65 MG 325 mg PO DIRECTED 09/21/22 05/06/24 Elemental)] Atorvastatin [Lipitor] 20 mg PO DAILY 08/27/23 05/06/24 Orencia 500mg Infusion 500 mg IV Q28D 08/27/23 05/06/24 Amiodarone [Cordarone] 200 mg PO Q48H 05/06/24 05/06/24 Calcium Carb/Mag Ox/Zinc Sulf 3 tab PO DAILY 05/06/24 05/06/24 [Tnx-Yhc-Awnt 334-134-5 mg Tab] Cholecalciferol [Vitamin D3 (25 25 mcg PO DAILY 05/06/24 05/06/24 Mcg = 1000 Iu)] Doxycycline Hyclate 100 mg PO BID 05/06/24 05/06/24 Metoprolol Tartrate [Lopressor] 25 mg PO DAILY 05/06/24 05/06/24 Rivaroxaban [Xarelto] 15 mg PO DAILY 05/06/24 05/06/24 amLODIPine [Norvasc] 5 mg PO DAILY 05/06/24 05/06/24 Allergies Allergy/AdvReac Type Severity Reaction Status Date / Time codeine AdvReac Vomiting Verified 05/06/24 12:56 tramadol AdvReac Vomiting Verified 05/06/24 12:56 Review of Systems ROS Statement: Those systems with pertinent positive or pertinent negative responses have been documented in the HPI. Review of Systems: CONST: Denies fever EYES: Denies blurry vision ENT: Denies nasal congestion C/V: Denies Chest pain RESP: Denies shortness of breath GI: Denies abdominal pain : Denies dysuria SKIN: Denies rash. MSK: Denies joint pain. NEURO: Denies headache ROS Other: All systems not noted in ROS Statement are negative. Past Medical History Past Medical History: Deep Vein Thrombosis (DVT), Hyperlipidemia, Hypertension, Rheumatoid Arthritis (RA) Additional Past Medical History / Comment(s): SEPTIC SHOCK POST KIDNEY STONE, varicose veins, History of Any Multi-Drug Resistant Organisms: None Reported Date of last positivie culture/infection: 2016 MDRO Source:: kidney stone Past Surgical History: Back Surgery, Cholecystectomy, Hysterectomy, Joint Re placement, Orthopedic Surgery Additional Past Surgical History / Comment(s): vein surgery rt leg, sara carpal tunnel, joints removed from feet, rt hand replacement of knuckle, rotator cuff sara shoulders, rt elbow replaced, rt shoulder fx, reverse rotator cuff repair rt shoulder, surgery 11/02/15- rt hip fx, repeat right hip surgery (fall 2016) Past Anesthesia/Blood Transfusion Reactions: Postoperative Nausea & Vomiting (PONV) Additional Past Anesthesia/Blood Transfusion Reaction / Comment(s): no hx blood transfusion Past Psychological History: No Psychological Hx Reported Smoking Status: Former smoker Past Alcohol Use History: None Reported Past Drug Use History: None Reported - Past Family History Mother Family Medical History: No Reported History Father Family Medical History: Cancer General Exam - General Exam Comments Initial Comments: General: Appears in no acute distress. HEAD: Normal with no signs of head trauma. EYES: PERRLA, EOMI, conjunctiva normal, no discharge. ENT: Hearing grossly intact, normal oropharynx. RESPIRATORY: Clear breath sounds bilaterally. No wheezes, rales, or rhonchi. C/V: Regular rate and rhythm. S1 and S2 auscultated, no edema, peripheral pulses 2+ and intact throughout ABD: Abd is soft, nontender, nondistended EXT: Normal range of motion, no obvious deformity SKIN: No rashes or lesions observed on exposed skin. NEURO: Alert and oriented x 4. Cranial nerves II-XII intact. No focal sensory or strength deficits. Limitations: no limitations Course Vital Signs 05/06/24 05/06/24 05/06/24 11:40 12:45 13:37 Temperature 98.0 F Pulse Rate 56 L 61 63 Respiratory 16 18 18 Rate Blood Pressure 131/64 193/70 148/66 O2 Sat by Pulse 98 96 96 Oximetry Medical Decision Making - Medical Decision Making Was pt. sent in by a medical professional or institution (, ADDIS, MACHINIST/MACHINE BUILDER, urgent care, hospital, or care home...) When possible be specific @ -No Did you speak to anyone other than the patient for history (EMS, parent, family, police, friend...)? What history was obtained from this source @ -No Did you review nursing and triage notes (agree or disagree)? Why? @ -I reviewed and agree with nursing and triage notes Were old charts reviewed (outside hosp., previous admission, EMS record, old EKG, old radiological studies, urgent care reports/EKG's, care home records)? Report findings @ -Compared to EKG with EKG from September 2023. No significant change. Differential Diagnosis (chest pain, altered mental status, abdominal pain women, abdominal pain men, vaginal bleeding, weakness, fever, dyspnea, syncope, headache, dizziness, GI bleed, back pain, seizure, CVA, palpatations, mental health, musculoskeletal)? @ -URI, COVID, pneumonia, flu, RSV. This list is not all inclusive. EKG interpreted by me (3pts min.). @ -As above X-rays interpreted by me (1pt min.). @ -Chest x-ray reveals no obvious acute cardiopulmonary process. CT interpreted by me (1pt min.). @ -None done U/S interpreted by me (1pt. min.). @ -None done What testing was considered but not performed or refused? (CT, X-rays, U/S, labs)? Why? @ -None What meds were considered but not given or refused? Why? @ -None Did you discuss the management of the patient with other professionals (professionals i.e. ADDIS Skinner, MACHINIST/MACHINE BUILDER, lab, RT, psych nurse, social media job titles, nozzle and sleeve worker, teacher, correction officer penitentiary, case hardener)? Give summary @ -No Was smoking cessation discussed for >3mins.? @ -No Was critical care preformed (if so, how long)? @ -No Were there social determinants of health that impacted care today? How? (Homelessness, low income, unemployed, alcoholism, drug addiction, transportation, low edu. Level, literacy, decrease access to med. care, prison, rehab)? @ -No Was there de-escalation of care discussed even if they declined (Discuss DNR or withdrawal of care, Hospice)? DNR status @ -No What co-morbidities impacted this encounter? (DM, HTN, Smoking, COPD, CAD, Cancer, CVA, ARF, Chemo, Hep., AIDS, mental health diagnosis, sleep apnea, morbid obesity)? @ -None Was patient admitted / discharged? Hospital course, mention meds given and route, prescriptions, significant lab abnormalities, going to OR and other pertinent info. @ -Patient presents emergency department complaining of URI symptoms as well as illness symptoms. We will obtain basic labs, viral swabs, chest x-ray, EKG. Patient was in agreement this plan. Vital signs are within acceptable limits. Patient symptomatically treated with IV fluids, Zofran, Protonix, and she will receive doses of her normal blood pressure medications as she did not take them this morning. Chest x-ray unremarkable. EKG unremarkable. Laboratory studies are within acceptable limits. Urinalysis unremarkable. Patient does test positive for RSV. On reevaluation, patient is feeling improved. We discussed her workup. I did offer admission for IV hydration but she would like to go home. I believe this is reasonable. Strict return precautions discussed. Recommended following up with your PCP in the next 1 to 3 days. Patient was in agreement this plan. I instructed the patient to follow up with their PCP in the next 1-3 days. I explained that the patient should return to the emergency department if they experience any worsening symptoms. Strict return precautions were discussed with the patient. The patient expressed understanding of these instructions. I answered all questions that the patient had. The patient was discharged home in good condition with their prescriptions and follow up information. Undiagnosed new problem with uncertain prognosis? @ -No Drug Therapy requiring intensive monitoring for toxicity (Heparin, Nitro, Insulin, Cardizem)? @ -No Were any procedures done? @ -No Diagnosis/symptom? @ -RSV infection, weakness, dehydration Acute, or Chronic, or Acute on Chronic? @ -Acute Uncomplicated (without systemic symptoms) or Complicated (systemic symptoms)? @ -Complicated Side effects of treatment? @ -No Exacerbation, Progression, or Severe Exacerbation? @ -No Poses a threat to life or bodily function? How? (Chest pain, [place], [place], pneumonia, PE, COPD, DKA, ARF, appy, cholecystitis, CVA, Diverticulitis, Homicidal, Suicidal, threat to staff... and all critical care pts) @ -Unlikely - Lab Data Result diagrams: 05/06/24 12:33 05/06/24 12:33 Lab Results 05/06/24 05/06/24 05/06/24 Range/Units 12:33 12:33 12:33 WBC 4.8 (3.8-10.6) k/uL RBC 4.10 (3.80-5.40) m/uL Hgb 13.3 (11.4-16.0) gm/dL Hct 40.0 (34.0-46.0) % MCV 97.7 (80.0-100.0) fL MCH 32.4 (25.0-35.0) pg MCHC 33.2 (31.0-37.0) g/dL RDW 16.2 H (11.5-15.5) % Plt Count 175 (150-450) k/uL MPV 8.2 Neutrophils % 67 % Lymphocytes % 18 % Monocytes % 7 % Eosinophils % 4 % Basophils % 1 % Neutrophils # 3.2 (1.3-7.7) k/uL Lymphocytes # 0.9 L (1.0-4.8) k/uL Monocytes # 0.3 (0-1.0) k/uL Eosinophils # 0.2 (0-0.7) k/uL Basophils # 0.1 (0-0.2) k/uL Anisocytosis Slight Macrocytosis Slight PT 10.8 (10.0-12.5) sec INR 1.0 (<1.2) APTT 22.6 (22.0-30.0) sec Sodium 136 L (137-145) mmol/L Potassium 4.2 (3.5-5.1) mmol/L Chloride 105 (98-107) mmol/L Carbon Dioxide 20 L (22-30) mmol/L Anion Gap 11 mmol/L BUN 18 H (7-17) mg/dL Creatinine 1.24 H (0.52-1.04) mg/dL Est GFR (CKD-EPI)AfAm 46 (>60 ml/min/1.73 sqM) Est GFR (CKD-EPI)NonAf 40 (>60 ml/min/1.73 sqM) Glucose 115 H (74-99) mg/dL Plasma Lactic Acid Mariusz (0.7-2.0) mmol/L Calcium 8.9 (8.4-10.2) mg/dL Magnesium 1.8 (1.6-2.3) mg/dL Total Bilirubin 0.4 (0.2-1.3) mg/dL AST 27 (14-36) U/L ALT 17 (4-34) U/L Alkaline Phosphatase 82 (38-126) U/L Total Protein 6.5 (6.3-8.2) g/dL Albumin 4.2 (3.5-5.0) g/dL Urine Color Urine Appearance (Clear) Urine pH (5.0-8.0) Ur Specific [place] (1.001-1.035) Urine Protein (Negative) Urine Glucose (UA) (Negative) Urine Ketones (Negative) Urine Blood (Negative) Urine Nitrite (Negative) Urine Bilirubin (Negative) Urine Urobilinogen (<2.0) mg/dL Ur Leukocyte Esterase (Negative) Influenza Type A (PCR) (Not Detectd) Influenza Type B (PCR) (Not Detectd) RSV (PCR) (Not Detectd) SARS-CoV-2 (PCR) (Not Detectd) 05/06/24 05/06/24 05/06/24 Range/Units 12:33 12:33 14:03 WBC (3.8-10.6) k/uL RBC (3.80-5.40) m/uL Hgb (11.4-16.0) gm/dL Hct (34.0-46.0) % MCV (80.0-100.0) fL MCH (25.0-35.0) pg MCHC (31.0-37.0) g/dL RDW (11.5-15.5) % Plt Count (150-450) k/uL MPV Neutrophils % % Lymphocytes % % Monocytes % % Eosinophils % % Basophils % % Neutrophils # (1.3-7.7) k/uL Lymphocytes # (1.0-4.8) k/uL Monocytes # (0-1.0) k/uL Eosinophils # (0-0.7) k/uL Basophils # (0-0.2) k/uL Anisocytosis Macrocytosis PT (10.0-12.5) sec INR (<1.2) APTT (22.0-30.0) sec Sodium (137-145) mmol/L Potassium (3.5-5.1) mmol/L Chloride (98-107) mmol/L Carbon Dioxide (22-30) mmol/L Anion Gap mmol/L BUN (7-17) mg/dL Creatinine (0.52-1.04) mg/dL Est GFR (CKD-EPI)AfAm (>60 ml/min/1.73 sqM) Est GFR (CKD-EPI)NonAf (>60 ml/min/1.73 sqM) Glucose (74-99) mg/dL Plasma Lactic Acid Mariusz 1.6 (0.7-2.0) mmol/L Calcium (8.4-10.2) mg/dL Magnesium (1.6-2.3) mg/dL Total Bilirubin (0.2-1.3) mg/dL AST (14-36) U/L ALT (4-34) U/L Alkaline Phosphatase (38-126) U/L Total Protein (6.3-8.2) g/dL Albumin (3.5-5.0) g/dL Urine Color Light Yellow Urine Appearance Clear (Clear) Urine pH 5.5 (5.0-8.0) Ur Specific [place] 1.015 (1.001-1.035) Urine Protein Trace H (Negative) Urine Glucose (UA) Negative (Negative) Urine Ketones Negative (Negative) Urine Blood Negative (Negative) Urine Nitrite Negative (Negative) Urine Bilirubin Negative (Negative) Urine Urobilinogen <2.0 (<2.0) mg/dL Ur Leukocyte Esterase Negative (Negative) Influenza Type A (PCR) Not Detected (Not Detectd) Influenza Type B (PCR) Not Detected (Not Detectd) RSV (PCR) Detected A (Not Detectd) SARS-CoV-2 (PCR) Not Detected (Not Detectd) - EKG Data -: EKG Interpreted by Me EKG Comments: 12-lead Electrocardiogram Interpretation Note EKG was reviewed and interpreted by myself. 12-lead ECG performed at 1403 is interpreted by me as revealing sinus bradycardia at a rate of 54 beats per minute. [place] is normal. [place] interval is 163 ms, QRS duration is 91 ms, QTc is [address] segment T wave abnormalities present.. R wave progression across the precordium was satisfactory. Disposition Clinical Impression: RSV (respiratory syncytial virus infection), Dehydration, Weakness Disposition: HOME SELF-CARE Condition: Good Additional Instructions: Follow-up with your PCP in the next 1 to 3 days. Return if any worsening symptoms. Monitor for any worsening respiratory symptoms. Is patient prescribed a controlled substance at d/c from ED?: No Referrals: Colleen Bartlett MD [Primary Care Provider] - 1-2 days Time of Disposition: 14:35
[2024-05-06 14:59] VITALS: BP 179/72; PULSE 54; RESP 16; TEMP 97.7
[2024-05-08] MEDS ORDERED: AMIODARONE 200 MG TAB PO SCH (09:00)
== END 2024-05-06 14:59 | disposition home or self-care (01) ==
LOC: EC 11:21
DX: E86.0 Dehydration (principal); B97.4 Respiratory syncytial virus as the cause of diseases classified elsewhere; R53.1 Weakness; R00.1 Bradycardia, unspecified; Z87.891 Personal history of nicotine dependence; Z88.5 Allergy status to narcotic agent; Z88.8 Allergy status to other drugs, medicaments and biological substances
CPT/HCPCS: 36415; 80053; 83605; 83735; 85025; 85610; 85730; 81003; 87636; 71046; 99285; 96374; 96375; 96361; J2405; J2470

== ENCOUNTER 2024-09-05 10:04 | Emergency (ER) | payer MEDICARE, BC ==
[2024-09-05 10:10] VITALS: PULSE 83; RESP 16
[2024-09-05] MEDS: ONDANSETRON 4 MG/2 ML VIAL IVP STA (10:55)
[2024-09-05] MEDS: KETOROLAC 15 MG/ML 1 ML VIAL IVP STA (10:55)
[2024-09-05] MEDS: DEXAMETHASONE SOD PHOSPHATE 10 MG/ML 1 ML VIAL IVP STA (10:57)
[2024-09-05] MEDS: MORPHINE SULFATE 4 MG/ML SYRINGE IVP STA (10:57)
[2024-09-05] MEDS: LIDOCAINE 4% PATCH TOPICAL ONE (11:04)
[2024-09-05] MEDS: SODIUM CHLORIDE 0.9% 1,000 ML IV ONE (11:04)
--- NOTE | 2024-09-05 11:26 | ED ---
Back Pain HPI - General Chief Complaint: Back Pain/Injury Stated Complaint: Left Side Pain Time Seen by Provider: 09/05/24 10:20 Source: patient, family, RN notes reviewed Mode of arrival: ambulatory Limitations: no limitations - History of Present Illness Initial Comments: This is an 84-year-old female who presents to the emergency department for left lower back pain. States that it has been going on for about a week. Pain goes across her whole lower back and buttocks area and then radiates down the left leg. States that the radiation terminates at the knee. Denies any injuries or loss of bowel/bladder control or saddle anesthesia. States that she believes this to be a severe sciatica flareup. She had sciatica once many years ago, but states that this is worse. Not currently taking anything for pain control. Family is concerned that she has not gotten out of bed in the last week due to the pain. MD Complaint: back pain - Related Data Home Medications Medication Instructions Recorded Confirmed Folic Acid 1 mg PO DAILY 09/09/13 05/06/24 metHOTREXate sodium [Methotrexate] 15 mg PO WE 04/07/19 05/06/24 Ferrous Sulfate [Iron (65 MG 325 mg PO DIRECTED 09/21/22 05/06/24 Elemental)] Atorvastatin [Lipitor] 20 mg PO DAILY 08/27/23 05/06/24 Orencia 500mg Infusion 500 mg IV Q28D 08/27/23 05/06/24 Amiodarone [Cordarone] 200 mg PO Q48H 05/06/24 05/06/24 Calcium Carb/Mag Ox/Zinc Sulf 3 tab PO DAILY 05/06/24 05/06/24 [Vzk-Xsr-Jian 334-134-5 mg Tab] Cholecalciferol [Vitamin D3 (25 25 mcg PO DAILY 05/06/24 05/06/24 Mcg = 1000 Iu)] Doxycycline Hyclate 100 mg PO BID 05/06/24 05/06/24 Metoprolol Tartrate [Lopressor] 25 mg PO DAILY 05/06/24 05/06/24 Rivaroxaban [Xarelto] 15 mg PO DAILY 05/06/24 05/06/24 amLODIPine [Norvasc] 5 mg PO DAILY 05/06/24 05/06/24 Previous Rx's Medication Instructions Recorded HYDROcodone/APAP 5-325MG [Danielson 1 tab PO Q6HR PRN 3 Days #12 tab 09/05/24 5-325] Lidocaine 5% Patch [Lidoderm 5% 1 patch TOPICAL DAILY PRN #30 patch 09/05/24 Patch] methocarbamoL [Robaxin] 1,000 mg PO QID PRN #30 tab 09/05/24 predniSONE 50 mg PO DAILY 5 Days #5 tab 09/05/24 Allergies Allergy/AdvReac Type Severity Reaction Status Date / Time codeine AdvReac Vomiting Verified 09/05/24 10:10 tramadol AdvReac Vomiting Verified 09/05/24 10:10 Review of Systems ROS Statement: Those systems with pertinent positive or pertinent negative responses have been documented in the HPI. ROS Other: All systems not noted in ROS Statement are negative. Past Medical History Past Medical History: Deep Vein Thrombosis (DVT), Hyperlipidemia, Hypertension, Rheumatoid Arthritis (RA) Additional Past Medical History / Comment(s): SEPTIC SHOCK POST KIDNEY STONE, varicose veins, History of Any Multi-Drug Resistant Organisms: None Reported Date of last positivie culture/infection: 2016 MDRO Source:: kidney stone Past Surgical History: Back Surgery, Cholecystectomy, Hysterectomy, Joint Replacement, Orthopedic Surgery Additional Past Surgical History / Comment(s): vein surgery rt leg, sara carpal tunnel, joints removed from feet, rt hand replacement of knuckle, rotator cuff sara shoulders, rt elbow replaced, rt shoulder fx, reverse rotator cuff repair rt shoulder, surgery 11/02/15- rt hip fx, repeat right hip surgery (fall 2016) Past Anesthesia/Blood Transfusion Reactions: Postoperative Nausea & Vomiting (PONV) Additional Past Anesthesia/Blood Transfusion Reaction / Comment(s): no hx blood transfusion Past Psychological History: No Psychological Hx Reported Smoking Status: Former smoker Past Alcohol Use History: None Reported Past Drug Use History: None Reported - Past Family History Mother Family Medical History: No Reported History Father Family Medical History: Cancer General Exam Limitations: no limitations General appearance: alert, in no apparent distress Head exam: Present: atraumatic, normocephalic, normal inspection Respiratory exam: Present: normal lung sounds bilaterally. Absent: respiratory distress, wheezes, rales, rhonchi, stridor Cardiovascular Exam: Present: regular rate, normal rhythm GI/Abdominal exam: Present: soft, normal bowel sounds. Absent: distended, tenderness, guarding, rebound, rigid Extremities exam: Present: other (Tenderness to palpation over the left lower back. ROM limited by pain) Neurological exam: Present: alert, oriented X3, CN II-XII intact Psychiatric exam: Present: normal affect, normal mood Skin exam: Present: warm, dry, intact, normal color. Absent: rash Course Vital Signs 09/05/24 09/05/24 10:06 13:24 Temperature 98 F 97.7 F Pulse Rate 83 83 Respiratory 16 16 Rate Blood Pressure 173/91 136/60 O2 Sat by Pulse 98 96 Oximetry Medical Decision Making - Medical Decision Making This is an 84 year old female who presents to the emergency department for back pain. Was pt. sent in by a medical professional or institution? @ -No Did you speak to anyone other than the patient for history? @ -No Did you review nursing and triage notes? @ -Yes, and I agree, it is accurate with regards to the patient's symptoms. Were old charts reviewed? @ -No Differential Diagnosis? @ -Differential Back Pain: Strain, zoster, cauda equina syndrome, epidural abscess, vertebral osteomyelitis, discitis, fracture, subluxation, disc herniation, DJD, spinal stenosis, dissection, AAA, pancreatitis, peptic ulcer disease, pyelonephritis, kidney stone, this is not meant to be an all-inclusive list. EKG interpreted by me (3pts min.)? @ -Not obtained X-rays interpreted by me (1pt min.)? @ -Not obtained CT interpreted by me (1pt min.)? @ -CT scan of the lumbar spine and pelvis obtained. My interpretation identifies no acute fractures. U/S interpreted by me (1pt. min.)? @ -Not obtained What testing was considered but not performed? (CT, X-rays, U/S, labs)? Why? @ -None What meds were considered but not given? Why? @ -None Did you discuss the management of the patient with other professionals? @ -No Did you reconcile home meds? @ -No Was smoking cessation discussed for >3mins.? @ -No Was critical care preformed (if so, how long)? @ -No Were there social determinants of health that impacted care today? How? (Homele ssness, low income, unemployed, alcoholism, drug addiction, transportation, low edu. Level, literacy, decrease access to med. care, snf, rehab)? @ -No Was there de-escalation of care discussed even if they declined? (Discuss DNR or withdrawal of care, Hospice)? @ -No What co-morbidities impacted this encounter? (DM, HTN, Smoking, COPD, CAD, Canc er, CVA, Hep., AIDS, mental health diagnosis, sleep apnea, morbid obesity)? @ -Rheumatoid arthritis Was patient admitted / discharged? @ -Discharged. Lab work unremarkable. CT scan of the pelvis and lumbar spine obtained. No acute osseous abnormality was identified and her surgical hardware was intact. She does have multiple disc bulges, likely contributing to her symptoms. The description of her symptoms in the buttocks radiating down the leg is also suggestive of sciatica. There were some signs of cystitis on her CT scan, however patient was unable to provide a urine sample prior to discharge and did not want to wait. Pain was well-controlled in the emergency department. I offered admission for pain control, however she advised that she was feeling much better and wanted to go home. Rx for prednisone, robaxin, norco, and lidocaine patches provided with dosing instructions reviewed. Patient discharged home in stable condition and advised to follow-up with her PCP and neurology. Case discussed with ED attending Dr. Kelly. Return precautions reviewed in depth, the patient is instructed to return to the emergency department with any new, worsening, or concerning symptoms. Patient verbalized understanding. Undiagnosed new problem with uncertain prognosis? @ -None Drug Therapy requiring intensive monitoring for toxicity (Heparin, Nitro, Insulin, Cardizem)? @ -None Were any procedures done? @ -None Diagnosis/symptom? @ -Low back pain, sciatica Acute, or Chronic, or Acute on Chronic? @ -Acute Uncomplicated (without systemic symptoms) or Complicated (systemic symptoms)? @ -Uncomplicated Side effects of treatment? @ -None Exacerbation, Progression, or Severe Exacerbation] @ -Not applicable Poses a threat to life or bodily function? @ -The pain is limiting her ability to ambulate and get around to some extent - Lab Data Result diagrams: 09/05/24 11:10 09/05/24 11:10 Lab Results 09/05/24 09/05/24 Range/Units 11:10 11:10 WBC 4.39 L (4.50-10.00) 10*3/uL RBC 4.54 (4.10-5.20) 10*6/uL Hgb 13.5 (12.0-15.0) g/dL Hct 41.9 (37.2-46.3) % MCV 92.3 (80.0-97.0) fL MCH 29.7 (27.0-32.0) pg MCHC 32.2 (32.0-37.0) g/dL Plt Count 213 (140-440) 10*3/uL MPV 9.9 (9.5-12.2) fL Immature Gran % (Auto) 0.2 % Neutrophils % 65.9 % Lymphocytes % 19.8 % Monocytes % 10.7 % Eosinophils % 2.3 % Basophils % 1.1 % Immature Gran # 0.01 (0.00-0.04) 10*3/uL Neutrophils # 2.89 (1.80-7.70) 10*3/uL Lymphocytes # 0.87 L (0.90-5.00) 10*3/uL Monocytes # 0.47 (0.20-1.00) 10*3/uL Eosinophils # 0.10 (0.04-0.35) 10*3/uL Basophils # 0.05 (0.00-0.10) 10*3/uL Sodium 140 (137-145) mmol/L Potassium 4.4 (3.5-5.1) mmol/L Chloride 103 (98-107) mmol/L Carbon Dioxide 26 (22-30) mmol/L Anion Gap 11 mmol/L BUN 29 H (7-17) mg/dL Creatinine 1.38 H (0.52-1.04) mg/dL Est GFR (CKD-EPI)AfAm 40 (>60 ml/min/1.73 sqM) Est GFR (CKD-EPI)NonAf 35 (>60 ml/min/1.73 sqM) Glucose 105 H (74-99) mg/dL Calcium 10.0 (8.4-10.2) mg/dL Magnesium 2.0 (1.6-2.3) mg/dL Total Bilirubin 0.7 (0.2-1.3) mg/dL AST 27 (14-36) U/L ALT 14 (4-34) U/L Alkaline Phosphatase 76 (38-126) U/L Creatine Kinase 33 (30-135) U/L Total Protein 7.1 (6.3-8.2) g/dL Albumin 4.5 (3.5-5.0) g/dL - Radiology Data Radiology results: report reviewed, image reviewed Disposition Clinical Impression: Bulging lumbar disc, Left sided sciatica Disposition: HOME SELF-CARE Instructions (If sedation given, give patient instructions): Sciatica (ED), Acute Low Back Pain (ED), Lumbar Radiculopathy (ED) Additional Instructions: Return to the emergency department with any new, worsening, or concerning symptoms. Take the prednisone daily for 5 days. Take the Robaxin as 1 to 2 tablets up to 3-4 times daily. Take the Danielson sparingly when your pain is the most severe. Be aware that both the Robaxin and Danielson can make you drowsy. You can also apply the lidocaine patches daily. Follow-up with your primary care kw[address] lane and Dr. Malloy's office. Prescriptions: Lidocaine 5% Patch [Lidoderm 5% Patch] 1 patch TOPICAL DAILY PRN #30 patch PRN Reason: Pain HYDROcodone/APAP 5-325MG [Danielson 5-325] 1 tab PO Q6HR PRN 3 Days #12 tab PRN Reason: Pain predniSONE 50 mg PO DAILY 5 Days #5 tab methocarbamoL [Robaxin] 1,000 mg PO QID PRN #30 tab PRN Reason: Pain Is patient prescribed a controlled substance at d/c from ED?: Yes When asked, does pt state using other controlled substances?: No If prescribed controlled substance>3 days was MAPS reviewed?: Prescribed <3 Days Referrals: Colleen Bartlett MD [Primary Care Provider] - 1-2 days Time of Disposition: 12:36
[2024-09-05 11:28] LABS: Basophils # (A) 0.05 10*3/uL (0.00-0.10); Basophils % (A) 1.1 %; Eosinophils % (A) 2.3 %; HCT 41.9 % (37.2-46.3); HGB 13.5 g/dL (12.0-15.0); Lymphocytes # (A) 0.87 10*3/uL (0.90-5.00); Lymphocytes % (A) 19.8 %; MCH 29.7 pg (27.0-32.0); MCHC 32.2 g/dL (32.0-37.0); MCV 92.3 fL (80.0-97.0); Mean Platelet Volume 9.9 fL (9.5-12.2); Monocytes # (A) 0.47 10*3/uL (0.20-1.00); Monocytes % (A) 10.7 %; Neutrophils # (A) 2.89 10*3/uL (1.80-7.70); Neutrophils % (A) 65.9 %; Platelet Count 213 10*3/uL (140-440); RBC 4.54 10*6/uL (4.10-5.20); RDW 20.1 % (11.5-14.5); WBC 4.39 10*3/uL (4.50-10.00)
[2024-09-05 11:33] LABS: ALT 14 U/L (4-34); AST 27 U/L (14-36); African American GFR (CKD) 40 (>60 ml/min/1.73 sqM); Albumin 4.5 g/dL (3.5-5.0); Alkaline Phosphatase 76 U/L (38-126); Anion Gap 11 mmol/L; Blood Urea Nitrogen 29 mg/dL (7-17); Carbon Dioxide 26 mmol/L (22-30); Chloride 103 mmol/L (98-107); Creatine Kinase 33 U/L (30-135); Glucose 105 mg/dL (74-99); Non-African American GFR(CKD) 35 (>60 ml/min/1.73 sqM); Potassium 4.4 mmol/L (3.5-5.1); Sodium 140 mmol/L (137-145); Total Bilirubin 0.7 mg/dL (0.2-1.3); Total Protein 7.1 g/dL (6.3-8.2)
--- NOTE | 2024-09-05 11:45 | CT ---
EXAMINATION TYPE: CT pelvis wo con CT DLP: Combined 960.5 mGycm, Automated exposure control for dose reduction was used. DATE OF EXAM: 09/05/2024 11:36 AM COMPARISON: CT abdomen pelvis 09/05/2020 CLINICAL INDICATION:Female, 84 years old with history of Lower back and left hip pain; Lower back and left hip pain TECHNIQUE: Standard CT of the pelvis without IV or oral contrast. Lack of IV or oral contrast limit s evaluation of solid and hollow organ viscera. Coronal and sagittal reformats were performed. FINDINGS: PELVIS BLADDER: Nondependent gas within the urinary bladder. REPRODUCTIVE: The uterus is surgically absent. BOWEL: Distal colonic diverticulosis without evidence for acute diverticulitis. No focal bowel wall t hickening or surrounding inflammatory changes. Mild colonic stool burden. No evidence of bowel obstru ction. PERITONEUM: No evidence of pneumoperitoneum or free fluid. VASCULATURE: Moderate atherosclerotic calcifications are present throughout the abdominal aorta and i ts branches. No evidence of aortic aneurysm. Pelvic phleboliths. Left superficial femoral artery vasc ular stent. MUSCULOSKELETAL: Diffuse bone demineralization with limits evaluation. No acute osseous abnormalities . Postsurgical changes from right hip arthroplasty. Hardware appears intact with appropriate alignmen t. Mild osteoarthritic changes of the left hip. Degenerative changes of the pubic symphysis. Similar bone harvesting changes within the posterior left iliac bone. Mild degenerative changes of bilateral SI joints. Please refer to concurrent CT lumbar spine the same day for findings. LYMPH NODES: No gross evidence for lymphadenopathy. SOFT TISSUE/ABDOMINAL WALL: Tiny fat filled umbilical hernia. IMPRESSION: 1. Nondependent gas within the urinary bladder. Correlate for prior instrumentation versus cystitis. 2. Postsurgical changes from right hip arthroplasty. Hardware appears intact with appropriate alignme nt. Mild left hip osteoarthritic change. 3. Colonic diverticulosis without evidence for acute diverticulitis. [facility], , 09/05/2024 11:43 AM
--- NOTE | 2024-09-05 11:54 | CT ---
EXAMINATION TYPE: CT lumbar spine wo con CT DLP: Combined 960.5 mGycm, Automated exposure control for dose reduction was used. DATE OF EXAM: 09/05/2024 11:36 AM COMPARISON: CT pelvis 09/05/2024, CT abdomen and pelvis 09/28/2020. CLINICAL INDICATION:Female, 84 years old with history of Lower back and left hip pain; PHH, Lower bessie k and left hip pain, pain TECHNIQUE: Multiple axial images were obtained from the midportion of T11 through the sacroiliac indira nts. Soft tissue and bone windows in coronal and sagittal planes were obtained and reviewed. Contrast used: none. Oral contrast used: none. FINDINGS: Alignment: There are 5 lumbar type vertebral bodies. Grade 1 anterolisthesis of L3 on L4. Bone: Diffuse bone demineralization which limits evaluation. No evidence of acute fracture is identi fied. Chronic anterior wedge compression deformity of the T12 vertebral body with approximately 3 mm retropulsion and 50% height loss. Additional similar mild superior endplate compression deformity of the L1 vertebral body with approximately 5% height loss. Approximately 1 mm of retropulsion.. Postsur gical changes with bilateral pedicle screws and rods involving L3-L4. Hardware appears intact. No def inite periprosthetic lucency. The left L4-L5 pedicle screws extend past the cortices with additional involvement of the right L5 pedicle screw. Schmorl's node involving the inferior endplate of the L2 v ertebral body and superior endplate of the L5 vertebral body. Discs: T12-L1: Broad-based disc bulge without significant central canal stenosis. No neural foraminal stenos is. L1-L2: Broad-based disc bulge with mild central canal stenosis. Bilateral facet arthropathy. Moderate bilateral neural foraminal stenosis. L2-L3: Broad-based disc bulge with mild central canal stenosis. Bilateral facet arthropathy. Moderate right and mild left neural foraminal stenosis. L3-L4: Limited visualization due to streak artifact from prosthesis. No gross evidence for significan t central canal stenosis. Bilateral facet arthropathy. Mild bilateral neural foraminal stenosis. L4-L5: Limited visualization due to streak artifact from hardware. Bilateral facet arthropathy. Mild bilateral neural foraminal stenosis. L5-S1: Broad-based disc bulge. No significant central canal stenosis. Bilateral facet arthropathy. Mi ld to moderate right and moderate left neural foraminal stenosis Other: Moderate atherosclerotic calcification of the aorta and its branches. The visualized lung base s are clear. Gallbladder is surgically absent. Similar intra-and extra hepatic biliary ductal dilatat ion likely related to post cholecystectomy physiology. Redemonstration of left renal cyst measuring u p to 4.7 cm. No follow-up recommended. Bilateral renal vascular calcifications. IMPRESSION: 1. No evidence for acute spinal fracture. 2. Similar compression fractures of the T12 and L1 vertebral bodies from prior exams. 3. Postsurgical changes from fusion of the lumbar spine from L3 through L5. Hardware appears intact. 4. Moderate multilevel degenerative disc disease and facet arthropathy as described above. [facility], , 09/05/2024 11:52 AM
[2024-09-05 13:26] VITALS: BP 136/60; TEMP 97.7
== END 2024-09-05 13:30 | disposition home or self-care (01) ==
LOC: EC 10:04
DX: M51.360 Other intervertebral disc degeneration, lumbar region with discogenic back pain only (principal); M54.32 Sciatica, left side; M06.9 Rheumatoid arthritis, unspecified; Z87.891 Personal history of nicotine dependence; Z88.5 Allergy status to narcotic agent; Z88.6 Allergy status to analgesic agent; Z79.01 Long term (current) use of anticoagulants
CPT/HCPCS: 36415; 80053; 82550; 83735; 85025; 72192; 72131; 99284; 96374; 96375 ×3; 96361; J2270; J1100; J2405; J1885

== ENCOUNTER 2024-09-13 13:34 | Emergency (ER) | payer MEDICARE, BC ==
[2024-09-13 13:45] VITALS: TEMP 97.5
--- NOTE | 2024-09-13 14:12 | CT ---
EXAMINATION TYPE: CT brain cspine wo con DATE OF EXAM: 09/13/2024 2:01 PM COMPARISON: Prior CT study dated 08/27/2023 CLINICAL INDICATION: Female, 84 years old with history of FALL HEAD INJURY; Code Coag, fall on thinne rs. TECHNIQUE: Brain: Multiple axial CT images of the brain were obtained without IV contrast. Cspine: Axial CT images from the skull base to the inferior aspect of T2 we obtained without intraven ous contrast. Coronal and sagittal reformatted images were also reviewed. . CT DLP: 1210.8 mGycm, Automated exposure control for dose reduction was used. FINDINGS: Brain: Extra-axial spaces: No abnormal extra-axial fluid collections. Ventricular system: Dilatation in proportion to cerebral atrophy. Cerebral parenchyma: No acute intraparenchymal hemorrhage or mass effect. The lopez-white junction is well differentiated. Scattered hypoattenuating areas are seen within the white matter. Cerebellum: Unremarkable. Mass effect: No evidence of midline shift. Intracranial vasculature: unremarkable Soft tissues: Normal. Calvarium/osseous structures: No depressed skull fracture. Paranasal sinuses and mastoid air cells: Clear. Visualized orbits: The lenses are surgically removed from the globes. Cervical spine: Fracture: None. Osseous structures: Multilevel facet arthropathy and uncovertebral hypertrophy with scattered disc os teophyte complexes. There is posterior and anterior cervical spinal fusion without significant peripr osthetic lucency or evidence of an acute fracture. Vertebral alignment: Within normal limits. Spinal canal/Neural Foramina: No evidence of high-grade spinal canal stenosis although the spinal can al is suboptimally evaluated due to metallic streak artifact. Neck soft tissues: Prevertebral soft tissues are within normal limits. Other: The airway is patent. The lung apices are clear. Calcified atherosclerotic disease of the titus tid arteries. Stent graft in the right carotid. IMPRESSION: 1. No acute intracranial process. 2. No acute fracture or traumatic subluxation. No evidence of acute hardware failure. [facility], , 09/13/2024 2:10 PM
--- NOTE | 2024-09-13 14:18 | ED ---
Fall HPI - General Source: patient, RN notes reviewed Mode of arrival: wheelchair <Evita Turk - Last Filed: 09/13/24 14:17> - General Source: patient, RN notes reviewed Mode of arrival: wheelchair Limitations: no limitations - History of Present Illness MD Complaint: fall Onset/Timin -: hour(s) Time: 12:45 Fall From: standing When Fall Occurred: [address] Fall Occurred: home Loss of Consciousness: none Prolonged Down Time?: no Symptoms Prior to Fall: none Location: head, pelvis Location - Extremities: Right: Leg Severity scale (1-10): 5 Context: tripped/slipped <Ramana Liz - Last Filed: 09/15/24 13:10> - General Chief Complaint: Fall Stated Complaint: fell R leg and elbow injury on thinners Time Seen by Provider: 09/13/24 13:50 - History of Present Illness Initial Comments: Quick [id number] female presents emergency department after a fall that occurred at home. Patient that she was walking her base when she tripped on rug causing her to fall backwards. Patient states that she hit the back of her head however denies loss conscious. Currently complaining of pain to her lower back and anterior right tabor with mild bleeding. Last tetanus vaccine within the last 5 years (Evita Turk) This is an 84-year-old female with history of right THR, RA and spinal fusion presenting for trip and fall at home at 1245 today. Patient states she slipped on a rug, falling backwards onto a concrete surface, striking her posterior head and injuring her right gluteus (5/10) and right anterior tabor. Patient denies loss of consciousness, neck pain, other injury. Endorses use of Xarelto. States tetanus vaccination is up-to-date. Denies headache, dizziness, vision changes, lethargy, nausea/vomiting. (Ramana Liz) - Related Data Home Medications Medication Instructions Recorded Confirmed Folic Acid 1 mg PO DAILY 09/09/13 05/06/24 metHOTREXate sodium [Methotrexate] 15 mg PO WE 04/07/19 05/06/24 Ferrous Sulfate [Iron (65 MG 325 mg PO DIRECTED 09/21/22 05/06/24 Elemental)] Atorvastatin [Lipitor] 20 mg PO DAILY 08/27/23 05/06/24 Orencia 500mg Infusion 500 mg IV Q28D 08/27/23 05/06/24 Amiodarone [Cordarone] 200 mg PO Q48H 05/06/24 05/06/24 Calcium Carb/Mag Ox/Zinc Sulf 3 tab PO DAILY 05/06/24 05/06/24 [[id number] 334-134-5 mg Tab] Cholecalciferol [Vitamin D3 (25 25 mcg PO DAILY 05/06/24 05/06/24 Mcg = 1000 Iu)] Doxycycline Hyclate 100 mg PO BID 05/06/24 05/06/24 Metoprolol Tartrate [Lopressor] 25 mg PO DAILY 05/06/24 05/06/24 Rivaroxaban [Xarelto] 15 mg PO DAILY 05/06/24 05/06/24 amLODIPine [Norvasc] 5 mg PO DAILY 05/06/24 05/06/24 Previous Rx's Medication Instructions Recorded HYDROcodone/APAP 5-325MG [Dennis 1 tab PO Q6HR PRN 3 Days #12 tab 09/05/24 5-325] Lidocaine 5% Patch [Lidoderm 5% 1 patch TOPICAL DAILY PRN #30 patch 09/05/24 Patch] methocarbamoL [Robaxin] 1,000 mg PO QID PRN #30 tab 09/05/24 predniSONE 50 mg PO DAILY 5 Days #5 tab 09/05/24 Allergies Allergy/AdvReac Type Severity Reaction Status Date / Time codeine AdvReac Vomiting Verified 09/05/24 10:10 tramadol AdvReac Vomiting Verified 09/05/24 10:10 Review of Systems ROS Other: All systems not noted in ROS Statement are negative. <Evita Turk - Last Filed: 09/13/24 14:17> ROS Other: All systems not noted in ROS Statement are negative. <Ramana Liz - Last Filed: 09/15/24 13:10> ROS Statement: Those systems with pertinent positive or pertinent negative responses have been documented in the HPI. Past Medical History Past Medical History: Atrial Flutter, Deep Vein Thrombosis (DVT), Hyperlipidemia, Hypertension, Rheumatoid Arthritis (RA) Additional Past Medical History / Comment(s): SEPTIC SHOCK POST KIDNEY STONE, varicose veins, History of Any Multi-Drug Resistant Organisms: None Reported Date of last positivie culture/infection: 2017 MDRO Source:: kidney stone Past Surgical History: Back Surgery, Cholecystectomy, Hysterectomy, Joint Replacement, Orthopedic Surgery Additional Past Surgical History / Comment(s): vein surgery rt leg, sara carpal tunnel, joints removed from feet, rt hand replacement of knuckle, rotator cuff sara shoulders, rt elbow replaced, rt shoulder fx, reverse rotator cuff repair rt shoulder, surgery 11/02/15- rt hip fx, repeat right hip surgery (fall 2016) Past Anesthesia/Blood Transfusion Reactions: Postoperative Nausea & Vomiting (PONV) Additional Past Anesthesia/Blood Transfusion Reaction / Comment(s): no hx blood transfusion Past Psychological History: No Psychological Hx Reported Smoking Status: Former smoker Past Alcohol Use History: None Reported Past Drug Use History: None Reported - Past Family History Mother Family Medical History: No Reported History Father Family Medical History: Cancer <Evita Turk - Last Filed: 09/13/24 14:17> General Exam Limitations: no limitations <Evita Turk - Last Filed: 09/13/24 14:17> Limitations: no limitations General appearance: alert, in no apparent distress Head exam: Present: atraumatic (No obvious contusion, hematoma, depression noted to posterior scalp/skull.), normocephalic, normal inspection, other (Negative lau signs) Eye exam: Present: normal appearance, PERRL, EOMI, other (Negative raccoon eyes). Absent: scleral icterus, conjunctival injection, periorbital swelling ENT exam: Present: normal exam, mucous membranes moist, TM's normal bilaterally (Negative hemotympanum) Neck exam: Present: normal inspection. Absent: tenderness, meningismus, lymphadenopathy Respiratory exam: Present: normal lung sounds bilaterally. Absent: respiratory distress, wheezes, rales, rhonchi, stridor, chest wall tenderness, accessory muscle use, decreased breath sounds, prolonged expiratory Cardiovascular Exam: Present: regular rate, normal rhythm, normal heart sounds. Absent: systolic murmur, diastolic murmur, rubs, gallop, clicks GI/Abdominal exam: Present: soft, normal bowel sounds. Absent: distended, tenderness, guarding, rebound, rigid Extremities exam: Present: full ROM, tenderness (Positive mild tenderness to right gluteus/hip without pelvic instability.), normal capillary refill, other (Positive superficial abrasion noted to right anterior tabor without bleeding, foreign body, crepitus, deformity.). Absent: pedal edema, joint swelling, calf tenderness Back exam: Present: normal inspection. Absent: paraspinal tenderness, vertebral tenderness Neurological exam: Present: alert, oriented X3, CN II-XII intact Psychiatric exam: Present: normal affect, normal mood Skin exam: Present: warm, dry, intact, normal color. Absent: rash <Ramana Liz - Last Filed: 09/15/24 13:10> - General Exam Comments Initial Comments: Visual Physical Exam Vital signs reviewed General: Well-appearing, nontoxic, no acute distress. Head: Normocephalic, atraumatic Eyes: PERRLA, EOMI ENT: Airway patent Chest: Nonlabored breathing Skin: No visual rash, normal skin tone Neuro: Alert and oriented 3 Musculoskeletal: No gross abnormalities (Evita Turk) Course Vital Signs 09/13/24 09/13/24 09/13/24 13:41 15:22 16:22 Temperature 97.5 F L Pulse Rate 52 L 53 L Respiratory 20 18 Rate Blood Pressure 179/72 203/67 190/63 O2 Sat by Pulse 98 96 Oximetry 09/13/24 16:45 Temperature Pulse Rate 50 L Respiratory 18 Rate Blood Pressure 189/67 O2 Sat by Pulse 99 Oximetry Medical Decision Making <Evita Turk - Last Filed: 09/13/24 14:17> <Ramana Liz - Last Filed: 09/15/24 13:10> - Medical Decision Making I completed the quick note portion of this chart signed Evita Turk PA-C (Evita Turk) Was pt. sent in by a medical professional or institution ([facility], AIRLINE LOUNGE RECEPTIONIST, urgent care, hospital, or fpc...) When possible be specific @ -No Did you speak to anyone other than the patient for history (EMS, parent, family, police, friend...)? What history was obtained from this source @ -Family provided portion of HPI Did you review nursing and triage notes (agree or disagree)? Why? @ -I reviewed and agree with nursing and triage notes Were old charts reviewed (outside hosp., previous admission, EMS record, old EKG, old radiological studies, urgent care reports/EKG's, fpc records)? Report findings @ -No old charts were reviewed Differential Diagnosis (chest pain, altered mental status, abdominal pain women, abdominal pain men, vaginal bleeding, weakness, fever, dyspnea, syncope, headache, dizziness, GI bleed, back pain, seizure, CVA, palpatations, mental health, musculoskeletal)? @ -Differential Musculoskeletal Muscular strain, contusion, ligament sprain, fracture, arthritis, septic arthritis, bursitis, cellulitis, muscle spasm, nerve compression, DVT, arterial occlusion, herpes zoster, electrolyte abnormality, tumor.... This is not meant to be in all inclusive list EKG interpreted by me (3pts min.). @ -Not done X-rays interpreted by me (1pt min.). @ -Sacrum/coccyx x-ray shows no acute fracture or dislocation with posterior fusion hardware appearing intact. Partially visualized right hip arthroplasty also noted. CT interpreted by me (1pt min.). @ -Head/cervical spine CT shows no acute intracranial process or acute fracture or subluxation of cervical spine. No evidence of acute hardware failure. U/S interpreted by me (1pt. min.). @ -None done What testing was considered but not performed or refused? (CT, X-rays, U/S, labs)? Why? @ -None What meds were considered but not given or refused? Why? @ -None Did you discuss the management of the patient with other professionals (professionals i.e. , PA, AIRLINE LOUNGE RECEPTIONIST, lab, RT, psych nurse, clinical social worker, plate cleaner, teacher, staff air tactical officer, pillowcase turner)? Give summary @ -No Was smoking cessation discussed for >3mins.? @ -No Was critical care preformed (if so, how long)? @ -No Were there social determinants of health that impacted care today? How? (Homelessness, low income, unemployed, alcoholism, drug addiction, tra nsportation, low edu. Level, literacy, decrease access to med. care, halfway, rehab)? @ -No Was there de-escalation of care discussed even if they declined (Discuss DNR or withdrawal of care, Hospice)? DNR status @ -No What co-morbidities impacted this encounter? (DM, HTN, Smoking, COPD, CAD, Cancer, CVA, ARF, Chemo, Hep., AIDS, mental health diagnosis, sleep apnea, morbid obesity)? @ -None Was patient admitted / discharged? Hospital course, mention meds given and route, prescriptions, significant lab abnormalities, going to OR and other pertinent info. @ -Head/cervical spine CT shows no acute intracranial process or acute fracture or subluxation of cervical spine. No evidence of acute hardware failure. Sacrum/coccyx x-ray shows no acute fracture or dislocation with posterior fusion hardware appearing intact. Partially visualized right hip arthroplasty also noted. Patient declined p.o. Tylenol for pain. Right tabor wound care performed with nurse. Advised to return to ER if experiencing worsening headache, dizziness, vision changes, AMS, altered level of consciousness, nausea/vomiting. Tylenol every 4 hours for pain as well as RICE. Follow-up with PCP/orthopedics for any ongoing symptoms. Discussed patient with Dr. Betancourt. Undiagnosed new problem with uncertain prognosis? @ -No Drug Therapy requiring intensive monitoring for toxicity (Heparin, Nitro, Insulin, Cardizem)? @ -No Were any procedures done? @ -No Diagnosis/symptom? @ -Concussion without loss of consciousness, fall right tabor abrasion Acute, or Chronic, or Acute on Chronic? @ -Acute Uncomplicated (without systemic symptoms) or Complicated (systemic symptoms)? @ -Uncomplicated Side effects of treatment? @ -No Exacerbation, Progression, or Severe Exacerbation? @ -No Poses a threat to life or bodily function? How? (Chest pain, [place], [place], pneumonia, PE, COPD, DKA, ARF, appy, cholecystitis, CVA, Diverticulitis, Homicidal, Suicidal, threat to staff... and all critical care pts) @ -No (Ramana Liz) Disposition <Evita Turk - Last Filed: 09/13/24 14:17> Is patient prescribed a controlled substance at d/c from ED?: No Time of Disposition: 15:21 <Ramana Liz - Last Filed: 09/15/24 13:10> Clinical Impression: Fall, Concussion without loss of consciousness, Abrasion of right lower leg Disposition: HOME SELF-CARE Condition: Fair Instructions (If sedation given, give patient instructions): Fall Prevention for Older Adults (ED), Acute Wounds (ED) Additional Instructions: Return to the ER/call 9 1 if experiencing worsening headache, dizziness, vision changes, altered mental status, altered level of consciousness, nausea/vomiting. Follow-up with primary care in the next 24-48 hours. Referrals: Colleen Bartlett MD [Primary Care Provider] - 1-2 days
--- NOTE | 2024-09-13 15:08 | XR ---
EXAMINATION TYPE: XR sacrum coccyx DATE OF EXAM: 09/13/2024 2:49 PM COMPARISON: Right hip radiograph 11/01/2015. CLINICAL INDICATION: Female, 84 years old with history of fall, pain; PHH, pain TECHNIQUE: XR sacrum coccyx, examined in frontal and lateral projections. FINDINGS: Posterior fusion hardware spanning L3-L5 without acute periprosthetic lucency. Partially vi sualized right hip arthroplasty. No definite acute fracture or dislocation. IMPRESSION: No acute osseous pathology. [facility], , 09/13/2024 3:05 PM
[2024-09-13 15:23] VITALS: RESP 18
[2024-09-13 16:46] VITALS: BP 189/67; PULSE 50
== END 2024-09-13 16:46 | disposition home or self-care (01) ==
LOC: EC 13:34
DX: S06.0X0A Concussion without loss of consciousness, initial encounter (principal); S80.811A Abrasion, right lower leg, initial encounter; Z87.891 Personal history of nicotine dependence; Z88.5 Allergy status to narcotic agent; Z88.8 Allergy status to other drugs, medicaments and biological substances; R40.2410 Glasgow coma scale score 13-15, unspecified time; W01.0XXA Fall on same level from slipping, tripping and stumbling without subsequent striking against object, initial encounter; Y92.009 Unspecified place in unspecified non-institutional (private) residence as the place of occurrence of the external cause
CPT/HCPCS: 70450; 72125; 72220; 99284